=== PATIENT | male | born 1990 | race African-American/Black ===

== ENCOUNTER 2020-08-20 20:07 | Emergency (ER) | payer OTHER, SELFPAY ==
[2020-08-20 20:17] VITALS: BP 122/87; PULSE 90; RESP 18; TEMP 35.5; O2SAT 98; BMI 30.4
--- NOTE | 2020-08-20 22:23 | ED_ITS ---
HPI - URI/Sore Throat General Chief Complaint: General Medical Stated Complaint: SINUS Time Seen by Provider: 08/20/20 22:22 Source: patient Mode of arrival: ambulatory Limitations: no limitations History of Present Illness HPI Narrative: patient complaining sinus congestion for last 2 days no fever or cough or shortness of breath Related Data Previous Rx's Medication Instructions Recorded amoxicillin 500 mg PO QID #20 cap 08/20/20 amoxicillin 500 mg PO QID #40 cap 08/20/20 Allergies Allergy/AdvReac Type Severity Reaction Status Date / Time lorazepam [From Ativan] Allergy Unknown Verified 08/20/20 22:26 Review of Systems Review of Systems: REVIEW OF SYSTEMS: Pertinent positives and negatives are stated above in the history. GEN: no fevers, chills, fatigue HEENT: no sore throat, ear pain NEURO: no headache, dizziness, focal weakness PULM: no cough, shortness of breath CV: no chest pain, palpitations, LE edema ABD: no abdominal pain, nausea, vomiting, diarrhea : no dysuria, urgency, frequency SKIN: no rash ROS otherwise negative x 10 [facility] Past Medical History Medical History Acquired cognitive dysfunction Seizure disorder Social History Social History Alcohol intake: never Smoked in Last 30 Days: No Use of substances other than those prescribed or required for medical reasons: No Advance Directives: No Advance Directives Information Provided: Yes Physical Exam Vital Signs and I&O and Narrative: Vital Signs and I&O: Vital Signs Temp 95.9 F L 08/20/20 20:17 Pulse 90 08/20/20 20:17 Resp 18 08/20/20 20:17 BP 122/87 08/20/20 20:17 Pulse Ox 98 08/20/20 20:17 Intake & Output 08/20/20 08/20/20 08/21/20 06:59 18:59 06:59 Weight 68.492 kg Body Mass Index 30.4 Appearance: Alert. Oriented X3. No acute distress. Eyes: Pupils equal, round and reactive to light. ENT: Pharynx normal nasal turbinate with inflammation and clear discharge slight maxillary tenderness bilateral Neck: Normal inspection. Neck supple. CVS: Normal heart rate and rhythm. Pulses normal. Respiratory: No respiratory distress. Breath sounds normal. Abdomen: Soft and nontender. Skin: Skin warm and dry. Normal skin color. Normal skin turgor. Extremities: No lower extremity edema. No lower extremity edema. Neuro: Oriented X 3. No motor deficit. No sensory deficit. Course Course Course Narrative: patient with mild sinusitis lungs are clear afebrile will discharge him on amoxicillin no family member is sick with COVID infection Discharge Plan Discharge Clinical Impression: Sinusitis Patient Disposition: Home, Self-Care Instructions: Sinusitis (ED) Additional Instructions: take antibiotic as prescribed autumn antibi?ticos seg?n lo prescrito Prescriptions: New amoxicillin 500 mg capsule 500 mg PO QID Qty: 20 RF: 0 amoxicillin 500 mg capsule 500 mg PO QID Qty: 40 RF: 0 Interventions: ED Discharge Assessment Last Done: 08/20/20 23:12 Discharge Date/Time: 08/20/20 22:45 Print Language: Grenadian
[2020-08-20] MEDS: Amoxicillin 500 MG CAPSULE PO (22:41)
== END 2020-08-20 22:45 | disposition home or self-care (01) ==
PROVIDERS: Emergency Provider Internal Medicine; PCP Internal Medicine
DX: J01.90 Acute sinusitis, unspecified (principal)
CPT/HCPCS: 99283; 99284

== ENCOUNTER 2020-09-30 18:26 | Emergency (ER) | payer OTHER, SELFPAY ==
--- NOTE | 2020-09-30 19:45 | ED.URI ---
HPI - URI/Sore Throat General Chief Complaint: Upper Respiratory Symptoms Stated Complaint: flu like Time Seen by Provider: 09/30/20 19:44 Source: patient Mode of arrival: ambulatory Limitations: language barrier History of Present Illness HPI Narrative: 30 y/o male with history of seizures, cognitive delay, recent sinusitis who presents with body aches and sore throat for the last 6-7 days. No known sick contacts. No one at home is ill. Mother reports he his still having yellow nasal discharge and congestion. He has sinus pressure and pain. No fever or chill at home. Related Data Previous Rx's Medication Instructions Recorded amoxicillin 500 mg PO QID #20 cap 08/20/20 amoxicillin 500 mg PO QID #40 cap 08/20/20 amoxicillin-pot clavulanate 1 tab PO Q12H #20 tab 09/30/20 [Augmentin] triamcinolone acetonide [Nasacort] 1 spray INTRANASAL DAILY #16.9 ml 09/30/20 Allergies Allergy/AdvReac Type Severity Reaction Status Date / Time lorazepam [From Ativan] Allergy Unknown Verified 08/20/20 22:26 Review of Systems Review of Systems: Constitutional: No Fever, No Chills ENT/Mouth: + sore throat, + Rhinorrhea, + Swallowing Difficulty Eyes: No Eye Pain, No Swelling, No Redness Cardiovascular: No Chest Pain, No SOB, No Orthopnea, No Edema Respiratory: + Cough, No Sputum, No Wheezing, No dyspnea Gastrointestinal: No Nausea, No Vomiting, No Diarrhea, No abdominal Pain Musculoskeletal: No joint pain, + Myalgias Neuro: No Weakness, No Numbness, No Dizziness, + Headache PMFSH Past Medical History Attestation statement: The following information was validated with the patient. Medical History Acquired cognitive dysfunction Seizure disorder Social History Social History Alcohol intake: never Advance Directives: No Advance Directives Information Provided: No Physical Exam Vital Signs: Vital Signs: Last Vital Signs Temp 98.4 F 09/30/20 19:49 Pulse 93 09/30/20 19:49 Resp 18 09/30/20 19:49 BP 118/68 09/30/20 19:49 Pulse Ox 98 09/30/20 19:49 Body Mass Index 25.7 Appearance: Alert. No acute distress. Eyes: Pupils equal, round and reactive to light. ENT: tonsillar enlargement without erythema or exudates. frontal sinus tenderness. yellow nasal discharge Neck: Normal inspection. Neck supple. CVS: Normal heart rate and rhythm. Pulses normal. Respiratory: No respiratory distress. Breath sounds normal. Skin: Skin warm and dry. Normal skin color. Normal skin turgor. No rashes. Extremities: No lower extremity edema. Neuro: Oriented X 3. congitive delay Course Course Course Narrative: 30 y/o presenting with headache, sore throat, body ache and yellow nasal discharge. Strep test negative. COVID, Flu and RSV negative as well. He is afebrile and non-toxic appearing. Will treat for recurrent sinusitis. Stable for discharge. MDM - URI/Sore Throat Lab Data Labs: Lab Results 09/30/20 Range/Units 20:23 Coronavirus (PCR) NEGATIVE (Negative) Influenza Type A (PCR) NEGATIVE (Negative) Influenza Type B (PCR) NEGATIVE (Negative) RSV RNA Qual (PCR) NEGATIVE (Negative) Critical Care Time Critical Care Time Critical Care Time: No Discharge Plan Discharge Clinical Impression: Sinusitis Qualifiers: Sinusitis location: frontal Chronicity: acute Recurrence: recurrent Qualified Code(s): J01.11 - Acute recurrent frontal sinusitis Patient Disposition: Home, Self-Care Instructions: Rhinosinusitis (ED) Prescriptions: New amoxicillin-pot clavulanate [Augmentin] 875-125 mg tablet 1 tab PO Q12H Qty: 20 RF: 0 triamcinolone acetonide [Nasacort] 55 mcg aerosol,spray 1 spray intranasal DAILY Qty: 16.9 RF: 0 No Action amoxicillin 500 mg capsule 500 mg PO QID Qty: 20 RF: 0 amoxicillin 500 mg capsule 500 mg PO QID Qty: 40 RF: 0
[2020-09-30 19:49] VITALS: BP 118/68; PULSE 93; RESP 18; TEMP 36.9; O2SAT 98; BMI 25.7
[2020-09-30 21:10] LABS: Influenza A PCR NEGATIVE (Negative); Influenza B PCR NEGATIVE (Negative); Resp Syncy Virus RNA Qual PCR NEGATIVE (Negative); SARS COV2 PCR INHOUSE NEGATIVE (Negative)
== END 2020-09-30 22:09 | disposition home or self-care (01) ==
PROVIDERS: Physician Assistant; Emergency Provider Internal Medicine; PCP Internal Medicine
DX: J01.11 Acute recurrent frontal sinusitis (principal); M79.10 Myalgia, unspecified site; Z79.899 Other long term (current) drug therapy; Z20.828 Contact with and (suspected) exposure to other viral communicable diseases
CPT/HCPCS: 0241U; 87071; 87147; 87880; 99283

== ENCOUNTER 2020-10-01 10:51 | Emergency (ER) | payer OTHER, SELFPAY ==
[2020-10-01 11:25] VITALS: PULSE 99; RESP 18; TEMP 36.9; O2SAT 98; BMI 26.7
--- NOTE | 2020-10-01 12:16 | ED.GENADULT ---
HPI - General Adult General Chief complaint: General Medical <JUANCARLOS Bhat Last Filed: 10/01/20 16:26> Stated complaint: BODY PAIN <JUANCARLOS Bhat Last Filed: 10/01/20 16:26> Time Seen by Provider: 10/01/20 12:16 <JUANCARLOS Bhat Last Filed: 10/01/20 16:26> History of Present Illness HPI narrative: Patient is here for body aches and sore throat and feeling fatigued, this is been going on for 3 days and he was here yesterday and felt some improvement with Motrin but has not taken the Motrin again, he is able to tolerate liquids and solids he has no chest pain no shortness of breath no abdominal pain no fever no vomiting no known diarrhea This is gone on for 3 days and symptoms are mild <JUANCARLOS Bhat Last Filed: 10/01/20 16:26> Related Data Home medications: Previous Rx's Medication Instructions Recorded amoxicillin 500 mg PO QID #20 cap 08/20/20 amoxicillin 500 mg PO QID #40 cap 08/20/20 amoxicillin-pot clavulanate 1 tab PO Q12H #20 tab 09/30/20 [Augmentin] triamcinolone acetonide [Nasacort] 1 spray INTRANASAL DAILY #16.9 ml 09/30/20 ibuprofen 600 mg PO Q6H PRN #20 tab 10/01/20 <JUANCARLOS Bhat Last Filed: 10/01/20 16:26> Allergies/adverse reactions: Allergies Allergy/AdvReac Type Severity Reaction Status Date / Time lorazepam [From Ativan] Allergy Unknown Verified 08/20/20 22:26 <JUANCARLOS Bhat Last Filed: 10/01/20 16:26> Review of Systems Review of Systems: Review of systems is positive for sore throat, body aches There is no headache there is no fever or chills there is no weakness there is no chest pain no shortness of breath no palpitations, there is no abdominal pain no problem with urination, no pain with urination, no nausea vomiting or diarrhea, there is no skin rash, there is no leg swelling <JUANCARLOS Bhat Last Filed: 10/01/20 16:26> [facility] Past Medical History Source: nursing notes reviewed <JUANCARLOS Bhat Last Filed: 10/01/20 16:26> Medical History: Medical History Acquired cognitive dysfunction Seizure disorder <JUANCARLOS Bhat - Last Filed: 10/01/20 16:26> Social History Social History: Social History Alcohol intake: never Advance Directives: No Advance Directives Information Provided: Yes <JUANCARLOS Bhat - Last Filed: 10/01/20 16:26> Physical Exam Vital Signs: Vital Signs: Last Vital Signs Temp 98.4 F 10/01/20 11:25 Pulse 99 10/01/20 11:25 Resp 18 10/01/20 11:25 Pulse Ox 98 10/01/20 11:25 Body Mass Index 26.7 <JUANCARLOS Bhat - Last Filed: 10/01/20 16:26> Vital Signs: Last Vital Signs Temp 98.4 F 10/01/20 11:25 Pulse 99 10/01/20 11:25 Resp 18 10/01/20 11:25 Pulse Ox 98 10/01/20 11:25 Body Mass Index 26.7 <Panfilo Woodall MD - Last Filed: 10/07/20 07:32> Patient is A&O x3 comfortable and cooperative The eyes are clear with no redness or discharge The pharynx is mildly erythematous, with symmetrical bilateral enlarged tonsils, no exudate, uvula is midline, voice is normal, no drooling This neck is supple without adenopathy Chest clear to auscultation bilaterally The heart no murmur The abdomen is soft nontender The skin no rash Neuro no focal deficit <JUANCARLOS Bhat - Last Filed: 10/01/20 16:26> Course Course Course Narrative: Patient is treated for discomfort but is otherwise well-appearing and is discharged home with 1 dose of prednisone for his throat and Motrin for the body aches COVID was negative yesterday and patient was prescribed amoxicillin for pharyngitis yesterday <JUANCARLOS Bhat - Last Filed: 10/01/20 16:26> I have reviewed the chart <Panfilo Woodall MD - Last Filed: 10/07/20 07:32> Discharge Plan Discharge Clinical Impression: Acute viral syndrome <JUANCARLOS Bhat Last Filed: 10/01/20 16:26> Patient Disposition: Home, Self-Care <JUANCARLOS Bhat Last Filed: 10/01/20 16:26> Additional Instructions: We gave a dose of prednisone here in the emergency room which often relieves discomfort from sore throat pain At home take Motrin and Tylenol as needed for the body aches Drink plenty of fluids Return any time any worse condition or any concerns COVID test from yesterday and rapid strep test are both negative <JUANCARLOS Bhat Last Filed: 10/01/20 16:26> Prescriptions: New ibuprofen 600 mg tablet 600 mg PO Q6H PRN (Reason: fever or pain) Qty: 20 RF: 0 No Action amoxicillin-pot clavulanate [Augmentin] 875-125 mg tablet 1 tab PO Q12H Qty: 20 RF: 0 triamcinolone acetonide [Nasacort] 55 mcg aerosol,spray 1 spray intranasal DAILY Qty: 16.9 RF: 0 amoxicillin 500 mg capsule 500 mg PO QID Qty: 20 RF: 0 amoxicillin 500 mg capsule 500 mg PO QID Qty: 40 RF: 0 <JUANCARLOS Bhat - Last Filed: 10/01/20 16:26> Interventions: ED Discharge Assessment Last Done: 10/01/20 12:46 <JUANCARLOS Bhat Last Filed: 10/01/20 16:26> Discharge Date/Time: 10/01/20 12:47 <JUANCARLOS Bhat Last Filed: 10/01/20 16:26> Print Language: [place] Citizen <JUANCARLOS Bhat Last Filed: 10/01/20 16:26>
[2020-10-01] MEDS: Ibuprofen 600 MG TABLET PO (12:38)
[2020-10-01] MEDS: predniSONE 20 MG TABLET 60 MG PO (12:38)
== END 2020-10-01 12:47 | disposition home or self-care (01) ==
PROVIDERS: Emergency Provider Emergency Medicine
DX: B34.9 Viral infection, unspecified (principal); M79.10 Myalgia, unspecified site; Z79.899 Other long term (current) drug therapy
CPT/HCPCS: 99283

== ENCOUNTER 2020-10-29 17:41 | Emergency (ER) | payer OTHER, SELFPAY ==
--- NOTE | 2020-10-29 | XR_ITS ---
EXAMINATION: XR CHEST CLINICAL INFORMATION: Question aspiration COMPARISON: None TECHNIQUE: 2 views of the chest were obtained. FINDINGS: Cardiac silhouette is normal in size. Lungs are well aerated. There is no lobar consolidation. No pleural effusion or pneumothorax. No acute osseous abnormality. XR/XR chest 2V IMPRESSION: No acute pulmonary pathology.
[2020-10-29 17:47] VITALS: BP 100/64; PULSE 99; RESP 18; TEMP 37.1; O2SAT 95; BMI 30.4
--- NOTE | 2020-10-29 17:59 | PC.NURSE ---
per mother, she only wants pt to have xray, thinks he aspirated during pesudo seizure today. order placed.
--- NOTE | 2020-10-29 18:15 | PC.NURSE ---
PT ALERT, AMBULATORY WITH STEADY GAIT. NO RESP DISTRESS. PT HAS MOM AT BESIDE SHE IS HIS GUARDIAN. PER MOM PT HAD A SEIZURE LAST NIGHT WHICH WAS NORMAL FOR PT BUT HE VOMITED AFTER THE SEIZURE AND ALSO HIT HIS HEAD SMALL BUMP TO TOP OF HEAD TO RIGHT SIDE. MOM STATES THAT THEY ARE FLYING TOMORROW TO [place] AND WANT TO KNOW HE IS SAFE TO FLY.
--- NOTE | 2020-10-29 18:22 | ED_ITS ---
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 Mother reports he vomited during the episode and she was concerned that he possibly aspirated some vomitus. She states he has frequent seizures despite being on Keppra, Vimpat and Lamictal. She states his seizures are pseudoseizures but he has not had his [place] [facility] with his Neurologist at [facility]. She denies post ictal state after the episode today. No fever, chills, cough, urinary symptoms. He has persistent sinusitis and has not taken the prescribed antibiotics from his previous visit here on 10/01. Patient denies cough, SOB, wheezing, or difficulty breathing after the possible aspiration event. Related Data Previous Rx's Medication Instructions Recorded amoxicillin 500 mg PO QID #20 cap 08/20/20 amoxicillin 500 mg PO QID #40 cap 08/20/20 amoxicillin-pot clavulanate 1 tab PO Q12H #20 tab 09/30/20 [Augmentin] triamcinolone acetonide [Nasacort] 1 spray INTRANASAL DAILY #16.9 ml 09/30/20 ibuprofen 600 mg PO Q6H PRN #20 tab 10/01/20 Allergies Allergy/AdvReac Type Severity Reaction Status Date / Time lorazepam [From Ativan] Allergy Unknown Verified 08/20/20 22:26 Review of Systems Review of Systems: Constitutional: No Fever, No Chills ENT/Mouth: No sore throat, No Rhinorrhea, No Swallowing Difficulty Eyes: No Eye Pain, No Swelling, No Redness Cardiovascular: No Chest Pain, No SOB, No Orthopnea, No Edema Respiratory: No Cough, No Sputum, No Wheezing, No dyspnea Gastrointestinal: No Nausea, No Vomiting, No Diarrhea, No abdominal Pain, No Hematochezia, No Melena Genitourinary: No Dysuria, No Urinary Frequency, No Hematuria Musculoskeletal: No joint pain, No Myalgias Skin: No Skin Lesions, No rash Neuro: No Weakness, No Numbness, No Dizziness, No Headache, +Seizures Psych: No Anxiety/Panic, No Depression Heme/Lymph: No Bruising, No Lymphadenopathy Endocrine: No Polyuria, No Polydipsia PMFSH Past Medical History Medical History Acquired cognitive dysfunction Seizure disorder Social History Social History Alcohol intake: never Smoked in Last 30 Days: No Advance Directives: No Advance Directives Information Provided: Yes Physical Exam Vital Signs: Vital Signs: Last Vital Signs Temp 98.7 F 10/29/20 17:47 Pulse 99 10/29/20 17:47 Resp 18 10/29/20 17:47 BP 100/64 10/29/20 17:47 Pulse Ox 95 10/29/20 17:47 Body Mass Index 30.4 Appearance: Alert. Oriented X3. No acute distress. Eyes: Pupils equal, round and reactive to light. ENT: Pharynx normal. Neck: Normal inspection. Neck supple. CVS: Normal heart rate and rhythm. Pulses normal. Respiratory: No respiratory distress. Breath sounds normal. Abdomen: Soft and nontender. +BS x4 Skin: Skin warm and dry. Normal skin color. Normal skin turgor. No rashes. Extremities: No lower extremity edema. Neuro: Oriented X 3. No motor deficit. No sensory deficit. Cognitive delay noted. Course Course Course Narrative: 30 y/o male presenting with vomiting episode after pseudoseizure event today. Mother would like him evaluated prior to leaving for [place] tomorrow morning. On arrival he is saturating 95% on RA, no difficulty breathing or SOB. CXR performed. Reevaluation(s) Reevaluation #1: CXR reviewed - no local consolidation seen. SpO2 97% and lung sounds are clear. Mother educated on aspiration pneumonitis vs aspiration pneumonia and signs and symptoms to look for while in [place]. Stable for d/c. Plan to continue to take previously prescribed Augmentin. Critical Care Time Critical Care Time Critical Care Time: No Discharge Plan Discharge Clinical Impression: Aspiration pneumonitis Patient Disposition: Home, Self-Care Instructions: Pneumonitis (ED), Aspiration Precautions (ED) Additional Instructions: Chest x-ray today did not show any evidence of pneumonia. After an aspiration event, it can take a few days for a pneumonia to develop. Recommend start taking the previously prescribed Augmentin to help prevent pneumonia. Monitor for fever, cough, respiratory distress and difficulty breathing. Seek medical attention if he develops these symptoms. Recommend follow up with Neurologist for further evaluation of ongoing seizures. Prescriptions: No Action amoxicillin-pot clavulanate [Augmentin] 875-125 mg tablet 1 tab PO Q12H Qty: 20 RF: 0 triamcinolone acetonide [Nasacort] 55 mcg aerosol,spray 1 spray intranasal DAILY Qty: 16.9 RF: 0 ibuprofen 600 mg tablet 600 mg PO Q6H PRN (Reason: fever or pain) Qty: 20 RF: 0 amoxicillin 500 mg capsule 500 mg PO QID Qty: 20 RF: 0 amoxicillin 500 mg capsule 500 mg PO QID Qty: 40 RF: 0 Referrals: Fernando Grande MD [Physician] - 1 week (seizure vs pseudoseizures ) Print Language: Egyptian
== END 2020-10-29 19:02 | disposition home or self-care (01) ==
PROVIDERS: Emergency Provider Internal Medicine
DX: J69.0 Pneumonitis due to inhalation of food and vomit (principal); Z79.899 Other long term (current) drug therapy
CPT/HCPCS: 71046; 99283; 99284

== ENCOUNTER 2020-12-16 12:55 | Emergency (ER) | payer OTHER, SELFPAY | END 2020-12-16 13:54 | disposition left against medical advice (07) | PROVIDERS: Emergency Provider Emergency Medicine | DX: Z20.822 Contact with and (suspected) exposure to COVID-19 (principal) ==

== ENCOUNTER 2021-02-18 18:14 | Emergency (ER) | payer OTHER, SELFPAY | END 2021-02-18 19:36 | disposition left against medical advice (07) | PROVIDERS: Emergency Provider Emergency Medicine | DX: M79.603 Pain in arm, unspecified (principal) ==

== ENCOUNTER 2021-03-06 21:39 | Emergency (ER) | payer OTHER, SELFPAY ==
[2021-03-06 21:49] VITALS: BP 130/68; PULSE 92; RESP 16; TEMP 36.6; O2SAT 98; BMI 30.4
--- NOTE | 2021-03-06 22:35 | PC.NURSE ---
FAMILY MEMBER WAS ASKING HOW LONG IT IS GOING TO BE BECAUSE THEY HAVE TO FLY TONIGHT. THIS NURSE TOLD FAMILY MEMBER THAT IT COULD TAKE A WHILE BUT THAT I WOULD LET THE PROVIDER KNOW. CITLALY HEREDIA AWARE.
--- NOTE | 2021-03-06 22:46 | PC.NURSE ---
FAMILY MEMBER ASKING TO RIG HAND BECAUSE THEY HAVE TO LEAVE TO CATCH A FLIGHT IN [place] AT 2AM. VIVEK [employer]LE[employer] NURSE TALKING WITH FAMILY MEMBER.
[2021-03-06] MEDS: Lidocaine 4 % Patch ADH..PATCH 1 PATCH TRANSDERMA (23:11)
--- NOTE | 2021-03-06 23:11 | ED.EXTPRO ---
HPI - Extremity Problem General Chief complaint: Extremity Injury, Upper Stated complaint: Shoulder pain Time Seen by Provider: 03/06/21 22:56 Source: patient and family (Mother) Mode of arrival: ambulatory History of Present Illness HPI Narrative: Mother brings in 30-year-old male with significant behavioral developmental challenges with stated complaint of left-sided shoulder pain for over 1 month with multiple visits in the ER as well as multiple x-rays of the left shoulder without any acute findings. Mom states that her son has received ibuprofen and tramadol without significant improvement in his pain profile. She states that they are flying out this evening and that he was refusing to get on the plane. Other than that, mother denies any other acute injuries to the left upper extremity/shoulder. Related Data Previous Rx's Medication Instructions Recorded amoxicillin 500 mg PO QID #20 cap 08/20/20 amoxicillin 500 mg PO QID #40 cap 08/20/20 amoxicillin-pot clavulanate 1 tab PO Q12H #20 tab 09/30/20 [Augmentin] triamcinolone acetonide [Nasacort] 1 spray INTRANASAL DAILY #16.9 ml 09/30/20 ibuprofen 600 mg PO Q6H PRN #20 tab 10/01/20 Allergies Allergy/AdvReac Type Severity Reaction Status Date / Time lorazepam [From Ativan] Allergy Unknown Verified 03/06/21 22:25 Review of Systems Review of Systems: Pertinent positives and negatives as stated in HPI 10 point review of systems is otherwise negative. PMFSH Past Medical History Source: nursing notes reviewed Medical History Acquired cognitive dysfunction Seizure disorder Social History Social History Alcohol intake: never Advance Directives: No Physical Exam Vital Signs: Vital Signs: Last Vital Signs Temp 98 F 03/06/21 21:49 Pulse 92 03/06/21 21:49 Resp 16 03/06/21 21:49 BP 130/68 03/06/21 21:49 Pulse Ox 98 03/06/21 21:49 Body Mass Index 30.4 VITAL SIGNS: Reviewed. GENERAL: Well developed, well nourished, in no acute distress. HEAD: Normocephalic/atraumatic EYES: PERRLA, EOMI OROPHARYNX: no oral lesions noted, posterior pharynx clear NECK: Supple, no adenopathy LUNGS: Normal breath sounds. SpO2<98> CARDIOVASCULAR: Regular rate and rhythm without noted murmurs ABDOMEN: Soft, non-tender, non-distended with bowel sounds. LEFT UPPER EXTREMITY/SHOULDER: No noted deformity at the left shoulder but mild complaint of tenderness on palpation over the bicipital groove with negative provocative shoulder testing. Capillary refill is less than 3 seconds and the left upper extremity is otherwise neurovascularly intact. There is noted full range of motion. NEUROLOGIC: Alert and oriented x 4. Course Course Course Narrative: 30-year-old male with history and clinical presentation consistent with chronic left shoulder pain and cannot rule out the possibility of soft tissue or ligamentous injury and discussed with the mother the next step for evaluation either through sports medicine for Orthopedics. Although there are no acute findings on physical exam patient was offered a lidocaine patch that he accepted and then on assessment for left shoulder imaging neither the patient nor his mother were noted to be in the room. I was then informed that patient had eloped. Discharge Plan Discharge Clinical Impression: Chronic left shoulder pain Patient Disposition: Elopement Prescriptions: No Action amoxicillin-pot clavulanate [Augmentin] 875-125 mg tablet 1 tab PO Q12H Qty: 20 RF: 0 triamcinolone acetonide [Nasacort] 55 mcg aerosol,spray 1 spray intranasal DAILY Qty: 16.9 RF: 0 ibuprofen 600 mg tablet 600 mg PO Q6H PRN (Reason: fever or pain) Qty: 20 RF: 0 amoxicillin 500 mg capsule 500 mg PO QID Qty: 20 RF: 0 amoxicillin 500 mg capsule 500 mg PO QID Qty: 40 RF: 0
--- NOTE | 2021-03-06 23:20 | PC.NURSE ---
MOTHER REFUSED XRAY. STATED I TOLD THE DOCTOR THAT I DID NOT WANT ONE. AWARE.
== END 2021-03-06 23:30 | disposition left against medical advice (07) ==
PROVIDERS: Emergency Provider Student in an Organized Health Care Education/Training Program; PCP Internal Medicine
DX: M25.512 Pain in left shoulder (principal); Z79.899 Other long term (current) drug therapy
CPT/HCPCS: 99283; 99284

== ENCOUNTER 2021-04-08 19:52 | Emergency (ER) | payer OTHER, SELFPAY ==
[2021-04-08 20:21] VITALS: BP 122/70; PULSE 100; RESP 18; TEMP 36.8; O2SAT 96
[2021-04-08 20:32] VITALS: RESP 18; BMI 30.4
[2021-04-08 20:48] VITALS: BP 117/67; PULSE 90; RESP 16; TEMP 37.2; O2SAT 96
[2021-04-08 20:50] LABS: Glucose, Whole Blood 128 mg/dL (60-115)
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
[2021-04-08] MEDS: Diphth,Pertus(ACell),Tet Adult 0.5 ML SYRINGE IM (22:18)
[2021-04-08] MEDS: Acetaminophen 325 MG TABLET 975 MG PO (22:18)
[2021-04-08] MEDS: Bacitracin Oint 14 GM TUBE 1 APPL TOPICAL (22:19)
== END 2021-04-08 22:25 | disposition home or self-care (01) ==
PROVIDERS: Emergency Provider Student in an Organized Health Care Education/Training Program; PCP Internal Medicine
DX: S61.511A Laceration without foreign body of right wrist, initial encounter (principal); X78.1XXA Intentional self-harm by knife, initial encounter; G31.84 Mild cognitive impairment of uncertain or unknown etiology; Y93.9 Activity, unspecified; Y92.009 Unspecified place in unspecified non-institutional (private) residence as the place of occurrence of the external cause; Y99.9 Unspecified external cause status
CPT/HCPCS: 82947; 90471; 90715; 99284

== ENCOUNTER 2021-04-25 01:13 | Emergency (ER) | payer OTHER, SELFPAY ==
--- NOTE | ~2021-04-25 | XR_ITS ---
EXAMINATION: XR HAND, RIGHT CLINICAL INFORMATION: Rule out foreign body glass COMPARISON: None TECHNIQUE: PA, lateral, and oblique views of the right hand. FINDINGS: No radiopaque foreign body is seen. Osseous alignment is anatomic. No fracture identified. XR/XR hand RT min 3V IMPRESSION: No radiopaque foreign body identified.
[2021-04-25 02:24] VITALS: BP 131/75; PULSE 100; RESP 16; TEMP 36.8; O2SAT 96; BMI 30.2
== END 2021-04-25 04:27 | disposition left against medical advice (07) ==
PROVIDERS: Emergency Provider Emergency Medicine
DX: S61.411A Laceration without foreign body of right hand, initial encounter (principal); X78.0XXA Intentional self-harm by sharp glass, initial encounter; Y93.89 Activity, other specified; Y92.019 Unspecified place in single-family (private) house as the place of occurrence of the external cause; Y99.9 Unspecified external cause status
CPT/HCPCS: 73130; 99282; 99283

== ENCOUNTER 2021-07-16 21:41 | Emergency (ER) | payer OTHER, SELFPAY ==
[2021-07-16 21:44] VITALS: BP 111/57; PULSE 94; RESP 16; TEMP 36.6; O2SAT 98; BMI 31.7
--- NOTE | 2021-07-16 22:13 | ED_ITS ---
HPI - General Adult General Chief complaint: Skin/Abscess/Foreign Body Stated complaint: Penis inj Time Seen by Provider: 07/16/21 21:55 Source: patient and family (Mother) Mode of arrival: ambulatory Limitations: no limitations History of Present Illness HPI narrative: This is a 30 years old male with cognitive delays brought in by his mother for concern of penile scratches. Patient was masturbating inflamed because this is long nails he scratches his penis. Related Data Previous Rx's Medication Instructions Recorded amoxicillin 500 mg capsule 500 mg PO QID #20 cap 08/20/20 amoxicillin 500 mg capsule 500 mg PO QID #40 cap 08/20/20 amoxicillin 875 mg-potassium 1 tab PO Q12H #20 tab 09/30/20 clavulanate 125 mg tablet (Augmentin) triamcinolone acetonide 55 mcg 1 spray INTRANASAL DAILY #16.9 ml 09/30/20 nasal spray aerosol (Nasacort) ibuprofen 600 mg tablet 600 mg PO Q6H PRN #20 tab 10/01/20 acetaminophen 500 mg capsule 1,000 mg PO Q6H PRN #60 cap 04/08/21 Allergies Allergy/AdvReac Type Severity Reaction Status Date / Time lorazepam [From Ativan] Allergy Unknown Unknown Verified 05/13/21 21:06 Review of Systems Review of Systems: All other systems are reviewed and are negative Constitutional: Reports as per HPI and Reports no additional constitutional complaints Eyes: Reports as per HPI and Reports no additional eye complaints Reports system reviewed and no additional complaints, except as documented Cardiovascular: Reports as per HPI and Reports no additional cardiovascular complaints Respiratory: Reports as per HPI and Reports no additional respiratory complaints Gastrointestinal: Reports as per HPI and Reports no additional gastrointestinal complaints Genitourinary: Reports no additional female genitourinary complaints Musculoskeletal: Reports no additional musculoskeletal complaints Skin/Breast: Reports system reviewed and no additional complaints, except as docu Psychiatric: Reports no additional psychiatric complaints Endocrine: Reports no additional endocrine complaints Hematologic/Lymphatic: Reports no additional hematologic/lymphatic complaints Allergic/Immunologic: Reports no additional allergic/immunologic complaints Reports system reviewed and no additional complaints, except as documented and Reports Abnormal speech present [facility] Past Medical History Medical History Acquired cognitive dysfunction Seizure disorder Social History Social History Alcohol intake: never Advance Directives: No Advance Directives Information Provided: No Physical Exam Vital Signs: Vital Signs: Last Vital Signs Temp 98 F 07/16/21 21:44 Pulse 94 07/16/21 21:44 Resp 16 07/16/21 21:44 BP 111/57 L 07/16/21 21:44 Pulse Ox 98 07/16/21 21:44 Body Mass Index 31.7 Vital signs have been reviewed as appeared to be correct. Blood pressure normal. Heart rate normal. Respiration rate normal. Temperature normal. Oxygen saturation normal. Appearance: Alert. No acute distress. Head: Normal external exam. Normocephalic. Atraumatic. No [place] signs noted. No raccoon eyes noted Eyes: PERRLA. EOMI. Conjunctiva and sclera normal. Eyelids normal. ENT: TM's Normal. Pharynx normal. Uvula midline. Moist mucous membranes. No trismus noted. No drooling noted. No muffled voice noted. Neck: Normal inspection. Neck supple. FROM. No adenopathy. Thyroid Normal. No meningeal signs. No neck mass noted. CVS: Normal heart rate and rhythm. Heart sound normal. No murmurs noted. Pulses normal throughout. Respiratory: No respiratory distress. Painless inspiration. Breath sounds normal. No wheezes/rales/rhonchi noted. Chest nontender. No accessory muscle usage noted or decreased air movement noted. Abdomen: Soft and nontender. Bowel sounds normal in all 4 quadrants. No distention noted. No organomegaly noted. No visible injury noted. exam: Uncircumcised, otherwise unremarkable inspection, intact cremasteric reflex, nontender scrotum or testicle with no swelling. Back: No CVA tenderness. Full range of motion noted. Skin: Skin warm and dry. Normal skin color. Normal skin turgor. No rashes/lesions/lacerations noted. Extremities: No lower extremity edema. Extremities exhibit normal range of motion. Extremities nontender. Neuro: Cranial nerve exam: II-XII are grossly intact No motor deficit. No sensory deficit. Reflexes normal. Course Course Course Narrative: A 30-year-old male with developmental delay came in with possible scratch in his penis while masturbating. Patient with normal exam will reassure and discharge. Discharge Plan Discharge Clinical Impression: Encounter for medical screening examination Patient Disposition: Home, Self-Care Instructions: Normal Exam (ED) Prescriptions: No Action amoxicillin-pot clavulanate [Augmentin] 875-125 mg tablet 1 tab PO Q12H Qty: 20 RF: 0 triamcinolone acetonide [Nasacort] 55 mcg aerosol,spray 1 spray intranasal DAILY Qty: 16.9 RF: 0 ibuprofen 600 mg tablet 600 mg PO Q6H PRN (Reason: fever or pain) Qty: 20 RF: 0 acetaminophen 500 mg capsule 1,000 mg PO Q6H PRN (Reason: pain) Qty: 60 RF: 0 amoxicillin 500 mg capsule 500 mg PO QID Qty: 20 RF: 0 amoxicillin 500 mg capsule 500 mg PO QID Qty: 40 RF: 0 Referrals: Louis Patel MD [Primary Care Provider] - 2 days
== END 2021-07-16 22:20 | disposition home or self-care (01) ==
PROVIDERS: Emergency Provider Emergency Medicine; PCP Internal Medicine
DX: Z03.89 Encounter for observation for other suspected diseases and conditions ruled out (principal)
CPT/HCPCS: 99283

== ENCOUNTER 2023-06-07 21:56 | Emergency (ER) | payer OTHER, SELFPAY ==
[2023-06-07 22:14] VITALS: BP 127/67; PULSE 91; RESP 18; TEMP 36; O2SAT 97; BMI 33.2
--- OUTSIDE RECORDS SUMMARY | 2023-06-08 02:26 | XMS_ITS | Continuity of Care Document ---
Author Name Unknown Organization [facility] Address [address] [place] [id number] Care Team Providers Care Staker Surveying Name Role Phone Louis Patel MD Primary Care Physician [phone] Encounter [facility] Date(s): 06/27/21 - 07/27/21 [facility] [address] [place] [id number] Attending Physician: Felipe Castillo MD Admitting Physician: Felipe Castillo MD Allergies, Adverse Reactions, Alerts Substance Reaction Severity Status NKA Active Immunizations Given and Recorded Vaccine Date Status Refusal Reason SARS-CoV-2 (COVID-19) mRNA BNT-162b2 vac 07/03/21 Given SARS-CoV-2 (COVID-19) mRNA BNT-162b2 vac 06/06/21 Given Medications Aerochamber See Instructions, # 1 each, Maintenance, Asthma icd 10: J45.90 Use: lifelong, 12/13/20 11:19:00 EST, Compound Start Date: 12/13/20 Status: Ordered albuterol 0.083% inhalation solution 3 mL = 2.5 mg, Inhalation, Every 6 hours, # 120 each, 6 Refills, Maintenance, 06/10/21 16:22:00 EDT, Solution, [id number], Partial fill upon patient request if the prescription is for a schedule II opioid drug., 151, cm, 06/10/21 16:07:00 EDT,... Start Date: 06/10/21 Status: Ordered albuterol CFC free 90 mcg/inh inhalation aerosol 2, puffs, Inhalation, Every 4 hours, PRN, # 1 each, Refills 11, Tot. Refills 11, Maintenance, 06/10/21 16:22:00 EDT, Aerosol, Route to Pharmacy Electronically, [id number], [facility][id number], 151, cm, 06/10/21 16:07:00 EDT, H... Start Date: 06/10/21 Stop Date: 06/05/22 Status: Ordered Ambien 5 mg oral tablet 1 tablet = 5 mg, By Mouth, Daily at bedtime, PRN as needed for insomnia, # 12 tablet, 0 Refills, Acute 06/29/22 14:54:00 EDT, 05/29/21 14:54:00 EDT, Tablet, [facility], Partial fill upon patient request if the prescription is for a schedule II... Start Date: 05/29/21 Stop Date: 06/29/22 Status: Ordered Bedside Commode Bedside Commode, See Instructions, # 1 each, Refills 0, Tot. 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 Start Date: 05/29/20 Status: Ordered clonazePAM 1 mg oral tablet See Instructions, 1 tablet By Mouth once a day in the morning, # 30 each, 5 Refills, Maintenance, 04/04/20 13:27:00 EDT, [facility]30 Start Date: 04/04/20 Status: Ordered clonazePAM 2 mg oral tablet 1 tablet = 2 mg, By Mouth, Daily at bedtime, # 30 tablet, 3 Refills, Maintenance, 04/04/20 13:25:00EDT, Tablet, [facility] Start Date: 04/04/20 Status: Ordered Guaiasorb DM 10 mg-100 mg/5 mL oral liquid 10 mL, By Mouth, Every 4 hours, # 240 mL, 0 Refills, Maintenance, 04/17/20 13:08:00 EDT, [facility], faroese label, 10 mL By Mouth Every 4 hours Start Date: 04/17/20 Status: Ordered Keppra 1000 mg oral tablet 1 tablet = 1,000 mg, By Mouth, 3 times a day, # 90 tablet, 0 Refills, Maintenance, 04/04/21 14:56:00 EDT, Tablet, [facility], 151, cm, 04/04/21 14:15:00 EDT, Height, 71.8, kg, 02/18/21 19:34:00 EDT, Dry Weight Start Date: 04/04/21 Status: Ordered lamotrigine 150 mg oral tablet 1 tablet = 150 mg, By Mouth, 2 times a day, # 60 tablet, 6 Refills, Maintenance, 04/04/21 14:56:00 EDT, Tablet, [facility], 151, cm, 04/04/21 14:15:00 EDT, Height, 71.8, kg, 02/18/21 19:34:00EDT, Dry Weight Start Date: 04/04/21 Status: Ordered metFORMIN 500 mg oral tablet, extended release 1 tablet = 500 mg, By Mouth, Daily, # 30 tablet, 4 Refills, Maintenance, 02/13/21 15:28:00 EDT, ER Tablet, [facility], Partial fill upon patient request if the prescription is for a schedule II opioid drug., 150, cm, 02/13/21 14:49:00 EDT, Hei... Start Date: 02/13/21 Status: Ordered mirtazapine 45 mg oral tablet 1 tablet = 45 mg, By Mouth, Daily at bedtime, # 30 tablet, 6 Refills, Maintenance, 04/04/20 13:23:00 EDT, Tablet, [facility] Start Date: 04/04/20 Status: Ordered omeprazole 20 mg oral enteric coated capsule 1 capsule = 20 mg, By Mouth, Daily, # 30 capsule, 2 Refills, Maintenance, 11/04/20 18:31:00 EST, ECCapsule, [facility], faroese label Start Date: 11/04/20 Status: Ordered pantoprazole 20 mg oral delayed release tablet 1 tablet = 20 mg, By Mouth, Daily, # 30 tablet, 2 Refills, Maintenance, 02/20/21 14:56:00 EDT, 151,cm, 02/18/21 19:34:00 EDT, Height, 71.8, kg, 02/18/21 19:34:00 EDT, Dry Weight Start Date: 02/20/21 Stop Date: 05/21/21 Status: Ordered Readi-Cat 2 oral suspension See Instructions, as per radiology 1 the day before one the morning of CT, # 2 pack/packet, 0 Refills, Maintenance, 02/20/21 14:54:00 EDT, [facility], Partial fill upon patient request if theprescription is for a schedule II opioid drug., as... Start Date: 02/20/21 Status: Ordered risperiDONE 4 mg oral tablet 1 tablet = 4 mg, By Mouth, Daily at bedtime, # 30 tablet, 6 Refills, Maintenance, 04/04/20 13:30:00EDT, Tablet, [facility] Start Date: 04/04/20 Stop Date: 10/31/20 Status: Ordered Vimpat 200 mg oral tablet 1 tablet = 200 mg, By Mouth, 2 times a day, # 60 tablet, 5 Refills, Maintenance, 04/04/21 14:56:00 EDT, Tablet, [facility], 151, cm, 04/04/21 14:15:00 EDT, Height, 71.8, kg, 02/18/21 19:34:00EDT, Dry Weight Start Date: 04/04/21 Status: Ordered Zofran 8 mg oral tablet 1 tablet = 8 mg, By Mouth, Daily, take with dinner every night (please label in Turkish), # 30 tablet, 1 Refills, Maintenance, 09/16/20 7:19:00 EST, Tablet, [facility] Start Date: 09/16/20 Status: Ordered Problem List Condition Effective Dates Status Health Status Inform ant Complex partial seizure(Confirmed) Active GERD (gastroesophageal reflu x disease)(Confirmed) Active Insomnia(Confirmed) Active Anxiety and depression(Confirmed) Active Prediabetes(Confirmed) Active Wayne-Silver syndrome, con genital hemihypertrophy(Confirmed) Active Social History Social History Type Response Smoking Status Never (less than 100 in lifetime) entered on: 04/04/20 Sex
--- OUTSIDE RECORDS SUMMARY | 2023-06-08 02:26 | XMS_ITS | Continuity of Care Document ---
Author Name Unknown Organization [facility] Address [address] [place] [address]- Care Team Providers Care Home Economist Consumer Service Name Role Phone Louis Patel MD Primary Care Physician [phone] Encounter [facility] Date(s): 08/21/21 - 09/20/21 [facility] [address] [place], [place] [address] [[email or web address]] Attending Physician: Merlin Barry Admitting Physician: AdmtrMerlin Referring Physician: Admtr, Ar8 Allergies, Adverse Reactions, Alerts Substance Reaction Severity [...] 16:22:00 EDT, Aerosol, Route to Pharmacy Electronically, [id number], [facility]/pharmacy #1130, 151, cm, 06/10/21 16:07:00 EDT, H... Start Date: 06/10/21 Stop Date: 06/05/22 Status: Ordered Ambien 5 mg oral tablet 1 tablet = 5 mg, By Mouth, Daily at bedtime, PRN as needed for insomnia, # 12 tablet, 0 Refills, Acute 06/29/22 14:54:00 EDT, 05/29/21 14:54:00 EDT, Tablet, [facility]/pharm[facility] #1130, Partial fill upon patient request if [...] each, 5 Refills, Maintenance, 04/04/20 13:27:00 EDT, [facility]/pharmacy #1130 Start Date: 04/04/20 Status: Ordered clonazePAM 2 mg oral tablet 1 tablet = 2 mg, By Mouth, Daily at bedtime, # 30 tablet, 3 Refills, Maintenance, 04/04/20 13:25:00EDT, Tablet, [facility]pharm[facility] #[facility]30 Start Date: 04/04/20 Status: Ordered Guaiasorb DM 10 mg-100 mg/5 mL oral liquid 10 mL, By Mouth, Every 4 hours, # 240 mL, 0 Refills, Maintenance, 04/17/20 13:08:00 EDT, [facility]/pharmacy #1130, qatari label, 10 mL By Mouth Every 4 hours Start Date: 04/17/20 Status: Ordered ipratropium nasal 21 mcg/inh spray 2 sprays, Nares, Both, 2 times a day, # 30 mL, 1 Refills, Maintenance, 09/02/21 14:32:00 EDT, Brady, [facility]/pharmacy #1130, Partial fill upon patient request if the prescription is for a schedule II opioid drug., 2 sprays Nares, Both 2 times a day, 151,... Start Date: 09/02/21 Status: Ordered Keppra 1000 mg oral tablet [...] 6 Refills, Maintenance, 04/04/21 14:56:00 EDT, Tablet, [facility]/pharm[facility] #1130, 151, cm, 04/04/21 14:15:00 EDT, Height, 71.8, kg, 02/18/21 19:34:00EDT, Dry Weight Start Date: 04/04/21 Status: Ordered metFORMIN 500 mg oral tablet, extended release 1 tablet = 500 mg, By Mouth, Daily, # 30 tablet, 4 Refills, Maintenance, 02/13/21 15:28:00 EDT, ER Tablet, [facility], Partial fill upon patient request [...] Maintenance, 11/04/20 18:31:00 EST, ECCapsule, [facility], qatari label Start Date: 11/04/20 Status: Ordered pantoprazole [...] pack/packet, 0 Refills, Maintenance, 02/20/21 14:54:00 EDT, [facility]/pharmacy #1130, Partial fill upon patient request if theprescription is for a schedule II opioid drug., as... Start Date: 02/20/21 Status: Ordered risperiDONE 4 mg oral tablet 1 tablet = 4 mg, By Mouth, Daily at bedtime, # 30 tablet, 6 Refills, Maintenance, 04/04/20 13:30:00EDT, Tablet, [facility]30 Start Date: 04/04/20 Stop Date: 10/31/20 Status: Ordered Vimpat 200 mg oral tablet 1 tablet = 200 mg, By Mouth, 2 times a day, # 60 tablet, 5 Refills, Maintenance, 04/04/21 14:56:00 EDT, Tablet, [facility]/pharmacy #[facility]30, 151, cm, 04/04/21 14:15:00 EDT, Height, 71.8, kg, 02/18/21 19:34:00EDT, Dry Weight Start Date: 04/04/21 Status: Ordered Zofran 8 mg oral tablet 1 tablet = 8 mg, By Mouth, Daily, take with dinner every night (please label in Romansh), # 30 tablet, 1 Refills, Maintenance, 09/16/20 [...]
--- OUTSIDE RECORDS SUMMARY | 2023-06-08 02:26 | XMS_ITS | Continuity of Care Document ---
Author Name Unknown Organization [facility] Address [address] [place] [address]- Care Team Providers Care Ward Aide Name Role Phone Jorge ARMENTA, Louis Altamirano Primary Care Physician [phone] Encounter [facility] [place] Date(s): 10/13/22 - 11/12/22 [facility] [address] [place] [address]- Attending Physician: Merlin Barry Admitting Physician: Merlin Barry Referring Physician: AdmtrMerlin Allergies, Adverse Reactions, Alerts No Known Allergies Immunizations Given and Recorded Vaccine Date Status Refusal Reason SARS-CoV-2 mRNA ([id number]) vax 01/19/22 Given SARS-CoV-2 (COVID-19) mRNA BNT-162b2 vac 1 07/03/21 Given SARS-CoV-2 (COVID-19) mRNA BNT-162b2 vac 06/06/21 Given Not Given Vaccine Date Status Refusal Reason tetanus/diphtheria/pertussis , acel(Tdap) 2 09/26/21 Not Given Parent Or Guardian R efuses 1? Unknown: Resend to [facility]. 2Result Comment: mom states pt has received in past 5 years Medications Adult Disposable Pull Ups - L Adult Disposable Pull Ups - L, See Instructions, # 180 each, Refills 11, Tot. Refills 11, Maintenance, Use Up To 3/Day Dx: Urine Incontinence (R32), Complex Partial Seizures (G40.209; Reduced Mobility (Z74.0) Duration: Lifetime, 10/14/22 11:36:00... Start Date: 10/14/22 Status: Ordered albuterol 0.083% inhalation solution 3 mL = 2.5 mg, Inhalation, Every 6 hours, # 120 each, 6 Refills, Maintenance, 06/10/21 16:22:00 EDT, Solution, [facility]/pharmacy #[id number], Partial fill upon patient request if the prescription is for a schedule II opioid drug., 151, cm, 06/10/21 16:07:00 EDT,... Start Date: 06/10/21 Status: Ordered albuterol CFC free 90 mcg/inh inhalation aerosol 2, puffs, Inhalation, Every 4 hours, PRN, # 1 each, Refills 11, Tot. Refills 11, Maintenance, 06/10/21 16:22:00 EDT, Aerosol, Route to Pharmacy Electronically, [id number], [facility]/pharmacy #[id number], 151, cm, 06/10/21 16:07:00 EDT, H... Start Date: 06/10/21 Stop Date: 06/05/22 Status: Ordered Bed Pads Bed Pads, See Instructions, # 180 each, Refills 11, Tot. Refills 11, Maintenance, Use Up To 3/Day Dx: Urine Incontinence (R32), Complex Partial Seizures (G40.209; Reduced Mobility (Z74.0) Duration: Lifetime, 04/20/22 15:52:00 EDT, Supply Start Date: 04/20/22 Status: Ordered clonazePAM 2 mg oral tablet 0 Refills, Maintenance, 10/06/22 7:20:00 EST, Partial fill upon patient request if the prescriptionis for a schedule II opioid drug. Start Date: 10/06/22 Status: Ordered diclofenac 1% topical gel 1 application, Topically, 4 times a day, # 100 Gm, 2 Refills, Maintenance, 05/28/22 17:00:00 EDT, Gel, [id number], Partial fill upon patient request if the prescription is for a schedule II opioid drug., 150, cm, 05/28/22 13:34:00 EDT, Height,... Start Date: 05/28/22 Status: Ordered escitalopram 10 mg oral tablet 0 Refills, Maintenance, 10/06/22 7:20:00 EST, Partial fill upon patient request if the prescriptionis for a schedule II opioid drug. Start Date: 10/06/22 Status: Ordered lamotrigine 150 mg oral tablet 1 tablet, By Mouth, 2 times a day, # 60 tablet, 5 Refills, Maintenance, 10/06/22 7:21:00 EST, [facility]/pharmacy #1130, 150, cm, 07/07/22 13:19:00 EDT, Height, 68.63, kg, 10/22/21 15:09:00 EST, Dry Weight Start Date: 10/06/22 Status: Ordered levETIRAcetam 1000 mg oral tablet 1 tablet, By Mouth, 3 times a day, # 90 tablet, 5 Refills, 10/06/22 7:22:00 EST, [facility]/pharmacy #1130, 150, cm, 07/07/22 13:19:00 EDT, Height, 68.63, kg, 10/22/21 15:09:00 EST, Dry Weight Start Date: 10/06/22 Status: Ordered mirtazapine 45 mg oral tablet 0 Refills, Maintenance, 10/06/22 7:20:00 EST, Partial fill upon patient request if the prescriptionis for a schedule II opioid drug. Start Date: 10/06/22 Status: Ordered montelukast 10 mg oral tablet 10 mg, 1, tablet, By Mouth, Daily, Label in Latvian, # 30 tablet, Refills 5, Tot. Refills 5, Maintenance, 10/13/22 15:15:00 EST, Route to Pharmacy Electronically, [facility]/pharmacy #[id number], Partial fill upon patient request if the prescription is for a sched... Start Date: 10/13/22 Status: Ordered pantoprazole 40 mg oral delayed release tablet 1 tablet = 40 mg, By Mouth, Daily, # 90 tablet, 0 Refills, Maintenance, 05/28/22 17:00:00 EDT, EC Tablet, 150, cm, 05/28/22 13:34:00 EDT, Height, 68.63, kg, 10/22/21 15:09:00 EST, Dry Weight Start Date: 05/28/22 Status: Ordered risperiDONE 3 mg oral tablet 3 mg, 1, tablet, Refills 0, Maintenance, 10/06/22 7:20:00 EST, Partial fill upon patient request ifthe prescription is for a schedule II opioid drug. Start Date: 10/06/22 Status: Ordered Trulicity Pen 0.75 mg/0.5 mL subcutaneous solution See Instructions, INJECT 1 PEN SUBCUTANEOUSLY ONCE WEEKLY, ROTATE INJECTION SITES, # 2 Unknown, 5 Refills, Maintenance, 08/23/22 14:25:00 EDT, [id number], 150, cm, 07/07/22 13:19:00 EDT, Height,68.63, kg, 10/22/21 15:09:00 EST, Dry Weight Start Date: 08/23/22 Status: Ordered Tylenol Extra Strength 500 mg oral tablet 2 tablet = 1,000 mg, By Mouth, 3 times a day, PRN for pain, # 540 tablet, 1 Refills, Maintenance, 07/07/22 13:48:00 EDT, Tablet, [facility]/pharmacy #1130, Partial fill upon patient request if the prescription is for a schedule II opioid drug., 150, cm, 06/16... Start Date: 07/07/22 Status: Ordered Vimpat 200 mg oral tablet 1 tablet = 200 mg, By Mouth, 2 times a day, Brand name medically necessary for seizure disorder, # 60 tablet, 5 Refills, Maintenance, 10/06/22 7:18:00 EST, Tablet, [facility]/pharmacy #1130, generic lacosamide preferred, 150, cm, 07/07/22 13:19:00 EDT, Heigh... Start Date: 10/06/22 Stop Date: 04/04/23 Status: Ordered Problem List Condition Confirmation Course Effective Dates Status H ealth Status Informant Complex partial seizure Confirmed Active Diabetes mellitus Confirmed Active Foot pain, left Confirmed Active GERD (gastroesophageal reflux disease) Confirmed Active Insomnia Confirmed Active Anxiety and depression Confirmed Active Obese class I Confirmed Active Prediabetes Confirmed Active Wayne-Silver syndrome, congenital hemihypertrophy Confirmed Active Social History Social History Type Response Smoking Status Never (less than 100 in lifetime) entered on: 04/04/20 Sex Patient Care team information Care Team Personnel Name: Louis Patel MD Position: S Primary Care Physician Member Role: PCP Address: Address: [address] [facility], [place] [address]- Care Team Related Persons Name: XIOMYGill MATT Address: home [address] [place] [address] Name: LEANDRO MARQUEZ Address: home [address] [place] [id number] Name: ANTOLIN MARQUEZ Name: ZORAIDA BANKS Address: home [address] [address]
--- OUTSIDE RECORDS SUMMARY | 2023-06-08 02:27 | XMS_ITS | Continuity of Care Document ---
Author Name Unknown Organization [facility] Address [address] [place] [address]- Care Team Providers Care Scallop Shucker Name Role Phone Jorge ARMENTA, Louis Altamirano Primary Care Physician Encounter [facility] [place] Date(s): 05/06/22 - 06/05/22 [facility] [address] [place] [id number] Allergies, Adverse Reactions, Alerts No Known Allergies Immunizations Given and Recorded Vaccine Date Status Refusal Reason SARS-CoV-2 mRNA ([id number]) vax 01/19/22 Given SARS-CoV-2 (COVID-19) mRNA BNT-162b2 vac 1 07/03/21 Given SARS-CoV-2 (COVID-19) mRNA BNT-162b2 vac 06/06/21 Given Not Given Vaccine Date Status Refusal Reason tetanus/diphtheria/pertussis , acel(Tdap) 2 09/26/21 Not Given Parent Or Guardian R efuses 1? Unknown: Resend to [facility]. 2Result Comment: mom states pt has received in past 5 years Medications Adult Disposable Pull Ups - XL Adult Disposable Pull Ups - XL, See Instructions, # 180 each, Refills 11, Tot. Refills 11, Maintenance, Use Up To 3/Day Dx: Urine Incontinence (R32), Complex Partial Seizures (G40.209; Reduced Mobility (Z74.0) Duration: Lifetime, 04/20/22 15:54:0... Start Date: 04/20/22 Status: Ordered Aerochamber See Instructions, # 1 each, Maintenance, Asthma icd 10: J45.90 Use: lifelong, 12/13/20 11:19:00 EST, Compound Start Date: 12/13/20 Status: Ordered albuterol 0.083% inhalation solution 3 mL = 2.5 mg, Inhalation, Every 6 hours, # 120 each, 6 Refills, Maintenance, 06/10/21 16:22:00 EDT, Solution, [facility]/pharmacy #1130, Partial fill upon patient request if the prescription is for a schedule II opioid drug., 151, cm, 06/10/21 16:07:00 EDT,... Start Date: 06/10/21 Status: Ordered albuterol CFC free 90 mcg/inh inhalation aerosol 2, puffs, Inhalation, Every 4 hours, PRN, # 1 each, Refills 11, Tot. Refills 11, Maintenance, 06/10/21 16:22:00 EDT, Aerosol, Route to Pharmacy Electronically, [id number], [facility]/pharmacy #1130, 151, cm, 06/10/21 16:07:00 EDT, H... Start Date: 06/10/21 Stop Date: 06/05/22 Status: Ordered Ambien 5 mg oral tablet 1 tablet = 5 mg, By Mouth, Daily at bedtime, PRN as needed for insomnia, # 12 tablet, 0 Refills, Acute 06/29/22 14:54:00 EDT, 05/29/21 14:54:00 EDT, Tablet, [facility]/pharmacy #1130, Partial fill upon patient request if the prescription is for a schedule II... Start Date: 05/29/21 Stop Date: 06/29/22 Status: Ordered Bed Pads Bed Pads, See Instructions, # 180 each, Refills 11, Tot. Refills 11, Maintenance, Use Up To 3/Day Dx: Urine Incontinence (R32), Complex Partial Seizures (G40.209; Reduced Mobility (Z74.0) Duration: Lifetime, 04/20/22 15:52:00 EDT, Supply Start Date: 04/20/22 Status: Ordered Bedside Commode Bedside Commode, See Instructions, # 1 each, Refills 0, Tot. 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 Start Date: 05/29/20 Status: Ordered clonazePAM 2 mg oral tablet 1 tablet = 2 mg, By Mouth, Daily at bedtime, # 30 tablet, 3 Refills, Maintenance, 04/04/20 13:25:00EDT, Tablet, [facility]/pharmacy #1130 Start Date: 04/04/20 Status: Ordered diclofenac 1% topical gel 1 application, Topically, 4 times a day, # 100 Gm, 2 Refills, Maintenance, 05/28/22 17:00:00 EDT, Gel, [facility]/pharmacy #1130, Partial fill upon patient request if the prescription is for a schedule II opioid drug., 150, cm, 05/28/22 13:34:00 EDT, Height,... Start Date: 05/28/22 Status: Ordered Guaiasorb DM 10 mg-100 mg/5 mL oral liquid 10 mL, By Mouth, Every 4 hours, # 240 mL, 0 Refills, Maintenance, 04/17/20 13:08:00 EDT, [facility], korean label, 10 mL By Mouth Every 4 hours Start Date: 04/17/20 Status: Ordered ketoconazole 1% topical shampoo See Instructions, Topically Every third day, # 200 mL, 1 Refills, Maintenance, 01/19/22 15:55:00 EST, [facility]/pharmacy #1130, Partial fill upon patient request if the prescription is for a schedule II opioid drug., Topically Every third day, 150, cm, 030... Start Date: 01/19/22 Status: Ordered lamotrigine 150 mg oral tablet 1 tablet = 150 mg, By Mouth, 2 times a day, # 60 tablet, 5 Refills, Maintenance, 10/06/21 9:55:00 EST, Tablet, [facility]/pharmacy #1130, 151, cm, 09/02/21 14:18:00 EDT, Height, 71.8, kg, 02/18/21 19:34:00 EDT, Dry Weight Start Date: 10/06/21 Status: Ordered levETIRAcetam 1000 mg oral tablet 1 tablet, By Mouth, 3 times a day, # 90 tablet, 5 Refills, [id number], 150, cm, 04/20/22 13:54:00 EDT, Height, 68.63, kg, 10/22/21 15:09:00 EST, Dry Weight Start Date: 04/28/22 Status: Ordered mirtazapine 45 mg oral tablet 1 tablet = 45 mg, By Mouth, Daily at bedtime, # 30 tablet, 6 Refills, Maintenance, 04/04/20 13:23:00 EDT, Tablet, [facility] Start Date: 04/04/20 Status: Ordered NuLYTELY with Flavor Packs oral powder for reconstitution 240 mL, By Mouth, Every 10 minutes, half after 5pm evening before, finish remaing half 6 hours prior to prcedure, # 1 each, 0 Refills, Maintenance, 06/02/22 10:24:00 EDT, REC Powder, [facility], Partial fill upon patient request if the prescri... Start Date: 06/02/22 Status: Ordered pantoprazole 40 mg oral delayed release tablet 1 tablet = 40 mg, By Mouth, Daily, # 90 tablet, 0 Refills, Maintenance, 05/28/22 17:00:00 EDT, EC Tablet, 150, cm, 05/28/22 13:34:00 EDT, Height, 68.63, kg, 10/22/21 15:09:00 EST, Dry Weight Start Date: 05/28/22 Status: Ordered risperiDONE 4 mg oral tablet 1 tablet = 4 mg, By Mouth, Daily at bedtime, # 30 tablet, 6 Refills, Maintenance, 04/04/20 13:30:00EDT, Tablet, [facility] Start Date: 04/04/20 Stop Date: 10/31/20 Status: Ordered Trulicity Pen 0.75 mg/0.5 mL subcutaneous solution 0.5 mL = 0.75 mg, Subcutaneous Injection, Every week, rotate injection sites, # 2 mL, 6 Refills, Maintenance, 01/19/22 16:03:00 EST, Solution, [facility], Partial fill upon patient request ifthe prescription is for a schedule II opioid drug.,... Start Date: 01/19/22 Status: Ordered Tylenol Extra Strength 500 mg oral tablet 2 tablet = 1,000 mg, By Mouth, 3 times a day, PRN for pain, # 540 tablet, 1 Refills, Maintenance, 05/28/22 17:02:00 EDT, Tablet, [facility]/pharmacy #1130, Partial fill upon patient request if the prescription is for a schedule II opioid drug., 150, cm, 05/15... Start Date: 05/28/22 Status: Ordered Vimpat 200 mg oral tablet 1 tablet = 200 mg, By Mouth, 2 times a day, Brand name medically necessary for seizure disorder, # 60 tablet, 5 Refills, Maintenance, 03/16/22 16:39:00 EDT, Tablet, [facility]/pharmacy #1130, generic lacosamide preferred, 150, cm, 01/19/22 15:23:00 EST, Heig... Start Date: 03/16/22 Stop Date: 09/12/22 Status: Ordered Problem List Condition Effective Dates Status Health Status Inform ant Complex partial seizure(Confirmed) Active Diabetes mellitus(Confirmed) Active GERD (gastroesophageal reflu x disease)(Confirmed) Active Insomnia(Confirmed) Active Anxiety and depression(Confirmed) Active Obese class I(Confirmed) Active Prediabetes(Confirmed) Active Wayne-Silver syndrome, con genital hemihypertrophy(Confirmed) Active Social History Social History Type Response Smoking Status Never (less than 100 in lifetime) entered on: 04/04/20 Sex
--- OUTSIDE RECORDS SUMMARY | 2023-06-08 02:27 | XMS_ITS | Continuity of Care Document ---
Author Name Unknown Organization [facility] y Address [address] [place] [address]- Care Team Providers Care Longshore Equipment Operator Name Role Phone Louis Patle MD Primary Care Physician [phone] Encounter [facility] Date(s): 08/22/21 - 09/21/21 [facility] [address], [place] [address] Attending Physician: Merlin Barry Admitting Physician: Admtr [id number] Referring Physician: Admtr, Ar8 Allergies, Adverse Reactions, [...] 16:22:00 EDT, Aerosol, Route to Pharmacy Electronically, [id number], [facility]/pharmacy #[id number], 151, cm, 06/10/21 16:07:00 EDT, H... Start Date: 06/10/21 Stop Date: 06/05/22 Status: Ordered Ambien 5 mg oral tablet 1 tablet = 5 mg, By Mouth, Daily at bedtime, PRN as needed for insomnia, # 12 tablet, 0 Refills, Acute 06/29/22 14:54:00 EDT, 05/29/21 14:54:00 EDT, Tablet, [facility]/pharmacy #1130, Partial fill upon patient [...] each, 5 Refills, Maintenance, 04/04/20 13:27:00 EDT, [facility]/pharmacy #1130 Start Date: 04/04/20 Status: Ordered clonazePAM 2 mg oral tablet 1 tablet = 2 mg, By Mouth, Daily at bedtime, # 30 tablet, 3 Refills, Maintenance, 04/04/20 13:25:00EDT, Tablet, [facility]/pharmacy #1130 Start Date: 04/04/20 Status: Ordered Guaiasorb DM 10 mg-100 mg/5 mL oral liquid 10 mL, By Mouth, Every 4 hours, # 240 mL, 0 Refills, Maintenance, 04/17/20 13:08:00 EDT, [facility]/pharmacy #1130, chadian label, 10 mL By Mouth Every 4 hours Start Date: 04/17/20 Status: Ordered ipratropium nasal 21 mcg/inh spray 2 sprays, Nares, Both, 2 times a day, # 30 mL, 1 Refills, Maintenance, 10/19/21 14:32:00 EDT, Indian, [facility]/pharmacy #1130, Partial fill upon patient [...] 6 Refills, Maintenance, 04/04/21 14:56:00 EDT, Tablet, [facility]/pharmacy #1130, 151, cm, 04/04/21 14:15:00 EDT, Height, 71.8, kg, 02/18/21 19:34:00EDT, Dry Weight Start Date: 04/04/21 Status: Ordered metFORMIN 500 mg oral tablet, extended release 1 tablet = 500 mg, By Mouth, Daily, # 30 tablet, 4 Refills, Maintenance, 02/13/21 15:28:00 EDT, ER Tablet, [facility]/pharmacy #1130, Partial fill upon patient [...] 2 Refills, Maintenance, 11/04/20 18:31:00 EST, ECCapsule, [facility]/pharmacy #1130, chadian label Start Date: 11/04/20 Status: Ordered pantoprazole [...] pack/packet, 0 Refills, Maintenance, 02/20/21 14:54:00 EDT, [facility]/pharmacy #1130, Partial fill upon patient request if theprescription is for a schedule II opioid drug., as... Start Date: 02/20/21 Status: Ordered risperiDONE 4 mg oral tablet 1 tablet = 4 mg, By Mouth, Daily at bedtime, # 30 tablet, 6 Refills, Maintenance, 04/04/20 13:30:00EDT, Tablet, [facility]/pharmacy #1130 Start Date: 04/04/20 Stop Date: 10/31/20 Status: Ordered Vimpat 200 mg oral tablet 1 tablet = 200 mg, By Mouth, 2 times a day, # 60 tablet, 5 Refills, Maintenance, 04/04/21 14:56:00 EDT, Tablet, [facility]/pharmacy #1130, 151, cm, 04/04/21 14:15:00 EDT, Height, 71.8, kg, 02/18/21 19:34:00EDT, Dry Weight Start Date: 04/04/21 Status: Ordered Zofran 8 mg oral tablet 1 tablet = 8 mg, By Mouth, Daily, take with dinner every night (please label in Finnish), # 30 tablet, 1 Refills, Maintenance, 09/16/20 [...]
--- OUTSIDE RECORDS SUMMARY | 2023-06-08 02:27 | XMS_ITS | Continuity of Care Document ---
Author Name Unknown Organization [facility] Address [address] [place] [address]- Care Team Providers Care Air Transport Professionals Name Role Phone Louis Patel MD Primary Care Physician Encounter [facility] [place] [facility] R [id number] Date(s): 10/08/20 - 01/05/21 [facility] [address] [place] [address] Attending Physician: Lien Burnett Admitting Physician: Lien Burnett Referring Physician: Louis Patel MD Allergies, Adverse Reactions, Alerts Substance Reaction Severity Status NKA Active Medications Aerochamber See Instructions, # 1 each, Maintenance, Asthma icd 10: J45.90 Use: lifelong, 12/13/20 11:19:00 EST, Compound Start Date: 12/13/20 Status: Ordered albuterol CFC free 90 mcg/inh inhalation aerosol 2, puffs, Inhalation, Every 4 hours, PRN, # 1 each, Refills 1, Tot. Refills 1, Maintenance, 12/13/20 11:19:00 EST, Aerosol, Route to Pharmacy Electronically, [id number], [facility]/pharmacy #1130 Start Date: 12/13/20 Status: Ordered Bedside Commode Bedside Commode, See [...] morning, # 30 each, 5 Refills, Maintenance, 05/21/20 13:27:00 EDT, [facility]/pharmacy #1130 Start Date: 04/04/20 Status: Ordered clonazePAM 2 mg oral tablet 1 tablet = 2 mg, By Mouth, Daily at bedtime, # 30 tablet, 3 Refills, Maintenance, 04/04/20 13:25:00EDT, Tablet, [facility] Start Date: 04/04/20 Status: Ordered Guaiasorb DM 10 mg-100 mg/5 mL oral liquid 10 mL, By Mouth, Every 4 hours, # 240 mL, 0 Refills, Maintenance, 04/17/20 13:08:00 EDT, [facility], iraqi label, 10 mL By Mouth Every 4 hours Start Date: 04/17/20 Status: Ordered Keppra 1000 mg oral tablet 1 tablet = 1,000 mg, By Mouth, 3 times a day, # 90 tablet, 6 Refills, Maintenance, 10/16/20 10:26:00 EST, Tablet, [facility] Start Date: 10/16/20 Status: Ordered lamotrigine 150 mg oral tablet 1 tablet = 150 mg, By Mouth, 2 times a day, # 60 tablet, 6 Refills, Maintenance, 10/16/20 10:26:00 EST, Tablet, [facility] Start Date: 10/16/20 Status: Ordered mirtazapine 45 mg oral tablet 1 tablet = 45 mg, By Mouth, Daily at bedtime, # 30 tablet, 6 Refills, Maintenance, 04/04/20 13:23:00 EDT, Tablet, [facility]/pharmacy #1130 Start Date: 04/04/20 Status: Ordered omeprazole 20 mg oral enteric coated capsule 1 capsule = 20 mg, By Mouth, Daily, # 30 capsule, 2 Refills, Maintenance, 11/04/20 18:31:00 EST, ECCapsule, [facility]/pharmacy #1130, iraqi label Start Date: 11/04/20 Status: Ordered risperiDONE 4 mg oral tablet 1 tablet = 4 mg, By Mouth, Daily at bedtime, # 30 tablet, 6 Refills, Maintenance, 04/04/20 13:30:00EDT, Tablet, [facility] Start Date: 04/04/20 Stop Date: 10/31/20 Status: Ordered Vimpat 200 mg oral tablet 1 tablet = 200 mg, By Mouth, 2 times a day, # 60 tablet, 5 Refills, Maintenance, 10/16/20 10:26:00 EST, Tablet, [facility] Start Date: 10/16/20 Status: Ordered Zofran 8 mg oral tablet 1 tablet = 8 mg, By Mouth, Daily, take with dinner every night (please label in Bulgarian), # 30 tablet, 1 Refills, Maintenance, 09/16/20 7:19:00 EST, Tablet, [facility] Start Date: 09/16/20 Status: Ordered Problem List Condition Effective Dates Status Health Status Inform ant Complex partial seizure(Confirmed) Active Anxiety and depression(Confirmed) Active Wayne-Silver syndrome, con genital hemihypertrophy(Confirmed) Active Social History Social History Type Response Smoking Status Never (less than 100 in lifetime) entered on: 04/04/20 Sex
--- OUTSIDE RECORDS SUMMARY | 2023-06-08 02:27 | XMS_ITS | Continuity of Care Document ---
Author Name Unknown Organization [facility] Address [address] [place] [address]- Care Team Providers Care Drying Room Supervisor Name Role Phone Louis Patel MD Primary Care Physician Encounter [facility] R [id number] Date(s): 11/25/21 - 02/12/22 [facility] [address] [place] [id number]- Attending Physician: Louis Patel MD Admitting Physician: Louis Patel MD Allergies, Adverse Reactions, Alerts No Known Allergies Immunizations Given and Recorded Vaccine Date Status Refusal Reason SARS-CoV-2 mRNA ([id number]) vax 01/19/22 Given SARS-CoV-2 (COVID-19) mRNA BNT-162b2 vac 1 07/03/21 Given SARS-CoV-2 (COVID-19) mRNA BNT-162b2 vac 06/06/21 Given Not Given Vaccine Date Status Refusal Reason tetanus/diphtheria/pertussis , acel(Tdap) 2 09/26/21 Not Given Parent Or Guardian R efuses 1? Unknown: Resend to [facility]. 2Result Comment: mom states pt has received in past 5 years Medications Aerochamber See Instructions, # 1 each, [...] 16:22:00 EDT, Aerosol, Route to Pharmacy Electronically, [id number], [facility]/pharmacy #1130, 151, cm, 06/10/21 16:07:00 EDT, H... Start Date: 06/10/21 Stop Date: 06/05/22 Status: Ordered Ambien 5 mg oral tablet 1 tablet = 5 mg, By Mouth, Daily at bedtime, PRN as needed for insomnia, # 12 tablet, 0 Refills, Acute 06/29/22 14:54:00 EDT, 05/29/21 14:54:00 EDT, Tablet, [facility]/pharmacy #1130, Partial fill upon patient request [...] each, 5 Refills, Maintenance, 04/04/20 13:27:00 EDT, [facility] Start Date: 04/04/20 Status: Ordered clonazePAM 2 mg oral tablet 1 tablet = 2 mg, By Mouth, Daily at bedtime, # 30 tablet, 3 Refills, Maintenance, 04/04/20 13:25:00EDT, Tablet, [facility] Start Date: 04/04/20 Status: Ordered Guaiasorb DM 10 mg-100 mg/5 mL oral liquid 10 mL, By Mouth, Every 4 hours, # 240 mL, 0 Refills, Maintenance, 04/17/20 13:08:00 EDT, [facility]/pharmacy #1130, syrian label, 10 mL By Mouth Every 4 hours Start Date: 04/17/20 Status: Ordered ipratropium nasal 21 mcg/inh spray 2 sprays, Nares, Both, 2 times a day, # 30 mL, 5 Refills, Maintenance, 10/27/21 14:41:00 EST, [place], [facility]/pharmacy #1130, Partial fill upon patient request if the prescription is for a schedule II opioid drug., 2 sprays Nares, Both 2 times a day, 150,... Start Date: 10/27/21 Status: Ordered Keppra 1000 mg oral tablet 1 tablet = 1,000 mg, By Mouth, 3 times a day, # 90 tablet, 6 Refills, Maintenance, 10/06/21 10:07:00 EST, Tablet, [facility]/pharmacy #1130, 151, cm, 09/02/21 14:18:00 EDT, Height, 71.8, kg, 02/18/21 19:34:00 EDT, Dry Weight Start Date: 10/06/21 Status: Ordered ketoconazole 1% topical shampoo See Instructions, Topically Every third day, # 200 mL, 1 Refills, Maintenance, 01/19/22 15:55:00 EST, [facility]/pharmacy #1130, Partial fill upon patient request if the prescription is for a schedule II opioid drug., Topically Every third day, 150, cm, 03/0... Start Date: 01/19/22 Status: Ordered ketoconazole 2% topical cream 1 application, Topically, 2 times a day, for 28 days, # 60 Gm, 2 Refills, Acute 04/13/22 15:58:00 EDT, 01/19/22 15:58:00 EST, Cream, [facility]/pharmacy #1130, Partial fill upon patient request if the prescription is for a schedule II opioid drug., 1 applica... Start Date: 01/19/22 Stop Date: 04/13/22 Status: Ordered lamotrigine 150 mg oral tablet 1 tablet = 150 mg, By Mouth, 2 times a day, # 60 tablet, 5 Refills, Maintenance, 10/06/21 9:55:00 EST, Tablet, [facility], 151, cm, 09/02/21 14:18:00 EDT, Height, 71.8, kg, 02/18/21 19:34:00 EDT, Dry Weight Start Date: 10/06/21 Status: Ordered mirtazapine 45 mg oral tablet 1 tablet = 45 mg, By Mouth, Daily at bedtime, # 30 tablet, 6 Refills, Maintenance, 04/04/20 13:23:00 EDT, Tablet, [facility] Start Date: 04/04/20 Status: Ordered omeprazole 20 mg oral enteric coated capsule 1 capsule = 20 mg, By Mouth, Daily, # 30 capsule, 2 Refills, Maintenance, 11/04/20 18:31:00 EST, ECCapsule, [facility], syrian label Start Date: 11/04/20 Status: Ordered pantoprazole [...] sites, # 2 mL, 6 Refills, Maintenance, 03/07/22 16:03:00 EST, Solution, [facility], Partial fill upon patient request ifthe prescription is for a schedule II opioid drug.,... Start Date: 01/19/22 Status: Ordered Vimpat 200 mg oral tablet 1 tablet = 200 mg, By Mouth, 2 times a day, Brand name medically necessary for seizure disorder, # 60 tablet, 5 Refills, Maintenance, 02/03/22 9:00:00 EDT, Tablet, [facility], 150, cm, 01/19/22 15:23:00 EST, Height, 68.63, kg, 10/22/21 15:09:0... Start Date: 02/03/22 Stop Date: 08/02/22 Status: Ordered Zofran 8 mg oral tablet 1 tablet = 8 mg, By Mouth, Daily, take with dinner every night (please label in Indonesian), # 30 tablet, 1 Refills, Maintenance, 09/16/20 [...]
--- OUTSIDE RECORDS SUMMARY | 2023-06-08 02:27 | XMS_ITS | Continuity of Care Document ---
Author Name Unknown Organization [facility] Address [address] [place] [address]- Care Team Providers Care Expressive Art Therapist Name Role Phone Louis Patel MD Primary Care Physician [place] [facility] [place] [id number] Date(s): 05/01/20 - 06/26/[address] [address]- [facility] Attending Physician: Not on Staff, Attending MD Allergies, Adverse Reactions, Alerts Substance Reaction Severity Status NKA Active Medications Bedside Commode Bedside Commode, See Instructions, # [...] Refills, Maintenance, 04/17/20 13:08:00 EDT, [facility], portuguese label, 10 mL By Mouth Every 4 hours Start Date: 04/17/20 Status: Ordered Keppra 1000 mg oral tablet 1 tablet = 1,000 mg, By Mouth, 3 times a day, # 90 tablet, 6 Refills, Maintenance, 04/04/20 13:18:00 EDT, Tablet, [facility] Start Date: 04/04/20 Status: Ordered lamotrigine 150 mg oral tablet 1 tablet = 150 mg, By Mouth, 2 times a day, # 60 tablet, 6 Refills, Maintenance, 04/04/20 13:20:00 EDT, Tablet, [facility] Start Date: 04/04/20 Status: Ordered mirtazapine 45 mg oral tablet 1 tablet = 45 mg, By Mouth, Daily at bedtime, # 30 tablet, 6 Refills, Maintenance, 04/04/20 13:23:00 EDT, Tablet, [facility] Start Date: 04/04/20 Status: Ordered omeprazole 20 mg oral enteric coated capsule 1 capsule = 20 mg, By Mouth, Daily, # 30 capsule, 2 Refills, Maintenance, 04/17/20 13:08:00 EDT, ECCapsule, [facility]/pharmacy #1130, portuguese label Start Date: 04/17/20 Status: Ordered Restoril 15 mg oral capsule 1 capsule = 15 mg, By Mouth, Daily at bedtime, PRN for sleep, for 30 days, # 30 capsule, 5 Refills,Acute 10/01/20 13:31:00 EST, 04/04/20 13:31:00 EDT, Capsule, [facility] Start Date: 04/04/20 Stop Date: 10/01/20 Status: Ordered risperiDONE 4 mg oral tablet 1 tablet = 4 mg, By Mouth, Daily at bedtime, # 30 tablet, 6 Refills, Maintenance, 04/04/20 13:30:00EDT, Tablet, [facility] Start Date: 04/04/20 Stop Date: 10/31/20 Status: Ordered Vimpat 200 mg oral tablet 1 tablet = 200 mg, By Mouth, 2 times a day, # 60 tablet, 5 Refills, Maintenance, 04/04/20 13:23:00 EDT, Tablet, [facility] Start Date: 04/04/20 Status: Ordered Problem List Condition Effective Dates Status Health Status Inform ant Complex partial seizure(Confirmed) Active Anxiety and depression(Confirmed) Active Wayne-Silver syndrome, con genital hemihypertrophy(Confirmed) Active Social History Social History Type Response Smoking Status Never (less than 100 in lifetime) entered on: 04/04/20 Sex
--- OUTSIDE RECORDS SUMMARY | 2023-06-08 02:27 | XMS_ITS | Continuity of Care Document ---
Author Name Unknown Organization [facility] y Address [address] [place] [address]- Care Team Providers Care White Kid Buffer Name Role Phone Louis Patel MD Primary Care Physician Encounter [facility] Date(s): 09/12/22 - 12/27/22 [facility] [address], [place] [address] [[email or web address]] Attending Physician: Not on Staff, Attending MD Allergies, Adverse Reactions, Alerts No Known Allergies Immunizations Given and Recorded Vaccine Date Status Refusal Reason SARS-CoV-2 mRNA (prqoahl-svnr-gjmpd) vax 01/19/22 Given SARS-CoV-2 (COVID-19) mRNA BNT-162b2 vac 1 07/03/21 Given SARS-CoV-2 (COVID-19) mRNA BNT-162b2 vac 06/06/21 Given Not Given Vaccine Date Status Refusal Reason tetanus/diphtheria/pertussis , acel(Tdap) 2 09/26/21 Not Given Parent Or Guardian R efuses 1? Unknown: Resend to [facility]. 2Result Comment: mom states pt has received [...] 16:22:00 EDT, Aerosol, Route to Pharmacy Electronically, [id number], [facility]/pharmacy #1130, 151, cm, 06/10/21 16:07:00 EDT, H... [...] 2 Refills, Maintenance, 05/28/22 17:00:00 EDT, Gel, [facility]/pharmacy #1130, Partial fill upon patient request if [...] tablet, 5 Refills, Maintenance, 10/06/22 7:21:00 EST, [facility]/pharmacy #1130, 150, cm, 07/07/22 13:19:00 EDT, Height, 68.63, kg, 10/22/21 15:09:00 EST, Dry Weight Start Date: 10/06/22 Status: Ordered levETIRAcetam 1000 mg oral tablet 1 tablet, By Mouth, 3 times a day, # 90 tablet, 5 Refills, 10/06/22 7:22:00 EST, [facility]/pharmacy #1130, 150, cm, 07/07/22 13:19:00 EDT, Height, 68.63, kg, 10/22/21 15:09:00 EST, Dry Weight Start Date: 10/06/22 Status: Ordered mirtazapine 45 mg oral tablet 0 Refills, Maintenance, 10/06/22 7:20:00 EST, Partial fill upon patient request if the prescriptionis for a schedule II opioid drug. Start Date: 10/06/22 Status: Ordered montelukast 10 mg oral tablet 10 mg, 1, tablet, By Mouth, Daily, Label in Northern Irish, # 30 tablet, Refills 5, Tot. Refills 5, Maintenance, 10/13/22 15:15:00 EST, [facility] fill upon patient request if [...] Refills, Maintenance, 08/23/22 14:25:00 EDT, [id number], [facility], cm, 07/07/22 13:19:00 EDT, Height,68.63, kg, 10/22/21 15:09:00 EST, Dry Weight Start Date: 08/23/22 Status: Ordered Tylenol Extra Strength 500 mg oral tablet 2 tablet = 1,000 mg, By Mouth, 3 times a day, PRN for pain, # 540 tablet, 1 Refills, Maintenance, 07/07/22 13:48:00 EDT, Tablet, [facility]/pharmacy #1130, Partial fill upon patient request if the prescription is for a schedule II opioid drug., 150, cm, 06/16... Start Date: 07/07/22 Status: Ordered Vimpat 200 mg oral tablet 1 tablet = 200 mg, By Mouth, 2 times a day, Brand name medically necessary for seizure disorder, # 60 tablet, 5 Refills, Maintenance, 10/06/22 7:18:00 EST, Tablet, [facility]/pharmacy #1130, generic lacosamide preferred, 150, cm, 07/07/22 [...] Physician Member Role: PCP Address: Address: [address] [facility], [place] [address]- Care Team Related Persons Name: MATT IQBAL Address: home [address] [place] [address] Name: LEANDRO MARQUEZ Address: home [address] [place] [address] Name: ANTOLIN MARQUEZ Name: ZORAIDA BANKS Address: home [address] [address]
--- OUTSIDE RECORDS SUMMARY | 2023-06-08 02:27 | XMS_ITS | Continuity of Care Document ---
Author Name Unknown Organization [facility] Address [address] [place] [id number]- Care Team Providers Care Draw String Knotter Name Role Phone Louis Patel MD Primary Care Physician [phone] [place] [facility] [place](s): 12/06/20 - 01/05/21 [facility] [address] [place] [address] Attending Physician: AdmtrMerlin Admitting Physician: Admtr, Ar8 Referring Physician: Admtr, Ar8 Allergies, Adverse [...] 11:19:00 EST, Aerosol, Route to Pharmacy Electronically, [id number], [facility]/pharmacy #1130 Start Date: 12/13/20 Status: Ordered Bedside [...] tablet, 3 Refills, Maintenance, 04/04/20 13:25:00EDT, Tablet, [facility]/pharmacy #1130 Start Date: 04/04/20 Status: Ordered Guaiasorb [...] 6 Refills, Maintenance, 10/16/20 10:26:00 EST, Tablet, [facility]/pharmacy #1130 Start Date: 10/16/20 Status: Ordered lamotrigine [...] 6 Refills, Maintenance, 04/04/20 13:23:00 EDT, Tablet, [facility]/pharmacy #1130 Start Date: 04/04/20 Status: Ordered omeprazole 20 mg oral enteric coated capsule 1 capsule = 20 mg, By Mouth, Daily, # 30 capsule, 2 Refills, Maintenance, 11/04/20 18:31:00 EST, ECCapsule, [facility], portuguese label Start Date: 11/04/20 Status: Ordered risperiDONE [...] with dinner every night (please label in Georgian), # 30 tablet, 1 Refills, Maintenance, 09/16/20 [...]
--- OUTSIDE RECORDS SUMMARY | 2023-06-08 02:27 | XMS_ITS | Continuity of Care Document ---
Author Name Unknown Organization [facility] ter Address [address] [place] [address]- Care Team Providers Care Conventions Assistant Name Role Phone Louis Patel MD Primary Care Physician [phone] [place] [facility] [place] 09/27/21 - 09/28/[address] [address]- Encounter Diagnosis Suicidal ideation(Final) - 09/27/21 Situational depression(Final) - 09/28/21 Discharge Disposition: A-D/C Home Attending Physician: Jayson Chavez MD Admitting Physician: Jayson Chavez MD Referring Physician: Not on Staff, Referring MD Allergies, Adverse Reactions, Alerts Substance Reaction Severity Status NKA Active Immunizations Given and Recorded Vaccine Date Status Refusal Reason SARS-CoV-2 (COVID-19) mRNA BNT-162b2 vac 07/03/21 Given SARS-CoV-2 (COVID-19) mRNA BNT-162b2 vac 06/06/21 Given Not Given Vaccine Date Status Refusal Reason tetanus/diphtheria/pertussis , acel(Tdap) 1 09/26/21 Not Given Parent Or Guardian R efuses 1Result Comment: mom states pt has received in [...] 16:22:00 EDT, Aerosol, Route to Pharmacy Electronically, [id number], [facility]/pharmacy #1130, 151, cm, 06/10/21 16:07:00 EDT, H... Start Date: 06/10/21 Stop Date: 06/05/22 Status: Ordered Ambien 5 mg oral tablet 1 tablet = 5 mg, By Mouth, Daily at bedtime, PRN as needed for insomnia, # 12 tablet, 0 Refills, Acute 06/29/22 14:54:00 EDT, 05/29/21 14:54:00 EDT, Tablet, [facility]/pharmacy #1130, Partial fill upon patient [...] mL, 0 Refills, Maintenance, 04/17/20 13:08:00 EDT, [facility]/pharmacy #1130, turkish label, 10 mL By Mouth Every 4 hours Start Date: 04/17/20 Status: Ordered ipratropium nasal 21 mcg/inh spray 2 sprays, Nares, Both, 2 times a day, # 30 mL, 1 Refills, Maintenance, 09/02/21 14:32:00 EDT, [place], [facility]/pharmacy #1130, Partial fill upon patient request if the prescription is for a schedule II opioid drug., 2 sprays Nares, Both 2 times a day, 151,... Start Date: 09/02/21 Status: Ordered Keppra 1000 mg oral tablet 1 tablet = 1,000 mg, By Mouth, 3 times a day, # 90 tablet, 0 Refills, Maintenance, 04/04/21 14:56:00 EDT, Tablet, [facility]/pharmacy #1130, 151, cm, 04/04/21 14:15:00 EDT, Height, 71.8, kg, 02/18/21 19:34:00 EDT, Dry Weight Start Date: 04/04/21 Status: Ordered lamotrigine 150 mg oral tablet 1 tablet = 150 mg, By Mouth, 2 times a day, # 60 tablet, 6 Refills, Maintenance, 04/04/21 14:56:00 EDT, Tablet, [facility]/pharmacy #1130, 151, cm, 04/04/21 14:15:00 EDT, Height, 71.8, kg, 02/18/21 19:34:00EDT, Dry Weight Start Date: 04/04/21 Status: Ordered metFORMIN 500 mg oral tablet, extended release 1 tablet = 500 mg, By Mouth, Daily, # 30 tablet, 4 Refills, Maintenance, 02/13/21 15:28:00 EDT, ER Tablet, [facility]/pharmacy #1130, Partial fill upon patient request if the prescription is for a schedule II opioid drug., 150, cm, 02/13/21 14:49:00 EDT, Hei... Start Date: 02/13/21 Status: Ordered mirtazapine 45 mg oral tablet 1 tablet = 45 mg, By Mouth, Daily at bedtime, # 30 tablet, 6 Refills, Maintenance, 04/04/20 13:23:00 EDT, Tablet, [facility]/pharmacy #1130 Start Date: 04/04/20 Status: Ordered omeprazole 20 mg oral enteric coated capsule 1 capsule = 20 mg, By Mouth, Daily, # 30 capsule, 2 Refills, Maintenance, 11/04/20 18:31:00 EST, ECCapsule, [facility]/pharmacy #1130, turkish label Start Date: 11/04/20 Status: Ordered pantoprazole [...] pack/packet, 0 Refills, Maintenance, 02/20/21 14:54:00 EDT, [facility]/pharmacy #1130, Partial fill upon patient request if theprescription is for a schedule II opioid drug., as... Start Date: 02/20/21 Status: Ordered risperiDONE 4 mg oral tablet 1 tablet = 4 mg, By Mouth, Daily at bedtime, # 30 tablet, 6 Refills, Maintenance, 04/04/20 13:30:00EDT, Tablet, [facility]/pharmacy #1130 Start Date: 04/04/20 Stop Date: 10/31/20 Status: Ordered Vimpat 200 mg oral tablet 1 tablet = 200 mg, By Mouth, 2 times a day, # 60 tablet, 5 Refills, Maintenance, 04/04/21 14:56:00 EDT, Tablet, [facility]/pharmacy #1130, 151, cm, 04/04/21 14:15:00 EDT, Height, 71.8, kg, 02/18/21 19:34:00EDT, Dry Weight Start Date: 04/04/21 Status: Ordered Zofran 8 mg oral tablet 1 tablet = 8 mg, By Mouth, Daily, take with dinner every night (please label in Ethiopian), # 30 tablet, 1 Refills, Maintenance, 09/16/20 7:19:00 EST, Tablet, [facility] Start Date: 09/16/20 Status: Ordered Problem List Condition Effective Dates Status Health Status Inform ant Complex partial seizure(Confirmed) Active GERD (gastroesophageal reflu x disease)(Confirmed) Active Insomnia(Confirmed) Active Anxiety and depression(Confirmed) Active Prediabetes(Confirmed) Active Wayne-Silver syndrome, con genital hemihypertrophy(Confirmed) Active Vital Signs Most recent to oldest [Reference Range]: 1 2 Oxygen Saturation [94-100 %] 92 % *L* (09/28/21 5:33 AM) 94 % (09/27/21 9:35 PM) Pulse Rate [55-90 bpm] 100 bpm *H* (09/28/21 5:33 AM) 115 bpm *H* (09/27/21 9:35 PM) Blood Pressure [90-138/55-84 mm Hg] 131/ 77mm Hg (09/28/21 5:33 AM) 123/91mm Hg (09/27/21 9:35 PM) Respiratory Rate [16-30 br/min] 20 br/mi n (09/28/21 5:33 AM) 16 br/min (09/27/21 9:35 PM) Temperature [96.8-100.4 DegF] 98.9 DegF (09/28/21 5:33 AM) 98.4 DegF (09/27/21 9:35 PM) Mode of Delivery (Oxygen) Room air (09/28/21 5:33 AM) Room air (09/27/21 9:35 PM) Blood pressure sites Arm, right (09/28/21 5:33 AM) Arm, right (09/27/21 9:35 PM) Temperature Route Oral (09/28/21 5:33 AM) Oral (09/27/21 9:35 PM) Social History Social History Type Response Smoking Status Never (less than 100 in lifetime) entered on: 04/04/20 Sex
--- OUTSIDE RECORDS SUMMARY | 2023-06-08 02:27 | XMS_ITS | Continuity of Care Document ---
Author Name Unknown Organization [facility] ter Address [address] [place] [id number]- Care Team Providers Care Liner Man Name Role Phone Jorge ARMENTA, Louis Altamirano Primary Care Physician [phone] Encounter [facility] Date(s): 05/23/23 - 05/23/[address] [address]- Encounter Diagnosis Musculoskeletal back pain(Final) - 05/23/23 Discharge Disposition: A-D/C Home Attending Physician: Jim Reaves MD Admitting Physician: Jim Reaves MD Referring Physician: Not on Staff, Referring MD Allergies, Adverse Reactions, Alerts No Known Allergies Immunizations Given and Recorded Vaccine Date Status Refusal Reason SARS-CoV-2 mRNA (zoxrerd-kgpg-sytwr) vax 01/19/22 Given SARS-CoV-2 (COVID-19) mRNA BNT-162b2 [...] 6 Refills, Maintenance, 06/10/21 16:22:00 EDT, Solution, [facility]/pharmacy #1130, Partial fill upon patient request if the prescription is for a schedule II opioid drug., 151, cm, 06/10/21 16:07:00 EDT,... Start Date: 06/10/21 Status: Ordered albuterol CFC free 90 mcg/inh inhalation aerosol 2, puffs, Inhalation, Every 4 hours, PRN, # 1 each, Refills 11, Tot. Refills 11, Maintenance, 01/28/23 15:52:00 EDT, Aerosol, Route to Pharmacy Electronically, [id number], [facility]/pharmacy #[id number], 150, cm, 01/28/23 15:24:00 EDT, H... Start Date: 01/28/23 Stop Date: 01/23/24 Status: Ordered Bed Pads Bed Pads, See [...] bedtime, # 30 tablet, 3 Refills, Maintenance, 03/22/23 16:04:00EDT, [facility]/pharmacy #[id number], Partial fill upon patient request if the prescription is for a schedule IIopioid drug., 150, cm, 03/22/23 15:46:00 EDT, Heigh... Start Date: 03/22/23 Status: Ordered clonazePAM 2 mg oral tablet 0 Refills, Maintenance, 10/06/22 7:20:00 EST, Partial fill upon patient request if the prescriptionis for a schedule II opioid drug. Start Date: 10/06/22 Status: Ordered diclofenac 1% topical gel See Instructions, APPLY TO AFFECTED AREA 4 TIMES A DAY, # 100 Gm, 2 Refills, Maintenance, 04/20/23 10:27:00 EDT, [id number], 25, APPLY TO AFFECTED AREA 4 TIMES A DAY, 150, cm, 03/22/23 15:46:00 EDT, Height, 74.1, kg, 02/23/23 13:43:00 EDT, Dry We... Start Date: 04/20/23 Status: Ordered escitalopram 10 mg oral tablet 0 Refills, Maintenance, 10/06/22 7:20:00 EST, Partial fill upon patient request if the prescriptionis for a schedule II opioid drug. Start Date: 10/06/22 Status: Ordered fluticasone 50 mcg/inh nasal spray 1 sprays, Nares, Both, 2 times a day, # 16 Gm, 0 Refills, Maintenance, 02/23/23 11:47:00 EDT, [place], Partial fill upon patient request if the prescription is for a schedule II opioid drug. Start Date: 02/23/23 Status: Ordered fluticasone 50 mcg/inh nasal spray 1 sprays, Nares, Both, 2 times a day, # 16 Gm, 0 Refills, Maintenance, 02/23/23 11:47:00 EDT, [place], Partial fill upon patient request if the prescription is for a schedule II opioid drug. Start Date: 02/23/23 Status: Ordered Freestyle Lite Lancets See Instructions, # 200 each, Refills 5, Tot. Refills 5, Maintenance, use as directed for Type 2 Diabetes Mellitus, 03/22/23 15:59:00 EDT, Supply, 150, cm, 03/22/23 15:46:00 EDT, Height, 74.1, kg, 02/23/23 13:43:00 EDT, Dry Weight Start Date: 03/22/23 Stop Date: 09/18/23 Status: Ordered Freestyle Lite Monitor See Instructions, # 1 each, Refills 5, Tot. Refills 5, Maintenance, use as directed for Type 2 Diabetes Mellitus, 03/22/23 15:58:00 EDT, Supply, 150, cm, 03/22/23 15:46:00 EDT, Height, 74.1, kg, 02/23/23 13:43:00 EDT, Dry Weight Start Date: 03/22/23 Stop Date: 09/18/23 Status: Ordered Freestyle Lite Test Strips See Instructions, # 200 each, Tot. Refills 5, Maintenance, use as directed for Type 2 Diabetes Mellitus, 03/22/23 15:58:00 EDT, Supply, 150, cm, 03/22/23 15:46:00 EDT, Height, 74.1, kg, 02/23/23 13:43:00 EDT, Dry Weight Start Date: 03/22/23 Stop Date: 04/21/23 Status: Ordered lacosamide 10 mg/mL oral solution 25 mL = 250 mg, By Mouth, 2 times a day, # 1,500 mL, 5 Refills, Maintenance, 03/22/23 16:10:00 EDT,Solution, [facility], Partial fill upon patient request if the prescription is for a schedule II opioid drug., 150, cm, 03/22/23 15:46:... Start Date: 03/22/23 Status: Ordered lacosamide 10 mg/mL oral solution 25 mL = 250 mg, By Mouth, 2 times a day, # 750 mL, 5 Refills, Maintenance, 02/26/23 16:07:00 EDT, [place], Partial fill upon patient request if the prescription is for a schedule II opioid drug. Start Date: 02/26/23 Status: Ordered lacosamide 100 mg oral tablet 2.5 tablets, By Mouth, 2 times a day, # 75 tablet, 5 Refills, Maintenance, 02/26/23 13:36:00 EDT, Tablet, Partial fill upon patient request if the prescription is for a schedule II opioid drug. Start Date: 02/26/23 Status: Ordered lamotrigine 150 mg oral tablet 1 tablet, By Mouth, 2 times a day, # 60 tablet, 5 Refills, Maintenance, 03/22/23 16:02:00 EDT, [facility]/pharmacy #1130, 150, cm, 03/22/23 15:46:00 EDT, Height, 74.1, kg, 02/23/23 13:43:00 EDT, Dry Weight Start Date: 03/22/23 Status: Ordered mirtazapine 45 mg oral tablet 1 tablet = 45 mg, By Mouth, Daily at bedtime, # 30 tablet, 0 Refills, Maintenance, 03/22/23 16:04:00 EDT, Tablet, [facility]/pharmacy #1130, Partial fill upon patient request if the prescription is for a schedule II opioid drug., 150, cm, 03/22/23 15:46:00 E... Start Date: 03/22/23 Status: Ordered mirtazapine 45 mg oral tablet 0 Refills, Maintenance, 10/06/22 7:20:00 EST, Partial fill upon patient request if the prescriptionis for a schedule II opioid drug. Start Date: 10/06/22 Status: Ordered montelukast 10 mg oral tablet 10 mg, 1, tablet, By Mouth, Daily, Label in Kittitian, # 30 tablet, Refills 5, Tot. Refills 5, Maintenance, 03/22/23 16:02:00 EDT, Route to Pharmacy Electronically, [facility]/pharmacy #1130, Partial fill upon patient request if the prescription is for a sched... Start Date: 03/22/23 Status: Ordered pantoprazole 40 mg oral delayed release tablet 1 tablet = 40 mg, By Mouth, Daily, # 90 tablet, 0 Refills, Maintenance, 05/28/22 17:00:00 EDT, EC Tablet, 150, cm, 05/28/22 13:34:00 EDT, Height, 68.63, kg, 10/22/21 15:09:00 EST, Dry Weight Start Date: 05/28/22 Status: Ordered risperiDONE 3 mg oral tablet 3 mg, 1, tablet, By Mouth, Daily, # 30 tablet, Refills 0, Tot. Refills 0, Maintenance, 03/22/23 16:04:00 EDT, Route to Pharmacy Electronically, [facility]/pharmacy #1130, Partial fill upon patient request if the prescription is for a schedule II opioid drug.... Start Date: 03/22/23 Status: Ordered risperiDONE 3 mg oral tablet 3 mg, 1, tablet, Refills 0, Maintenance, 10/06/22 7:20:00 EST, Partial fill upon patient request ifthe prescription is for a schedule II opioid drug. Start Date: 10/06/22 Status: Ordered Trulicity Pen 0.75 mg/0.5 mL subcutaneous solution See Instructions, INJECT 1 PEN SUBCUTANEOUSLY ONCE WEEKLY, ROTATE INJECTION SITES, # 2 Unknown, 5 Refills, Maintenance, 03/22/23 16:02:00 EDT, [facility], 150, cm, 03/22/23 15:46:00 EDT, Height, 74.1, kg, 02/23/23 13:43:00 EDT, Dry Weight Start Date: 03/22/23 Status: Ordered Tylenol Extra Strength 500 mg oral tablet 2 tablet = 1,000 mg, By Mouth, 3 times a day, PRN for pain, # 540 tablet, 1 Refills, Maintenance, 07/07/22 13:48:00 EDT, Tablet, [facility]/pharmacy #[id number], Partial fill upon patient request if the prescription is for a schedule II opioid drug., 150, cm, 06/16... Start Date: 07/07/22 Status: Ordered Problem List Condition Confirmation Course Effective Dates Status H ealth Status Informant Complex partial seizure Confirmed Active Diabetes mellitus Confirmed Active Foot pain, left Confirmed Active GERD (gastroesophageal reflux disease) Confirmed Active Insomnia Confirmed Active Anxiety and depression Confirmed Active Obese class I Confirmed Active Prediabetes Confirmed Active Wayne-Silver syndrome, congenital hemihypertrophy Confirmed Active Results Radiology Reports * Exam Date Time Procedure Performing Provider Status 05/23/23 4:35 PM Chest 2 Views Frontal and Lat Duke Larose (Verified) Notes: (Chest 2 Views Frontal and Lat) Reason For Exam: Pain;Other: RESULT: Chest 2 Views Frontal and Lat Chest 2 Views Frontal and Lat INDICATION/CLINICAL QUESTION: Reason: Other:; Pain; Clinical Question(s): Other:; Fracture, pneumothorax, pulmonary contusion / Other: TECHNIQUE: Frontal and lateral views of the chest. COMPARISON: 06/03/2020. FINDINGS: LINES AND TUBES: None. LUNGS AND PLEURA: RIGHT CHEST: The right lung is clear and there is no right effusion. LEFT CHEST: The left lung is clear and there is no left effusion. HEART, MEDIASTINUM AND GRETA: The heart is of normal size. The mediastinum and greta are normal. BONES AND SOFT TISSUES: No acute bony abnormality. IMPRESSION: 1. No active disease in chest. WSN: [id number] Ordering Physician: Jim Reaves Dictated By: Moises Chisholm MD Dictated Date/Time: 05/23/23 4:39 pm Reviewed By: Moises Chisholm MD Signed By: Moises Chisholm MD Signed Date/Time: 05/23/23 4:39 pm Transcribed By: ABEL Transcribed Date/Time: 05/23/23 4:39 pm Vital Signs Most recent to oldest [Reference Range]: 1 2 3 Height 150 cm (05/23/23 5:21 PM) 150 cm (05/23/23 2:38 PM) Oxygen Saturation [94-100 %] 98 % (05/23/23 5:11 PM) 98 % (05/23/23 4:07 PM) 97 % (05/23/23 2:38 PM) Pulse Rate [55-90 bpm] 93 bpm *H* (05/23/23 5:11 PM) 87 bpm (05/23/23 4:07 PM) 100 bpm *H* (05/23/23 2:38 PM) Blood Pressure [90-138/55-84 mm Hg] 124/63mm Hg (05/23/23 5:11 PM) 118/78mm Hg (05/23/23 4:07 PM) 122/61mm Hg (05/23/23 2:38 PM) Respiratory Rate [16-30 br/min] 16 br/min (05/23/23 5:11 PM) Temperature [96.8-100.4 DegF] 98.0 DegF (05/23/23 5:11 PM) 97.9 DegF (05/23/23 4:07 PM) 98.4 DegF (05/23/23 2:38 PM) Mode of Delivery (Oxygen) Room air (05/23/23 5:11 PM) Room air (05/23/23 2:38 PM) Blood pressure sites Arm, right (05/23/23 5:11 PM) Arm, right (05/23/23 4:07 PM) Arm, left (05/23/23 2:38 PM) Temperature Route Oral (05/23/23 5:11 PM) Oral (05/23/23 4:07 PM) Oral (05/23/23 2:38 PM) Dry Weight 69.3 kg (05/23/23 5:21 PM) 69.3 kg (05/23/23 2:38 PM) Social History Social History Type Response Smoking Status Never (less than 100 in lifetime) entered on: 04/04/20 Sex Note * Jean Paul ARMENTA, Jim R: PERFORM Event Display: Patient Education Leaflets Authored Date: [id number] Back Pain (Acute or Chronic) ?? [id number] Dolor de espalda (abdiaziz o cr??aylin) El dolor de espalda es joel de los problemas m??s comunes. Lo romo es que la mayor??a de las personas se siente mejor en carmen a dos??semanas y muchas otras en joel a dos meses. La mayor??a puede permanecer activa. Cada persona describe el dolor de un modo diferente, no todos sienten lo mismo. ??? El dolor puede ser abdiaziz, incisivo, punzante, soleadd, stevenson un calambre o ardiente. ??? Puedeempeorar con el movimiento, al pararse, al inclinarse, al levantar objetos, al sentarse o al caminar. ??? El dolor puede estar limitado a un punto o carmen jose carlos, o puede ser m??s generalizado. ??? Se puede band lining bander hacia arriba, hacia el frente o hacia los brazos o piernas (ci??gale). ??? Puede causarespasmos musculares. Muchas veces, los problemas mec??nicos con los m??sculos o la columna son los que producen el dolor. Por lo general, estos problemas mec??nicos se deben a carmen lesi??n de los m??sculos o ligamentos. Algunas enfermedades pueden provocar dolor de espalda, raina por lo general no son graves. Algunos problemas mec??nicos pueden ser los siguientes:? Actividad f??faustino, stevenosn deportes, ejercicios, trabajo o actividades normales ??? Esfuerzo excesivo, o levantar objetos, empujar o jalar incorrectamente o con demasiada agresividad ??? Girar, inclinarse o estirarse de forma repentina a causa de un accidente o por un movimiento accidental ??? Ivy postura ??? Estirarse o moverse incorrectamente, sin notar dolor en el momento ??? Ivy coordinaci??n, falta de ejercicio regular (consulte a glover m??dico por lorena amber) ??? Enfermedad de disco intervertebral o artritis ??? Estr??s El dolor tambi??n puede asociarse con embarazo o enfermedades stevenson apendicitis, infecciones de la vejiga o los ri??ones, e infecciones p??lvicas. El dolor de espalda abdiaziz suele mejorar en carmen a dos semanas. El dolor de espalda asociado a algunaafecci??n de los discos, a la artritis en las articulaciones vertebrales o al estrechamiento de la reducci??n del conducto cruz (estenosis vertebral) puede volverse cr??aylin y durar meses o a??os. A menos que haya tenido carmen lesi??n f??faustino, stevenson un accidente automovil??stico o carmen ca??da, quiz??s no se realicen radiograf??as para la primera evaluaci??n del dolor de espalda. Si el dolor persiste y no responde al tratamiento m??dico, es posible que tenga que hacerse radiograf??as y otras pruebas. Cuidados en el hogar Procure seguir estas recomendaciones para el cuidado en el hogar: ??? Cuando est?? en la cama, trate de encontrar carmen posici??n c??moda. Lo mejor es utilizar un colch??n firme. Intente acostarse de espalda con almohadas debajo de las rodillas. Tambi??n puede probarrecost??ndose de lado con las rodillas flexionadas hacia glover pecho y carmen almohada entre las rodillas. ??? Al principio, no intente estirar los puntos sensibles. Si hay tensi??n, no es romo stevenson cuando se estira despu??s de hacer ejercicio y no hay carmen lesi??n. En esta ocasi??n, estirarse podr??a empeorarlo. ??? No permanezca sentado por per??odos prolongados, por ejemplo en viajes largos en autom??lukas o de otro tipo. Dunsmuir causa m??s tensi??n en la parte baja de la espalda que estar de pie o caminando. ??? Jey las primeras 24 a 72??horas despu??s de carmen lesi??n aguda o un ataque de dolor cr??aylin de espalda, coloque carmen compresa fr??a en la jose carlos dolorida jey 20??minutos y despu??s qu??jewell jey 20??minutos. Gertrudis esto jey 60 a 90??minutos, o varias veces al d??a. Dunsmuir reducir?? la hinchaz??n y el dolor. Envuelva la compresa fr??a con carmen toalla ghada o un pl??stico para proteger la piel. ??? Puede comenzar aplic??ndose fr??o y luego aplicarse calor. El calor (de carmen ducha caliente, de un ba??o caliente o de carmen almohadilla t??rmica) reduce el dolor y da buenos resultadospara los espasmos musculares. Se puede aplicar calor sobre el ??neris dolorida jey 20??minutos, luego retirarlo jey 20??minutos. Gertrudis esto jey 60 a 90??minutos, o varias veces al d??a. No duerma sobre carmen almohadilla t??rmica. Podr??a causarle quemaduras o da??os en los tejidos. ??? Tambi??n puede alternar los tratamientos de hielo y calor. Hable con glover m??dico sobre el mejor tratamiento para el dolor de espalda en glover glen. ??? Los masajes terap??uticos pueden ayudar a relajar los m??sculos sin estirarlos. ??? Tenga en cuenta los m??todos seguros para levantar objetos. No levante objetos pesados sin hacer un estiramiento previo. Medicamentos Hable con glover m??dico antes de usar medicamentos, especialmente si tiene otros problemas m??dicos o est?? tomando otros medicamentos. ??? Puede usar medicamentos de venta lesly para controlar el dolorsiguiendo las instrucciones del frasco, a menos que le hayan recetado otro analg??sico. Si tiene enf ermedades cr??nicas, stevenson diabetes, disfunci??n hep??gale o renal, ??lceras estomacales o hemorragias gastrointestinales, hable con glover proveedor de atenci??n m??dica antes de autumn estos medicamentos. Tambi??n hable con glover proveedor si elizabeth anticoagulantes. ??? Tenga cuidado si le orin medicamentos r ecetados, narc??ticos o medicamentos para los espasmos musculares. Pueden causar somnolencia o afectar la coordinaci??n, los reflejos y el juicio. No debe conducir ni operar maquinaria pesada mientras los elizabeth. ?? Visita de seguimiento Asista a las citas de seguimiento con glover proveedor de atenci??n m??dica o seg??n le hayan indicado.?? Si le tomaron radiograf??as, le informar??n los resultados nuevos que puedan afectar glover atenci??n m??dica. ?? Cu??ndo llamar al?? 911 Llame al?? 911 si ocurre lo siguiente: ??? Dificultad para respirar ??? Confusi??n ??? Somnolencia o problemas para despertarse ??? Desmayos o p??rdida del conocimiento ??? Frecuencia card??pal r??pida o muy lenta ??? P??rdida de control del intestino o de la vejiga ?? Cu??ndo buscar atenci??n m??dica Llame a glover proveedor de atenci??n m??dica de inmediato ante cualquiera de las siguientes situaciones:? El dolor empeora o se propaga a las piernas ??? Cambios en el control del intestino o de lavejiga ??? Fiebre ??? Emil en la orina ??? Debilidad o entumecimiento en carmen o ambas piernas ??? Sensaci??n de entumecimiento en la jose carlos genital o de la clementine ?? Last Reviewed Date: 2021 ?? [id number] [employer]. Todos los derechos reservados. Esta informaci??n no pretende sustituir la atenci??n m??dica profesional. S??lo glover m??dico puede diagnosticar y tratar un problema de michael. ?? Patient Care team information Care Team Personnel Name: Louis Patel MD Position: [facility] Physician - Primary Care Member Role: PCP Address: Address: [address] [facility] [place] [address]- Name: Radha Wang RN Position: [facility] RN Member Role: Primary Care Nurse Name: *[facility], ED Attending Position: [facility] ED Attendings Patient Name: Jim Reaves MD Position: [facility] Resident Member Role: Admitting Physician Address: Address: [address] [facility] [place] [address]- Name: Nohemi Oliva Position: [facility] ED TA [facility] Name: Rolando RAMOS, Ashok Position: [facility] ED RN W/OE and Tasks Member Role: Patient Care Provider Care Team Related Persons Name: MATT IQBAL Address: [address] [place] [address] Name: LEANDRO MARQUEZ Address: home [address] [place] [address] Name: ANTOLIN MARQUEZ Name: MATTIE BANKS Address: home [address] [address]
--- OUTSIDE RECORDS SUMMARY | 2023-06-08 02:27 | XMS_ITS | Continuity of Care Document ---
Author Name Unknown Organization [facility] Address [address] [place] [address]- Care Team Providers Care Chain Maker Machine Name Role Phone Jorge ARMENTA, Louis Altamirano Primary Care Physician [phone] [facility] Date(s): 02/25/21 - 04/21/21 [facility] [address] [place] [address] [place] [address]- Attending Physician: Felipe Castillo MD Admitting Physician: [...] each, Refills 1, Tot. Refills 1, Maintenance, 02/04/21 16:03:00 EDT, Aerosol, Route to Pharmacy Electronically, [id number], [facility]/pharmacy #1130 Start Date: 02/04/21 Status: Ordered Bedside Commode Bedside Commode, See [...] each, 5 Refills, Maintenance, 04/04/20 13:27:00 EDT, [facility]/pharmacy #1130 Start Date: 04/04/20 Status: Ordered clonazePAM 2 mg oral tablet 1 tablet = 2 mg, By Mouth, Daily at bedtime, # 30 tablet, 3 Refills, Maintenance, 04/04/20 13:25:00EDT, Tablet, [facility]/pharmacy #1130 Start Date: 04/04/20 Status: Ordered Guaiasorb DM 10 mg-100 mg/5 mL oral liquid 10 mL, By Mouth, Every 4 hours, # 240 mL, 0 Refills, Maintenance, 04/17/20 13:08:00 EDT, [facility]/pharmacy #1130, moroccan label, 10 mL By Mouth Every 4 hours Start Date: 04/17/20 Status: Ordered Keppra 1000 mg oral tablet 1 tablet = 1,000 mg, By Mouth, 3 times a day, # 90 tablet, 0 Refills, Maintenance, 04/04/21 14:56:00 EDT, Tablet, [facility]/pharmacy #1130, 151, cm, 04/04/21 14:15:00 EDT, Height, 71.8, kg, 02/18/21 19:34:00 EDT, Dry Weight Start Date: 04/04/21 Status: Ordered lamotrigine 150 mg oral tablet 1 tablet = 150 mg, By Mouth, 2 times a day, # 60 tablet, 6 Refills, Maintenance, 04/04/21 14:56:00 EDT, Tablet, [facility]/pharmacy #1130, 151, cm, 04/04/21 14:15:00 EDT, Height, 71.8, kg, 02/18/21 19:34:00EDT, Dry Weight Start Date: 04/04/21 Status: Ordered metFORMIN 500 mg oral tablet, extended release 1 tablet = 500 mg, By Mouth, Daily, # 30 tablet, 4 Refills, Maintenance, 02/13/21 15:28:00 EDT, ER Tablet, [facility]/pharmacy #[id number], Partial fill upon patient request if [...] Maintenance, 11/04/20 18:31:00 EST, ECCapsule, [id number], moroccan label Start Date: 11/04/20 Status: Ordered pantoprazole [...] with dinner every night (please label in Romanian), # 30 tablet, 1 Refills, Maintenance, 09/16/20 7:19:00 EST, Tablet, [id number] Start Date: 09/16/20 Status: Ordered Problem List Condition Effective Dates Status Health Status Inform ant Complex partial seizure(Confirmed) Active Anxiety and depression(Confirmed) Active Prediabetes(Confirmed) Active Wayne-Silver syndrome, con genital hemihypertrophy(Confirmed) Active Social History Social History Type Response Smoking Status Never (less than 100 in lifetime) entered on: 04/04/20 Sex
--- OUTSIDE RECORDS SUMMARY | 2023-06-08 02:27 | XMS_ITS | Continuity of Care Document ---
Author Name Unknown Organization [facility] Address [address] [place] [address]- Care Team Providers Care Business Associate Name Role Phone Jorge ARMENTA, Louis Altamirano Primary Care Physician [phone] Encounter [facility] Date(s): 05/27/22 - 06/26/22 [facility] [address], [place] [address] Attending Physician: Admtr, Merlin Admitting Physician: Admtr, Ar8 Referring Physician: Admtr, Ar8 Allergies, Adverse Reactions, Alerts No Known Allergies Immunizations Given and Recorded Vaccine Date Status Refusal Reason SARS-CoV-2 mRNA (uoicfoa-[id number]-ibagh) vax 01/19/22 Given SARS-CoV-2 (COVID-19) mRNA BNT-162b2 vac 1 07/03/21 Given SARS-CoV-2 (COVID-19) mRNA BNT-162b2 vac 06/06/21 Given Not Given Vaccine Date Status Refusal Reason tetanus/diphtheria/pertussis , acel(Tdap) 2 09/26/21 Not Given Parent Or Guardian R efuses 1? Unknown: Resend to [facility]. 2Result Comment: mom states pt has received [...] 6 Refills, Maintenance, 06/10/21 16:22:00 EDT, Solution, [facility]/pharmacy #[id number], Partial fill upon patient request if the prescription is for a schedule II opioid drug., 151, cm, 06/10/21 16:07:00 EDT,... Start Date: 06/10/21 Status: Ordered albuterol CFC free 90 mcg/inh inhalation aerosol 2, puffs, Inhalation, Every 4 hours, PRN, # 1 each, Refills 11, Tot. Refills 11, Maintenance, 06/10/21 16:22:00 EDT, Aerosol, Route to Pharmacy Electronically, [id number], [facility]/pharmacy #1130, 151, cm, 06/10/21 16:07:00 EDT, H... Start Date: 06/10/21 Stop Date: 06/05/22 Status: Ordered Ambien 5 mg oral tablet 1 tablet = 5 mg, By Mouth, Daily at bedtime, PRN as needed for insomnia, # 12 tablet, 0 Refills, Acute 06/29/22 14:54:00 EDT, 05/29/21 14:54:00 EDT, Tablet, [facility]/pharmacy #1130, Partial fill upon patient request [...] [id number] Start Date: 04/04/20 Status: Ordered diclofenac [...] Refills, Maintenance, 04/17/20 13:08:00 EDT, [facility], czech label, 10 mL By Mouth Every 4 hours Start Date: 04/17/20 Status: Ordered ketoconazole 1% topical shampoo See Instructions, Topically Every third day, # 200 mL, 1 Refills, Maintenance, 01/19/22 15:55:00 EST, [facility], Partial fill upon patient request [...] a day, # 90 tablet, 5 Refills, [id number], 150, cm, 04/20/22 13:54:00 EDT, Height, 68.63, kg, 10/22/21 15:09:00 EST, Dry Weight Start Date: 04/28/22 Status: Ordered mirtazapine 45 mg oral tablet 1 tablet = 45 mg, By Mouth, Daily at bedtime, # 30 tablet, 6 Refills, Maintenance, 04/04/20 13:23:00 EDT, Tablet, [facility]/pharmacy #1130 Start Date: 04/04/20 Status: Ordered NuLYTELY with Flavor Packs oral powder for reconstitution 240 mL, By Mouth, Every 10 minutes, half after 5pm evening before, finish remaing half 6 hours prior to prcedure, # 1 each, 0 Refills, Maintenance, 06/02/22 10:24:00 EDT, REC Powder, [facility]/pharmacy #1130, Partial fill upon patient request [...] 6 Refills, Maintenance, 01/19/22 16:03:00 EST, Solution, [facility]/pharmacy #1130, Partial fill upon patient request ifthe prescription is for a schedule II opioid drug.,... Start Date: 01/19/22 Status: Ordered Tylenol Extra Strength 500 mg oral tablet 2 tablet = 1,000 mg, By Mouth, 3 times a day, PRN for pain, # 540 tablet, 1 Refills, Maintenance, 05/28/22 17:02:00 EDT, Tablet, [facility]/pharmacy #1130, Partial fill upon patient request if the prescription is for a schedule II opioid drug., 150, cm, 05/15... Start Date: 05/28/22 Status: Ordered Vimpat 200 mg oral tablet 1 tablet = 200 mg, By Mouth, 2 times a day, Brand name medically necessary for seizure disorder, # 60 tablet, 5 Refills, Maintenance, 03/16/22 16:39:00 EDT, Tablet, [facility]/pharmacy #1130, generic lacosamide preferred, 150, cm, 01/19/22 15:23:00 EST, Hequinn... Start Date: 03/16/22 Stop Date: 09/12/22 Status: [...]
--- OUTSIDE RECORDS SUMMARY | 2023-06-08 02:27 | XMS_ITS | Continuity of Care Document ---
Author Name Unknown Organization [facility] Address [address] [place] [address]- Care Team Providers Care Dehydrogenation Supervisor Name Role Phone Jorge ARMENTA, Louis Altamirano Primary Care Physician Encounter [facility] Date(s): 11/24/22 - 12/24/22 [facility] [address] [place] [id number] Allergies, Adverse Reactions, Alerts No Known Allergies Immunizations Given and Recorded Vaccine Date Status Refusal Reason SARS-CoV-2 mRNA (tfrxqkj-clwt-esuid) vax 01/19/22 Given SARS-CoV-2 (COVID-19) mRNA BNT-162b2 [...] 16:22:00 EDT, Aerosol, Route to Pharmacy Electronically, [id number], [facility]/pharmacy #1130, 151, cm, 06/10/21 16:07:00 EDT, [...] 2 Refills, Maintenance, 05/28/22 17:00:00 EDT, Gel, [facility]/pharmacy #1130, Partial fill upon patient request [...] tablet, 5 Refills, Maintenance, 10/06/22 7:21:00 EST, [facility]/pharmacy #1130, 150, cm, 07/07/22 13:19:00 EDT, Height, 68.63, kg, 10/22/21 15:09:00 EST, Dry Weight Start Date: 10/06/22 Status: Ordered levETIRAcetam 1000 mg oral tablet 1 tablet, By Mouth, 3 times a day, # 90 tablet, 5 Refills, 10/06/22 7:22:00 EST, [facility]/pharmacy #1130, 150, cm, 07/07/22 13:19:00 EDT, Height, 68.63, kg, 10/22/21 15:09:00 EST, Dry Weight Start Date: 10/06/22 Status: Ordered mirtazapine 45 mg oral tablet 0 Refills, Maintenance, 10/06/22 7:20:00 EST, Partial fill upon patient request if the prescriptionis for a schedule II opioid drug. Start Date: 10/06/22 Status: Ordered montelukast 10 mg oral tablet 10 mg, 1, tablet, By Mouth, Daily, Label in Samoan, # 30 tablet, Refills 5, Tot. Refills 5, Maintenance, 10/13/22 15:15:00 EST, Route to Pharmacy Electronically, [facility]/pharmacy #1130, Partial fill upon patient request [...] SITES, # 2 Unknown, 5 Refills, Maintenance, 10/09/22 14:25:00 EDT, [facility], 150, cm, 07/07/22 13:19:00 EDT, Height,68.63, kg, 10/22/21 15:09:00 EST, Dry Weight Start Date: 08/23/22 Status: Ordered Tylenol Extra Strength 500 mg oral tablet 2 tablet = 1,000 mg, By Mouth, 3 times a day, PRN for pain, # 540 tablet, 1 Refills, Maintenance, 07/07/22 13:48:00 EDT, Tablet, [facility]/pharmacy #1130, Partial fill upon patient request if the prescription is for a schedule II opioid drug., 150, cm, 06/16... Start Date: 07/07/22 Status: Ordered Vimpat 200 mg oral tablet 1 tablet = 200 mg, By Mouth, 2 times a day, Brand name medically necessary for seizure disorder, # 60 tablet, 5 Refills, Maintenance, 10/06/22 7:18:00 EST, Tablet, [facility]/pharmacy #1130, generic lacosamide preferred, 150, cm, 07/07/22 [...] Physician Member Role: PCP Address: Address: [address] [facility], [place] [address]- Care Team Related Persons Name: MATT IQBAL Address: [address] [place] [address] Name: LEANDRO MARQUEZ Address: home [address] [place] [address] Name: ANTOLIN MARQUEZ Name: ZORAIDA BANKS Address: [address] [address]
--- OUTSIDE RECORDS SUMMARY | 2023-06-08 02:27 | XMS_ITS | Continuity of Care Document ---
Author Name Unknown Organization [facility] Address [address] [place] [address]- Care Team Providers Care Career Services Officer Name Role Phone Jorge ARMENTA, Louis Altamirano Primary Care Physician Encounter [facility] Date(s): 05/26/22 - 06/25/22 [facility] Adult Medicine [address] [place] [id number] Allergies, Adverse Reactions, Alerts No Known Allergies Immunizations Given and Recorded Vaccine Date Status Refusal Reason SARS-CoV-2 mRNA (qgqdkey-fdvd-wzsxo) vax 01/19/22 Given SARS-CoV-2 (COVID-19) mRNA BNT-162b2 vac 1 07/03/21 Given SARS-CoV-2 (COVID-19) mRNA BNT-162b2 vac 06/06/21 Given Not Given Vaccine Date Status Refusal Reason tetanus/diphtheria/pertussis , acel(Tdap) 2 09/26/21 Not Given Parent Or Guardian R efuses 1? Unknown: Resend to [facility]. 2Result Comment: mom states pt has received [...] 6 Refills, Maintenance, 06/10/21 16:22:00 EDT, Solution, [facility]/pharmacy #1130, Partial fill upon patient request if the prescription is for a schedule II opioid drug., 151, cm, 06/10/21 16:07:00 EDT,... Start Date: 06/10/21 Status: Ordered albuterol CFC free 90 mcg/inh inhalation aerosol 2, puffs, Inhalation, Every 4 hours, PRN, # 1 each, Refills 11, Tot. Refills 11, Maintenance, 06/10/21 16:22:00 EDT, Aerosol, Route to Pharmacy Electronically, [id number], [facility]/pharmacy #1130, 151, cm, 06/10/21 16:07:00 EDT, H... Start Date: 06/10/21 Stop Date: 06/05/22 Status: Ordered Ambien 5 mg oral tablet 1 tablet = 5 mg, By Mouth, Daily at bedtime, PRN as needed for insomnia, # 12 tablet, 0 Refills, Acute 06/29/22 14:54:00 EDT, 05/29/21 14:54:00 EDT, Tablet, [facility]/pharmacy #1130, Partial fill upon patient request if [...] tablet, 3 Refills, Maintenance, 04/04/20 13:25:00EDT, Tablet, [facility]/pharmacy #1130 Start Date: 04/04/20 Status: Ordered diclofenac 1% topical gel 1 application, Topically, 4 times a day, # 100 Gm, 2 Refills, Maintenance, 05/28/22 17:00:00 EDT, Gel, [facility]/pharmacy #1130, Partial fill upon patient request if the prescription is for a schedule II opioid drug., 150, cm, 05/28/22 13:34:00 EDT, Height,... Start Date: 05/28/22 Status: Ordered Guaiasorb DM 10 mg-100 mg/5 mL oral liquid 10 mL, By Mouth, Every 4 hours, # 240 mL, 0 Refills, Maintenance, 04/17/20 13:08:00 EDT, [facility], [facility] label, 10 mL By Mouth Every 4 hours Start Date: 04/17/20 Status: Ordered ketoconazole 1% topical shampoo See Instructions, Topically Every third day, # 200 mL, 1 Refills, Maintenance, 01/19/22 15:55:00 EST, [facility]/pharmacy #1130, Partial fill upon patient request if the prescription is for a schedule II opioid drug., Topically Every third day, 150, cm, 030... Start Date: 01/19/22 Status: Ordered lamotrigine 150 mg oral tablet 1 tablet = 150 mg, By Mouth, 2 times a day, # 60 tablet, 5 Refills, Maintenance, 10/06/21 9:55:00 EST, Tablet, [facility]/pharmacy #1130, 151, cm, 09/02/21 14:18:00 EDT, Height, 71.8, kg, 02/18/21 19:34:00 EDT, Dry Weight Start Date: 10/06/21 Status: Ordered levETIRAcetam 1000 mg oral tablet 1 tablet, By Mouth, 3 times a day, # 90 tablet, 5 Refills, [id number], 150, cm, 04/20/22 13:54:00 EDT, Height, 68.63, [...] 1 Refills, Maintenance, 05/28/22 17:02:00 EDT, Tablet, [facility]/pharmacy #1130, Partial fill upon patient request if the prescription is for a schedule II opioid drug., 150, cm, 05/15... Start Date: 05/28/22 Status: Ordered Vimpat 200 mg oral tablet 1 tablet = 200 mg, By Mouth, 2 times a day, Brand name medically necessary for seizure disorder, # 60 tablet, 5 Refills, Maintenance, 03/16/22 16:39:00 EDT, Tablet, [facility]/pharmacy #1130, generic lacosamide preferred, 150, cm, 01/19/22 [...]
--- OUTSIDE RECORDS SUMMARY | 2023-06-08 02:27 | XMS_ITS | Continuity of Care Document ---
Author Name Unknown Organization [facility] ter Address [address] [place] [address]- Care Team Providers Care Hat Lining Paster Name Role Phone Jorge ARMENTA, Louis Altamirano Primary Care Physician [phone] Encounter [facility] ACCT R [id number] Date(s): 02/23/23 - 02/26/[address] [address]- Discharge Disposition: A-D/C Home Attending Physician: Andrea Burger MD Admitting Physician: Andrea Burger MD Referring Physician: Andrea Burger MD Allergies, Adverse Reactions, Alerts No Known Allergies Immunizations Given and Recorded Vaccine Date Status Refusal Reason SARS-CoV-2 mRNA (thxekzz-hfbo-vobon) vax 01/19/22 Given SARS-CoV-2 (COVID-19) mRNA BNT-162b2 [...] 6 Refills, Maintenance, 06/10/21 16:22:00 EDT, Solution, [facility]/pharmacy #[id number], Partial fill upon patient request if the prescription is for a schedule II opioid drug., 151, cm, 06/10/21 16:07:00 EDT,... Start Date: 06/10/21 Status: Ordered albuterol CFC free 90 mcg/inh inhalation aerosol 2, puffs, Inhalation, Every 4 hours, PRN, # 1 each, Refills 11, Tot. Refills 11, Maintenance, 01/28/23 15:52:00 EDT, Aerosol, Route to Pharmacy Electronically, [id number], [facility]/pharmacy #[id number], 150, cm, 01/28/23 15:24:00 EDT, H... [...] 2 Refills, Maintenance, 05/28/22 17:00:00 EDT, Gel, [facility]/pharmacy #[id number], Partial fill upon patient request if [...] Gm, 0 Refills, Maintenance, 02/23/23 11:47:00 EDT, [place], Partial fill upon patient request if the prescription is for a schedule II opioid drug. Start Date: 02/23/23 Status: Ordered fluticasone 50 mcg/inh nasal spray 1 sprays, Nares, Both, 2 times a day, # 16 Gm, 0 Refills, Maintenance, 02/23/23 11:47:00 EDT, [place], Partial fill upon patient request if the prescription is for a schedule II opioid drug. Start Date: 02/23/23 Status: Ordered lacosamide 10 mg/mL oral solution 25 mL = 250 mg, By Mouth, 2 times a day, # 750 mL, 5 Refills, Maintenance, 02/26/23 16:07:00 EDT, [place], Partial fill upon patient request if the prescription is for a schedule II opioid drug. Start Date: 02/26/23 Status: Ordered lacosamide 10 mg/mL oral solution 25 mL = 250 mg, By Mouth, 2 times a day, # 1,500 mL, 5 Refills, Maintenance, 02/26/23 16:10:00 EDT,[place], Partial fill upon patient request if the [...] day, # 60 tablet, 5 Refills, Maintenance, 01/15/23 11:36:00 EST, [facility]/pharmacy #[id number], 150, cm, 01/15/23 11:00:00 EST, Height, 68.63, kg, 10/22/21 15:09:00 EST, Dry Weight Start Date: 01/15/23 Status: Ordered mirtazapine 45 mg oral tablet 0 Refills, Maintenance, 10/06/22 7:20:00 EST, Partial fill upon patient request if the prescriptionis for a schedule II opioid drug. Start Date: 10/06/22 Status: Ordered montelukast 10 mg oral tablet 10 mg, 1, tablet, By Mouth, Daily, Label in Maltese, # 30 tablet, Refills 5, Tot. Refills 5, Maintenance, 10/13/22 15:15:00 EST, Route to Pharmacy Electronically, [facility]/pharmacy #[id number], Partial fill upon patient request if [...] SITES, # 2 Unknown, 5 Refills, Maintenance, 02/08/23 13:00:00 EDT, [id number], 150, cm, 01/28/23 15:24:00 EDT, Height,68.63, kg, 10/22/21 15:09:00 EST, Dry Weight Start Date: 02/08/23 Status: Ordered Tylenol Extra Strength 500 mg oral tablet 2 tablet = 1,000 mg, By Mouth, 3 times a day, PRN for pain, # 540 tablet, 1 Refills, Maintenance, 07/07/22 13:48:00 EDT, Tablet, [facility]/pharmacy #[id number], Partial fill upon patient request if the prescription is for a schedule II opioid drug., 150, cm, 2... Start Date: 07/07/22 Status: Ordered Problem List Condition Confirmation Course Effective Dates Status H ealth Status Informant Complex partial seizure Confirmed Active Diabetes mellitus Confirmed Active Foot pain, left Confirmed Active GERD (gastroesophageal reflux disease) Confirmed Active Insomnia Confirmed Active Anxiety and depression Confirmed Active Obese class I Confirmed Active Prediabetes Confirmed Active Wayne-Silver syndrome, congenital hemihypertrophy Confirmed Active Vital Signs Most recent to oldest [Reference Range]: 1 2 3 Height 150 cm (02/26/23 12:00 PM) 150 cm (02/26/23 8:00 AM) 150 cm (02/25/23 4:17 PM) Weight 74.1 kg (02/23/23 12:43 PM) 74.1 kg (02/23/23 12:30 PM) Oxygen Saturation [94-100 %] 96 % (02/26/23 3:00 PM) 95 % (02/26/23 12:00 PM) 95 % (02/26/23 8:00 AM) Pulse Rate [55-90 bpm] 96 bpm *H* (02/26/23 3:00 PM) 92 bpm *H* (02/26/23 12:00 PM) 92 bpm *H* (02/26/23 8:00 AM) Body Mass Index [18.5-24.99 kg/m2] 32.93 kg/m2 *>HHI* (02/23/23 12:43 PM) Blood Pressure [90-138/55-84 mm Hg] 117/68mm Hg (02/26/23 3:00 PM) 122/65mm Hg (02/26/23 12:00 PM) 115/71mm Hg (02/26/23 8:00 AM) Respiratory Rate [16-30 br/min] 18 br/min (02/26/23 3:00 PM) 18 br/min (02/26/23 12:00 PM) 18 br/min (02/26/23 8:00 AM) Temperature [96.8-100.4 DegF] 98.0 DegF (02/26/23 3:00 PM) 98.4 DegF (02/26/23 12:00 PM) 97.6 DegF (02/26/23 8:00 AM) Mode of Delivery (Oxygen) Room air (02/26/23 3:00 PM) Room air (02/26/23 12:00 PM) Room air (02/26/23 8:00 AM) Blood pressure sites Arm, left (02/26/23 3:00 PM) Arm, left (02/26/23 12:00 PM) Arm, left (02/26/23 8:00 AM) Temperature Route Oral (02/26/23 3:00 PM) Tympanic (02/26/23 12:00 PM) Tympanic (02/26/23 8:00 AM) Dry Weight 74.1 kg (02/23/23 12:43 PM) Weight Obtained Via Bed scale (02/23/23 12:43 PM) Bed scale (02/23/23 12:30 PM) Dry Weight Obtained Via Bed scale (02/23/23 12:43 PM) Social History Social History Type Response Smoking Status Never (less than 100 in lifetime) entered on: 04/04/20 Sex Admission evaluation note * Ramy BAUER, Brock Whittaker: PERFORM, MODIFY, MODIFY, MODIFY Event Display: Admission Note Authored Date: [id number] Patient: ??THA MARQUEZ ? Age:??32 Years?Sex:??Male?:??1990?? Chief Complaint/Reason for Consult Elective vEEG History of Present Illness Tha is a 32 year old male with a significant past medical hx of DM, anxiety, depression, Wayne-Silver syndrome and left hemiatrophy, mild cognitive impairment, and ?Seizure disorder previously treated at [facility] where he underwent vEEG suggestive of both epileptic and no nepileptic events. Patient presented to the hospital today for elective vEEG monitoring. Reportedlypatient was supposed to undergo elective monitoring earlier in 2020 however unable to pursue workupbecause of COVID limitations. He just recently visited Dr. Birmingham (who he follows with now) home AED meds include Clonazepam 2mg QHS, Lacosamide 200mg BID, Lamotrigine 150mg BID, and Keppra 1mg BID(this was reported as TID however patients mother clarified this is in fact BID). Patients mother is also his SECOND BUTLER, because of??this unable to also be listed as Health Care Proxy. She mentions that he typically experiences multiple seizure a day. They are characterized by 1/1.5 minutes of shaking and decreased responsiveness??followed by immediate improvement in mental status,??able to resume whatever activity he was recently engaged in. She mentions there are normally at least5 that occur each day, typically the majority of these events occur at night frequently while patient is sleeping, she states all these seizures are his emotional seizures. She does however mention that patient experienced two epilepsy seizures in the past, shaking activity followed by confusion.The discrepancy in seizure type prompted elective vEEG visit. Of note, mother states that patient experienced one of his typical seizures this morning, and just as prior events he was able to return to his baseline mental status immediately following event. On exam patient was alert and oriented to baseline, able to state name and location, unable to state year. He is unable to answer simple questions such as current president (hx of mild cognitive impairment) non focal exam full strength UE and LE. He does have subtle inspiratory and expiratory wheezing. Review of Systems ?? GEN: no fevers, chills, weight loss HEENT: no headaches, no vision changes, no ear drainage/pain, chronic tinnitus, no URI symptoms, nothroat pain CV: no cp RESP: no sob, no wheezing GI: no n/v/d : no dysuria/frequency/urgency MUSK: no joint pain, no muscle aches/pains PSYCH: no depression, no anxiety NEURO: no vision changes, no speech changes, no change in swallow, no weakness, no sensory changes,no imbalance, no dizziness, no headaches?? Physical Exam Vitals & Measurements T:??97?F ?? FL:??98?? RR:??20?? BP:??131/71?? SpO2:??98%?? WT:??74.1??kg?General Exam?Admit Functional Activity: independent. ?Appearance: appears stated age, comfortable and appropriate.?HEENT: Head Normocephalic, Neck Supple.?Respiratory:??wheezing inspiratory and expiratory ?Cardiac: RRR.?Rheumatologic: no swelling.?Dermatologic: no rash.?Extremities: no edema.?Psychiatric: not anxious.? Neuro Exam ?? Mental Status: ?alert and oriented to person, place,??NOT year ?fluent and appropriate speech, no dysarthria ?able to identify simple objects ?able to follow simple and 2 step commands Cranial nerves:?PERRL ?EOMI ?VFF ?equal light touch sensation ?no facial asymmetry or droop no ptosis noted bilaterally hearing intact to voice palate movement symmetric, uvula midline no tongue deviation [id number] head movement and shoulder shrug 5/5 bilaterally muscle strength: ?appropriate muscle tone and bulk ?no tremors ?5/5 UE ?5/5 LE Sensation ?equal light touch sensation UE and LE Reflexes ?2+ through out?Toes down going bilaterally Cerebellum ?Finger to nose intact bilaterally?Gait not assessed ?? Assessment/Plan Tha is a 32 year old male with a significant past medical hx of DM, anxiety, depression, Wayne-Silver syndrome and left hemiatrophy, mild cognitive impairment, and ?Seizure disorder previously treated at [facility] [place] where he underwent vEEG suggestive of both epileptic and no nepileptic events. Patient presented to the hospital today for elective vEEG monitoring. Patients mother is also his SECOND BUTLER, because of??this unable to also be listed as Health Care Proxy. She mentions that he typically experiences multiple (>5)??seizures a day. They are characterized by1/1.5 minutes of shaking and decreased responsiveness??followed by immediate improvement in mental s tatus,??able to resume whatever activity he was recently engaged in. On exam patient was alert and oriented to baseline, able to state name and location, unable to state year. He is unable to answer simple questions such as current president (hx of mild cognitive impairment) non focal exam full strength UE and LE. He does have subtle inspiratory and expiratory wheezing. ?? 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 - Clonazepam 2mg QHS - Lacosamide 200mg BID - Lamotrigine 150mg BID - Keppra 1gram BID (Was documented as TID however mother states this is actually BID) - Seizure precautions, daily VS - no sleep deprivation tonight - no med adjustment for now ?? Diabetes; - Trulicity 0.75mg/0.5ml Once a week injection (every ) - glucose checks before meals and before bed - sliding scale for maintenance glucose control (Humalog 2-10 units) ?? Anxiety/Depression; - Risperidone 4mg tab QHS - Mirtazapine 45mg 1tab QHS ?? Dispo Home condition fair Status full resuscitation Primary Contact: ?BANKS, AND SYLVAIN?Relation to Pt: Mother ?[address] ?[place] [address] ?Cell ? Discussed w/ Dr. Burger Problem List/Past Medical History Ongoing Anxiety and depression Complex partial seizure Diabetes mellitus Foot pain, left GERD (gastroesophageal reflux disease) Insomnia Obese class I Prediabetes Wayne-Silver syndrome, congenital hemihypertrophy Historical No qualifying data Procedure/Surgical History No qualifying data available. Home Medications Acetaminophen: 1,000 mg = 2 tablet, By Mouth, 3 times a day, PRN (for pain) Albuterol: 2.5 mg = 3 mL, Inhalation, Every 6 hours Albuterol: 2 puffs, Inhalation, Every 4 hours, PRN (Wheezing/Shortness of Breath) Clonazepam Diclofenac Topical: 1 application, Topically, 4 times a day dulaglutide: See Instructions, INJECT 1 PEN SUBCUTANEOUSLY ONCE WEEKLY, ROTATE INJECTION SITES Durable Medical Equipment (Bed Pads): See Instructions, Use Up To 3/DayDx: ??Urine Incontinence (R32), Complex Partial Seizures (G40.209; ??Reduced Mobility (Z74.0)Duration: ??Lifetime Durable Medical Equipment (Adult Disposable Pull Ups - L): See Instructions, Use Up To 3/DayDx: ??Urine Incontinence (R32), Complex Partial Seizures (G40.209; ??Reduced Mobility (Z74.0)Duration: ??Lifetime Escitalopram Fluticasone Nasal: 1 sprays, Nares, Both, 2 times a day Fluticasone Nasal: 1 sprays, Nares, Both, 2 times a day Lacosamide: 200 mg = 1 tablet, By Mouth, 2 times a day, Brand name medically necessary for seizure disorder Lacosamide: 200 mg = 1 tablet, By Mouth, 2 times a day, Brand name medically necessary for seizure disorder Lamotrigine: 1 tablet, By Mouth, 2 times a day levETIRAcetam: 1 tablet, By Mouth, 3 times a day Mirtazapine Montelukast: 10 mg = 1 tablet, By Mouth, Daily, Label in Maltese Pantoprazole: 40 mg = 1 tablet, By Mouth, Daily Risperidone: 3 mg = 1 tablet Allergies NKA Social History Alcohol Use: Never., 04/04/2020 Electronic Cigarette/Vaping Electronic Cigarette Use: Never., 03/19/2022 Exercise Self assessment: Good condition., 04/04/2020 Home/Environment Living situation: Home with assistance. Lives with: Mother., 04/04/2020 Nutrition/Health Diet: Regular., 04/04/2020 Sexual Sexually involved in last 6 months: No. Self described orientation: Don't know. Preferred pronoun: He/him., 04/04/2020 Tobacco Use: Never (less than 100 in lifetime)., 04/04/2020 Family History No positive family history reported. * Andrea Burger MD: PERFORM Event Display: Admission Note Authored Date: [id number] Attending PA/STEEL WHEEL ENGRAVER Attestation:??I have seen and evaluated this patient in conjunction with the STEEL WHEEL ENGRAVER/PA.??I have discussed the case and its management with the PA/STEEL WHEEL ENGRAVER as documented in the PA/STEEL WHEEL ENGRAVER note.? EKG study * Event Display: EKG Authored Date: * Event Display: ECG 12-Lead Authored Date: Please click on pdf link to open report * Event Display: ECG 12-Lead Authored Date: Ventricular Rate: 93 BPM Atrial Rate: 93 BPM P-R Interval: 140 ms QRS Duration: 106 ms Q-T Interval: 356 ms QTC Calculation(Bazett): 442 ms P [place]: 69 degrees R [place]: 104 degrees T [place]: 19 degrees Normal sinus rhythm Incomplete right bundle branch block Possible Right ventricular hypertrophy Abnormal ECG When compared with ECG of 28-SEP-2021 01:02, No significant change was found Confirmed by BRITTANY ROOT MD ([id number]) on 02/25/2023 6:59:49 AM [place]: BRITTANY ROOT MD Note * Laine Bose RN: PERFORM Event Display: Discharge/Transfer Note Hospital Authored Date: [id number] Nursing Discharge Note Entered On: 02/26/2023 19:06 EDT Performed On: 02/26/2023 19:05 EDT by Laine Bose RN Nursing Discharge Note 2 Discharge Time : 02/26/2023 16:25 EDT Discharge Level of Care at Discharge : Home/Longterm/Foster Care Patient Left Unit Via : Wheelchair Patient Accompanied Off Unit with : Parent DC Instructions Provided & Signed by Pt : No Patient Understands D/C Instructions : Yes Verbalized Understanding of D/C Plan By : Patient Patient Instructions Discharge Signed : Yes Discharge Comments : IV removed, cannulat tip intact. Pt and pt mother able to state when to take next doses of all meds and when to make and attend all follow up appointments Did Pt have Specialty Bed or Wound Vac : No Laine Bose RN - 02/26/2023 19:05 EDT * Vania Wolfe: PERFORM, MODIFY, MODIFY, MODIFY, MODIFY Event Display: Discharge/Transfer Note Hospital Authored Date: [id number] Patient: ??THA MARQUEZ ? Age:??32 Years?Sex:??Male?:??1990?? Patient Information Discharge Location: A Primary Care Physician: Louis Patel MD Admit Date/Time: 02/23/23 10:58 Discharge Disposition Discharge Disposition: Home: No Services Discharge Diagnosis Seizure (R56.9) ?? _ Discharge Medications Acetaminophen (Tylenol Extra Strength 500 mg oral tablet)?2?tab(s)?1,000?Milligram?By Mouth?3 times a day?as needed?for pain Albuterol (albuterol 0.083% inhalation solution)?3?Milliliter?2.5?Milligram?Inhalation?Every 6 hours Albuterol (albuterol CFC free 90 mcg/inh inhalation aerosol)?2?puff(s)?Inhalation?Every4 hours?as needed?for 30?Days?Wheezing/Shortness of Breath Diclofenac Topical (diclofenac 1% topical gel)?1?gianfranco?Topically?4 times a day dulaglutide (Trulicity Pen 0.75 mg/0.5 mL subcutaneous solution)?See Instructions?INJECT 1 PEN SUBCUTANEOUSLY ONCE WEEKLY, ROTATE INJECTION SITES Durable Medical Equipment (Bed Pads)?See Instructions?Use Up To 3/DayDx: ??Urine Incontinence(R32), Complex Partial Seizures (G40.209; ??Reduced Mobility (Z74.0)Duration: ??Lifetime Durable Medical Equipment (Adult Disposable Pull Ups - L)?See Instructions?Use Up To 3/DayDx:??Urine Incontinence (R32), Complex Partial Seizures (G40.209; ??Reduced Mobility (Z74.0)Duration: ??Lifetime Fluticasone Nasal (fluticasone 50 mcg/inh nasal spray)?1?spray(s)?Nares, Both?2 times aday Fluticasone Nasal (fluticasone 50 mcg/inh nasal spray)?1?spray(s)?Nares, Both?2 times ada Lacosamide 100mg tablets, 2.5 tablets BID Lamotrigine (lamotrigine 150 mg oral tablet)?1?tab(s)?By Mouth?2 times a day Montelukast (montelukast 10 mg oral tablet)?10?Milligram?1?tablet?By Mouth?Daily?Label in Maltese Pantoprazole (pantoprazole 40 mg oral delayed release tablet)?1?tab(s)?40?Milligram?By Mouth?Daily Risperidone (risperiDONE 3 mg oral tablet)?3?Milligram?1?tablet ? Inpatient Medications Medications (11) Active SCHEDULED: (7) Clonazepam 1 mg Tablet (clonazePAM 1 mg oral tablet) ??2 mg, By Mouth, Daily at bedtime Fluticasone Propionate 50mcg/inh Nasal [place] (fluticasone 50 mcg/inh nasal spray) ??50 mcg 1 sprays, Nares, Both, 2 times a day Insulin Lispro 100 units/mL Inj (3mL) (Humalog Sliding Scale) ??2-10 units, Subcutaneous Injection,3 times a day before meals Lacosamide 50mg/5 mL Oral Syringe (Lacosamide Liquid) ??250 mg 25 mL, By Mouth, 2 times a day LamoTRIGINE 100 mg Tablet (lamotrigine 100 mg oral tablet) ??150 mg, By Mouth, 2 times a day Mirtazapine 15 mg Tablet (mirtazapine 15 mg oral tablet) ??45 mg, By Mouth, Daily at bedtime Risperidone 1 mg Tablet (risperiDONE 1 mg oral tablet) ??4 mg, By Mouth, Daily at bedtime CONTINUOUS: (0) PRN: (4) Acetaminophen 325 mg Tablet (Acetaminophen Tablet) ??650 mg, By Mouth, Every 4 hours Albuterol 90mcg/Inhalation Inhaler HFA (albuterol CFC free 90 mcg/inh inhalation aerosol) ??180 mcg2 puffs, Inhalation, Every 4 hours Docusate Sodium 100 mg Capsule (Docusate Sodium Capsule) ??200 mg 2 capsule, By Mouth, Daily at bedtime Ondansetron 2mg/mL Inj (2mL Vial) (Ondansetron Inj) ??4 mg, IV Push, 2 times a day ? Medications Discontinued Keppra Doses Changed Lacosamide increased to 250mg BID Allergies Allergies ?(Active and Proposed Allergies Only) NKA? (Severity: Unknown severity, Onset: Unknown) ? Future Appointments Wednesday 10:00 AM EDT ?? Where: [facility] [address] [place] [address]- Hospital Course Tha is a 32 year old male with a significant past medical hx of DM, anxiety, depression, Wayne-Silver syndrome and left hemiatrophy, mild cognitive impairment, and ?Seizure disorder previously treated at [facility] where he underwent vEEG suggestive of both epileptic and no nepileptic events. Patient presented to the hospital today for elective vEEG monitoring. Reportedlypatient was supposed to undergo elective monitoring earlier in 2020 however unable to pursue workupbecause of COVID limitations. He just recently visited Dr. Birmingham (who he follows with now) home AED meds include Clonazepam 2mg QHS, Lacosamide 200mg BID, Lamotrigine 150mg BID, and Keppra 1mg BID(this was reported as TID however patients mother clarified this is in fact BID). Patients mother is also his SECOND BUTLER, because of??this unable to also be listed as Health Care Proxy. She mentions that he typically experiences multiple seizure a day. They are characterized by 1/1.5 minutes of shaking and decreased responsiveness??followed by immediate improvement in mental status,??able to resume whatever activity he was recently engaged in. She mentions there are normally at least5 that occur each day, typically the majority of these events occur at night frequently while patient is sleeping, she states all these seizures are his emotional seizures. She does however mention that patient experienced two epilepsy seizures in the past, shaking activity followed by confusion.The discrepancy in seizure type prompted elective vEEG visit. Of note, mother states that patient experienced one of his typical seizures this morning, and just as prior events he was able to return to his baseline mental status immediately following event. On exam patient was alert and oriented to baseline, able to state name and location, unable to state year. He is unable to answer simple questions such as current president (hx of mild cognitive impairment) non focal exam full strength UE and LE. He does have subtle inspiratory and expiratory wheezing. Patient had multiple seizures throughout hospitalization, mostly during sleep. Lacosamide was increased, keppra was stopped. ?? ICTAL EEG AND VIDEO DESCRIPTION:?? Day # 1:?Three button press events, 2 for frenetic head and arm movements lasting less than 20 seconds, both with a short period of bradycardia. ??One episode had the button press preceding the slow left to right head shaking. ??The first 2 episodes had subtle voltage attenuation; the 3rd??had no EEG change. ?? Day # 2:?Eleven seizures on 02/25 ??between 03:00 and 06:30, most beginning with 10-30 seconds ofleft spike wave discharges before a 2-3 second electrodecrement followed by muscle artifact and rotation to the right. ??One episode consisted of right arm straightening with no EEG correlate but appeared to be similar clinically to the beginning of the other seizures. ?? Day # 3:?Seven seizures in past 24 hours, most with initially left small 2- 3/sec spike wave discharges that very quickly had a broad field, some with 1 few seconds of rapid head turning left to right, some ending without clinical change. ??Two had no clear preceding focality before the typical ictal semiology. ?? IMPRESSION:?The patient underwent 3 days of continuous parts counterman video EEG monitoring was recorded with the patient awake, drowsy and asleep, during which time no interictal epileptiform activity or persistent focal asymmetries occurred. ??On day 1 there were three episodes as described above, 2likely frontal lobe seizures, the third possibly a psychogenic nonepileptic spells. ??On Day 2 11 seizures were recorded, most with left onset. ??On Day 3 7 more typical seizures were recorded. ??Most seizures were from sleep. ?? COMMENT: ??While the clinical seizures appear to be frontal lobe, the prolonged EEG onset before the clinical changes makes localization problematic. ??Onset is probably lateralized to the left. Objective ?? Seizure activity; - Lacosamide 250mg BID (increased from 200mg BID) - Lamotrigine 150mg BID - Clonazepam 2mg QHS - D/C Keppra 1gram BID - Seizure precautions, daily VS ?? Diabetes; - Trulicity 0.75mg/0.5ml Once a week injection (every ) I spoke with pharmacy team, no needfor injections this week, okay to for sliding scale ?? Anxiety/Depression; - Risperidone 4mg tab QHS - Mirtazapine 45mg 1tab QHS ? Vital Signs?? Temperature: 98.4 DegF (02/26/23 12:00:00) Temperature Route: Tympanic (02/26/23 12:00:00) Pulse Rate:??92 bpm??High (02/26/23 12:00:00) Respiratory Rate: 18 br/min (02/26/23 12:00:00) Systolic Blood Pressure: 122 mm Hg (02/26/23 12:00:00) Diastolic Blood Pressure: 65 mm Hg (02/26/23 12:00:00) Blood pressure sites: Arm, left (02/26/23 12:00:00) Mean Arterial Pressure: 84 mm Hg (02/26/23 12:00:00) Pulse Pressure: 57 mm Hg (02/26/23 12:00:00) Oxygen Saturation: 95 % (02/26/23 12:00:00) Mode of Delivery (Oxygen): Room air (02/26/23 12:00:00) Early Warning Score: 2 (02/26/23 12:00:57) ? Intake/Output? 02/23 10:58 04/14 07:00 02/25 07:00 02/24 07:00 02/23 07:00 ?? 02/26 13:07 02/26 13:07 02/26 06:59 02/25 06:59 02/24 06:59 Intake ? 1438 ?0 ?478 ?600 ?360 Output ?0 ?0 ?0 ?0 ?0 Net Total ? 1438 ?0 ?478 ?600 ?360 ? Urine Count ? 12 ?0 ?1 ?5 ?6 ? . Physical Exam ? Gen: NAD, awake, alert HEENT: normocephalic, atraumatic. No ptosis. Nares patent. Mouth normal. Psych: not depressed or anxious Cardio: RRR Lungs: normal I:E Abdomen: nondistended Extremities: no edema Skin: no rashes Mental status: intact, no deficits Speech is fluent, appropriate with no aphasia. + dysarthria which is patients baseline? Cranial Nerves: PERRL, EOMI without nystagmus, VFF. Face appears symmetric with no drooping or weakness. . Motor: 5/5 bilaterally. No pronator drift. Normal bulk and tone. No abnormal movements. Sensation: Intact light touch sensation bilaterally. No extinction to DSS Pending Results No Pending Results Patient Education Titles Seizure, Recurrent (Adult)?? Follow-Up Appointments Added Follow Up ?Time Frame ?Comments [facility]?04/16/23 @ 10:00 Post Discharge Alf Home Health Face to Face ^HomeHealthFTF 20??minutes spent on discharge * Laine Bose RN: PERFORM Event Display: Patient Education/Instruction Authored Date: [id number] Inpatient Adult Discharge Instructions [address] [address] Name: THA MARQUEZ : 1990 Visit: 02/23/2023 10:58:00 Current Date: 02/26/2023 15:47 Account: [id number] Inpatient Adult Discharge Instructions We would like to thank you for allowing us to assist you with your healthcare needs. The following includes patient education materials and information regarding your injury/illness. Our entire staffstrives to provide an excellent experience for our patients and their families. PLEASE ENSURE YOU FOLLOW-UP PER THE INSTRUCTIONS BELOW! ?? YOUR OPINION IS IMPORTANT TO US! Please complete the survey you may receive by mail or email. Your feedback will be used to make improvements to the healthcare experiences of our patients and their families. Surveys are administered by [employer] ?? If further treatment with your primary care physician or another doctor is recommended, it is important for you to keep the appointment. Call your primary care physician or return to the Emergency Department immediately if your condition worsens, fails to improve, or new symptoms develop. If you need to find a doctor, you can call [facility] [employer] for a referral at [phone] or toll free at [phone] or log in to [email or web address].. ?? You can view and manage your care through the patient portal or by using a health care gianfranco of your choosing. [employer] is a website that allows you to securely view your medical information including your hospital discharge summary, office visit summaries, medications and follow-up visits. You can also request appointments, renew medications, and request access to your medical information using a health care gianfranco of your choosing, or just ask a question. You can enroll at [email or web address] or register during your next office visit. You have been discharged from [facility], Patient Care Unit: D5A. If you have any questions regarding these instructions after you leave, please call us and we will be happy to assist you. [facility] Your Care Team Attending Physician Andrea Burger MD Discharging Providers Howard BAUER, Vania Rivera Reason for Your Visit SEIZURES 5 DAY VEEG D5A Your Diagnosis Seizure Tests Performed Below is a partial list of the tests performed during your hospitalization. You may have had other tests and procedures not included in this list. Please discuss all test results with your provider. COVID-19 (2019 Novel Coronavirus) PCR Glucose Level GLUCOSE POC Lacosamide Level Lamotrigine Level Levetiracetam Level Troponin T, High Sensitivity Primary Care Provider Jorge ARMENTA, Louis Altamirano Advance Directive . Discharge Vitals Temperature: 98 DegF Height: 150 cm Pulse Rate:??96 bpm??High Weight: 74.1 kg Respiratory Rate: 18 br/min Body Mass Index:??32.93 kg/m2??Critical Systolic Blood Pressure: 117 mm Hg Body surface area: 1.76 Diastolic Blood Pressure: 68 mm Hg ?? Oxygen Saturation: 96 % ?? Studies Pending All tests and labs ordered during this hospital stay have been completed unless listed below. Please discuss all pending results with your provider listed above in these instructions. ?? Glucose Level What to do next Instructions From Your Doctor Discharge Orders Scheduled Follow-Up Appointments Wednesday 10:00 AM EDT ?? Where: [facility] [address] [place] [address]- You Need to Schedule the Following Appointments Follow Up with??[facility] When?? Why: 04/16/23 @ 10:00 Where: Discharge Medications THA MARQUEZ :1990 Visit Date:02/23/2023 Medications: Please continue your medications until treatment is completed or stopped by your provider. Medications not listed below should be discontinued. Discuss any questions related to medications with your provider. What How Much When Instructions Next Dose Changed Lacosamide (lacosamide 100 mg oral tablet) 2.5 tablets Oral Twice a day Printed Prescription Tonight 02/26/23 9pm Unchanged Acetaminophen (Tylenol Extra Strength 500 mg oral tablet) 2 tab(s) Oral 3 times a day as needed for for pain Take as prescribed Unchanged Albuterol (albuterol CFC free 90 mcg/ inh inhalation aerosol) 2 puff(s) Inhalation Every 4 hours as needed for Wheezing/Shortness of Breath Duration: 30 Days Take as prescribed Unchanged Clonazepam (clonazePAM 2 mg oral tablet) Tonight 02/26/23 9pm Unchanged Diclofenac Topical (diclofenac 1% topical gel) 1 gianfranco Topically 4 times a day Not given, Take as prescribed Unchanged dulaglutide (Trulicity Pen 0.75 mg/ 0.5 mL subcutaneous solution) See instructions INJECT 1 PEN SUBCUTANEOUSLY ONCE WEEKLY, ROTATE INJECTION SITES ?? Not given, Take as prescribed Unchanged Durable Medical Equipment (Adult Disposable Pull Ups - L) See instructions Use Up To 3/ Day Dx: ??Urine Incontinence (R32), Complex Partial Seizures (G40.209; ??Reduced Mobility (Z74.0) Duration: ??Lifetime ?? As directed Unchanged Durable Medical Equipment (Bed Pads) See instructions Use Up To 3/ Day Dx: ??Urine Incontinence (R32), Complex Partial Seizures (G40.209; ??Reduced Mobility (Z74.0) Duration: ??Lifetime ?? As directed Unchanged Escitalopram (escitalopram 10 mg oral tablet) Not given, Take as prescribed Unchanged Fluticasone Nasal (fluticasone 50 mcg/ inh nasal spray) 1 spray(s) Nares, Both Twice a day Tonight 02/26/23 9pm Unchanged Lamotrigine (lamotrigine 150 mg oral tablet) 1 tab(s) Oral Twice a day Tonight 02/26/23 9pm Unchanged Mirtazapine (mirtazapine 45 mg oral tablet) Tonight 02/26/23 9pm Unchanged Montelukast (montelukast 10 mg oral tablet) 1 tab(s) Oral Daily Label in Maltese ?? Not given, Take as prescribed Unchanged Pantoprazole (pantoprazole 40 mg oral delayed release tablet) 1 tab(s) Oral Daily Not given, Take as prescribed Unchanged Risperidone (risperiDONE 3 mg oral tablet) 1 tab(s) Tonight 02/26/23 9pm ?? What How Much When Comments Stop Taking levETIRAcetam (levETIRAcetam 1000 mg oral tablet) 1 tab(s) Oral 3 times a day Test Results Below is a partial list of the most recent Laboratory test results done prior to this discharge. You may have had other tests and procedures not included in this list. Please discuss all test resultswith your provider. COVID-19 (2019 Novel Coronavirus) PCR (02/23/2023) ???COVID-19 PCR Specimen Source - NASAL???COVID-19 PCR Result - NEGATIVE Glucose Level (02/25/2023) ???Glucose Level - 133 mg/dL GLUCOSE POC (02/26/2023) ???Glucose, POC - 106 mg/dL Lacosamide Level (02/23/2023) ???Lacosamide,Serum - 10.9 Lamotrigine Level (02/23/2023) ???Lamotrigine Level - 6.7 Levetiracetam Level (02/23/2023) ???Levetiracetam Level - 32.80 mg/L Troponin T, High Sensitivity (02/24/2023) ? ?High Sensitivity Troponin (HSTnT) - <6 ng/L Allergies (NKA means No Known Allergies) NKA Problems Active Problems??(10) Anxiety and depression?? Complex partial seizure?? Diabetes mellitus?? Foot pain, left?? GERD (gastroesophageal reflux disease)?? Insomnia?? Obese class I?? Prediabetes?? 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 Education Materials Below is the list of Educational Leaflet Providered with your Discharge Instructions. Seizure, Recurrent (Adult)?? Valuables and Belongings I fully understand and agree that [facility] accepts no responsibility for all my personal property including clothing, toilet articles, radios, jewelry, dentures, hearing aids, rings, money, or any other property that is in my possession or is brought to me after admission. I understand certain valuables may be placed in a hospital safe for a short period of time. I understand that the hospital is not liable for loss or damage due to accident, fire, or other natural occurrence while said property is in the safe. I accept full responsibility for any personal property that I keep with me, and will not hold the hospital responsible in case of loss or disappearance. I acknowledge that i have been encouraged to send valuables and belongings home. ?? Review of Valuable and Belonging List: With patient Date for Pt to Sign Valuables/Belongings: 02/23/23 12:31:00 ?? Other Discharge Information ? Pulmonary Rehab Status?? Pulmonary Rehab Discharge Status?? Respiratory Rate: 18 br/min ? Common Emergency Awareness Tips IS IT A STROKE? Act FAST and Check for these signs: FACE Does the face look uneven? ARM Does one arm drift down? SPEECH Does their speech sound strange? TIME Call at any sign of stroke ?? Heart Attack Signs Chest discomfort: Most heart attacks involve discomfort in the center of the chest and lasts more than a few minutes, or goes away and comes back. It can feel like uncomfortable pressure, squeezing, fullness or pain. Discomfort in upper body: Symptoms can include pain or discomfort in one or both arms, back, neck, jaw or stomach. Shortness of breath: With or without discomfort. Other signs: Breaking out in a cold sweat, nausea, or lightheaded. Remember, MINUTES DO MATTER. If you experience any of these heart attack warning signs, call to get immediate medical attention! ?? Smoking can increase your chances of developing chronic health problems and can cause harmful effects to other family members in your house. If you smoke, you are strongly encouraged to quit. Please call [facility] g[facility] Link at [phone] or [phone]) or log in to [email or web address] for referrals to smoking cessation programs. ?? 985 Suicide & Crisis Lifeline is available 07/06 if you or someone you know needs to find a reason to keep living. By calling 786 you'll be connected to a skilled, trained counselor at a crisis center in your area. INPATIENT DISCHARGE INSTRUCTIONS SIGNATURE PAGE THA MARQUEZ Location:[facility] Registration Date and Time:02/23/2023 10:58 EDT Primary Care Physician: Jorge ARMENTA, Louis Altamirano, I THA MARQUEZ, have received the above patient education materials/instructions and have verbalized understanding. If ambulance or transport services are being used I further acknowledge being given a choice of service. ?? If you need to contact me, please call me at this number: . Patient/Board Certified Family Physician Name: Patient/Board Certified Family Physician Signature: Relationship to Patient: Witness Name/Signature: Date: * Laine Bose RN: PERFORM Event Display: Patient Education Leaflets Authored Date: [id number] Safety During a Seizure ?? [id number] Seguridad jey carmen convulsi??n Seguridad jey carmen convulsi??n Explique a ollie familiares y amigos qu?? le sucede jey carmen convulsi??n y c??mo deben reaccionar cuando usted experimenta carmen. Hannibal los ayudar?? a mantener la calma y poder protegerlo a usted. Todas las convulsiones se deben tratar con cuidado. Dustin las convulsiones en las que usted pierde la consciencia (tonicocl??nicas) requieren m??s atenci??n. Piense en usar un brazalete de alerta m??dica en glen de que no est?? cerca de integrantes de la shelby. Hannibal puede alertar a otras personas acerca de glover afecci??n y brindarles instrucciones especiales. Estos son algunos consejos para ollie seres queridos. ?? Lo que debe saber Por lo general, las convulsiones manzo menos de 3??minutos. Dustin parecer?? que es m??s tiempo.??Laspersonas se recuperan sin consecuencias de la mayor??a de las convulsiones. Jey carmen convulsi??ntonicocl??edwin, puede parecer que la persona afectada tricia de respirar o se pone levemente dipesh. Camryn esto puede resultarle muy inquietante, dustin intente mantener la calma. Despu??s de las convulsiones, la persona puede sentir cansancio, confusi??n o dolor. Es posible que necesite dormir jey varias horas para recuperarse del todo. ?? Qu?? hacer Si alguien tiene carmen convulsi??n, acompa??e a la persona afectada hasta que pase. Moneta nota de la hora exacta en que comienza y termina la convulsi??n.??No intente detener la convulsi??n. Jey unaconvulsi??n tonicocl??edwin, tambi??n ernie lo siguiente: ??? Aleje los objetos duros o afilados fuera del alcance de la persona. ??? Acueste a la persona enuna superficie plana y col??quela de lado. ??? P??ngale un objeto plano y blando debajo de la dianna. ??? No intente contener ollie movimientos. Ambos podr??an resultar heridos. ??? No coloque nada dentro de la boca de la persona. La persona no se tragar?? la lengua y usted corre el riesgo de romperle los dientes o de que lo muerda. ??? No le administre medicamentos jey carmen convulsi??n, a menosque un proveedor de atenci??n m??dica lo haya capacitado para hacerlo. ??? H??blele con calma mientras se recupera. No es necesario que llame al 911 si hay carmen causa regina establecida por la que el paciente tiene convulsiones (por ejemplo, epilepsia) y la convulsi??n es muy t??pica.??Si tiene alguna win o si se desconoce qu?? afecci??n tiene la persona, llame al 911 . ?? Cu??ndo llamar al?? 911 Llame al??911 si ocurre algo de lo siguiente: ??? La convulsi??n dura m??s de 5??minutos ??? La persona no est?? consciente entre carmen convulsi??ny otra ??? Se presentan varias convulsiones seguidas Esas situaciones podr??an deberse a un estado epil??ptico. Hannibal es carmen emergencia m??dica. El tratamiento hospitalario para esta afecci??n incluye la administraci??n por v??a intravenosa de medicamentos con benzodiacepina. Se puede recetar carmen forma de lorena medicamento (un gel rectal con diazepam) para usar en el hogar. Otras causas de convulsiones y situaciones que pueden necesitar atenci??n m??dica inmediata incluyen lo siguiente:? Si la persona tiene diabetes ??? Si la persona tiene alguna infecci??n en el cerebro ??? Si la persona tiene agotamiento por calor ??? Si la persona est?? embarazada? Si se sabe que es carmen intoxicaci??n o envenenamiento, o se sospecha de que pueda serlo ??? Si la persona tiene bajo nivel de az??car en la gerry ??? Si la convulsi??n se produce despu??s de carmen fiebre altao jey carmen fiebre fortino ??? Si aparece carmen lesi??n en la dianna inmediatamente despu??s o algunosd??as despu??s de la lesi??n ??? Si tiene varias convulsiones en un per??odo corto de tiempo ??? Sila persona tricia de respirar ??? Si la convulsi??n se produce en el agua ??? Si la persona se golpeala dianna jey carmen convulsi??n y resulta dif??cil despertarla, vomita o se queja de visi??n borrosa ??? Si es la primera vez que tiene carmen convulsi??n ??? Si esta convulsi??n es diferente de las convulsiones que suele tener nancy persona ??? Si resulta dif??cil despertar a la persona despu??s de la convulsi??n ??? Abuso de drogas o alcohol? Abstinencia de drogas o alcohol ?? Last Reviewed Date: 2022 ?? [id number] [employer]. Todos los derechos reservados. Esta informaci??n no pretende sustituir la atenci??n m??dica profesional. S??lo glover m??dico puede diagnosticar y tratar un problema de michael. ?? * Vania Wolfe: PERFORM Event Display: Patient Education Leaflets Authored Date: [id number] Seizure, Recurrent (Adult) ?? [id number] Convulsi??n recurrente en adultos Hoy tuvo otra convulsi??n. Olvidarse de autumn alguna dosis del medicamento anticonvulsivo es carmen columba??n frecuente de las convulsiones recurrentes. Sin embargo, en ocasiones, las convulsiones son dif??ciles de controlar incluso aunque tome el medicamento correctamente. En ralph glen, quiz??s glover proveedor de atenci??n m??dica deba aumentarle la dosis que elizabeth. O regina, puede que necesite agregar otro medicamento o cambiar a otro medicamento. Cuidados en el hogar Siga estos consejos para cuidarse en glover hogar. ??? Las convulsiones no pueden predecirse. No realice ninguna actividad que pudiera ponerlo en peligro a usted o a otras personas en glen de sufrir otra convulsi??n. Hasta que las convulsiones est??nbajo un control adecuado, tome las siguientes medidas de seguridad: o No conduzca y no rimma en motocicleta ni en bicicleta. o No utilice equipos peligrosos stevenson herramientas el??ctricas. o D??chese en lugar de darse ba??os de grazyna o ba??era. o No vaya a nadar y no se suba a escaleras, ??rboles ni techos. ??? Cuente a ollie familiares y amigos cercanos sobre glover convulsi??n. Ens?eles lo que deben hacer si vuelve a sucederle. ??? Si le recetaron un medicamento para prevenir las convulsiones, admin??streselo exactamente stevenson le hayan indicado. Olvidarse de autumn alguna dosis aumentar?? el riesgode que tenga otra convulsi??n. ??? Si se olvida carmen dosis, debe ingerirla watts pronto se d?? cuenta del olvido. Si es gustavo la hora de la administraci??n de la siguiente dosis, no ingiera la dosis olvidada. Vuelva a comenzar con la administraci??n del medicamento a la hora de la siguiente dosis. No tome medicamentos adicionales para compensar la dosis olvidada. ??? Use un brazalete de alerta m??dica ( Medic-Alert ) para que el personal de emergencia sepa sobre glover afecci??n. ??? Mantenga un horario de angel??o regular para dormir regina al menos 6??a??8??horas cada noche. Hannibal es de especial importancia cuando est?? resfriado o tiene gripe u otro tipo de infecci??n. ??? Las bebidas alcoh??licas y las drogas il??citas pueden causar m??s convulsiones. Consulte con glover proveedor si puede autumn alguna bebida alcoh??lica. En glen de futuras convulsiones, si est?? solo, ernie lo siguiente: ??? Si siente que est?? por tener carmen convulsi??n, acu??stese en carmen cama o en el suelo con la dianna apoyada sobre algo blando. Hannibal evitar?? que se caiga. Recu??stese de glover lado isamar, no boca arriba. Hannibal permitir?? que los l??quidos salgan por la boca y evitar?? que se ahogue. Procure estaralejado de todo objeto que pudiera provocarle carmen lesi??n jey la convulsi??n. Si hay tiempo, pida ayuda. Qu?? hacer en glen de carmen futura convulsi??n si hay alguien con usted: ??? La persona debe ayudarloa colocarse en carmen posici??n diego y pedir ayuda. Esta persona no debe intentar ponerle nada en laboca por la fuerza carmen vez que la convulsi??n haya comenzado. Hacerlo podr??a da??arle los dientes o la roxana??bula. ?? Atenci??n de seguimiento Programe carmen ketty de seguimiento con glover proveedor de atenci??n m??dica. Lleve un diario de convulsiones para anotar la frecuencia con la que suceden. Si est?? comenzando a autumn medicamentos anticonvulsivos, consulte al proveedor si debe usar alg??n m??todo anticonceptivo adicional. Los medicamentos anticonvulsivos pueden afectar la eficacia de las pastillas anticonceptivas y podr??a quedar embarazada. Algunas mujeres que rodri medicamentos anticonvulsivos tambi??n necesitan determinadas vitaminas. Informe al proveedor si est?? embarazada o planeando quedar embarazada. Evite las bebidas alcoh??licas hasta que glover proveedor lo autorice. Cada estado tiene diferentes leyes que indican cu??ndo carmen persona con convulsiones tiene autorizaci??n para conducir. Algunos estados exigen que un trastorno de convulsiones se informe al estado. Nole permitir??n conducir hasta que las convulsiones est??n controladas. Hable con el proveedor para camryn si esto se aplica a glover glen. ?? Importante No conduzca hasta que asista a la ketty de seguimiento con el proveedor de atenci??n m??dica y le diga que puede hacerlo. ?? Cu??ndo buscar atenci??n m??dica Llame a glover proveedor de atenci??n m??dica de inmediato ante cualquiera de las siguientes situaciones: ??? Convulsiones m??s frecuentes o que manzo m??s de lo habitual ??? Carmen convulsi??n dura m??s de5 minutos ??? No despierta entre carmen convulsi??n y otra ??? Confusi??n jey m??s de 30??minutos despu??s de carmen convulsi??n ??? Lesiones causadas jey carmen convulsi??n ??? Fiebre de 100.4?F (38.0?C) o superior, o seg??n le haya indicado el proveedor ??? Irritabilidad, somnolencia o confusi??n anormal ??? Dolor o rigidez en el bartolo ??? Dolor de dianna que empeora? Last Reviewed Date: 2022 ?? [id number] [employer]. Todos los derechos reservados. Esta informaci??n no pretende sustituir la atenci??n m??dica profesional. S??lo glover m??dico puede diagnosticar y tratar un problema de michael. ?? * Event Display: Cardiac Rhythm Strips Authored Date: Hospital Progress note * Andrea Burger MD: PERFORM Event Display: Progress Note Hospital Authored Date: INTRODUCTION: The patient is a 32 year old referred for a question of seizures. MEDICATIONS: Keppra (DCed Day 2), Vimpat, Lamictal. CONDITION OF RECORDING: The patient underwent 3 days of digitally recorded video EEG monitoring beginning on 02/23/2023 at 11:53:48 AM and ending on 02/26/2023 at 08:28:14 AM, recorded with the patient awake, drowsy and asleep, reviewed with longitudinal and coronal bipolar montages, as well as average referential and anterior temporal montages with all electrodes applied in accordance with the International 10-20 System. Seizure and spike detection software was utilized throughout the recording. A single channel EKG lead was recorded as well to help identify artifact. The entire record was reviewed with special attention to button presses and diary entries. INTERICTAL EEG DESCRIPTION: Cerebral electrical activity with the patient awake was characterize ed by a well organized background with an 8 Hz 10-20 uV posterior dominant reactive alpha rhythm. Diffuse or multifocal 25-50 uV theta and delta activity was admixed. Lower voltage frontal beta activity was seen. Drowsiness was characterized by an increase in slow eye movements and a fragmentation of the alpha rhythm. Stage II sleep was recorded during which time synchronous and symmetric sleep spindles, vertex waves and K complexes were seen. Stage III sleep was seen with the expected increasein delta activity. REM was recorded as well. ICTAL EEG AND VIDEO DESCRIPTION: Day # 1: Three button press events, 2 for frenetic head and arm movements lasting less than 20 seconds, both with a short period of bradycardia. One episode had the button press preceding the slow left to right head shaking. The first 2 episodes had subtle voltage attenuation; the 3rd had no EEG change. Day # 2: Eleven seizures on 02/25 between 03:00 and 06:30, most beginning with 10-30 seconds of leftspike wave discharges before a 2-3 second electrodecrement followed by muscle artifact and rotationto the right. One episode consisted of right arm straightening with no EEG correlate but appeared to be similar clinically to the beginning of the other seizures. Day # 3: Seven seizures in past 24 hours, most with initially left small 2-3/sec spike wave discharges that very quickly had a broad field, some with 1 few seconds of rapid head turning left to right, some ending without clinical change. Two had no clear preceding focality before the typical ictal semiology. IMPRESSION: The patient underwent 3 days of continuous alf video EEG monitoring was recorded with the patient awake, drowsy and asleep, during which time no interictal epileptiform activity or persistent focal asymmetries occurred. On day 1 there were three episodes as described above, 2 likely frontal lobe seizures, the third possibly a psychogenic nonepileptic spells. On Day 2 11 seizureswere recorded, most with left onset. On Day 3 7 more typical seizures were recorded. Most seizures were from sleep. COMMENT: While the clinical seizures appear to be frontal lobe, the prolonged EEG onset before the clinical changes makes localization problematic. Onset is probably lateralized to the left. * Winnie Cruz RN: VERIFY, PERFORM, SIGN Event Display: [facility] Authored Date: Patient: THA MARQUEZ Age: 32 years Sex: Male : 1990 Associated Diagnoses: None Author: Winnie Cruz RN Findings Narrative/Incidental Patient resting in bed, administered scheduled PM medications as ordered. No adverse reaction noted. Call light within reach. . * Winnie Cruz RN: PERFORM, SIGN, VERIFY Event Display: [facility] Authored Date: Patient: THA MARQUEZ Age: 32 years Sex: Male : 1990 Associated Diagnoses: None Author: Winnie Cruz RN Findings Narrative/Incidental Patient resting in bed, performed complete assessment, call light within reach. Denies pain at present. . Patient Care team information Care Team Personnel Name: Louis Patel MD Position: [facility] Primary Care Physician Member Role: PCP Address: Address: [address] [place] [id number] Name: Radha Wang RN Position: S RN Member Role: Primary Care Nurse Name: Winnie Cruz RN Position: [facility] RN Member Role: Primary Care Nurse Care Team Related Persons Name: MATT IQBAL Address: home [address] [place] [address] Name: MARQUEZTHA Address: home [address] [place] [address] Name: ANTOLIN MARQUEZ Name: ZORAIDA BANKS Address: home [address] [place] [address]
--- OUTSIDE RECORDS SUMMARY | 2023-06-08 02:27 | XMS_ITS | Continuity of Care Document ---
Author Name Unknown Organization [facility] Address [address] [place] [address]- Care Team Providers Care Cmm Inspector Name Role Phone Jorge ARMENTA, Louis Altamirano Primary Care Physician [place] [facility] [place](s): 04/29/20 - 05/31/[address] [address]- [facility] Attending Physician: Not on Staff, Attending MD [...] Refills, Maintenance, 04/17/20 13:08:00 EDT, [facility], macanese label, 10 mL By Mouth Every 4 hours Start Date: 04/17/20 Status: Ordered Keppra 1000 mg oral tablet 1 tablet = 1,000 mg, By Mouth, 3 times a day, # 90 tablet, 6 Refills, Maintenance, 04/04/20 13:18:00 EDT, Tablet, [facility]/pharmacy #1130 Start Date: 04/04/20 Status: Ordered lamotrigine 150 mg oral tablet 1 tablet = 150 mg, By Mouth, 2 times a day, # 60 tablet, 6 Refills, Maintenance, 04/04/20 13:20:00 EDT, Tablet, [facility]/pharmacy #1130 Start Date: 04/04/20 Status: Ordered mirtazapine 45 mg oral tablet 1 tablet = 45 mg, By Mouth, Daily at bedtime, # 30 tablet, 6 Refills, Maintenance, 04/04/20 13:23:00 EDT, Tablet, [facility]/pharmacy #1130 Start Date: 04/04/20 Status: Ordered omeprazole 20 mg oral enteric coated capsule 1 capsule = 20 mg, By Mouth, Daily, # 30 capsule, 2 Refills, Maintenance, 04/17/20 13:08:00 EDT, ECCapsule, [facility]/pharmacy #1130, macanese label Start Date: 04/17/20 Status: Ordered Restoril 15 mg oral capsule 1 capsule = 15 mg, By Mouth, Daily at bedtime, PRN for sleep, for 30 days, # 30 capsule, 5 Refills,Acute 10/01/20 13:31:00 EST, 04/04/20 13:31:00 EDT, Capsule, [facility]/pharmacy #1130 Start Date: 04/04/20 Stop Date: 10/01/20 Status: Ordered risperiDONE 4 mg oral tablet 1 tablet = 4 mg, By Mouth, Daily at bedtime, # 30 tablet, 6 Refills, Maintenance, 04/04/20 13:30:00EDT, Tablet, [facility]/pharmacy #1130 Start Date: 04/04/20 Stop Date: 10/31/20 Status: Ordered Vimpat 200 mg oral tablet 1 tablet = 200 mg, By Mouth, 2 times a day, # 60 tablet, 5 Refills, Maintenance, 04/04/20 13:23:00 EDT, Tablet, [facility]/pharmacy #1130 Start Date: 04/04/20 Status: Ordered Problem List Condition Effective Dates Status Health Status Inform ant Complex partial seizure(Confirmed) Active Anxiety and depression(Confirmed) Active Wayne-Silver syndrome, con genital hemihypertrophy(Confirmed) Active Social History Social History Type Response Smoking Status Never (less than 100 in lifetime) entered on: 04/04/20 Sex
--- OUTSIDE RECORDS SUMMARY | 2023-06-08 02:27 | XMS_ITS | Continuity of Care Document ---
Author Name Unknown Organization [facility] y Address [address] [place] [address]- Care Team Providers Care Prime Minister Name Role Phone Louis Patel MD Primary Care Physician [phone] [place] [facility] [place] 07/09/22 - 10/11/22 [facility] [address] [place], [place] [address] Attending Physician: Not on Staff, Attending MD Allergies, Adverse Reactions, Alerts No Known Allergies Immunizations Given and Recorded Vaccine Date Status Refusal Reason SARS-CoV-2 mRNA ([id number]) vax 01/19/22 Given SARS-CoV-2 (COVID-19) mRNA BNT-162b2 vac 1 07/03/21 Given SARS-CoV-2 (COVID-19) mRNA BNT-162b2 vac 06/06/21 Given Not Given Vaccine Date Status Refusal Reason tetanus/diphtheria/pertussis , acel(Tdap) 2 09/26/21 Not Given Parent Or Guardian R efuses 1? Unknown: Resend to [facility]. 2Result Comment: mom states pt has received in past 5 years Medications Adult Disposable Pull Ups - XL Adult Disposable Pull Ups - XL, See Instructions, # 180 each, Refills 11, Tot. Refills 11, Maintenance, Use Up To 3/Day Dx: Urine Incontinence (R32), Complex Partial Seizures (G40.209; Reduced Mobility (Z74.0) Duration: Lifetime, 04/20/22 15:54:0... Start Date: 04/20/22 Status: Ordered albuterol 0.083% inhalation solution 3 [...] 16:22:00 EDT, Aerosol, Route to Pharmacy Electronically, [id number], [facility]/pharmacy #1130, 151, cm, 06/10/21 16:07:00 EDT, [...] 2 Refills, Maintenance, 05/28/22 17:00:00 EDT, Gel, [facility]/pharmacy #1130, Partial fill upon patient request [...] tablet, 5 Refills, Maintenance, 10/06/22 7:21:00 EST, [facility]/pharmacy #1130, 150, cm, 07/07/22 13:19:00 EDT, Height, 68.63, kg, 10/22/21 15:09:00 EST, Dry Weight Start Date: 10/06/22 Status: Ordered levETIRAcetam 1000 mg oral tablet 1 tablet, By Mouth, 3 times a day, # 90 tablet, 5 Refills, 10/06/22 7:22:00 EST, [facility]/pharmacy #1130, 150, cm, 07/07/22 13:19:00 EDT, Height, 68.63, kg, 10/22/21 15:09:00 EST, Dry Weight Start Date: 10/06/22 Status: Ordered mirtazapine 45 mg oral tablet 0 Refills, Maintenance, 10/06/22 7:20:00 EST, Partial fill upon patient request if the prescriptionis for a schedule II opioid drug. Start Date: 10/06/22 Status: Ordered pantoprazole 40 mg oral delayed [...] Refills, Maintenance, 08/23/22 14:25:00 EDT, [id number], [facility], cm, 07/07/22 13:19:00 EDT, Height,68.63, kg, 10/22/21 15:09:00 EST, Dry Weight Start Date: 08/23/22 Status: Ordered Tylenol Extra Strength 500 mg oral tablet 2 tablet = 1,000 mg, By Mouth, 3 times a day, PRN for pain, # 540 tablet, 1 Refills, Maintenance, 07/07/22 13:48:00 EDT, Tablet, [facility]/pharmacy #1130, Partial fill upon patient request if the prescription is for a schedule II opioid drug., 150, cm, 2... Start Date: 07/07/22 Status: Ordered Vimpat 200 mg oral tablet 1 tablet = 200 mg, By Mouth, 2 times a day, Brand name medically necessary for seizure disorder, # 60 tablet, 5 Refills, Maintenance, 10/06/22 7:18:00 EST, Tablet, [facility]/pharmacy #1130, generic lacosamide preferred, 150, cm, 07/07/22 [...] Care team information Care Team Personnel Name: Jorge ARMENTA, Louis Altamirano Position: [facility] Primary Care Physician Member Role: PCP Address: Address: [address] [place] [address]- Care Team Related Persons Name: MATT IQBAL Address: home [address] [place] [address] Name: LEANDRO MARQUEZ Address: home [address] [place] [address] Name: ANTOLIN MARQUEZ Name: ZORAIDA BANKS Address: [address] [address]
--- OUTSIDE RECORDS SUMMARY | 2023-06-08 02:27 | XMS_ITS | Continuity of Care Document ---
Author Name Unknown Organization [facility] Address [address] [place] [address]- Care Team Providers Care Butter Liquefier Name Role Phone Louis Patel MD Primary Care Physician Encounter [facility] [place] [facility] [id number] Date(s): 04/03/21 - 05/03/21 [facility] [address] [place] [id number] Allergies, Adverse Reactions, Alerts Substance Reaction Severity [...] 16:03:00 EDT, Aerosol, Route to Pharmacy Electronically, [id number], [facility]/pharmacy #1130 Start Date: 02/04/21 Status: Ordered Bedside [...] each, 5 Refills, Maintenance, 04/04/20 13:27:00 EDT, [facility]/pharmacy #1130 Start Date: 04/04/20 Status: Ordered clonazePAM 2 mg oral tablet 1 tablet = 2 mg, By Mouth, Daily at bedtime, # 30 tablet, 3 Refills, Maintenance, 04/04/20 13:25:00EDT, Tablet, [facility] Start Date: 04/04/20 Status: Ordered Guaiasorb DM 10 mg-100 mg/5 mL oral liquid 10 mL, By Mouth, Every 4 hours, # 240 mL, 0 Refills, Maintenance, 04/17/20 13:08:00 EDT, [facility], malian label, 10 mL By Mouth Every 4 hours Start Date: 04/17/20 Status: Ordered Keppra 1000 mg oral tablet 1 tablet = 1,000 mg, By Mouth, 3 times a day, # 90 tablet, 0 Refills, Maintenance, 04/04/21 14:56:00 EDT, Tablet, [facility]/pharmacy #1130, 151, cm, 04/04/21 14:15:00 EDT, Height, 71.8, kg, 02/18/21 19:34:00 EDT, Dry Weight Start Date: 04/04/21 Status: Ordered lamotrigine 150 mg oral tablet 1 tablet = 150 mg, By Mouth, 2 times a day, # 60 tablet, 6 Refills, Maintenance, 04/04/21 14:56:00 EDT, Tablet, [facility]/pharmacy #1130, 151, cm, 04/04/21 14:15:00 EDT, Height, 71.8, kg, 02/18/21 19:34:00EDT, Dry Weight Start Date: 04/04/21 Status: Ordered metFORMIN 500 mg oral tablet, extended release 1 tablet = 500 mg, By Mouth, Daily, # 30 tablet, 4 Refills, Maintenance, 02/13/21 15:28:00 EDT, ER Tablet, [facility]/pharmacy #1130, Partial fill upon patient request if [...] Maintenance, 11/04/20 18:31:00 EST, ECCapsule, [facility], malian label Start Date: 11/04/20 Status: Ordered pantoprazole [...] with dinner every night (please label in Japanese), # 30 tablet, 1 Refills, Maintenance, 09/16/20 7:19:00 EST, Tablet, [facility] Start Date: 09/16/20 Status: Ordered Problem List Condition Effective Dates Status Health Status Inform ant Complex partial seizure(Confirmed) Active Anxiety and depression(Confirmed) Active Prediabetes(Confirmed) Active Wayne-Silver syndrome, con genital hemihypertrophy(Confirmed) Active Social History Social History Type Response Smoking Status Never (less than 100 in lifetime) entered on: 04/04/20 Sex
--- OUTSIDE RECORDS SUMMARY | 2023-06-08 02:27 | XMS_ITS | Continuity of Care Document ---
Author Name Unknown Organization [facility] Address [address] [place] [address]- Care Team Providers Care Drawing In Machine Tender Helper Name Role Phone Louis Patel MD Primary Care Physician Encounter [facility] [place] Date(s): 02/17/23 - 03/24/23 [facility] [address] [place] [address]- Attending Physician: Louis Patel MD Admitting Physician: Louis Patel MD Allergies, Adverse Reactions, Alerts No Known Allergies Immunizations Given and Recorded Vaccine Date Status Refusal Reason SARS-CoV-2 mRNA ([id number]-thxa-[id number]) vax 01/19/22 Given SARS-CoV-2 (COVID-19) mRNA BNT-162b2 [...] 15:52:00 EDT, Aerosol, Route to Pharmacy Electronically, [id number], [facility]/pharmacy #1130, 150, cm, 01/28/23 15:24:00 EDT, H... [...] 30 tablet, 3 Refills, Maintenance, 03/22/23 16:04:00EDT, [facility], Partial fill upon patient request [...] 2 Refills, Maintenance, 05/28/22 17:00:00 EDT, Gel, [facility]/pharmacy #1130, Partial fill upon patient [...] Gm, 0 Refills, Maintenance, 02/23/23 11:47:00 EDT, [facility], Partial fill upon patient request if the prescription is for a schedule II opioid drug. Start Date: 02/23/23 Status: Ordered fluticasone 50 mcg/inh nasal spray 1 sprays, Nares, Both, 2 times a day, # 16 Gm, 0 Refills, Maintenance, 02/23/23 11:47:00 EDT, [facility], Partial fill upon patient request if the [...] mL, 5 Refills, Maintenance, 03/22/23 16:10:00 EDT,Solution, [facility], Partial fill upon patient request if [...] tablet, 5 Refills, Maintenance, 03/22/23 16:02:00 EDT, [facility]/pharmacy #1130, 150, cm, 03/22/23 15:46:00 EDT, Height, 74.1, kg, 02/23/23 13:43:00 EDT, Dry Weight Start Date: 03/22/23 Status: Ordered mirtazapine 45 mg oral tablet 1 tablet = 45 mg, By Mouth, Daily at bedtime, # 30 tablet, 0 Refills, Maintenance, 03/22/23 16:04:00 EDT, Tablet, [facility]/pharmacy #1130, Partial fill upon patient [...] 1, tablet, By Mouth, Daily, Label in Irish, # 30 tablet, Refills 5, Tot. Refills 5, Maintenance, 03/22/23 16:02:00 EDT, Route to Pharmacy Electronically, [facility]/pharmacy #1130, Partial fill upon patient [...] 03/22/23 16:04:00 EDT, Route to Pharmacy Electronically, [facility]/pharmacy #1130, Partial fill upon patient [...] Unknown, 5 Refills, Maintenance, 03/22/23 16:02:00 EDT, [facility]/pharmacy #1130, 150, cm, 03/22/23 15:46:00 EDT, Height, 74.1, kg, 02/23/23 13:43:00 EDT, Dry Weight Start Date: 03/22/23 Status: Ordered Tylenol Extra Strength 500 mg oral tablet 2 tablet = 1,000 mg, By Mouth, 3 times a day, PRN for pain, # 540 tablet, 1 Refills, Maintenance, 07/07/22 13:48:00 EDT, Tablet, [facility], Partial fill upon patient [...] Team Personnel Name: Louis Patel MD Position: [facility] Primary Care Physician Member Role: PCP Address: Address: [address] [place], [place] [address] Name: Radha Wang RN Position: [facility] RN Member Role: Primary Care Nurse Care Team Related Persons Name: MATT IQBAL Address: home [address] [place] [address] Name: LEANDRO MARQUEZ Address: home [address] [place] [address] Name: ANTOLIN MARQUEZ Name: MATTIE BANKS Address: [address] [address]
--- OUTSIDE RECORDS SUMMARY | 2023-06-08 02:27 | XMS_ITS | Continuity of Care Document ---
Author Name Unknown Organization [facility] Address [address] [place] [address]- Care Team Providers Care Top Lift Trimmer Name Role Phone Jorge ARMENTA, Louis Altamirano Primary Care Physician [phone] Encounter [facility] [place] Date(s): 02/17/23 - 03/19/23 [facility] [address] [place] [address]- Allergies, Adverse Reactions, Alerts No Known Allergies Immunizations Given and Recorded Vaccine Date Status Refusal Reason SARS-CoV-2 mRNA ([id number]) vax 01/19/22 Given SARS-CoV-2 (COVID-19) mRNA BNT-162b2 vac 1 07/03/21 Given SARS-CoV-2 (COVID-19) mRNA BNT-162b2 vac 06/06/21 Given Not Given Vaccine Date Status Refusal Reason tetanus/diphtheria/pertussis , acel(Tdap) 2 09/26/21 Not Given Parent Or Guardian R efuses 1? Unknown: Resend to [facility]. 2Result Comment: mom states pt has received [...] 15:52:00 EDT, Aerosol, Route to Pharmacy Electronically, [id number], [facility]/pharmacy #1130, 150, cm, 01/28/23 15:24:00 EDT, [...] 2 Refills, Maintenance, 05/28/22 17:00:00 EDT, Gel, [facility]/pharmacy #1130, Partial fill upon [...] Gm, 0 Refills, Maintenance, 02/23/23 11:47:00 EDT, [facility], Partial fill upon patient request if the prescription is for a schedule II opioid drug. Start Date: 02/23/23 Status: Ordered fluticasone 50 mcg/inh nasal spray 1 sprays, Nares, Both, 2 times a day, # 16 Gm, 0 Refills, Maintenance, 02/23/23 11:47:00 EDT, [facility], Partial fill upon patient request if the [...] tablet, 5 Refills, Maintenance, 01/15/23 11:36:00 EST, [facility]/pharmacy #1130, 150, cm, 01/15/23 11:00:00 EST, Height, 68.63, kg, 10/22/21 15:09:00 EST, Dry Weight Start Date: 01/15/23 Status: Ordered mirtazapine 45 mg oral tablet 0 Refills, Maintenance, 10/06/22 7:20:00 EST, Partial fill upon patient request if the prescriptionis for a schedule II opioid drug. Start Date: 10/06/22 Status: Ordered montelukast 10 mg oral tablet 10 mg, 1, tablet, By Mouth, Daily, Label in Vatican Citizen, # 30 tablet, Refills 5, Tot. Refills 5, Maintenance, 10/13/22 15:15:00 EST, Route to Pharmacy Electronically, [facility]/pharmacy #1130, Partial fill upon [...] Refills, Maintenance, 02/08/23 13:00:00 EDT, [facility], [facility], cm, 01/28/23 15:24:00 EDT, Height,68.63, kg, 10/22/21 15:09:00 EST, Dry Weight Start Date: 02/08/23 Status: Ordered Tylenol Extra Strength 500 mg oral tablet 2 tablet = 1,000 mg, By Mouth, 3 times a day, PRN for pain, # 540 tablet, 1 Refills, Maintenance, 07/07/22 13:48:00 EDT, Tablet, [facility]/pharmacy #1130, Partial [...] Team Personnel Name: Louis Patel MD Position: [facility] Primary Care Physician Member Role: PCP Address: Address: [address] [place], [place] [address] Name: Radha Wang RN Position: [facility] RN Member Role: Primary Care Nurse Care Team Related Persons Name: MATT IQBAL Address: home [address] [place] [address] Name: LEANDRO MARQUEZ Address: home [address] [place] [address] Name: ANTOLIN MARQUEZ Name: MATTIE BANKS Address: [address] [address]
--- OUTSIDE RECORDS SUMMARY | 2023-06-08 02:27 | XMS_ITS | Continuity of Care Document ---
Author Name Unknown Organization [facility] y Address [address] [place] [address]- Care Team Providers Care Pocket Secretary Assembler Name Role Phone Louis Patel MD Primary Care Physician Encounter [facility] [place] Date(s): 06/11/21 - 07/27/21 [facility] Special[facility] [address] [place] [address] Attending Physician: Not on Staff, Attending MD Referring Physician: Louis Patel MD Allergies, Adverse [...] 16:22:00 EDT, Aerosol, Route to Pharmacy Electronically, [id number], [facility]/pharmacy #1130, 151, cm, 06/10/21 16:07:00 EDT, H... Start Date: 06/10/21 Stop Date: 06/05/22 Status: Ordered Ambien 5 mg oral tablet 1 tablet = 5 mg, By Mouth, Daily at bedtime, PRN as needed for insomnia, # 12 tablet, 0 Refills, Acute 06/29/22 14:54:00 EDT, 05/29/21 14:54:00 EDT, Tablet, [facility]/pharmacy #1130, Partial fill upon patient request if [...] each, 5 Refills, Maintenance, 04/04/20 13:27:00 EDT, [facility]/pharmacy #1130 Start Date: 04/04/20 Status: Ordered clonazePAM 2 mg oral tablet 1 tablet = 2 mg, By Mouth, Daily at bedtime, # 30 tablet, 3 Refills, Maintenance, 04/04/20 13:25:00EDT, Tablet, [facility]/pharmacy #1130 Start Date: 04/04/20 Status: Ordered Guaiasorb DM 10 mg-100 mg/5 mL oral liquid 10 mL, By Mouth, Every 4 hours, # 240 mL, 0 Refills, Maintenance, 04/17/20 13:08:00 EDT, [facility], cook islander label, 10 mL By Mouth Every 4 hours Start Date: 04/17/20 Status: Ordered Keppra 1000 mg oral tablet 1 tablet = 1,000 mg, By Mouth, 3 times a day, # 90 tablet, 0 Refills, Maintenance, 04/04/21 14:56:00 EDT, Tablet, [facility]/pharmacy #1130, 151, cm, 04/04/21 14:15:00 EDT, Height, 71.8, kg, 02/18/21 19:34:00 EDT, Dry Weight Start Date: 04/04/21 Status: Ordered lamotrigine 150 mg oral tablet 1 tablet = 150 mg, By Mouth, 2 times a day, # 60 tablet, 6 Refills, Maintenance, 04/04/21 14:56:00 EDT, Tablet, [facility]/pharmacy #1130, 151, cm, 04/04/21 14:15:00 EDT, Height, 71.8, kg, 02/18/21 19:34:00EDT, Dry Weight Start Date: 04/04/21 Status: Ordered metFORMIN 500 mg oral tablet, extended release 1 tablet = 500 mg, By Mouth, Daily, # 30 tablet, 4 Refills, Maintenance, 02/13/21 15:28:00 EDT, ER Tablet, [facility]/pharmacy #1130, Partial fill upon patient request if [...] 2 Refills, Maintenance, 11/04/20 18:31:00 EST, ECCapsule, [facility]/pharmacy #1130, cook islander label Start Date: 11/04/20 Status: Ordered pantoprazole [...] with dinner every night (please label in Papua [place] Guinean), # 30 tablet, 1 Refills, Maintenance, 09/16/20 [...]
--- OUTSIDE RECORDS SUMMARY | 2023-06-08 02:27 | XMS_ITS | Continuity of Care Document ---
Author Name Unknown Organization [facility] ter Address [address] [place] [address]- Care Team Providers Care Refinish Technician Name Role Phone Jorge ARMENTA, Louis Altamirano Primary Care Physician [phone] Encounter [facility] [place] Date(s): 03/31/21 - 05/01/[address] [address]- Attending Physician: Marija Walters NP Admitting Physician: Marija Walters NP Referring Physician: Marija Walters NP Allergies, Adverse Reactions, Alerts Substance Reaction Severity [...] 16:03:00 EDT, Aerosol, Route to Pharmacy Electronically, [id number], [facility]/pharmacy #1130 Start Date: 02/04/21 Status: Ordered Bedside [...] each, 5 Refills, Maintenance, 04/04/20 13:27:00 EDT, [facility]/pharmacy #1130 Start Date: 04/04/20 Status: Ordered clonazePAM 2 mg oral tablet 1 tablet = 2 mg, By Mouth, Daily at bedtime, # 30 tablet, 3 Refills, Maintenance, 04/04/20 13:25:00EDT, Tablet, [facility]/pharmacy #1130 Start Date: 04/04/20 Status: Ordered Guaiasorb DM 10 mg-100 mg/5 mL oral liquid 10 mL, By Mouth, Every 4 hours, # 240 mL, 0 Refills, Maintenance, 04/17/20 13:08:00 EDT, [facility]/pharmacy #1130, wallisian label, 10 mL By Mouth Every 4 hours Start Date: 04/17/20 Status: Ordered Keppra 1000 mg oral tablet 1 tablet = 1,000 mg, By Mouth, 3 times a day, # 90 tablet, 0 Refills, Maintenance, 04/04/21 14:56:00 EDT, Tablet, [facility]/pharmacy #1130, 151, cm, 04/04/21 14:15:00 EDT, Height, 71.8, kg, 02/18/21 19:34:00 EDT, Dry Weight Start Date: 04/04/21 Status: Ordered lamotrigine 150 mg oral tablet 1 tablet = 150 mg, By Mouth, 2 times a day, # 60 tablet, 6 Refills, Maintenance, 04/04/21 14:56:00 EDT, Tablet, [facility]/pharmacy #1130, 151, cm, 04/04/21 14:15:00 EDT, Height, 71.8, kg, 02/18/21 19:34:00EDT, Dry Weight Start Date: 04/04/21 Status: Ordered metFORMIN 500 mg oral tablet, extended release 1 tablet = 500 mg, By Mouth, Daily, # 30 tablet, 4 Refills, Maintenance, 02/13/21 15:28:00 EDT, ER Tablet, [facility]/pharmacy #1130, Partial fill upon patient request [...] Maintenance, 11/04/20 18:31:00 EST, ECCapsule, [facility], wallisian label Start Date: 11/04/20 Status: Ordered pantoprazole [...] kg, 02/18/21 19:34:00EDT, Dry Weight Start Date: 5/21/21 Status: Ordered Zofran 8 mg oral tablet 1 tablet = 8 mg, By Mouth, Daily, take with dinner every night (please label in Welsh), # 30 tablet, 1 Refills, Maintenance, 09/16/20 7:19:00 EST, Tablet, [facility] Start Date: 09/16/20 Status: Ordered Problem List Condition Effective Dates Status Health Status Inform ant Complex partial seizure(Confirmed) Active Anxiety and depression(Confirmed) Active Prediabetes(Confirmed) Active Wayne-Silver syndrome, con genital hemihypertrophy(Confirmed) Active Social History Social History Type Response Smoking Status Never (less than 100 in lifetime) entered on: 04/04/20 Sex
--- OUTSIDE RECORDS SUMMARY | 2023-06-08 02:27 | XMS_ITS | Continuity of Care Document ---
Author Name Unknown Organization [facility] Address [address] [place] [id number]- Care Team Providers Care Fuel Cell Binder Name Role Phone Louis Patel MD Primary Care Physician Encounter [facility] [place] [facility]CT [facility] [id number] Date(s): 05/27/20 - 06/26/[address] [address]- [facility] Attending Physician: Admtr, Ar8 Admitting Physician: Admtr, Ar8 Referring Physician: Admtr, [...] Refills, Maintenance, 04/17/20 13:08:00 EDT, [facility], bengali label, 10 mL By Mouth Every 4 hours Start Date: 04/17/20 Status: Ordered Keppra 1000 mg oral tablet 1 tablet = 1,000 mg, By Mouth, 3 times a day, # 90 tablet, 6 Refills, Maintenance, 04/04/20 13:18:00 EDT, Tablet, [facility]/pharmacy #1130 Start Date: 04/04/20 Status: Ordered lamotrigine [...] 6 Refills, Maintenance, 04/04/20 13:23:00 EDT, Tablet, [facility]/pharmacy #1130 Start Date: 04/04/20 Status: Ordered omeprazole 20 mg oral enteric coated capsule 1 capsule = 20 mg, By Mouth, Daily, # 30 capsule, 2 Refills, Maintenance, 04/17/20 13:08:00 EDT, ECCapsule, [facility]/pharmacy #1130, bengali label Start Date: 04/17/20 Status: Ordered Restoril 15 mg oral capsule 1 capsule = 15 mg, By Mouth, Daily at bedtime, PRN for sleep, for 30 days, # 30 capsule, 5 Refills,Acute 10/01/20 13:31:00 EST, 04/04/20 13:31:00 EDT, Capsule, [facility]/pharmacy #1130 Start Date: 04/04/20 Stop Date: 10/01/20 [...] 5 Refills, Maintenance, 04/04/20 13:23:00 EDT, Tablet, [facility]/pharmacy #1130 Start Date: 04/04/20 Status: Ordered Problem List Condition Effective Dates Status Health Status Inform ant Complex partial seizure(Confirmed) Active Anxiety and depression(Confirmed) Active Wayne-Silver syndrome, con genital hemihypertrophy(Confirmed) Active Social History Social History Type Response Smoking Status Never (less than 100 in lifetime) entered on: 04/04/20 Sex
--- OUTSIDE RECORDS SUMMARY | 2023-06-08 02:27 | XMS_ITS | Continuity of Care Document ---
Author Name Unknown Organization [facility] Address [address] [place] [address]- Care Team Providers Care Manager Of Change Name Role Phone Jorge ARMENTA, Louis Altamirano Primary Care Physician Encounter [facility] [place] ACCT R [id number] Date(s): 09/11/21 - 10/11/[address] [address]- Attending Physician: Merlin Barry Admitting Physician: Merlin Barry Referring Physician: AdmtrMerlin Allergies, Adverse Reactions, Alerts Substance Reaction Severity [...] 16:22:00 EDT, Aerosol, Route to Pharmacy Electronically, [id number], [facility]/pharmacy #1130, 151, cm, 06/10/21 16:07:00 EDT, H... Start Date: 06/10/21 Stop Date: 06/05/22 Status: Ordered Ambien 5 mg oral tablet 1 tablet = 5 mg, By Mouth, Daily at bedtime, PRN as needed for insomnia, # 12 tablet, 0 Refills, Acute 06/29/22 14:54:00 EDT, 05/29/21 14:54:00 EDT, Tablet, [facility]/pharmacy #1130, Partial fill upon patient request [...] each, 5 Refills, Maintenance, 04/04/20 13:27:00 EDT, [facility]/pharmacy #1130 Start Date: 04/04/20 Status: Ordered clonazePAM 2 mg oral tablet 1 tablet = 2 mg, By Mouth, Daily at bedtime, # 30 tablet, 3 Refills, Maintenance, 04/04/20 13:25:00EDT, Tablet, [facility]/pharmacy #1130 Start Date: 04/04/20 Status: Ordered Guaiasorb DM 10 mg-100 mg/5 mL oral liquid 10 mL, By Mouth, Every 4 hours, # 240 mL, 0 Refills, Maintenance, 04/17/20 13:08:00 EDT, [facility]/pharmacy #1130, zimbabwean label, 10 mL By Mouth Every 4 hours Start Date: 04/17/20 Status: Ordered ipratropium nasal 21 mcg/inh spray 2 sprays, Nares, Both, 2 times a day, # 30 mL, 1 Refills, Maintenance, 09/02/21 14:32:00 EDT, [place], [facility]/pharmacy #1130, Partial fill upon patient request if the prescription is for a schedule II opioid drug., 2 sprays Nares, Both 2 times a day, 151,... Start Date: 09/02/21 Status: Ordered Keppra 1000 mg oral tablet 1 tablet = 1,000 mg, By Mouth, 3 times a day, # 90 tablet, 6 Refills, Maintenance, 10/06/21 10:07:00 EST, Tablet, [facility]/pharmacy #1130, 151, cm, 09/02/21 14:18:00 EDT, Height, 71.8, kg, 02/18/21 19:34:00 EDT, Dry Weight Start Date: 10/06/21 Status: Ordered lamotrigine 150 mg oral tablet 1 tablet = 150 mg, By Mouth, 2 times a day, # 60 tablet, 5 Refills, Maintenance, 10/06/21 9:55:00 EST, Tablet, [facility]/pharmacy #1130, 151, cm, 09/02/21 14:18:00 EDT, Height, 71.8, kg, 02/18/21 19:34:00 EDT, Dry Weight Start Date: 10/06/21 Status: Ordered metFORMIN 500 mg oral tablet, [...] 6 Refills, Maintenance, 04/04/20 13:23:00 EDT, Tablet, [facility]/pharmacy #1130 Start Date: 04/04/20 Status: Ordered omeprazole 20 mg oral enteric coated capsule 1 capsule = 20 mg, By Mouth, Daily, # 30 capsule, 2 Refills, Maintenance, 11/04/20 18:31:00 EST, ECCapsule, [facility]/pharmacy #1130, zimbabwean label Start Date: 11/04/20 Status: Ordered pantoprazole [...] pack/packet, 0 Refills, Maintenance, 02/20/21 14:54:00 EDT, [facility]/pharmacy #1130, Partial fill upon patient request if theprescription is for a schedule II opioid drug., as... Start Date: 02/20/21 Status: Ordered risperiDONE 4 mg oral tablet 1 tablet = 4 mg, By Mouth, Daily at bedtime, # 30 tablet, 6 Refills, Maintenance, 04/04/20 13:30:00EDT, Tablet, [facility]/pharmacy #1130 Start Date: 04/04/20 Stop Date: 10/31/20 Status: Ordered Vimpat 200 mg oral tablet 1 tablet = 200 mg, By Mouth, 2 times a day, # 60 tablet, 5 Refills, Maintenance, 10/06/21 10:06:00 EST, Tablet, [facility]/pharmacy #1130, 151, cm, 09/02/21 14:18:00 EDT, Height, 71.8, kg, 02/18/21 19:34:00EDT, Dry Weight Start Date: 10/06/21 Status: Ordered Zofran 8 mg oral tablet 1 tablet = 8 mg, By Mouth, Daily, take with dinner every night (please label in Slovenian), # 30 tablet, 1 Refills, Maintenance, 09/16/20 [...]
--- OUTSIDE RECORDS SUMMARY | 2023-06-08 02:27 | XMS_ITS | Continuity of Care Document ---
Author Name Unknown Organization [facility] Address [address] [place] [address]- Care Team Providers Care Steel Checker Name Role Phone Jorge ARMENTA, Louis Altamirano Primary Care Physician [place] [facility] [place] Date(s): 02/26/21 - 03/31/21 [facility]/[address] [address]- Attending Physician: Felipe Castillo MD Admitting Physician: [...] 16:03:00 EDT, Aerosol, Route to Pharmacy Electronically, [id number], [facility]/pharmacy #1130 Start Date: 02/04/21 Status: Ordered [...] each, 5 Refills, Maintenance, 04/04/20 13:27:00 EDT, [facility]/pharmacy #1130 Start Date: 04/04/20 Status: Ordered clonazePAM 2 mg oral tablet 1 tablet = 2 mg, By Mouth, Daily at bedtime, # 30 tablet, 3 Refills, Maintenance, 04/04/20 13:25:00EDT, Tablet, [facility]/pharmacy #1130 Start Date: 04/04/20 Status: Ordered Guaiasorb DM 10 mg-100 mg/5 mL oral liquid 10 mL, By Mouth, Every 4 hours, # 240 mL, 0 Refills, Maintenance, 04/17/20 13:08:00 EDT, [facility]/pharmacy #1130, urdu label, 10 mL By Mouth Every 4 hours Start Date: 04/17/20 Status: Ordered Keppra 1000 mg oral tablet 1 tablet = 1,000 mg, By Mouth, 3 times a day, # 90 tablet, 6 Refills, Maintenance, 10/16/20 10:26:00 EST, Tablet, [facility]/pharmacy #1130 Start Date: 10/16/20 Status: Ordered lamotrigine 150 mg oral tablet 1 tablet = 150 mg, By Mouth, 2 times a day, # 60 tablet, 6 Refills, Maintenance, 10/16/20 10:26:00 EST, Tablet, [facility]/pharmacy #1130 Start Date: 10/16/20 Status: Ordered metFORMIN 500 mg oral tablet, extended release 1 tablet = 500 mg, By Mouth, Daily, # 30 tablet, 4 Refills, Maintenance, 02/13/21 15:28:00 EDT, ER Tablet, [facility]/pharmacy #1130, Partial fill upon patient request if the prescription is for a schedule II opioid drug., 150, cm, 02/13/21 14:49:00 EDT, Hei... Start Date: 02/13/21 Status: Ordered mirtazapine 45 mg oral tablet 1 tablet = 45 mg, By Mouth, Daily at bedtime, # 30 tablet, 6 Refills, Maintenance, 04/04/20 13:23:00 EDT, Tablet, [facility]/pharmacy #1130 Start Date: 04/04/20 Status: Ordered omeprazole 20 mg oral enteric coated capsule 1 capsule = 20 mg, By Mouth, Daily, # 30 capsule, 2 Refills, Maintenance, 11/04/20 18:31:00 EST, ECCapsule, [facility]/pharmacy #1130, urdu label Start Date: 11/04/20 Status: Ordered pantoprazole [...] pack/packet, 0 Refills, Maintenance, 02/20/21 14:54:00 EDT, [facility]/pharmacy #1130, Partial fill upon patient request if theprescription is for a schedule II opioid drug., as... Start Date: 02/20/21 Status: Ordered risperiDONE 4 mg oral tablet 1 tablet = 4 mg, By Mouth, Daily at bedtime, # 30 tablet, 6 Refills, Maintenance, 04/04/20 13:30:00EDT, Tablet, [facility]/pharmacy #1130 Start Date: 04/04/20 Stop Date: 10/31/20 Status: Ordered Vimpat 200 mg oral tablet 1 tablet = 200 mg, By Mouth, 2 times a day, # 60 tablet, 5 Refills, Maintenance, 10/16/20 10:26:00 EST, Tablet, [facility]/pharmacy #1130 Start Date: 10/16/20 Status: Ordered Zofran 8 mg oral tablet 1 tablet = 8 mg, By Mouth, Daily, take with dinner every night (please label in Divehi), # 30 tablet, 1 Refills, Maintenance, 09/16/20 [...]
--- OUTSIDE RECORDS SUMMARY | 2023-06-08 02:27 | XMS_ITS | Continuity of Care Document ---
Author Name Unknown Organization [facility] ter Address [address] [place] [address]- Care Team Providers Care Poolroom Table Attendant Name Role Phone Louis Patel MD Primary Care Physician Encounter [facility] [place] Date(s): 10/22/21 - 10/22/[address] [address]- Discharge Disposition: A-D/C Home Attending Physician: Elizabeth Ruiz MD Admitting Physician: Elizabeth Ruiz MD Referring Physician: Not on Staff, Referring MD Allergies, Adverse Reactions, Alerts Substance Reaction Severity Status NKA Active Immunizations Given and Recorded Vaccine Date Status Refusal Reason SARS-CoV-2 (COVID-19) mRNA BNT-162b2 vac 1 07/03/21 Given SARS-CoV-2 (COVID-19) mRNA BNT-162b2 vac 06/06/21 Given Not Given Vaccine Date Status Refusal Reason tetanus/diphtheria/pertussis , acel(Tdap) 2 09/26/21 Not Given Parent Or Guardian R efuses 1? Unknown: Resend to [facility]. 2Result Comment: mom states pt has received [...] 16:22:00 EDT, Aerosol, Route to Pharmacy Electronically, [id number], [facility]/pharmacy #1130, 151, cm, 06/10/21 16:07:00 EDT, H... Start Date: 06/10/21 Stop Date: 06/05/22 Status: Ordered Ambien 5 mg oral tablet 1 tablet = 5 mg, By Mouth, Daily at bedtime, PRN as needed for insomnia, # 12 tablet, 0 Refills, Acute 06/29/22 14:54:00 EDT, 05/29/21 14:54:00 EDT, Tablet, [facility]/pharmacy #1130, Partial [...] 5 Refills, Maintenance, 04/04/20 13:27:00 EDT, [facility]/pharmacy #1130 Start Date: 04/04/20 Status: Ordered clonazePAM [...] Refills, Maintenance, 04/17/20 13:08:00 EDT, [facility], serbian label, 10 mL By Mouth Every 4 hours Start Date: 04/17/20 Status: Ordered ipratropium nasal 21 mcg/inh spray 2 sprays, Nares, Both, 2 times a day, # 30 mL, 1 Refills, Maintenance, 09/02/21 14:32:00 EDT, [place], [facility]/pharmacy #1130, Partial fill upon patient request if the prescription is for a schedule II opioid drug., 2 sprays Nares, Both 2 times a day, 151,... Start Date: 09/02/21 Status: Ordered Keppra 1000 mg oral tablet 1 tablet = 1,000 mg, By Mouth, 3 times a day, # 90 tablet, 6 Refills, Maintenance, 10/06/21 10:07:00 EST, Tablet, [facility]/pharmacy #1130, 151, cm, 09/02/21 14:18:00 EDT, Height, 71.8, kg, 02/18/21 19:34:00 EDT, Dry Weight Start Date: 10/06/21 Status: Ordered lamotrigine 150 mg oral tablet 1 tablet = 150 mg, By Mouth, 2 times a day, # 60 tablet, 5 Refills, Maintenance, 10/06/21 9:55:00 EST, Tablet, [facility]/pharmacy #1130, 151, cm, 09/02/21 14:18:00 EDT, Height, [...] Refills, Maintenance, 11/04/20 18:31:00 EST, ECCapsule, [facility]/pharmacy #1130, serbian label Start Date: 11/04/20 Status: Ordered pantoprazole [...] pack/packet, 0 Refills, Maintenance, 02/20/21 14:54:00 EDT, [facility]/pharmacy #1130, Partial fill upon patient request if theprescription is for a schedule II opioid drug., as... Start Date: 02/20/21 Status: Ordered risperiDONE 4 mg oral tablet 1 tablet = 4 mg, By Mouth, Daily at bedtime, # 30 tablet, 6 Refills, Maintenance, 04/04/20 13:30:00EDT, Tablet, [facility]/pharmacy #1130 Start Date: 04/04/20 Stop Date: 10/31/20 Status: Ordered Vimpat 200 mg oral tablet 1 tablet = 200 mg, By Mouth, 2 times a day, # 60 tablet, 5 Refills, Maintenance, 10/06/21 10:06:00 EST, Tablet, [facility]/pharmacy #1130, 151, cm, 09/02/21 14:18:00 EDT, Height, 71.8, kg, 02/18/21 19:34:00EDT, Dry Weight Start Date: 10/06/21 Status: Ordered Zofran 8 mg oral tablet 1 tablet = 8 mg, By Mouth, Daily, take with dinner every night (please label in Luxembourger), # 30 tablet, 1 Refills, Maintenance, 09/16/20 [...] Range]: 1 2 3 Height 150 cm (10/22/21 3:09 PM) Weight 68.63 kg (10/22/21 3:09 PM) Oxygen Saturation [94-100 %] 95 % (10/22/21 5:15 PM) 98 % (10/22/21 3:09 PM) 99 % (10/22/21 3:08 PM) Pulse Rate [55-90 bpm] 108 bpm *H* (10/22/21 5:15 PM) 114 bpm *H* (10/22/21 3:09 PM) 117 bpm *H* (10/22/21 3:08 PM) Blood Pressure [90-138/55-84 mm Hg] 125/90mm Hg (10/22/21 5:15 PM) 147/77mm Hg *H* (10/22/21 3:09 PM) 147/77mm Hg *H* (10/22/21 3:08 PM) Respiratory Rate [16-30 br/min] 18 br/min (10/22/21 5:15 PM) 18 br/min (10/22/21 3:09 PM) 24 br/min (10/22/21 3:08 PM) Temperature [96.8-100.4 DegF] 98.3 DegF (10/22/21 5:15 PM) 98.3 DegF (10/22/21 3:09 PM) 98.3 DegF (10/22/21 3:08 PM) Mode of Delivery (Oxygen) Room air (10/22/21 5:15 PM) Room air (10/22/21 3:09 PM) Room air (10/22/21 3:08 PM) Blood pressure sites Arm, right (10/22/21 3:08 PM) Temperature Route Oral (10/22/21 5:15 PM) Oral (10/22/21 3:09 PM) Oral (10/22/21 3:08 PM) Dry Weight 68.63 kg (10/22/21 3:09 PM) Social History Social History Type Response Smoking Status Never (less than 100 in lifetime) entered on: 04/04/20 Sex
--- OUTSIDE RECORDS SUMMARY | 2023-06-08 02:27 | XMS_ITS | Continuity of Care Document ---
Author Name Unknown Organization [facility] Address [address] [place] [address]- Care Team Providers Care Is Project Manager Name Role Phone Jorge ARMENTA, Louis Altamirano Primary Care Physician Encounter [facility] [place] Date(s): 02/13/21 - 03/15/[address] [address]- Attending Physician: Admtr, Ar8 Admitting Physician: Admtr, [...] 16:03:00 EDT, Aerosol, Route to Pharmacy Electronically, [id number], [facility]/pharmacy #1130 Start Date: 02/04/21 Status: Ordered Bedside [...] Refills, Maintenance, 04/17/20 13:08:00 EDT, [facility], mongolian label, 10 mL By Mouth Every 4 hours Start Date: 04/17/20 Status: Ordered Keppra 1000 mg oral tablet 1 tablet = 1,000 mg, By Mouth, 3 times a day, # 90 tablet, 6 Refills, Maintenance, 10/16/20 10:26:00 EST, Tablet, [facility]/pharmacy #1130 Start Date: 10/16/20 Status: Ordered lamotrigine 150 mg oral tablet 1 tablet = 150 mg, By Mouth, 2 times a day, # 60 tablet, 6 Refills, Maintenance, 10/16/20 10:26:00 EST, Tablet, [facility]/pharmacy #1130 Start Date: 10/16/20 Status: Ordered metFORMIN 500 mg oral tablet, extended release 1 tablet = 500 mg, By Mouth, Daily, # 30 tablet, 4 Refills, Maintenance, 02/13/21 15:28:00 EDT, ER Tablet, [facility]/pharmacy #1130, Partial fill upon patient [...] 2 Refills, Maintenance, 11/04/20 18:31:00 EST, ECCapsule, [facility]/pharmacy #1130, mongolian label Start Date: 11/04/20 Status: Ordered pantoprazole [...] pack/packet, 0 Refills, Maintenance, 02/20/21 14:54:00 EDT, [facility]/pharmacy #1130, Partial fill upon patient request if theprescription is for a schedule II opioid drug., as... Start Date: 02/20/21 Status: Ordered risperiDONE 4 mg oral tablet 1 tablet = 4 mg, By Mouth, Daily at bedtime, # 30 tablet, 6 Refills, Maintenance, 04/04/20 13:30:00EDT, Tablet, [facility]/pharmacy #1130 Start Date: 04/04/20 Stop Date: 10/31/20 Status: Ordered Vimpat 200 mg oral tablet 1 tablet = 200 mg, By Mouth, 2 times a day, # 60 tablet, 5 Refills, Maintenance, 10/16/20 10:26:00 EST, Tablet, [facility]/pharmacy #1130 Start Date: 10/16/20 Status: Ordered Zofran 8 mg oral tablet 1 tablet = 8 mg, By Mouth, Daily, take with dinner every night (please label in Mohawk), # 30 tablet, 1 Refills, Maintenance, 09/16/20 7:19:00 EST, Tablet, [facility]/pharmacy #1130 Start Date: 09/16/20 Status: Ordered Problem List Condition Effective Dates Status Health Status Inform ant Complex partial seizure(Confirmed) Active Anxiety and depression(Confirmed) Active Prediabetes(Confirmed) Active Wayne-Silver syndrome, con genital hemihypertrophy(Confirmed) Active Social History Social History Type Response Smoking Status Never (less than 100 in lifetime) entered on: 04/04/20 Sex
--- OUTSIDE RECORDS SUMMARY | 2023-06-08 02:27 | XMS_ITS | Continuity of Care Document ---
Author Name Unknown Organization [facility] Address [address] [place] [address]- Care Team Providers Care Marionette Performer Name Role Phone Jorge ARMENTA, Louis Altamirano Primary Care Physician [place] [facility] [place]13[place] 09/12/22 [facility] [address] [place], [place] [address] Allergies, Adverse Reactions, Alerts No Known Allergies Immunizations Given and Recorded Vaccine Date Status Refusal Reason SARS-CoV-2 mRNA ([id number]) vax 01/19/22 Given SARS-CoV-2 (COVID-19) mRNA BNT-162b2 [...] 6 Refills, Maintenance, 06/10/21 16:22:00 EDT, [place], [facility]/pharmacy #1130, Partial fill upon patient request if the prescription is for a schedule II opioid drug., 151, cm, 06/10/21 16:07:00 EDT,... Start Date: 06/10/21 Status: Ordered albuterol CFC free 90 mcg/inh inhalation aerosol 2, puffs, Inhalation, Every 4 hours, PRN, # 1 each, Refills 11, Tot. Refills 11, Maintenance, 06/10/21 16:22:00 EDT, Aerosol, Route to Pharmacy Electronically, [id number], [facility]/pharmacy #1130, 151, cm, 06/10/21 16:07:00 [...] tablet, 3 Refills, Maintenance, 04/04/20 13:25:00EDT, Tablet, [facility]/pharmacy #1130 Start Date: 04/04/20 Status: Ordered diclofenac [...] Refills, Maintenance, 04/17/20 13:08:00 EDT, [facility], british label, 10 mL By Mouth Every 4 hours Start Date: 04/17/20 Status: Ordered ketoconazole 1% topical shampoo See Instructions, Topically Every third day, # 200 mL, 1 Refills, Maintenance, 01/19/22 15:55:00 EST, [facility]/pharmacy #1130, Partial fill upon patient request if the prescription is for a schedule II opioid drug., Topically Every third day, 150, cm, 030... Start Date: 01/19/22 Status: Ordered lamotrigine 150 mg oral tablet 1 tablet, By Mouth, 2 times a day, # 60 tablet, 5 Refills, Maintenance, 07/15/22 10:22:00 EDT, [id number], 150, cm, 07/07/22 13:19:00 EDT, Height, 68.63, kg, 10/22/21 15:09:00 EST, Dry Weight Start Date: 07/15/22 Status: Ordered levETIRAcetam 1000 mg oral tablet 1 tablet, By Mouth, 3 times a day, # 90 tablet, 5 Refills, [id number], 150, cm, 04/20/22 13:54:00 EDT, Height, 68.63, kg, 10/22/21 15:09:00 EST, Dry Weight Start Date: 04/28/22 Status: Ordered mirtazapine 45 mg oral tablet 1 tablet = 45 mg, By Mouth, Daily at bedtime, # 30 tablet, 6 Refills, Maintenance, 04/04/20 13:23:00 EDT, Tablet, [facility]/pharmacy #1130 Start Date: 04/04/20 Status: [...] Refills, Maintenance, 08/23/22 14:25:00 EDT, [id number], 150, cm, 07/07/22 13:19:00 EDT, Height,68.63, kg, 10/22/21 15:09:00 EST, Dry Weight Start Date: 08/23/22 Status: Ordered TWO BED RAILS TWO BED RAILS, See Instructions, # 2 each, Refills 0, Tot. Refills 0, Maintenance, Bed Rails - 2 total Use as directed for safety Dx: G40.209, Q87.19 Duration: Lifetime, 07/07/22 15:47:00 EDT, Supply Start Date: 07/07/22 Status: Ordered Tylenol Extra Strength 500 mg [...] 5 Refills, Maintenance, 03/16/22 16:39:00 EDT, Tablet, [facility], generic lacosamide preferred, 150, cm, 01/19/22 15:23:00 ESTAretha... Start Date: 03/16/22 Stop Date: 09/12/22 Status: Ordered Problem List Condition Confirmation Course [...] on: 04/04/20 Sex Patient Care team information Personnel Name: Jorge ARMENTA, Louis Altamirano Address: Address: [address] [place] [address], [facility] [place], [place] [address]
--- OUTSIDE RECORDS SUMMARY | 2023-06-08 02:27 | XMS_ITS | Continuity of Care Document ---
Author Name Unknown Organization [facility] Address [address] [place] [id number]- Care Team Providers Care Office Spec Name Role Phone Jorge ARMENTA, Louis Altamirano Primary Care Physician [place] [facility] [place] Date(s): 04/26/20 - 05/26/[address] [address]- [facility] Attending Physician: Not on Staff, Attending MD Allergies, Adverse Reactions, Alerts Substance Reaction Severity Status NKA Active Medications clonazePAM 1 mg oral tablet See Instructions, [...] Refills, Maintenance, 04/17/20 13:08:00 EDT, [facility], qatari label, 10 mL By Mouth [...] 2 Refills, Maintenance, 04/17/20 13:08:00 EDT, ECCapsule, [facility]/pharmacy #1130, qatari label Start Date: 04/17/20 Status: Ordered Restoril [...]
--- OUTSIDE RECORDS SUMMARY | 2023-06-08 02:27 | XMS_ITS | Continuity of Care Document ---
Author Name Unknown Organization [facility] Address [address] [place] [address]- Care Team Providers Care Spot Checker Name Role Phone Jorge ARMENTA, Louis Altamirano Primary Care Physician [phone] Encounter [facility] Date(s): 03/02/23 - 04/01/23 [facility] [address] [place] [id number]- Allergies, Adverse Reactions, Alerts No Known Allergies Immunizations Given and Recorded Vaccine Date Status Refusal Reason SARS-CoV-2 mRNA (yimpomk-snxc-fgadd) vax 01/19/22 Given SARS-CoV-2 (COVID-19) mRNA BNT-162b2 vac 1 07/03/21 Given SARS-CoV-2 (COVID-19) mRNA BNT-162b2 vac 06/06/21 Given Not Given Vaccine Date Status Refusal Reason tetanus/diphtheria/pertussis , acel(Tdap) 2 09/26/21 Not Given Parent Or Guardian R efuses 1? Unknown: Resend to [facility]. 2Result Comment: mom states pt has received [...] 15:52:00 EDT, Aerosol, Route to Pharmacy Electronically, [id number], [facility]/pharmacy #1130, 150, cm, 01/28/23 15:24:00 EDT, H... [...] 30 tablet, 3 Refills, Maintenance, 03/22/23 16:04:00EDT, [facility]/pharmacy #1130, Partial fill upon patient [...] 2 Refills, Maintenance, 05/28/22 17:00:00 EDT, Gel, [facility]/pharmacy #1130, Partial fill upon patient [...] Gm, 0 Refills, Maintenance, 02/23/23 11:47:00 EDT, [place], Partial fill upon patient request if the prescription is for a schedule II opioid drug. Start Date: 02/23/23 Status: Ordered fluticasone 50 mcg/inh nasal spray 1 sprays, Nares, Both, 2 times a day, # 16 Gm, 0 Refills, Maintenance, 02/23/23 11:47:00 EDT, [place], Partial fill upon patient request if the [...] mL, 5 Refills, Maintenance, 03/22/23 16:10:00 EDT,Solution, [facility], Partial fill upon patient request if [...] tablet, 5 Refills, Maintenance, 03/22/23 16:02:00 EDT, [facility]/pharmacy #1130, 150, cm, 03/22/23 15:46:00 EDT, Height, 74.1, kg, 02/23/23 13:43:00 EDT, Dry Weight Start Date: 03/22/23 Status: Ordered mirtazapine 45 mg oral tablet 1 tablet = 45 mg, By Mouth, Daily at bedtime, # 30 tablet, 0 Refills, Maintenance, 03/22/23 16:04:00 EDT, Tablet, [facility]/pharmacy #1130, Partial fill upon patient [...] 03/22/23 16:02:00 EDT, Route to Pharmacy Electronically, [facility]/pharmacy #1130, Partial fill upon patient [...] 03/22/23 16:04:00 EDT, Route to Pharmacy Electronically, [facility]/pharmacy #1130, Partial fill upon patient [...] Unknown, 5 Refills, Maintenance, 03/22/23 16:02:00 EDT, [facility]/pharmacy #1130, 150, cm, 03/22/23 15:46:00 EDT, Height, [...] Team Personnel Name: Louis Patel MD Position: [facility] Primary Care Physician Member Role: PCP Address: Address: [address] [facility], [place] [address]- Name: Radha Wang RN Position: [facility] ED RN W/OE and Tasks Member Role: Primary Care Nurse Care Team Related Persons Name: MATT IQBAL Address: home [address] [place] [address] Name: LEANDRO MARQUEZ Address: home [address] [place] [address] Name: ANTOLIN MARQUEZ Name: MATTIE BANKS Address: home [address] [address]
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
--- OUTSIDE RECORDS SUMMARY | 2023-06-08 02:27 | XMS_ITS | Continuity of Care Document ---
Author Name Unknown Organization [facility] Address [address] [place] [address]- Care Team Providers Care Post Form Remover Name Role Phone Louis Patel MD Primary Care Physician [phone] Encounter [facility] Date(s): 04/26/20 - 06/07/20 [facility] [address] [place] [address]- [facility] Attending Physician: Not on Staff, Attending [...] Refills, Maintenance, 04/17/20 13:08:00 EDT, [facility], chinese label, 10 mL By Mouth Every 4 hours Start Date: 04/17/20 Status: Ordered Keppra 1000 mg oral tablet 1 tablet = 1,000 mg, By Mouth, 3 times a day, # 90 tablet, 6 Refills, Maintenance, 04/04/20 13:18:00 EDT, Tablet, [facility]/pharmacy #1130 Start Date: 04/04/20 Status: Ordered lamotrigine [...] 2 Refills, Maintenance, 04/17/20 13:08:00 EDT, ECCapsule, [facility]/pharmacy #1130, chinese label Start Date: 04/17/20 Status: Ordered Restoril 15 mg oral capsule 1 capsule = 15 mg, By Mouth, Daily at bedtime, PRN for sleep, for 30 days, # 30 capsule, 5 Refills,Acute 10/01/20 13:31:00 EST, 04/04/20 13:31:00 EDT, Capsule, [facility]/pharmacy #1130 Start Date: 04/04/20 Stop Date: 10/01/20 [...]
--- OUTSIDE RECORDS SUMMARY | 2023-06-08 02:27 | XMS_ITS | Continuity of Care Document ---
Author Name Unknown Organization [facility] Address [address] [place] [address]- Care Team Providers Care Range Rider Name Role Phone Louis Patel MD Primary Care Physician [place] [facility] [place]s): 08/19/21 - 09/18/21 [facility] [address] [place] [id number] Allergies, Adverse Reactions, Alerts Substance Reaction Severity [...] 16:22:00 EDT, Aerosol, Route to Pharmacy Electronically, [id number], [facility]/pharmacy #1130, 151, cm, 06/10/21 16:07:00 EDT, H... Start Date: 06/10/21 Stop Date: 06/05/22 Status: Ordered Ambien 5 mg oral tablet 1 tablet = 5 mg, By Mouth, Daily at bedtime, PRN as needed for insomnia, # 12 tablet, 0 Refills, Acute 06/29/22 14:54:00 EDT, 05/29/21 14:54:00 EDT, Tablet, [facility]/pharmacy #1130, Partial fill upon patient request if [...] Refills, Maintenance, 04/17/20 13:08:00 EDT, [facility], slovak label, 10 mL By Mouth Every 4 hours Start Date: 04/17/20 Status: Ordered ipratropium nasal 21 mcg/inh spray 2 sprays, Nares, Both, 2 times a day, # 30 mL, 1 Refills, Maintenance, 09/02/21 14:32:00 EDT, [place], [facility], Partial fill upon patient request if the prescription is for a schedule II opioid drug., 2 sprays Nares, Both 2 times a day, 151,... Start Date: 09/02/21 Status: Ordered Keppra 1000 mg oral tablet 1 tablet = 1,000 mg, By Mouth, 3 times a day, # 90 tablet, 0 Refills, Maintenance, 04/04/21 14:56:00 EDT, Tablet, [facility]/pharmacy #1130, 151, cm, 04/04/21 14:15:00 EDT, Height, 71.8, kg, 02/18/21 19:34:00 EDT, Dry Weight Start Date: 04/04/21 Status: Ordered lamotrigine 150 mg oral tablet 1 tablet = 150 mg, By Mouth, 2 times a day, # 60 tablet, 6 Refills, Maintenance, 04/04/21 14:56:00 EDT, Tablet, [facility]/pharmacy #1130, 151, cm, 04/04/21 14:15:00 EDT, Height, 71.8, kg, 02/18/21 19:34:00EDT, Dry Weight Start Date: 04/04/21 Status: Ordered metFORMIN 500 mg oral tablet, extended release 1 tablet = 500 mg, By Mouth, Daily, # 30 tablet, 4 Refills, Maintenance, 02/13/21 15:28:00 EDT, ER Tablet, [facility]/pharmacy #1130, Partial fill upon patient request if [...] 2 Refills, Maintenance, 11/04/20 18:31:00 EST, ECCapsule, [facility]/pharmacy #1130, slovak label Start Date: 11/04/20 Status: Ordered pantoprazole [...] with dinner every night (please label in Burmese), # 30 tablet, 1 Refills, Maintenance, 09/16/20 [...]
--- OUTSIDE RECORDS SUMMARY | 2023-06-08 02:27 | XMS_ITS | Continuity of Care Document ---
Author Name Unknown Organization [facility] Address [address] [place] [address]- Care Team Providers Care Geomorphologist Name Role Phone Jorge ARMENTA, Louis Altamirano Primary Care Physician [phone] Encounter [facility] Date(s): 01/05/23 - 02/17/23 [facility] [address] [place] [id number] Attending Physician: Louis Patel MD Admitting Physician: Louis Patel MD Allergies, Adverse Reactions, Alerts No Known Allergies Immunizations Given and Recorded Vaccine Date Status Refusal Reason SARS-CoV-2 mRNA (ctlmyga-kkaw-rynem) vax 01/19/22 Given SARS-CoV-2 (COVID-19) mRNA BNT-162b2 vac 1 07/03/21 Given SARS-CoV-2 (COVID-19) mRNA BNT-162b2 vac 06/06/21 Given Not Given Vaccine Date Status Refusal Reason tetanus/diphtheria/pertussis , acel(Tdap) 2 09/26/21 Not Given Parent Or Guardian R efuses 1? Unknown: Resend to [facility]. 2Result Comment: mom states pt has [...] 6 Refills, Maintenance, 06/10/21 16:22:00 EDT, Solution, [facility]/pharmacy #1130, Partial fill upon patient request if the prescription is for a schedule II opioid drug., 151, cm, 06/10/21 16:07:00 EDT,... Start Date: 06/10/21 Status: Ordered albuterol CFC free 90 mcg/inh inhalation aerosol 2, puffs, Inhalation, Every 4 hours, PRN, # 1 each, Refills 11, Tot. Refills 11, Maintenance, 01/28/23 15:52:00 EDT, Aerosol, Route to Pharmacy Electronically, [id number], [facility]/pharmacy #1130, 150, cm, 01/28/23 15:24:00 EDT, [...] 2 Refills, Maintenance, 05/28/22 17:00:00 EDT, Gel, [facility]/pharmacy #1130, Partial fill upon patient request [...] tablet, 5 Refills, Maintenance, 01/15/23 11:36:00 EST, [facility]/pharmacy #1130, 150, cm, 01/15/23 11:00:00 EST, Height, 68.63, kg, 10/22/21 15:09:00 EST, Dry Weight Start Date: 01/15/23 Status: Ordered levETIRAcetam 1000 mg oral tablet 1 tablet, By Mouth, 3 times a day, # 90 tablet, 5 Refills, 01/15/23 11:35:00 EST, [facility]/pharmacy #1130, 150, cm, 01/15/23 11:00:00 EST, Height, 68.63, kg, 10/22/21 15:09:00 EST, Dry Weight Start Date: 01/15/23 Status: Ordered mirtazapine 45 mg oral tablet 0 Refills, Maintenance, 10/06/22 7:20:00 EST, Partial fill upon patient request if the prescriptionis for a schedule II opioid drug. Start Date: 10/06/22 Status: Ordered montelukast 10 mg oral tablet 10 mg, 1, tablet, By Mouth, Daily, Label in Wallisian, # 30 tablet, Refills 5, Tot. Refills 5, Maintenance, 10/13/22 15:15:00 EST, Route to Pharmacy Electronically, [facility]/pharmacy #1130, Partial fill upon patient request [...] Refills, Maintenance, 02/08/23 13:00:00 EDT, [facility], 150, cm, 01/28/23 15:24:00 EDT, Height,68.63, kg, [...] disorder, # 60 tablet, 5 Refills, Maintenance, 10/01/23 7:18:00 EST, Tablet Start Date: 10/01/23 Stop Date: 03/29/24 Status: Ordered Vimpat 200 mg oral tablet 1 tablet = 200 mg, By Mouth, 2 times a day, for 30 days, Brand name medically necessary for seizuredisorder, # 60 tablet, 5 Refills, Hard Stop 07/14/23 11:57:00 EDT, 01/15/23 11:57:00 EST, Tablet, generic lacosamide preferred Start Date: 01/15/23 Stop Date: 07/14/23 Status: Ordered Problem List Condition Confirmation Course [...] Care Physician Member Role: PCP Address: Address: [address] [place] [address], [facility] [place] [address]- Care Team Related Persons Name: MATT IQBAL Address: home [address] [place] [address] Name: LEANDRO MARQUEZ Address: home [address] [place] [address] Name: ANTOLIN MARQUEZ Name: ZORAIDA BANKS Address: home [address] [address]
--- OUTSIDE RECORDS SUMMARY | 2023-06-08 02:27 | XMS_ITS | Continuity of Care Document ---
Author Name Unknown Organization [facility] Address [address] [place] [address]- Care Team Providers Care Diaper Folder Name Role Phone Louis Patel MD Primary Care Physician [place] [facility] Date(s): 07/03/21 - 08/02/21 [facility] [address] [place] [id number] Attending Physician: AdmtrMerlin Admitting Physician: AdmtrMerlin Referring Physician: Admtr, Ar8 [...] 16:22:00 EDT, Aerosol, Route to Pharmacy Electronically, [id number], [facility]/pharmacy #1130, 151, cm, 06/10/21 16:07:00 EDT, H... Start Date: 06/10/21 Stop Date: 06/05/22 Status: Ordered Ambien 5 mg oral tablet 1 tablet = 5 mg, By Mouth, Daily at bedtime, PRN as needed for insomnia, # 12 tablet, 0 Refills, Acute 06/29/22 14:54:00 EDT, 05/29/21 14:54:00 EDT, Tablet, [facility]/pharmacy #1130, Partial fill [...] 5 Refills, Maintenance, 04/04/20 13:27:00 EDT, [facility]/pharmacy #1130 Start Date: 04/04/20 Status: Ordered [...] Refills, Maintenance, 04/17/20 13:08:00 EDT, [facility], uzbek label, 10 mL By Mouth Every 4 [...] Maintenance, 11/04/20 18:31:00 EST, ECCapsule, [facility], uzbek label Start Date: 11/04/20 Status: Ordered pantoprazole [...]
--- OUTSIDE RECORDS SUMMARY | 2023-06-08 02:28 | XMS_ITS | Continuity of Care Document ---
Author Name Unknown Organization [facility] Address [address] [place] [address]- Care Team Providers Care Scale Clerk Name Role Phone Louis Patel MD Primary Care Physician Encounter [facility] [place] Date(s): 07/08/21 - 08/07/21 [facility] [address] [place] [id number] Allergies, Adverse Reactions, Alerts Substance Reaction [...] 16:22:00 EDT, Aerosol, Route to Pharmacy Electronically, [id number], [facility]/pharmacy #1130, 151, cm, 06/10/21 16:07:00 EDT, H... Start Date: 06/10/21 Stop Date: 06/05/22 Status: Ordered Ambien 5 mg oral tablet 1 tablet = 5 mg, By Mouth, Daily at bedtime, PRN as needed for insomnia, # 12 tablet, 0 Refills, Acute 06/29/22 14:54:00 EDT, 05/29/21 14:54:00 EDT, Tablet, [facility]/pharmacy #1130, Partial fill upon [...] each, 5 Refills, Maintenance, 04/04/20 13:27:00 EDT, [facility]/pharmacy #1130 Start Date: 04/04/20 Status: Ordered clonazePAM 2 mg oral tablet 1 tablet = 2 mg, By Mouth, Daily at bedtime, # 30 tablet, 3 Refills, Maintenance, 04/04/20 13:25:00EDT, Tablet, [facility]/pharmacy #1130 Start Date: 04/04/20 Status: Ordered Guaiasorb DM 10 mg-100 mg/5 mL oral liquid 10 mL, By Mouth, Every 4 hours, # 240 mL, 0 Refills, Maintenance, 04/17/20 13:08:00 EDT, [facility], australian label, 10 mL By Mouth Every 4 hours Start Date: 04/17/20 Status: Ordered Keppra 1000 mg oral tablet 1 tablet = 1,000 mg, By Mouth, 3 times a day, # 90 tablet, 0 Refills, Maintenance, 04/04/21 14:56:00 EDT, Tablet, [facility]/pharmacy #1130, 151, cm, 04/04/21 14:15:00 EDT, Height, 71.8, kg, 02/18/21 19:34:00 EDT, Dry Weight Start Date: 04/04/21 Status: Ordered lamotrigine 150 mg oral tablet 1 tablet = 150 mg, By Mouth, 2 times a day, # 60 tablet, 6 Refills, Maintenance, 04/04/21 14:56:00 EDT, Tablet, [facility]/pharmacy #1130, 151, cm, 04/04/21 14:15:00 EDT, Height, 71.8, kg, 02/18/21 19:34:00EDT, Dry Weight Start Date: 04/04/21 Status: Ordered metFORMIN 500 mg oral tablet, extended release 1 tablet = 500 mg, By Mouth, Daily, # 30 tablet, 4 Refills, Maintenance, 02/13/21 15:28:00 EDT, ER Tablet, [facility]/pharmacy #1130, Partial fill upon patient request if the prescription is for a schedule II opioid drug., 150, cm, 02/13/21 14:49:00 EDT, Hei... Start Date: 02/13/21 Status: Ordered mirtazapine 45 mg oral tablet 1 tablet = 45 mg, By Mouth, Daily at bedtime, # 30 tablet, 6 Refills, Maintenance, 04/04/20 13:23:00 EDT, Tablet, [facility]/pharmacy #1130 Start Date: 04/04/20 Status: Ordered omeprazole 20 mg oral enteric coated capsule 1 capsule = 20 mg, By Mouth, Daily, # 30 capsule, 2 Refills, Maintenance, 11/04/20 18:31:00 EST, ECCapsule, [facility]/pharmacy #1130, australian label Start Date: 11/04/20 Status: Ordered pantoprazole [...] with dinner every night (please label in Portuguese), # 30 tablet, 1 Refills, Maintenance, 09/16/20 [...]
--- OUTSIDE RECORDS SUMMARY | 2023-06-08 02:28 | XMS_ITS | Continuity of Care Document ---
Author Name Unknown Organization [facility] Address [address] [place] [address]- Care Team Providers Care Boat Finisher Name Role Phone Jorge ARMENTA, Louis Altamirano Primary Care Physician [phone] Encounter [facility] [place] Date(s): 02/11/22 - 03/13/22 [facility] [address], [place] [address] Allergies, Adverse Reactions, Alerts No Known Allergies Immunizations Given and Recorded Vaccine Date Status Refusal Reason SARS-CoV-2 mRNA (ezmuzog-aqzp-znbxa) vax 01/19/22 Given SARS-CoV-2 (COVID-19) mRNA BNT-162b2 vac 1 07/03/21 Given SARS-CoV-2 (COVID-19) mRNA BNT-162b2 vac 06/06/21 Given Not Given Vaccine Date Status Refusal Reason tetanus/diphtheria/pertussis , acel(Tdap) 2 09/26/21 Not Given Parent Or Guardian R efuses 1? Unknown: Resend to [facility]. 2Result Comment: mom states pt has received [...] 16:22:00 EDT, Aerosol, Route to Pharmacy Electronically, [id number], [facility]/pharmacy #1130, 151, cm, [...] each, 5 Refills, Maintenance, 04/04/20 13:27:00 EDT, [facility]/pharmacy #1130 Start Date: [...] mL, 0 Refills, Maintenance, 04/17/20 13:08:00 EDT, [facility]/pharmacy #1130, estonian label, 10 mL By Mouth Every 4 hours Start Date: 04/17/20 Status: Ordered ipratropium nasal 21 mcg/inh spray 2 sprays, Nares, Both, 2 times a day, # 30 mL, 5 Refills, Maintenance, 10/27/21 14:41:00 EST, [place], [facility]/pharmacy #1130, Partial fill upon patient request if the prescription is for a schedule II opioid drug., 2 sprays Nares, Both 2 times a day, 150,... Start Date: 10/27/21 Status: Ordered Keppra 1000 mg oral tablet 1 tablet = 1,000 mg, By Mouth, 3 times a day, # 90 tablet, 6 Refills, Maintenance, 10/06/21 10:07:00 EST, Tablet, [facility]/pharmacy #1130, [...] 04/13/22 15:58:00 EDT, 01/19/22 15:58:00 EST, [place], [facility]/pharmacy #1130, Partial fill [...] Maintenance, 11/04/20 18:31:00 EST, ECCapsule, [facility], estonian label Start Date: 11/04/20 Status: Ordered pantoprazole [...] 5 Refills, Maintenance, 02/03/22 9:00:00 EDT, Tablet, [facility]/pharmacy #1130, 150, cm, 01/19/22 15:23:00 EST, Height, 68.63, kg, 10/22/21 15:09:0... Start Date: 02/03/22 Stop Date: 08/02/22 Status: Ordered Zofran 8 mg oral tablet 1 tablet = 8 mg, By Mouth, Daily, take with dinner every night (please label in Citizen Of [place]), # 30 tablet, 1 Refills, Maintenance, 09/16/20 7:19:00 EST, Tablet, [facility]/pharmacy #1130 Start Date: 09/16/20 Status: [...]
--- OUTSIDE RECORDS SUMMARY | 2023-06-08 02:28 | XMS_ITS | Continuity of Care Document ---
Author Name Unknown Organization [facility] Address [address] [place] [address]- Care Team Providers Care Procurement Representative Name Role Phone Jorge ARMENTA, Louis Altamirano Primary Care Physician [phone] Encounter [facility] [place] Date(s): 08/21/21 - 08/28/21 [facility] [address], [place] [address] Attending Physician: Marielena Hagen MD Referring Physician: Louis Patel MD Allergies, [...] 16:22:00 EDT, Aerosol, Route to Pharmacy Electronically, [id number], [facility]/pharmacy #1130, 151, cm, 06/10/21 16:07:00 EDT, H... Start Date: 06/10/21 Stop Date: 06/05/22 Status: Ordered Ambien 5 mg oral tablet 1 tablet = 5 mg, By Mouth, Daily at bedtime, PRN as needed for insomnia, # 12 tablet, 0 Refills, Acute 06/29/22 14:54:00 EDT, 05/29/21 14:54:00 EDT, Tablet, [facility]/pharmacy #1130, Partial fill upon patient request [...] each, 5 Refills, Maintenance, 04/04/20 13:27:00 EDT, [facility]/pharmacy #1130 Start Date: 04/04/20 Status: Ordered clonazePAM 2 mg oral tablet 1 tablet = 2 mg, By Mouth, Daily at bedtime, # 30 tablet, 3 Refills, Maintenance, 04/04/20 13:25:00EDT, Tablet, [facility]/pharmacy #1130 Start Date: 04/04/20 Status: Ordered Guaiasorb DM 10 mg-100 mg/5 mL oral liquid 10 mL, By Mouth, Every 4 hours, # 240 mL, 0 Refills, Maintenance, 04/17/20 13:08:00 EDT, [facility]/pharmacy #1130, thai label, 10 mL By Mouth Every 4 hours Start Date: 04/17/20 Status: Ordered Keppra 1000 mg oral tablet 1 tablet = 1,000 mg, By Mouth, 3 times a day, # 90 tablet, 0 Refills, Maintenance, 04/04/21 14:56:00 EDT, Tablet, [facility]/pharmacy #1130, 151, cm, 04/04/21 14:15:00 EDT, [...] Refills, Maintenance, 02/13/21 15:28:00 EDT, ER Tablet, [facility]/pharmacy #1130, Partial fill upon patient request if the prescription is for a schedule II opioid drug., 150, cm, 02/13/21 14:49:00 EDT, Hei... Start Date: 02/13/21 Status: Ordered mirtazapine 45 mg oral tablet 1 tablet = 45 mg, By Mouth, Daily at bedtime, # 30 tablet, 6 Refills, Maintenance, 04/04/20 13:23:00 EDT, Tablet, [facility]/pharmacy #1130 Start Date: 04/04/20 Status: Ordered omeprazole 20 mg oral enteric coated capsule 1 capsule = 20 mg, By Mouth, Daily, # 30 capsule, 2 Refills, Maintenance, 11/04/20 18:31:00 EST, ECCapsule, [facility]/pharmacy #1130, thai label Start Date: 11/04/20 Status: Ordered pantoprazole [...] with dinner every night (please label in Kyrgyz), # 30 tablet, 1 Refills, Maintenance, 09/16/20 7:19:00 EST, Tablet, [facility] Start Date: 09/16/20 Status: Ordered Problem List Condition Effective Dates Status Health Status Inform ant Complex partial seizure(Confirmed) Active GERD (gastroesophageal reflu x disease)(Confirmed) Active Insomnia(Confirmed) Active Anxiety and depression(Confirmed) Active Prediabetes(Confirmed) Active Wayne-Silver syndrome, con genital hemihypertrophy(Confirmed) Active Vital Signs Most recent to oldest [Reference Range]: 1 Height 151 cm (08/21/21 6:41 PM) Oxygen Saturation [94-100 %] 97 % (08/21/21 6:41 PM) Pulse Rate [55-90 bpm] 87 bpm (08/21/21 6:41 PM) Blood Pressure [90-138/55-84 mm Hg] 132/ 71mm Hg (08/21/21 6:41 PM) Respiratory Rate [16-30 br/min] 20 br/mi n (08/21/21 6:41 PM) Temperature [96.8-100.4 DegF] 98.7 DegF (08/21/21 6:41 PM) Mode of Delivery (Oxygen) Room air (08/21/21 6:41 PM) Blood pressure sites Arm, right (08/21/21 6:41 PM) Temperature Route Temporal (08/21/21 6:41 PM) Social History Social History Type Response Smoking Status Never (less than 100 in lifetime) entered on: 04/04/20 Sex
--- OUTSIDE RECORDS SUMMARY | 2023-06-08 02:28 | XMS_ITS | Continuity of Care Document ---
Author Name Unknown Organization [facility] Address [address] [place] [address]- Care Team Providers Care Medical Superintendent Name Role Phone Jorge ARMENTA, Louis Altamirano Primary Care Physician Encounter [facility] Date(s): 07/16/20 - 08/15/20 [facility] [address] [place] [address]- [facility] Allergies, Adverse Reactions, Alerts Substance Reaction Severity [...] Refills, Maintenance, 04/17/20 13:08:00 EDT, [facility], russian label, 10 mL By Mouth Every 4 hours Start Date: 04/17/20 Status: Ordered Keppra 1000 mg oral tablet 1 tablet = 1,000 mg, By Mouth, 3 times a day, # 90 tablet, 6 Refills, Maintenance, 04/04/20 13:18:00 EDT, Tablet, [facility]/pharmacy #1130 Start Date: 04/04/20 Status: Ordered lamotrigine [...] 6 Refills, Maintenance, 04/04/20 13:23:00 EDT, Tablet, [facility]/pharmacy #1130 Start Date: 04/04/20 Status: Ordered omeprazole 20 mg oral enteric coated capsule 1 capsule = 20 mg, By Mouth, Daily, # 30 capsule, 2 Refills, Maintenance, 04/17/20 13:08:00 EDT, ECCapsule, [facility]/pharmacy #1130, russian label Start Date: 04/17/20 Status: Ordered Restoril 15 mg oral capsule 1 capsule = 15 mg, By Mouth, Daily at bedtime, PRN for sleep, for 30 days, # 30 capsule, 5 Refills,Acute 10/01/20 13:31:00 EST, 04/04/20 13:31:00 EDT, Capsule, [facility]/pharmacy #1130 Start Date: 04/04/20 Stop Date: 10/01/20 [...] [facility] Start Date: 04/04/20 Status: Ordered Zofran 8 mg oral tablet 1 tablet = 8 mg, By Mouth, Daily, take with dinner every night (please label in Malay), # 30 tablet, 1 Refills, Maintenance, 07/04/20 16:36:00 EDT, Tablet, [facility] Start Date: 07/04/20 Status: Ordered Problem List Condition Effective Dates Status Health Status Inform ant Complex partial seizure(Confirmed) Active Anxiety and depression(Confirmed) Active Wayne-Silver syndrome, con genital hemihypertrophy(Confirmed) Active Social History Social History Type Response Smoking Status Never (less than 100 in lifetime) entered on: 04/04/20 Sex
--- OUTSIDE RECORDS SUMMARY | 2023-06-08 02:28 | XMS_ITS | Continuity of Care Document ---
Author Name Unknown Organization [facility] Address [address] [place] [address]- Care Team Providers Care Home Theater Specialist Name Role Phone Jorge ARMENTA, Louis Altamirano Primary Care Physician En[place] [facility] [place] Date(s): 11/17/22 - 12/17/22 [facility] [address] [place] [id number] Allergies, Adverse Reactions, Alerts No Known Allergies Immunizations Given and Recorded Vaccine Date Status Refusal Reason SARS-CoV-2 mRNA ([id number]-kykwh) vax 01/19/22 Given SARS-CoV-2 (COVID-19) mRNA BNT-162b2 [...] 16:22:00 EDT, Aerosol, Route to Pharmacy Electronically, [id number], [facility]/pharmacy #1130, 151, cm, 06/10/21 16:07:00 EDT, [...] 2 Refills, Maintenance, 05/28/22 17:00:00 EDT, Gel, [facility]/pharmacy #1130, Partial fill upon patient request [...] tablet, 5 Refills, Maintenance, 10/06/22 7:21:00 EST, [facility]/pharmacy #1130, 150, cm, 07/07/22 13:19:00 EDT, Height, 68.63, kg, 10/22/21 15:09:00 EST, Dry Weight Start Date: 10/06/22 Status: Ordered levETIRAcetam 1000 mg oral tablet 1 tablet, By Mouth, 3 times a day, # 90 tablet, 5 Refills, 10/06/22 7:22:00 EST, [facility]/pharmacy #1130, 150, cm, 07/07/22 13:19:00 EDT, [...] 1, tablet, By Mouth, Daily, Label in Wolof, # 30 tablet, Refills 5, Tot. Refills 5, Maintenance, 10/13/22 15:15:00 EST, [facility] Partial fill upon patient request if [...] Refills, Maintenance, 08/23/22 14:25:00 EDT, [id number], 150, cm, 07/07/22 13:19:00 EDT, Height,68.63, kg, 10/22/21 15:09:00 EST, Dry Weight Start Date: 08/23/22 Status: Ordered Tylenol Extra Strength 500 mg oral tablet 2 tablet = 1,000 mg, By Mouth, 3 times a day, PRN for pain, # 540 tablet, 1 Refills, Maintenance, 07/07/22 13:48:00 EDT, Tablet, [facility]/pharmacy #1130, Partial fill upon patient request if the prescription is for a schedule II opioid drug., 150, cm, 06/16... Start Date: 07/07/22 Status: Ordered Vimpat 200 mg oral tablet 1 tablet = 200 mg, By Mouth, 2 times a day, Brand name medically necessary for seizure disorder, # 60 tablet, 5 Refills, Maintenance, 10/06/22 7:18:00 EST, Tablet, [facility]/pharmacy #1130, generic lacosamide preferred, 150, cm, [...] Physician Member Role: PCP Address: Address: [address] [facility], [place] [address]- Care Team Related Persons Name: MATT IQBAL Address: [address] [place] [address] Name: LEANDRO MARQUEZ Address: home [address] [place] [address] Name: ANTOLIN MARQUEZ Name: ZORAIDA BANKS Address: home [address] [address]
--- OUTSIDE RECORDS SUMMARY | 2023-06-08 02:28 | XMS_ITS | Continuity of Care Document ---
Author Name Unknown Organization [facility] Address [address], [address], [address] [place] [address]- Care Team Providers Care Cook Pressure Name Role Phone Jorge ARMENTA, Louis Altamirano Primary Care Physician [phone] Encounter [facility] [id number] Date(s): 10/02/22 - 11/01/22 [facility] [address], [address], [address] [place] [address]- Allergies, Adverse Reactions, Alerts No Known Allergies Immunizations Given and Recorded Vaccine Date Status Refusal Reason SARS-CoV-2 mRNA (hlxtagd-fseo-ympmw) vax 01/19/22 Given SARS-CoV-2 (COVID-19) mRNA BNT-162b2 vac 1 07/03/21 Given SARS-CoV-2 (COVID-19) mRNA BNT-162b2 vac 06/06/21 Given Not Given Vaccine Date Status Refusal Reason tetanus/diphtheria/pertussis , acel(Tdap) 2 09/26/21 Not Given Parent Or Guardian R efuses 1? Unknown: Resend to [facility]. 2Result Comment: mom states pt has [...] 6 Refills, Maintenance, 06/10/21 16:22:00 EDT, Solution, [facility]/pharmacy #1130, Partial fill upon patient request if the prescription is for a schedule II opioid drug., 151, cm, 06/10/21 16:07:00 EDT,... Start Date: 06/10/21 Status: Ordered albuterol CFC free 90 mcg/inh inhalation aerosol 2, puffs, Inhalation, Every 4 hours, PRN, # 1 each, Refills 11, Tot. Refills 11, Maintenance, 06/10/21 16:22:00 EDT, Aerosol, Route to Pharmacy Electronically, [id number], [facility]/pharmacy #1130, 151, cm, 06/10/21 16:07:00 EDT, H... [...] 2 Refills, Maintenance, 05/28/22 17:00:00 EDT, Gel, [facility]/pharmacy #1130, Partial fill upon patient request if [...] tablet, 5 Refills, Maintenance, 10/06/22 7:21:00 EST, [facility]/pharmacy #1130, 150, cm, 07/07/22 13:19:00 EDT, Height, 68.63, kg, 10/22/21 15:09:00 EST, Dry Weight Start Date: 10/06/22 Status: Ordered levETIRAcetam 1000 mg oral tablet 1 tablet, By Mouth, 3 times a day, # 90 tablet, 5 Refills, 10/06/22 7:22:00 EST, [facility]/pharmacy #1130, 150, cm, 07/07/22 13:19:00 EDT, Height, 68.63, kg, 10/22/21 15:09:00 EST, Dry Weight Start Date: 10/06/22 Status: Ordered mirtazapine 45 mg oral tablet 0 Refills, Maintenance, 10/06/22 7:20:00 EST, Partial fill upon patient request if the prescriptionis for a schedule II opioid drug. Start Date: 10/06/22 Status: Ordered montelukast 10 mg oral tablet 10 mg, 1, tablet, By Mouth, Daily, Label in Uzbek, # 30 tablet, Refills 5, Tot. Refills 5, Maintenance, 10/13/22 15:15:00 EST, Route to Pharmacy Electronically, [facility]/pharmacy #1130, Partial fill upon patient request if [...] Refills, Maintenance, 08/23/22 14:25:00 EDT, [facility], 150, cm, 07/07/22 13:19:00 EDT, Height,68.63, kg, 10/22/21 15:09:00 EST, Dry Weight Start Date: 08/23/22 Status: Ordered Tylenol Extra Strength 500 mg oral tablet 2 tablet = 1,000 mg, By Mouth, 3 times a day, PRN for pain, # 540 tablet, 1 Refills, Maintenance, 07/07/22 13:48:00 EDT, Tablet, [facility]/pharmacy #1130, Partial fill upon patient request if the prescription is for a schedule II opioid drug., 150, cm, 06/16... Start Date: 07/07/22 Status: Ordered Vimpat 200 mg oral tablet 1 tablet = 200 mg, By Mouth, 2 times a day, Brand name medically necessary for seizure disorder, # 60 tablet, 5 Refills, Maintenance, 10/06/22 7:18:00 EST, Tablet, [facility]/pharmacy #1130, generic lacosamide preferred, 150, cm, 07/07/22 [...] PCP Address: Address: [address] [facility], [place] [address]- Care Team Related Persons Name: MATT IQBAL Address: [address] [place] [address] Name: LEANDRO MARQUEZ Address: home [address] [place] [address] Name: ANTOLIN MARQUEZ Name: ZORAIDA BANKS Address: home [address] [facility] [address] [place] [address]
--- OUTSIDE RECORDS SUMMARY | 2023-06-08 02:28 | XMS_ITS | Continuity of Care Document ---
Author Name Unknown Organization [facility] Address [address] [place] [address]- Care Team Providers Care Rug Shampooer Name Role Phone Jorge ARMENTA, Louis Altamirano Primary Care Physician [phone] Encounter [facility] [place] Date(s): 05/27/22 - 06/03/22 [facility] [address] [place], [place] [address] Attending Physician: Marielena Hagen MD Referring Physician: Louis Patel MD Allergies, Adverse Reactions, Alerts No Known Allergies Immunizations Given and Recorded Vaccine Date Status Refusal Reason SARS-CoV-2 mRNA (gplymun-jdax-eomvp) vax 01/19/22 Given SARS-CoV-2 (COVID-19) mRNA BNT-162b2 vac 1 07/03/21 Given SARS-CoV-2 (COVID-19) mRNA BNT-162b2 vac 06/06/21 Given Not Given Vaccine Date Status Refusal Reason tetanus/diphtheria/pertussis , acel(Tdap) 2 09/26/21 Not Given Parent Or Guardian R efuses 1? Unknown: Resend to [facility]. 2Result Comment: mom states pt has [...] 6 Refills, Maintenance, 06/10/21 16:22:00 EDT, Solution, [facility]/pharmacy #1130, Partial fill upon patient request if the prescription is for a schedule II opioid drug., 151, cm, 06/10/21 16:07:00 EDT,... Start Date: 06/10/21 Status: Ordered albuterol CFC free 90 mcg/inh inhalation aerosol 2, puffs, Inhalation, Every 4 hours, PRN, # 1 each, Refills 11, Tot. Refills 11, Maintenance, 06/10/21 16:22:00 EDT, Aerosol, Route to Pharmacy Electronically, [id number], [facility]/pharmacy #1130, 151, cm, 06/10/21 16:07:00 EDT, H... Start Date: 06/10/21 Stop Date: 06/05/22 Status: Ordered Ambien 5 mg oral tablet 1 tablet = 5 mg, By Mouth, Daily at bedtime, PRN as needed for insomnia, # 12 tablet, 0 Refills, Acute 06/29/22 14:54:00 EDT, 05/29/21 14:54:00 EDT, Tablet, [facility]/pharmacy #1130, Partial fill upon patient request [...] Refills, Maintenance, 04/17/20 13:08:00 EDT, [facility], jamaican label, 10 mL By Mouth Every 4 [...] a day, # 90 tablet, 5 Refills, [facility], 150, cm, 04/20/22 13:54:00 EDT, Height, 68.63, [...] 1 Refills, Maintenance, 05/28/22 17:02:00 EDT, Tablet, [facility]/pharmacy #1130, Partial fill upon patient request if the prescription is for a schedule II opioid drug., 150, cm, 05/15... Start Date: 05/28/22 Status: Ordered Vimpat 200 mg oral tablet 1 tablet = 200 mg, By Mouth, 2 times a day, Brand name medically necessary for seizure disorder, # 60 tablet, 5 Refills, Maintenance, 03/16/22 16:39:00 EDT, Tablet, [facility]/pharmacy #1130, generic lacosamide preferred, 150, cm, [...]
--- OUTSIDE RECORDS SUMMARY | 2023-06-08 02:28 | XMS_ITS | Continuity of Care Document ---
Author Name Unknown Organization [facility] Address [address] [place] [address]- Care Team Providers Care Jackerman Name Role Phone Louis Patel MD Primary Care Physician Encounter [facility] Date(s): 10/21/21 - 11/20/21 [facility] [address] [place] [id number] Allergies, Adverse Reactions, Alerts Substance Reaction Severity Status NKA Active Immunizations Given and Recorded Vaccine Date Status Refusal Reason SARS-CoV-2 (COVID-19) mRNA BNT-162b2 vac 1 07/03/21 Given SARS-CoV-2 (COVID-19) mRNA BNT-162b2 vac 06/06/21 Given Not Given Vaccine Date Status Refusal Reason tetanus/diphtheria/pertussis , acel(Tdap) 2 09/26/21 Not Given Parent Or Guardian R efuses 1? Unknown: Resend to [facility]. 2Result Comment: mom states pt has [...] 16:22:00 EDT, Aerosol, Route to Pharmacy Electronically, [id number], [facility]/pharmacy #1130, 151, cm, 06/10/21 16:07:00 EDT, H... Start Date: 06/10/21 Stop Date: 06/05/22 Status: Ordered Ambien 5 mg oral tablet 1 tablet = 5 mg, By Mouth, Daily at bedtime, PRN as needed for insomnia, # 12 tablet, 0 Refills, Acute 06/29/22 14:54:00 EDT, 05/29/21 14:54:00 EDT, Tablet, [facility]/pharmacy #1130, Partial fill upon [...] each, 5 Refills, Maintenance, 04/04/20 13:27:00 EDT, [facility]/pharmacy #1130 Start Date: 04/04/20 Status: Ordered clonazePAM 2 mg oral tablet 1 tablet = 2 mg, By Mouth, Daily at bedtime, # 30 tablet, 3 Refills, Maintenance, 04/04/20 13:25:00EDT, Tablet, [facility]/pharmacy #1130 Start Date: 04/04/20 Status: Ordered Guaiasorb DM 10 mg-100 mg/5 mL oral liquid 10 mL, By Mouth, Every 4 hours, # 240 mL, 0 Refills, Maintenance, 04/17/20 13:08:00 EDT, [facility]/pharmacy #1130, thai label, 10 mL By Mouth Every 4 hours Start Date: 04/17/20 Status: Ordered ipratropium nasal 21 mcg/inh spray 2 sprays, Nares, Both, 2 times a day, # 30 mL, 5 Refills, Maintenance, 10/27/21 14:41:00 EST, [place], [facility]/pharmacy #1130, Partial fill upon patient request if the prescription is for a schedule II opioid drug., 2 sprays Nares, Both 2 times a day, 150,... Start Date: 10/27/21 Status: Ordered Keppra 1000 mg oral tablet 1 tablet = 1,000 mg, By Mouth, 3 times a day, # 90 tablet, 6 Refills, Maintenance, 10/06/21 10:07:00 EST, Tablet, [facility]/pharmacy #1130, 151, cm, 09/02/21 14:18:00 EDT, Height, 71.8, kg, 02/18/21 19:34:00 EDT, Dry Weight Start Date: 10/06/21 Status: Ordered lamotrigine 150 mg oral tablet 1 tablet = 150 mg, By Mouth, 2 times a day, # 60 tablet, 5 Refills, Maintenance, 10/06/21 9:55:00 EST, Tablet, [facility]/pharmacy #1130, 151, cm, 09/02/21 14:18:00 EDT, Height, 71.8, kg, 02/18/21 19:34:00 EDT, Dry Weight Start Date: 10/06/21 Status: Ordered metFORMIN 500 mg oral tablet, extended release 1 tablet = 500 mg, By Mouth, Daily, # 30 tablet, 4 Refills, Maintenance, 02/13/21 15:28:00 EDT, ER Tablet, [facility]/pharmacy #1130, Partial fill upon patient request if the prescription is for a schedule II opioid drug., 150, cm, 02/13/21 14:49:00 EDT, Hei... Start Date: 02/13/21 Status: Ordered mirtazapine 45 mg oral tablet 1 tablet = 45 mg, By Mouth, Daily at bedtime, # 30 tablet, 6 Refills, Maintenance, 04/04/20 13:23:00 EDT, Tablet, [facility]/pharmacy #1130 Start Date: 04/04/20 Status: Ordered omeprazole 20 mg oral enteric coated capsule 1 capsule = 20 mg, By Mouth, Daily, # 30 capsule, 2 Refills, Maintenance, 11/04/20 18:31:00 EST, ECCapsule, [facility], thai label Start Date: 11/04/20 Status: [...] day, # 60 tablet, 5 Refills, Maintenance, 11/06/21 12:20:00 EST, Tablet, [facility]/pharmacy #1130, 150, cm, 10/22/21 15:09:00 EST, Height, 68.63, kg, 10/22/21 15:09:00 EST, Dry Weight Start Date: 11/06/21 Status: Ordered Zofran 8 mg oral tablet 1 tablet = 8 mg, By Mouth, Daily, take with dinner every night (please label in Arabic), # 30 tablet, 1 Refills, Maintenance, 09/16/20 [...]
--- OUTSIDE RECORDS SUMMARY | 2023-06-08 02:28 | XMS_ITS | Continuity of Care Document ---
Author Name Unknown Organization [facility] Address Unknown Care Team Providers Care Lokie Engineer Name Role Phone Jorge ARMENTA, Louis Altamirano Primary Care Physician [phone] [place] [facility] [place] 06[place]/22 [facility] Attending Physician: Merlin Barry Admitting Physician: Merlin Barry Referring Physician: [id number] Allergies, Adverse Reactions, Alerts No Known Allergies Immunizations Given and Recorded Vaccine Date Status Refusal Reason SARS-CoV-2 mRNA (jpguxtp-dgvt-bvmds) vax 01/19/22 Given SARS-CoV-2 (COVID-19) mRNA BNT-162b2 vac 1 07/03/21 Given SARS-CoV-2 (COVID-19) mRNA BNT-162b2 vac 06/06/21 Given Not Given Vaccine Date Status Refusal Reason tetanus/diphtheria/pertussis , acel(Tdap) 2 09/26/21 Not Given Parent Or Guardian R efuses 1? Unknown: Resend to [facility]. 2Result Comment: mom states pt has received [...] 6 Refills, Maintenance, 06/10/21 16:22:00 EDT, Solution, [facility]/pharmacy #1130, Partial fill upon patient request if the prescription is for a schedule II opioid drug., 151, cm, 06/10/21 16:07:00 EDT,... Start Date: 06/10/21 Status: Ordered albuterol CFC free 90 mcg/inh inhalation aerosol 2, puffs, Inhalation, Every 4 hours, PRN, # 1 each, Refills 11, Tot. Refills 11, Maintenance, 06/10/21 16:22:00 EDT, Aerosol, Route to Pharmacy Electronically, [id number], [facility]/pharmacy #1130, 151, cm, 06/10/21 16:07:00 EDT, [...] [facility]/pharmacy #1130 Start Date: 04/04/20 Status: Ordered diclofenac [...] Refills, Maintenance, 04/17/20 13:08:00 EDT, [facility], welsh label, 10 mL By Mouth Every 4 hours Start Date: 04/17/20 Status: Ordered ketoconazole 1% topical shampoo See Instructions, Topically Every third day, # 200 mL, 1 Refills, Maintenance, 01/19/22 15:55:00 EST, [facility], Partial fill upon patient request if the prescription is for a schedule II opioid drug., Topically Every third day, 150, cm, 0... Start Date: 01/19/22 Status: Ordered lamotrigine 150 [...] a day, # 90 tablet, 5 Refills, [id number], 150, cm, 04/20/22 13:54:00 EDT, Height, 68.63, [...] 1 Refills, Maintenance, 05/28/22 17:02:00 EDT, Tablet, [facility]/pharmacy #1130, Partial fill upon patient request if the prescription is for a schedule II opioid drug., 150, cm, 05/15... Start Date: 05/28/22 Status: Ordered Vimpat 200 mg oral tablet 1 tablet = 200 mg, By Mouth, 2 times a day, Brand name medically necessary for seizure disorder, # 60 tablet, 5 Refills, Maintenance, 03/16/22 16:39:00 EDT, Tablet, [facility]/pharmacy #1130, generic lacosamide preferred, 150, cm, 01/19/22 [...]
--- OUTSIDE RECORDS SUMMARY | 2023-06-08 02:28 | XMS_ITS | Continuity of Care Document ---
Author Name Unknown Organization [facility] Address [address] [place] [address]- Care Team Providers Care Night Shift Manager Name Role Phone Louis Patel MD Primary Care Physician Encounter [facility] [place] Date(s): 11/25/21 - 12/25/21 [facility] [address] [place] [id number] Allergies, Adverse Reactions, Alerts No Known Allergies Immunizations Given and Recorded Vaccine Date Status Refusal Reason SARS-CoV-2 (COVID-19) mRNA BNT-162b2 vac 1 07/03/21 Given SARS-CoV-2 (COVID-19) mRNA BNT-162b2 vac 06/06/21 Given Not Given Vaccine Date Status Refusal Reason tetanus/diphtheria/pertussis , acel(Tdap) 2 09/26/21 Not Given Parent Or Guardian R efuses 1? Unknown: Resend to [facility]. 2Result Comment: mom states pt has received [...] 16:22:00 EDT, Aerosol, Route to Pharmacy Electronically, [id number], [facility]/pharmacy #1130, 151, cm, 06/10/21 16:07:00 EDT, H... Start Date: 06/10/21 Stop Date: 06/05/22 Status: Ordered Ambien 5 mg oral tablet 1 tablet = 5 mg, By Mouth, Daily at bedtime, PRN as needed for insomnia, # 12 tablet, 0 Refills, Acute 06/29/22 14:54:00 EDT, 05/29/21 14:54:00 EDT, Tablet, [facility]/pharmacy #1130, Partial fill upon patient request [...] each, 5 Refills, Maintenance, 04/04/20 13:27:00 EDT, [facility]/pharmacy #1130 Start Date: 04/04/20 Status: Ordered clonazePAM 2 mg oral tablet 1 tablet = 2 mg, By Mouth, Daily at bedtime, # 30 tablet, 3 Refills, Maintenance, 04/04/20 13:25:00EDT, Tablet, [facility]/pharmacy #1130 Start Date: 04/04/20 Status: Ordered Guaiasorb DM 10 mg-100 mg/5 mL oral liquid 10 mL, By Mouth, Every 4 hours, # 240 mL, 0 Refills, Maintenance, 04/17/20 13:08:00 EDT, [facility]/pharmacy #1130, albanian label, 10 mL By Mouth Every 4 hours Start Date: 04/17/20 Status: Ordered ipratropium nasal 21 mcg/inh spray 2 sprays, Nares, Both, 2 times a day, # 30 mL, 5 Refills, Maintenance, 10/27/21 14:41:00 EST, [place], [facility]/pharmacy #1130, Partial fill upon patient request if the prescription is for a schedule II opioid drug., 2 sprays Nares, Both 2 times a day, 150,... Start Date: 10/27/21 Status: Ordered Keppra 1000 mg oral tablet 1 tablet = 1,000 mg, By Mouth, 3 times a day, # 90 tablet, 6 Refills, Maintenance, 10/06/21 10:07:00 EST, Tablet, [facility]/pharmacy #1130, 151, cm, 09/02/21 14:18:00 EDT, Height, 71.8, kg, 02/18/21 19:34:00 EDT, Dry Weight Start Date: 10/06/21 Status: Ordered lamotrigine 150 mg oral tablet 1 tablet = 150 mg, By Mouth, 2 times a day, # 60 tablet, 5 Refills, Maintenance, 10/06/21 9:55:00 EST, Tablet, [facility]/pharmacy #1130, 151, cm, 09/02/21 14:18:00 EDT, Height, 71.8, kg, 02/18/21 19:34:00 EDT, Dry Weight Start Date: 10/06/21 Status: Ordered metFORMIN 500 mg oral tablet, extended release 1 tablet = 500 mg, By Mouth, Daily, # 30 tablet, 4 Refills, Maintenance, 02/13/21 15:28:00 EDT, ER Tablet, [facility]/pharmacy #1130, Partial fill upon patient request if the prescription is for a schedule II opioid drug., 150, cm, 02/13/21 14:49:00 EDT, Hei... Start Date: 02/13/21 Status: Ordered mirtazapine 45 mg oral tablet 1 tablet = 45 mg, By Mouth, Daily at bedtime, # 30 tablet, 6 Refills, Maintenance, 04/04/20 13:23:00 EDT, Tablet, [facility]/pharmacy #1130 Start Date: 04/04/20 Status: Ordered omeprazole 20 mg oral enteric coated capsule 1 capsule = 20 mg, By Mouth, Daily, # 30 capsule, 2 Refills, Maintenance, 11/04/20 18:31:00 EST, ECCapsule, [facility], albanian label Start Date: 11/04/20 Status: Ordered pantoprazole [...] 5 Refills, Maintenance, 11/06/21 12:20:00 EST, Tablet, [facility], 150, cm, 10/22/21 15:09:00 EST, Height, 68.63, kg, 10/22/21 15:09:00 EST, Dry Weight Start Date: 11/06/21 Status: Ordered Zofran 8 mg oral tablet 1 tablet = 8 mg, By Mouth, Daily, take with dinner every night (please label in Yakut), # 30 tablet, 1 Refills, Maintenance, 09/16/20 [...]
--- OUTSIDE RECORDS SUMMARY | 2023-06-08 02:28 | XMS_ITS | Continuity of Care Document ---
Author Name Unknown Organization [facility] Address [address] [place] [address]- Care Team Providers Care Emergency Telecommunications Dispatcher Name Role Phone Jorge ARMENTA, Louis Altamirano Primary Care Physician [phone] Encounter [facility] [place] Date(s): 08/08/20 - 09/07/20 [facility] [address] [place] [address]- [facility] Allergies, Adverse Reactions, Alerts Substance Reaction Severity [...] Refills, Maintenance, 04/17/20 13:08:00 EDT, [facility], nigerien label, 10 mL By Mouth Every 4 hours Start Date: 04/17/20 Status: Ordered Keppra 1000 mg oral tablet 1 tablet = 1,000 mg, By Mouth, 3 times a day, # 90 tablet, 6 Refills, Maintenance, 04/04/20 13:18:00 EDT, Tablet, [facility]/pharmacy #1130 Start Date: 04/04/20 Status: Ordered lamotrigine 150 mg oral tablet 1 tablet = 150 mg, By Mouth, 2 times a day, # 60 tablet, 6 Refills, Maintenance, 04/04/20 13:20:00 EDT, Tablet, [facility]/pharmacy #1130 Start Date: 04/04/20 Status: Ordered mirtazapine 45 mg oral tablet 1 tablet = 45 mg, By Mouth, Daily at bedtime, # 30 tablet, 6 Refills, Maintenance, 04/04/20 13:23:00 EDT, Tablet, [facility]/pharmacy #1130 Start Date: 04/04/20 Status: Ordered omeprazole 20 mg oral enteric coated capsule 1 capsule = 20 mg, By Mouth, Daily, # 30 capsule, 2 Refills, Maintenance, 04/17/20 13:08:00 EDT, ECCapsule, [facility]/pharmacy #1130, nigerien label Start Date: 04/17/20 Status: Ordered Restoril 15 mg oral capsule 1 capsule = 15 mg, By Mouth, Daily at bedtime, PRN for sleep, for 30 days, # 30 capsule, 5 Refills,Acute 10/01/20 13:31:00 EST, 04/04/20 13:31:00 EDT, Capsule, [facility]/pharmacy #1130 Start Date: 04/04/20 Stop Date: 10/01/20 [...] 5 Refills, Maintenance, 04/04/20 13:23:00 EDT, Tablet, [facility]/pharmacy #1130 Start Date: 04/04/20 Status: Ordered Zofran 8 mg oral tablet 1 tablet = 8 mg, By Mouth, Daily, take with dinner every night (please label in English), # 30 tablet, 1 Refills, Maintenance, 07/04/20 16:36:00 EDT, Tablet, [facility] Start Date: 07/04/20 Status: Ordered Problem List Condition Effective Dates Status Health Status Inform ant Complex partial seizure(Confirmed) Active Anxiety and depression(Confirmed) Active Wayne-Silver syndrome, con genital hemihypertrophy(Confirmed) Active Social History Social History Type Response Smoking Status Never (less than 100 in lifetime) entered on: 04/04/20 Sex
--- OUTSIDE RECORDS SUMMARY | 2023-06-08 02:28 | XMS_ITS | Continuity of Care Document ---
Author Name Unknown Organization [facility] Address [address] [place] [id number]- Care Team Providers Care Scrap Piler Name Role Phone Louis Patel MD Primary Care Physician Encounter [facility] [place] Date(s): 04/04/20 - 04/11/20 [facility] Adult Medicine [address] [place] [address] [facility] Attending Physician: Louis Patel MD Allergies, Adverse Reactions, [...] [facility] Start Date: 04/04/20 Status: Ordered Keppra 1000 mg oral tablet [...] [facility] Start Date: 04/04/20 Status: Ordered Restoril 15 mg oral capsule [...] partial seizure(Confirmed) Active Anxiety and depression(Confirmed) Active Social History Social History Type Response Smoking Status Never (less than 100 in lifetime) entered on: 04/04/20 Sex
--- OUTSIDE RECORDS SUMMARY | 2023-06-08 02:28 | XMS_ITS | Continuity of Care Document ---
Author Name Unknown Organization [facility] Address [address] [place] [address]- Care Team Providers Care Laboratory Courier Name Role Phone Jorge ARMENTA, Louis Altamirano Primary Care Physician Encounter [facility] [place] Date(s): 12/26/21 - 01/25/22 [facility] [address] [place], [place] [address] Allergies, Adverse Reactions, Alerts No Known Allergies Immunizations Given and Recorded Vaccine Date Status Refusal Reason SARS-CoV-2 mRNA (uruwsex-blts-zjtxm) vax 01/19/22 Given SARS-CoV-2 (COVID-19) mRNA BNT-162b2 vac 1 07/03/21 Given SARS-CoV-2 (COVID-19) mRNA BNT-162b2 vac 06/06/21 Given Not Given Vaccine Date Status Refusal Reason tetanus/diphtheria/pertussis , acel(Tdap) 2 09/26/21 Not Given Parent Or Guardian R efuses 1? Unknown: Resend to [facility]. 2Result Comment: mom states pt has received [...] 16:22:00 EDT, Aerosol, Route to Pharmacy Electronically, [id number], [facility]/pharmacy #1130, 151, cm, 06/10/21 16:07:00 EDT, H... Start Date: 06/10/21 Stop Date: 06/05/22 Status: Ordered Ambien 5 mg oral tablet 1 tablet = 5 mg, By Mouth, Daily at bedtime, PRN as needed for insomnia, # 12 tablet, 0 Refills, Acute 06/29/22 14:54:00 EDT, 05/29/21 14:54:00 EDT, Tablet, [facility]/pharmacy #1130, Partial fill upon patient [...] each, 5 Refills, Maintenance, 04/04/20 13:27:00 EDT, [facility]/pharmacy #1130 Start Date: 04/04/20 Status: Ordered clonazePAM 2 mg oral tablet 1 tablet = 2 mg, By Mouth, Daily at bedtime, # 30 tablet, 3 Refills, Maintenance, 04/04/20 13:25:00EDT, Tablet, [facility] Start Date: 04/04/20 Status: Ordered Guaiasorb DM 10 mg-100 mg/5 mL oral liquid 10 mL, By Mouth, Every 4 hours, # 240 mL, 0 Refills, Maintenance, 04/17/20 13:08:00 EDT, [facility]/pharmacy #1130, german label, 10 mL By Mouth Every 4 hours Start Date: 04/17/20 Status: Ordered ipratropium nasal 21 mcg/inh spray 2 sprays, Nares, Both, 2 times a day, # 30 mL, 5 Refills, Maintenance, 10/27/21 14:41:00 EST, [place], [facility]/pharmacy #1130, Partial fill upon patient request if the prescription is for a schedule II opioid drug., 2 sprays Nares, Both 2 times a day, 150,... Start Date: 10/27/21 Status: Ordered Keppra 1000 mg oral tablet 1 tablet = 1,000 mg, By Mouth, 3 times a day, # 90 tablet, 6 Refills, Maintenance, 10/06/21 10:07:00 EST, Tablet, [facility]/pharmacy #1130, 151, cm, 09/02/21 14:18:00 EDT, Height, 71.8, kg, 02/18/21 19:34:00 EDT, Dry Weight Start Date: 10/06/21 Status: Ordered ketoconazole 1% topical shampoo See Instructions, Topically Every third day, # 200 mL, 1 Refills, Maintenance, 01/19/22 15:55:00 EST, [facility]/pharmacy #1130, Partial fill upon patient request if the prescription is for a schedule II opioid drug., Topically Every third day, 150, cm, 03/0... Start Date: 01/19/22 Status: Ordered ketoconazole 2% topical cream 1 application, Topically, 2 times a day, for 28 days, # 60 Gm, 2 Refills, Acute 04/13/22 15:58:00 EDT, 01/19/22 15:58:00 EST, Cream, [facility]/pharmacy #1130, Partial fill upon patient request if the prescription is for a schedule II opioid drug., 1 applica... Start Date: 01/19/22 Stop Date: 04/13/22 Status: Ordered lamotrigine 150 mg oral tablet 1 tablet = 150 mg, By Mouth, 2 times a day, # 60 tablet, 5 Refills, Maintenance, 10/06/21 9:55:00 EST, Tablet, [facility]/pharmacy #1130, 151, cm, 09/02/21 14:18:00 [...] Maintenance, 11/04/20 18:31:00 EST, ECCapsule, [facility], german label Start Date: 11/04/20 Status: Ordered pantoprazole [...] 1 tablet = 200 mg, By Mouth, 3 times a day, # 60 tablet, 5 Refills, Maintenance, 01/19/22 15:42:00 EST, Tablet, [facility], 150, cm, 01/19/22 15:23:00 EST, Height, 68.63, kg, 10/22/21 15:09:00 EST, Dry Weight Start Date: 01/19/22 Status: Ordered Zofran 8 mg oral tablet 1 tablet = 8 mg, By Mouth, Daily, take with dinner every night (please label in Danish), # 30 tablet, 1 Refills, Maintenance, 09/16/20 [...]
--- OUTSIDE RECORDS SUMMARY | 2023-06-08 02:28 | XMS_ITS | Continuity of Care Document ---
Author Name Unknown Organization [facility] Address [address] [place] [address]- Care Team Providers Care Ems Manager Name Role Phone Jorge ARMENTA, Louis Altamirano Primary Care Physician [place] [facility] [place]22 [facility] [address] [place] [id number] Allergies, Adverse Reactions, Alerts No Known Allergies Immunizations Given and Recorded Vaccine Date Status Refusal Reason SARS-CoV-2 mRNA (tjwrllj-pkew-pwdii) vax 01/19/22 Given SARS-CoV-2 (COVID-19) mRNA BNT-162b2 vac 1 07/03/21 Given SARS-CoV-2 (COVID-19) mRNA BNT-162b2 vac 06/06/21 Given Not Given Vaccine Date Status Refusal Reason tetanus/diphtheria/pertussis , acel(Tdap) 2 09/26/21 Not Given Parent Or Guardian R efuses 1? Unknown: Resend to [facility]. 2Result Comment: mom states pt has received [...] 16:22:00 EDT, Aerosol, Route to Pharmacy Electronically, [id number], [facility]/pharmacy #1130, 151, cm, 06/10/21 [...] 2 Refills, Maintenance, 05/28/22 17:00:00 EDT, Gel, [facility]/pharmacy #1130, Partial fill upon [...] tablet, 5 Refills, Maintenance, 10/06/22 7:21:00 EST, [facility]/pharmacy #1130, 150, cm, 07/07/22 13:19:00 EDT, Height, 68.63, kg, 10/22/21 15:09:00 EST, Dry Weight Start Date: 10/06/22 Status: Ordered levETIRAcetam 1000 mg oral tablet 1 tablet, By Mouth, 3 times a day, # 90 tablet, 5 Refills, 10/06/22 7:22:00 EST, [facility]/pharmacy #1130, 150, cm, 07/07/22 13:19:00 EDT, [...] 1, tablet, By Mouth, Daily, Label in Liberian, # 30 tablet, Refills 5, Tot. Refills 5, Maintenance, 10/13/22 15:15:00 EST, Route to Pharmacy Electronically, [facility]/pharmacy #1130, Partial fill upon [...] Refills, Maintenance, 10/09/22 14:25:00 EDT, [id number], 150, cm, 07/07/22 13:19:00 EDT, Height,68.63, kg, 10/22/21 15:09:00 EST, Dry Weight Start Date: 08/23/22 Status: Ordered Tylenol Extra Strength 500 mg oral tablet 2 tablet = 1,000 mg, By Mouth, 3 times a day, PRN for pain, # 540 tablet, 1 Refills, Maintenance, 07/07/22 13:48:00 EDT, Tablet, [facility]/pharmacy #1130, Partial fill upon patient request if the prescription is for a schedule II opioid drug., 150, cm, 06/16... Start Date: 07/07/22 Status: Ordered Vimpat 200 mg oral tablet 1 tablet = 200 mg, By Mouth, 2 times a day, Brand name medically necessary for seizure disorder, # 60 tablet, 5 Refills, Maintenance, 10/06/22 7:18:00 EST, Tablet, [facility]/pharmacy #1130, generic lacosamide preferred, 150, cm, [...] Physician Member Role: PCP Address: Address: [address] [facility], [place] [address]- Care Team Related Persons Name: MATT IQBAL Address: [address] [place] [address] Name: LEANDRO MARQUEZ Address: [address] [place] [address] Name: ANTOLIN MARQUEZ Name: ZORAIDA BANKS Address: [address] [address]
--- OUTSIDE RECORDS SUMMARY | 2023-06-08 02:28 | XMS_ITS | Continuity of Care Document ---
Author Name Unknown Organization [facility] Address [address] [place] [address]- Care Team Providers Care Checker In Name Role Phone Louis Patel MD Primary Care Physician [place] [facility] [place] - 06/28/[address] [address]- Encounter Diagnosis Agitation(Final) - 06/28/21 Discharge Disposition: A-D/C Home Attending Physician: Karlo Trejo MD Admitting Physician: Karlo Trejo MD Referring Physician: Not on Staff, Referring MD Allergies, Adverse Reactions, Alerts Substance Reaction Severity Status NKA Active Immunizations Given and Recorded Vaccine Date Status Refusal Reason SARS-CoV-2 (COVID-19) mRNA BNT-162b2 vac 06/06/21 Given [...] 16:22:00 EDT, Aerosol, Route to Pharmacy Electronically, [id number], [facility]/pharmacy #1130, 151, cm, 06/10/21 16:07:00 EDT, H... Start Date: 06/10/21 Stop Date: 06/05/22 Status: Ordered Ambien 5 mg oral tablet 1 tablet = 5 mg, By Mouth, Daily at bedtime, PRN as needed for insomnia, # 12 tablet, 0 Refills, Acute 06/29/22 14:54:00 EDT, 05/29/21 14:54:00 EDT, Tablet, [facility]/pharmacy #1130, Partial fill upon patient request if [...] Refills, Maintenance, 04/04/20 13:27:00 EDT, [facility]/pharmacy #1130 Start Date: 04/04/20 Status: Ordered clonazePAM 2 mg oral tablet 1 tablet = 2 mg, By Mouth, Daily at bedtime, # 30 tablet, 3 Refills, Maintenance, 04/04/20 13:25:00EDT, Tablet, [facility]/pharmacy #1130 Start Date: 04/04/20 Status: Ordered Guaiasorb DM 10 mg-100 mg/5 mL oral liquid 10 mL, By Mouth, Every 4 hours, # 240 mL, 0 Refills, Maintenance, 04/17/20 13:08:00 EDT, [facility]/pharmacy #1130, tuvaluan label, 10 mL By Mouth Every 4 hours Start Date: 04/17/20 Status: Ordered Keppra 1000 mg oral tablet 1 tablet = 1,000 mg, By Mouth, 3 times a day, # 90 tablet, 0 Refills, Maintenance, 04/04/21 14:56:00 EDT, Tablet, [facility]/pharmacy #1130, 151, cm, 04/04/21 14:15:00 EDT, Height, [...] 02/13/21 15:28:00 EDT, ER Tablet, [facility]/pharmacy #1130, Partial fill upon patient request if [...] 2 Refills, Maintenance, 11/04/20 18:31:00 EST, ECCapsule, [facility]/pharmacy #1130, tuvaluan label Start Date: 11/04/20 Status: Ordered pantoprazole [...] with dinner every night (please label in Latvian), # 30 tablet, 1 Refills, Maintenance, 09/16/20 7:19:00 EST, Tablet, [facility] Start Date: 09/16/20 Status: Ordered Problem List Condition Effective Dates Status Health Status Inform ant Complex partial seizure(Confirmed) Active GERD (gastroesophageal reflu x disease)(Confirmed) Active Insomnia(Confirmed) Active Anxiety and depression(Confirmed) Active Prediabetes(Confirmed) Active Wayne-Silver syndrome, con genital hemihypertrophy(Confirmed) Active Vital Signs Most recent to oldest [Reference Range]: 1 Oxygen Saturation [94-100 %] 100 % (06/28/21 12:38 PM) Pulse Rate [55-90 bpm] 92 bpm *H* (06/28/21 12:38 PM) Blood Pressure [90-138/55-84 mm Hg] 123/ 75mm Hg (06/28/21 12:38 PM) Respiratory Rate [16-30 br/min] 18 br/mi n (06/28/21 12:38 PM) Temperature [96.8-100.4 DegF] 98.1 DegF (06/28/21 12:38 PM) Mode of Delivery (Oxygen) Room air (06/28/21 12:38 PM) Blood pressure sites Arm, left (06/28/21 12:38 PM) Temperature Route Oral (06/28/21 12:38 PM) Social History Social History Type Response Smoking Status Never (less than 100 in lifetime) entered on: 04/04/20 Sex
--- OUTSIDE RECORDS SUMMARY | 2023-06-08 02:28 | XMS_ITS | Continuity of Care Document ---
Author Name Unknown Organization [facility] Address Unknown Care Team Providers Care Acid Purifier Name Role Phone Jorge ARMENTA, Louis Altamirano Primary Care Physician Encounter [facility] [place] ACCT R [id number] Date(s): 04/16/22 - 04/23/22 [facility] Attending Physician: Louis De La Vega Referring Physician: Jake Granados MD Allergies, Adverse Reactions, Alerts No Known Allergies Immunizations Given and Recorded Vaccine Date Status Refusal Reason SARS-CoV-2 mRNA (xczhkwh-sajp-xgmmf) vax 01/19/22 Given SARS-CoV-2 (COVID-19) mRNA BNT-162b2 [...] 6 Refills, Maintenance, 06/10/21 16:22:00 EDT, Solution, [facility]/pharmacy #1130, Partial fill upon patient request if the prescription is for a schedule II opioid drug., 151, cm, 06/10/21 16:07:00 EDT,... Start Date: 06/10/21 Status: Ordered albuterol CFC free 90 mcg/inh inhalation aerosol 2, puffs, Inhalation, Every 4 hours, PRN, # 1 each, Refills 11, Tot. Refills 11, Maintenance, 06/10/21 16:22:00 EDT, Aerosol, Route to Pharmacy Electronically, [id number], [facility]/pharmacy #1130, 151, cm, 06/10/21 16:07:00 [...] tablet, 3 Refills, Maintenance, 04/04/20 13:25:00EDT, Tablet, [facility]/pharmacy #1130 Start Date: 04/04/20 Status: Ordered Guaiasorb DM 10 mg-100 mg/5 mL oral liquid 10 mL, By Mouth, Every 4 hours, # 240 mL, 0 Refills, Maintenance, 04/17/20 13:08:00 EDT, [facility], salvadorean label, 10 mL By Mouth Every 4 hours Start Date: 04/17/20 Status: Ordered Keppra 1000 mg oral tablet 1 tablet = 1,000 mg, By Mouth, 3 times a day, # 90 tablet, 6 Refills, Maintenance, 10/06/21 10:07:00 EST, Tablet, [facility]/pharmacy #1130, 151, cm, 09/02/21 14:18:00 EDT, Height, 71.8, kg, 02/18/21 19:34:00 EDT, Dry Weight Start Date: 10/06/21 Status: Ordered ketoconazole 1% topical shampoo See Instructions, Topically Every third day, # 200 mL, 1 Refills, Maintenance, 01/19/22 15:55:00 EST, [facility]/pharmacy #1130, Partial fill upon patient request if the prescription is for a schedule II opioid drug., Topically Every third day, 150, cm, 03/0... Start Date: 01/19/22 Status: Ordered lamotrigine 150 [...] [facility] Start Date: 04/04/20 Status: Ordered risperiDONE 4 mg oral tablet 1 tablet = 4 mg, By Mouth, Daily at bedtime, # 30 tablet, 6 Refills, Maintenance, 04/04/20 13:30:00EDT, Tablet, [facility]/pharmacy #1130 Start Date: 04/04/20 Stop Date: 10/31/20 Status: Ordered Trulicity Pen 0.75 mg/0.5 mL subcutaneous solution 0.5 mL = 0.75 mg, Subcutaneous Injection, Every week, rotate injection sites, # 2 mL, 6 Refills, Maintenance, 01/19/22 16:03:00 EST, Solution, [facility]/pharmacy #1130, Partial fill upon patient request ifthe prescription is for a schedule II opioid drug.,... Start Date: 01/19/22 Status: Ordered Vimpat 200 mg oral tablet 1 tablet = 200 mg, By Mouth, 2 times a day, Brand name medically necessary for seizure disorder, # 60 tablet, 5 Refills, Maintenance, 03/16/22 16:39:00 EDT, Tablet, [facility]/pharmacy #1130, generic lacosamide preferred, 150, cm, 01/19/22 [...]
--- OUTSIDE RECORDS SUMMARY | 2023-06-08 02:28 | XMS_ITS | Continuity of Care Document ---
Author Name Unknown Organization [facility] Address Unknown Care Team Providers Care Material Handling Supervisor Name Role Phone Louis Patel MD Primary Care Physician [phone] Encounter [facility] [place] Date(s): 03/27/22 - 04/26/22 [facility] Allergies, Adverse Reactions, Alerts No Known Allergies Immunizations Given and Recorded Vaccine Date Status Refusal Reason SARS-CoV-2 mRNA (zngloko-wmuq-plugo) vax 01/19/22 Given SARS-CoV-2 (COVID-19) mRNA BNT-162b2 vac 1 07/03/21 Given SARS-CoV-2 (COVID-19) mRNA BNT-162b2 vac 06/06/21 Given Not Given Vaccine Date Status Refusal Reason tetanus/diphtheria/pertussis , acel(Tdap) 2 09/26/21 Not Given Parent Or Guardian R efuses 1? Unknown: Resend to [facility]. 2Result Comment: mom states pt has received [...] 6 Refills, Maintenance, 06/10/21 16:22:00 EDT, Solution, [facility]/pharmacy #1130, Partial fill upon patient request if the prescription is for a schedule II opioid drug., 151, cm, 06/10/21 16:07:00 EDT,... Start Date: 06/10/21 Status: Ordered albuterol CFC free 90 mcg/inh inhalation aerosol 2, puffs, Inhalation, Every 4 hours, PRN, # 1 each, Refills 11, Tot. Refills 11, Maintenance, 06/10/21 16:22:00 EDT, Aerosol, Route to Pharmacy Electronically, [id number], [facility]/pharmacy #1130, 151, cm, 06/10/21 16:07:00 EDT, H... Start Date: 06/10/21 Stop Date: 06/05/22 Status: Ordered Ambien 5 mg oral tablet 1 tablet = 5 mg, By Mouth, Daily at bedtime, PRN as needed for insomnia, # 12 tablet, 0 Refills, Acute 06/29/22 14:54:00 EDT, 05/29/21 14:54:00 EDT, Tablet, [facility]/pharmacy #1130, Partial fill upon patient [...] 6 Refills, Maintenance, 10/06/21 10:07:00 EST, Tablet, [facility]/pharmacy #1130, 151, cm, 09/02/21 14:18:00 EDT, Height, 71.8, kg, 02/18/21 19:34:00 EDT, Dry Weight Start Date: 10/06/21 Status: Ordered ketoconazole 1% topical shampoo See Instructions, Topically Every third day, # 200 mL, 1 Refills, Maintenance, 01/19/22 15:55:00 EST, [facility]/pharmacy #1130, Partial fill upon patient request if the prescription is for a schedule II opioid drug., Topically Every third day, 150, cm, 0... Start Date: 01/19/22 Status: Ordered lamotrigine 150 mg oral tablet 1 tablet = 150 mg, By Mouth, 2 times a day, # 60 tablet, 5 Refills, Maintenance, 10/06/21 9:55:00 EST, Tablet, [facility]/pharmacy #1130, 151, cm, 09/02/21 14:18:00 [...] 6 Refills, Maintenance, 01/19/22 16:03:00 EST, Solution, [facility]/pharmacy #1130, Partial fill upon patient request ifthe prescription is for a schedule II opioid drug.,... Start Date: 01/19/22 Status: Ordered Vimpat 200 mg oral tablet 1 tablet = 200 mg, By Mouth, 2 times a day, Brand name medically necessary for seizure disorder, # 60 tablet, 5 Refills, Maintenance, 03/16/22 16:39:00 EDT, Tablet, [facility]/pharmacy #1130, generic lacosamide preferred, 150, [...]
--- OUTSIDE RECORDS SUMMARY | 2023-06-08 02:28 | XMS_ITS | Continuity of Care Document ---
Author Name Unknown Organization [facility] Address Unknown Care Team Providers Care Franchise Sales Manager Name Role Phone Louis Patel MD Primary Care Physician [phone] Encounter [facility] [place] ACCT R [id number] Date(s): 03/19/22 - 03/26/22 [facility] Encounter Diagnosis Scalp lump(Discharge Diagnosis) - 03/19/22 Attending Physician: Louis De La Vega Referring Physician: Louis Patel MD Allergies, Adverse Reactions, Alerts No Known Allergies Immunizations Given and Recorded Vaccine Date Status Refusal Reason SARS-CoV-2 mRNA (zphwqkn-zvpu-luoxw) vax 01/19/22 Given SARS-CoV-2 (COVID-19) mRNA BNT-162b2 vac 1 07/03/21 Given SARS-CoV-2 (COVID-19) mRNA BNT-162b2 vac 06/06/21 Given Not Given Vaccine Date Status Refusal Reason tetanus/diphtheria/pertussis , acel(Tdap) 2 09/26/21 Not Given Parent Or Guardian R efuses 1? Unknown: Resend to [facility]. 2Result Comment: mom states pt has received [...] 16:22:00 EDT, Aerosol, Route to Pharmacy Electronically, [id number], [facility]/pharmacy #1130, 151, cm, 06/10/21 16:07:00 EDT, H... Start Date: 06/10/21 Stop Date: 06/05/22 Status: Ordered Ambien 5 mg oral tablet 1 tablet = 5 mg, By Mouth, Daily at bedtime, PRN as needed for insomnia, # 12 tablet, 0 Refills, Acute 06/29/22 14:54:00 EDT, 05/29/21 14:54:00 EDT, Tablet, [facility]/pharmacy #1130, Partial fill upon patient request [...] each, 5 Refills, Maintenance, 04/04/20 13:27:00 EDT, [facility]/pharmacy #1130 Start Date: 04/04/20 Status: Ordered [...] Refills, Maintenance, 04/17/20 13:08:00 EDT, [facility], slovenian label, 10 mL By Mouth Every 4 hours Start Date: 04/17/20 Status: Ordered ipratropium nasal 21 mcg/inh spray 2 sprays, Nares, Both, 2 times a day, # 30 mL, 5 Refills, Maintenance, 10/27/21 14:41:00 EST, [place], [facility], Partial fill upon patient request if the prescription is for a schedule II opioid drug., 2 sprays Nares, Both 2 times a day, 150,... Start Date: 10/27/21 Status: Ordered Keppra 1000 mg oral tablet 1 tablet = 1,000 mg, By Mouth, 3 times a day, # 90 tablet, 6 Refills, Maintenance, 10/06/21 10:07:00 EST, Tablet, [facility]/pharmacy #1130, 151, cm, 09/02/21 14:18:00 EDT, Height, 71.8, kg, 02/18/21 19:34:00 EDT, Dry Weight Start Date: 10/06/21 Status: Ordered ketoconazole 1% topical shampoo See Instructions, Topically Every third day, # 200 mL, 1 Refills, Maintenance, 01/19/22 15:55:00 EST, [facility]/pharmacy #1130, Partial fill upon patient request if the prescription is for a schedule II opioid drug., Topically Every third day, 150, cm, 03/0... Start Date: 01/19/22 Status: Ordered ketoconazole 2% topical cream 1 application, Topically, 2 times a day, for 28 days, # 60 Gm, 2 Refills, Acute 04/13/22 15:58:00 EDT, 01/19/22 15:58:00 EST, Cream, [facility]/pharmacy #1130, Partial fill upon patient request [...] Maintenance, 11/04/20 18:31:00 EST, ECCapsule, [facility], slovenian label Start Date: 11/04/20 Status: Ordered pantoprazole [...] Date: 03/16/22 Stop Date: 09/12/22 Status: Ordered Zofran 8 mg oral tablet 1 tablet = 8 mg, By Mouth, Daily, take with dinner every night (please label in Lao), # 30 tablet, 1 Refills, Maintenance, 09/16/20 7:19:00 EST, Tablet, [facility] Start Date: 09/16/20 Status: Ordered Problem List Condition Effective Dates Status Health Status Inform ant Complex partial seizure(Confirmed) Active Diabetes mellitus(Confirmed) Active GERD (gastroesophageal reflu x disease)(Confirmed) Active Insomnia(Confirmed) Active Anxiety and depression(Confirmed) Active Obese class I(Confirmed) Active Prediabetes(Confirmed) Active Wayne-Silver syndrome, con genital hemihypertrophy(Confirmed) Active Diagnosis Diagnosis Type Effective Dates Health Status Clini peter Service Informant Scalp lump Discharge Diagnosis 03/19/22 Vital Signs Most recent to oldest [Reference Range]: 1 Height 150 cm (03/19/22 2:13 PM) Weight 73 kg (03/19/22 2:13 PM) Pulse Rate [55-90 bpm] 99 bpm *H* (03/19/22 2:13 PM) Body Mass Index [18.5-24.99] 32.44 *>HHI* (03/19/22 2:13 PM) Blood Pressure [90-138/55-84 mm Hg] 129/ 83mm Hg (03/19/22 2:13 PM) Respiratory Rate [16-30 br/min] 16 br/mi n (03/19/22 2:13 PM) Temperature [96.8-100.4 DegF] 98.1 DegF (03/19/22 2:13 PM) Blood pressure sites Arm, right (03/19/22 2:13 PM) Temperature Route Temporal (03/19/22 2:13 PM) Weight Obtained Via Standing scale (03/19/22 2:13 PM) Social History Social History Type Response Smoking Status Never (less than 100 in lifetime) entered on: 04/04/20 Sex
--- OUTSIDE RECORDS SUMMARY | 2023-06-08 02:28 | XMS_ITS | Continuity of Care Document ---
Author Name Unknown Organization [facility] ter Address [address] [place] [address]- Care Team Providers Care Visitor Information Assistant Name Role Phone Jorge ARMENTA, Louis Altamirano Primary Care Physician [phone] Encounter [facility] R [id number] Date(s): 02/27/21 - 06/05/[address] [address]- Attending Physician: Mary Gaxiola MD Admitting Physician: Mary Gaxiola MD Allergies, Adverse Reactions, Alerts Substance Reaction [...] 16:03:00 EDT, Aerosol, Route to Pharmacy Electronically, [id number], [facility] Start Date: 02/04/21 Status: Ordered Ambien 5 mg oral tablet 1 tablet = 5 mg, By Mouth, Daily at bedtime, PRN as needed for insomnia, # 12 tablet, 0 Refills, Acute 06/29/22 14:54:00 EDT, 05/29/21 14:54:00 EDT, Tablet, [facility], Partial fill upon [...] Refills, Maintenance, 04/17/20 13:08:00 EDT, [facility], english label, 10 mL By Mouth Every 4 [...] Maintenance, 11/04/20 18:31:00 EST, ECCapsule, [facility], english label Start Date: 11/04/20 Status: Ordered pantoprazole [...] with dinner every night (please label in Peruvian), # 30 tablet, 1 Refills, Maintenance, 09/16/20 [...]
--- OUTSIDE RECORDS SUMMARY | 2023-06-08 02:28 | XMS_ITS | Continuity of Care Document ---
Author Name Unknown Organization [facility] Address [address] [place] [address]- Care Team Providers Care Charge Master Coordinator Name Role Phone Jorge ARMENTA, Louis Altamirano Primary Care Physician Encounter [facility] [place] Date(s): 05/05/21 - 06/04/21 [facility] [address] [place] [id number] Allergies, Adverse Reactions, Alerts Substance [...] 16:03:00 EDT, Aerosol, Route to Pharmacy Electronically, [id number], [facility]/pharmacy #1130 Start Date: 02/04/21 Status: Ordered Ambien [...] each, 5 Refills, Maintenance, 04/04/20 13:27:00 EDT, [facility]/pharmacy #1130 Start Date: 04/04/20 Status: Ordered clonazePAM 2 mg oral tablet 1 tablet = 2 mg, By Mouth, Daily at bedtime, # 30 tablet, 3 Refills, Maintenance, 04/04/20 13:25:00EDT, Tablet, [facility]/pharmacy #1130 Start Date: 04/04/20 Status: Ordered Guaiasorb DM 10 mg-100 mg/5 mL oral liquid 10 mL, By Mouth, Every 4 hours, # 240 mL, 0 Refills, Maintenance, 04/17/20 13:08:00 EDT, [facility], burundian label, 10 mL By Mouth Every 4 hours Start Date: 04/17/20 Status: Ordered Keppra 1000 mg oral tablet 1 tablet = 1,000 mg, By Mouth, 3 times a day, # 90 tablet, 0 Refills, Maintenance, 04/04/21 14:56:00 EDT, Tablet, [facility]/pharmacy #1130, 151, cm, 04/04/21 14:15:00 EDT, Height, 71.8, kg, 02/18/21 19:34:00 EDT, Dry Weight Start Date: 04/04/21 Status: Ordered lamotrigine 150 mg oral tablet 1 tablet = 150 mg, By Mouth, 2 times a day, # 60 tablet, 6 Refills, Maintenance, 04/04/21 14:56:00 EDT, Tablet, [facility]/pharmacy #1130, 151, cm, 04/04/21 14:15:00 [...] Maintenance, 11/04/20 18:31:00 EST, ECCapsule, [facility], burundian label Start Date: 11/04/20 Status: Ordered pantoprazole [...] with dinner every night (please label in Tongan), # 30 tablet, 1 Refills, Maintenance, 09/16/20 [...]
--- OUTSIDE RECORDS SUMMARY | 2023-06-08 02:28 | XMS_ITS | Continuity of Care Document ---
Author Name Unknown Organization [facility] ter Address [address] [place] [address]- Care Team Providers Care Weight Calculator Name Role Phone Jorge ARMENTA, Louis Altamirano Primary Care Physician [phone] Encounter [facility] [place] Date(s): 06/20/21 - 08/23/[address] [address]- Attending Physician: Andrea Burger MD Referring Physician: Torsten Shea MD Allergies, Adverse Reactions, Alerts Substance Reaction [...] 16:22:00 EDT, Aerosol, Route to Pharmacy Electronically, [id number], [facility]/pharmacy #1130, 151, cm, 06/10/21 16:07:00 EDT, H... Start Date: 06/10/21 Stop Date: 06/05/22 Status: Ordered Ambien 5 mg oral tablet 1 tablet = 5 mg, By Mouth, Daily at bedtime, PRN as needed for insomnia, # 12 tablet, 0 Refills, Acute 06/29/22 14:54:00 EDT, 05/29/21 14:54:00 EDT, Tablet, [facility]/pharmacy #1130, Partial fill upon patient request [...] 5 Refills, Maintenance, 04/04/20 13:27:00 EDT, [facility]/pharmacy #1130 Start Date: 04/04/20 Status: Ordered clonazePAM 2 mg oral tablet 1 tablet = 2 mg, By Mouth, Daily at bedtime, # 30 tablet, 3 Refills, Maintenance, 04/04/20 13:25:00EDT, Tablet, [facility]/pharmacy #1130 Start Date: 04/04/20 Status: Ordered Guaiasorb DM 10 mg-100 mg/5 mL oral liquid 10 mL, By Mouth, Every 4 hours, # 240 mL, 0 Refills, Maintenance, 04/17/20 13:08:00 EDT, [facility]/pharmacy #1130, moroccan label, 10 mL By Mouth Every 4 hours Start Date: 04/17/20 Status: Ordered Keppra 1000 mg oral tablet 1 tablet = 1,000 mg, By Mouth, 3 times a day, # 90 tablet, 0 Refills, Maintenance, 04/04/21 14:56:00 EDT, Tablet, [facility]/pharmacy #1130, 151, cm, 04/04/21 14:15:00 EDT, Height, 71.8, kg, 02/18/21 19:34:00 EDT, Dry Weight Start Date: 04/04/21 Status: Ordered lamotrigine 150 mg oral tablet 1 tablet = 150 mg, By Mouth, 2 times a day, # 60 tablet, 6 Refills, Maintenance, 04/04/21 14:56:00 EDT, Tablet, [facility]/pharmacy #1130, 151, cm, 04/04/21 14:15:00 EDT, Height, 71.8, kg, 02/18/21 19:34:00EDT, Dry Weight Start Date: 04/04/21 Status: Ordered metFORMIN 500 mg oral tablet, extended release 1 tablet = 500 mg, By Mouth, Daily, # 30 tablet, 4 Refills, Maintenance, 02/13/21 15:28:00 EDT, ER Tablet, [facility]/pharmacy #1130, Partial fill upon patient request if the prescription is for a schedule II opioid drug., 150, cm, 02/13/21 14:49:00 EDT, Hei... Start Date: 02/13/21 Status: Ordered mirtazapine 45 mg oral tablet 1 tablet = 45 mg, By Mouth, Daily at bedtime, # 30 tablet, 6 Refills, Maintenance, 04/04/20 13:23:00 EDT, Tablet, [facility]/pharmacy #1130 Start Date: 04/04/20 Status: Ordered omeprazole 20 mg oral enteric coated capsule 1 capsule = 20 mg, By Mouth, Daily, # 30 capsule, 2 Refills, Maintenance, 11/04/20 18:31:00 EST, ECCapsule, [facility]/pharmacy #1130, moroccan label Start Date: 11/04/20 Status: [...] with dinner every night (please label in Argentine), # 30 tablet, 1 Refills, Maintenance, 09/16/20 [...]
--- OUTSIDE RECORDS SUMMARY | 2023-06-08 02:28 | XMS_ITS | Continuity of Care Document ---
Author Name Unknown Organization [facility] y Address [address] [place] [address]- Care Team Providers Care Landscape Maintenance Internship Name Role Phone Louis Patel MD Primary Care Physician Encounter [facility] Date(s): 11/27/22 - 12/27/22 [facility] [address] [place], [place] [address] Attending Physician: Admaurea, Merlin Admitting Physician: Admtr, Ar8 Referring Physician: Admtr, Ar8 Allergies, Adverse Reactions, Alerts No Known Allergies Immunizations Given and Recorded Vaccine Date Status Refusal Reason SARS-CoV-2 mRNA (mwtkrla-subb-hgyxh) vax 01/19/22 Given SARS-CoV-2 (COVID-19) mRNA BNT-162b2 vac 1 07/03/21 Given SARS-CoV-2 (COVID-19) mRNA BNT-162b2 vac 06/06/21 Given Not Given Vaccine Date Status Refusal Reason tetanus/diphtheria/pertussis , acel(Tdap) 2 09/26/21 Not Given Parent Or Guardian R efuses 1? Unknown: Resend to [facility]. 2Result Comment: mom states pt has [...] 6 Refills, Maintenance, 06/10/21 16:22:00 EDT, Solution, [facility]/pharmacy #1130, Partial fill upon patient request if the prescription is for a schedule II opioid drug., 151, cm, 06/10/21 16:07:00 EDT,... Start Date: 06/10/21 Status: Ordered albuterol CFC free 90 mcg/inh inhalation aerosol 2, puffs, Inhalation, Every 4 hours, PRN, # 1 each, Refills 11, Tot. Refills 11, Maintenance, 06/10/21 16:22:00 EDT, Aerosol, Route to Pharmacy Electronically, [id number], [facility]/pharmacy #1130, 151, cm, 06/10/21 16:07:00 EDT, [...] 2 Refills, Maintenance, 05/28/22 17:00:00 EDT, Gel, [facility]/pharmacy #1130, Partial fill upon patient request [...] tablet, 5 Refills, Maintenance, 10/06/22 7:21:00 EST, [facility]/pharmacy #1130, 150, cm, 07/07/22 13:19:00 EDT, Height, 68.63, kg, 10/22/21 15:09:00 EST, Dry Weight Start Date: 10/06/22 Status: Ordered levETIRAcetam 1000 mg oral tablet 1 tablet, By Mouth, 3 times a day, # 90 tablet, 5 Refills, 10/06/22 7:22:00 EST, [facility]/pharmacy #1130, 150, cm, 07/07/22 13:19:00 EDT, [...] 1, tablet, By Mouth, Daily, Label in Vietnamese, # 30 tablet, Refills 5, Tot. Refills 5, Maintenance, 10/13/22 15:15:00 EST, Route to Pharmacy Electronically, [facility]/pharmacy #1130, Partial fill upon patient request [...] Refills, Maintenance, 08/23/22 14:25:00 EDT, [facility], 150, cm, 07/07/22 13:19:00 EDT, Height,68.63, kg, [...] 5 Refills, Maintenance, 10/06/22 7:18:00 EST, Tablet, [facility], generic lacosamide preferred, 150, cm, 07/07/22 [...] Care Physician Member Role: PCP Address: Address: [address] [place] [address], [place] [address]- Care Team Related Persons Name: MATT IQBAL Address: home [address] [place] [address] Name: LEANDRO MARQUEZ Address: home [address] [place] [address] Name: ANTOLIN MARQUEZ Name: ZORAIDA BANKS Address: home [address] [place] [address] [place] [id number]
--- OUTSIDE RECORDS SUMMARY | 2023-06-08 02:28 | XMS_ITS | Continuity of Care Document ---
Author Name Unknown Organization [facility] y Address [address] [place] [address]- Care Team Providers Care Automotive Metalsmith Name Role Phone Louis Patel MD Primary Care Physician [place] [facility] [place] 08/03/[place] [facility] [address] [place] [id number] Attending Physician: Not on Staff, Attending MD [...] 16:22:00 EDT, Aerosol, Route to Pharmacy Electronically, [id number], [facility]/pharmacy #1130, 151, cm, 06/10/21 16:07:00 EDT, H... Start Date: 06/10/21 Stop Date: 06/05/22 Status: Ordered Ambien 5 mg oral tablet 1 tablet = 5 mg, By Mouth, Daily at bedtime, PRN as needed for insomnia, # 12 tablet, 0 Refills, Acute 06/29/22 14:54:00 EDT, 05/29/21 14:54:00 EDT, Tablet, [facility]/pharmacy #1130, Partial fill upon patient request if [...] 5 Refills, Maintenance, 04/04/20 13:27:00 EDT, [facility]/pharmacy #1130 Start Date: 04/04/20 Status: Ordered clonazePAM 2 mg oral tablet 1 tablet = 2 mg, By Mouth, Daily at bedtime, # 30 tablet, 3 Refills, Maintenance, 04/04/20 13:25:00EDT, Tablet, [facility]/pharmacy #1130 Start Date: 04/04/20 Status: Ordered Guaiasorb DM 10 mg-100 mg/5 mL oral liquid 10 mL, By Mouth, Every 4 hours, # 240 mL, 0 Refills, Maintenance, 04/17/20 13:08:00 EDT, [facility], hong konger label, 10 mL By Mouth Every 4 hours Start Date: 04/17/20 Status: Ordered Keppra 1000 mg oral tablet 1 tablet = 1,000 mg, By Mouth, 3 times a day, # 90 tablet, 0 Refills, Maintenance, 04/04/21 14:56:00 EDT, Tablet, [facility]/pharmacy #1130, 151, cm, 04/04/21 14:15:00 EDT, Height, 71.8, kg, 02/18/21 19:34:00 EDT, Dry Weight Start Date: 04/04/21 Status: Ordered lamotrigine 150 mg oral tablet 1 tablet = 150 mg, By Mouth, 2 times a day, # 60 tablet, 6 Refills, Maintenance, 04/04/21 14:56:00 EDT, Tablet, [facility]/pharmacy #1130, 151, cm, 04/04/21 14:15:00 EDT, Height, 71.8, kg, 02/18/21 19:34:00EDT, Dry Weight Start Date: 04/04/21 Status: Ordered metFORMIN 500 mg oral tablet, extended release 1 tablet = 500 mg, By Mouth, Daily, # 30 tablet, 4 Refills, Maintenance, 02/13/21 15:28:00 EDT, ER Tablet, [facility]/pharmacy #1130, Partial fill upon patient request if [...] 2 Refills, Maintenance, 11/04/20 18:31:00 EST, ECCapsule, [facility]/pharmacy #1130, hong konger label Start Date: 11/04/20 Status: Ordered pantoprazole [...] every night (please label in Citizen Of [place]), # 30 tablet, 1 Refills, Maintenance, 09/16/20 [...]
--- OUTSIDE RECORDS SUMMARY | 2023-06-08 02:28 | XMS_ITS | Continuity of Care Document ---
Author Name Unknown Organization [facility] Address [address] [place] [address]- Care Team Providers Care Bench Grinder Name Role Phone Jorge ARMENTA, Louis Altamirano Primary Care Physician Encounter [facility] [place] Date(s): 03/27/20 - 05/04/20 [facility] [address] [place] [address]- [facility] Attending Physician: Abdulaziz ARMENTA, Babak Vaughn Allergies, Adverse Reactions, Alerts Substance Reaction Severity [...] Refills, Maintenance, 04/17/20 13:08:00 EDT, [facility], citizen of [place] label, 10 mL By Mouth Every 4 [...] Refills, Maintenance, 04/17/20 13:08:00 EDT, ECCapsule, [facility]/pharmacy #1130, citizen of [place] label Start Date: 04/17/20 Status: Ordered Restoril [...]
--- OUTSIDE RECORDS SUMMARY | 2023-06-08 02:28 | XMS_ITS | Continuity of Care Document ---
Author Name Unknown Organization [facility] Address [address] [place] [address]- Care Team Providers Care Gluer Name Role Phone Jorge ARMENTA, Louis Altamirano Primary Care Physician Encounter [facility] Date(s): 07/07/22 - 08/06/22 [facility] [address] [place] [id number]- Attending Physician: AdmMerlin villar Admitting Physician: AdmtrMerlin Referring Physician: Admtr, Ar8 Allergies, Adverse Reactions, Alerts No Known Allergies Immunizations Given and Recorded Vaccine Date Status Refusal Reason SARS-CoV-2 mRNA (bnmotxn-wagr-urxmu) vax 01/19/22 Given SARS-CoV-2 (COVID-19) mRNA BNT-162b2 [...] 6 Refills, Maintenance, 06/10/21 16:22:00 EDT, Solution, [facility]/pharmacy #1130, Partial fill upon patient request if the prescription is for a schedule II opioid drug., 151, cm, 06/10/21 16:07:00 EDT,... Start Date: 06/10/21 Status: Ordered albuterol CFC free 90 mcg/inh inhalation aerosol 2, puffs, Inhalation, Every 4 hours, PRN, # 1 each, Refills 11, Tot. Refills 11, Maintenance, 06/10/21 16:22:00 EDT, Aerosol, Route to Pharmacy Electronically, [id number], [facility]/pharmacy #1130, 151, cm, 06/10/21 16:07:00 EDT, [...] tablet, 3 Refills, Maintenance, 04/04/20 13:25:00EDT, Tablet, [facility]/pharmacy #1130 Start Date: 04/04/20 Status: Ordered diclofenac 1% topical gel 1 application, Topically, 4 times a day, # 100 Gm, 2 Refills, Maintenance, 05/28/22 17:00:00 EDT, Gel, [facility]/pharmacy #1130, Partial fill upon patient request if the prescription is for a schedule II opioid drug., 150, cm, 05/28/22 13:34:00 EDT, Height,... Start Date: 05/28/22 Status: Ordered Guaiasorb DM 10 mg-100 mg/5 mL oral liquid 10 mL, By Mouth, Every 4 hours, # 240 mL, 0 Refills, Maintenance, 04/17/20 13:08:00 EDT, [facility], [place]oh[place] label, 10 mL By Mouth Every 4 hours Start Date: 04/17/20 Status: Ordered ketoconazole 1% topical shampoo See Instructions, Topically Every third day, # 200 mL, 1 Refills, Maintenance, 01/19/22 15:55:00 EST, [facility]/pharmacy #1130, Partial fill upon patient request if the prescription is for a schedule II opioid drug., Topically Every third day, 150, cm, 030... Start Date: 01/19/22 Status: Ordered lamotrigine 150 mg oral tablet 1 tablet, By Mouth, 2 times a day, # 60 tablet, 5 Refills, Maintenance, 07/15/22 10:22:00 EDT, [id number], 150, cm, 07/07/22 13:19:00 EDT, Height, 68.63, kg, 10/22/21 15:09:00 EST, Dry Weight Start Date: 07/15/22 Status: Ordered levETIRAcetam 1000 mg oral tablet 1 tablet, By Mouth, 3 times a day, # 90 tablet, 5 Refills, [id number], 150, cm, 04/20/22 13:54:00 EDT, Height, 68.63, kg, 10/22/21 15:09:00 EST, Dry Weight Start Date: 04/28/22 Status: Ordered mirtazapine 45 mg oral tablet 1 tablet = 45 mg, By Mouth, Daily at bedtime, # 30 tablet, 6 Refills, Maintenance, 04/04/20 13:23:00 EDT, Tablet, [facility]/pharmacy #1130 Start Date: 04/04/20 Status: Ordered [...] opioid drug.,... Start Date: 01/19/22 Status: Ordered TWO BED RAILS TWO BED [...] 5 Refills, Maintenance, 03/16/22 16:39:00 EDT, Tablet, [facility]/pharmacy #1130, generic lacosamide preferred, 150, cm, 01/19/22 15:23:00 EST, [place]... Start Date: 03/16/22 Stop Date: 09/12/22 Status: Ordered Problem List Condition Effective Dates Status Health Status Inform ant Complex partial seizure(Confirmed) Active Diabetes mellitus(Confirmed) Active Foot pain, left(Confirmed) Active GERD (gastroesophageal reflu x disease)(Confirmed) Active Insomnia(Confirmed) Active Anxiety and depression(Confirmed) Active Obese class I(Confirmed) Active Prediabetes(Confirmed) Active Wayne-Silver syndrome, con genital hemihypertrophy(Confirmed) Active Social History Social History Type Response Smoking Status Never (less than 100 in lifetime) entered on: 04/04/20 Sex Care Team Personnel Name: Louis Patel MD Address: [address] [place] [address], [facility] Adult [address]
--- OUTSIDE RECORDS SUMMARY | 2023-06-08 02:28 | XMS_ITS | Continuity of Care Document ---
Author Name Unknown Organization [facility] Address [address] [place] [address]- Care Team Providers Care Flight Operations Dispatch Clerk Name Role Phone Jorge ARMENTA, Louis Altamirano Primary Care Physician [phone] Encounter [facility] Date(s): 09/10/22 - 10/10/[address] [address]- Allergies, Adverse Reactions, Alerts No Known Allergies Immunizations Given and Recorded Vaccine Date Status Refusal Reason SARS-CoV-2 mRNA (oiabjih-ttzs-ceuwa) vax 01/19/22 Given SARS-CoV-2 (COVID-19) mRNA BNT-162b2 vac 1 07/03/21 Given SARS-CoV-2 (COVID-19) mRNA BNT-162b2 vac 06/06/21 Given Not Given Vaccine Date Status Refusal Reason tetanus/diphtheria/pertussis , acel(Tdap) 2 09/26/21 Not Given Parent Or Guardian R efuses 1? Unknown: Resend to [facility]. 2Result Comment: mom states pt has received [...] 16:22:00 EDT, Aerosol, Route to Pharmacy Electronically, [id number], [facility]/pharmacy #1130, 151, cm, 06/10/21 16:07:00 [...] 2 Refills, Maintenance, 05/28/22 17:00:00 EDT, Gel, [facility]/pharmacy #1130, Partial fill upon patient [...] tablet, 5 Refills, Maintenance, 10/06/22 7:21:00 EST, [facility]/pharmacy #1130, 150, cm, 07/07/22 13:19:00 EDT, Height, 68.63, kg, 10/22/21 15:09:00 EST, Dry Weight Start Date: 10/06/22 Status: Ordered levETIRAcetam 1000 mg oral tablet 1 tablet, By Mouth, 3 times a day, # 90 tablet, 5 Refills, 10/06/22 7:22:00 EST, [facility]/pharmacy #1130, 150, cm, 07/07/22 13:19:00 EDT, [...] Refills, Maintenance, 08/23/22 14:25:00 EDT, [facility], 150, cm, 07/07/22 13:19:00 EDT, Height,68.63, kg, 10/22/21 15:09:00 EST, Dry Weight Start Date: 08/23/22 Status: Ordered Tylenol Extra Strength 500 mg oral tablet 2 tablet = 1,000 mg, By Mouth, 3 times a day, PRN for pain, # 540 tablet, 1 Refills, Maintenance, 07/07/22 13:48:00 EDT, Tablet, [facility]/pharmacy #1130, Partial fill upon patient request if the prescription is for a schedule II opioid drug., 150, cm, 06/16... Start Date: 07/07/22 Status: Ordered Vimpat 200 mg oral tablet 1 tablet = 200 mg, By Mouth, 2 times a day, Brand name medically necessary for seizure disorder, # 60 tablet, 5 Refills, Maintenance, 10/06/22 7:18:00 EST, Tablet, [facility]/pharmacy #1130, generic lacosamide preferred, 150, cm, [...] Team Personnel Name: Louis Patel MD Position: [facility] Primary Care Physician Member Role: PCP Address: Address: [address] [place] [address]- Care Team Related Persons Name: MATT IQBAL Address: home [address] [place] [address] Name: LEANDRO MARQUEZ Address: home [address] [place] [address] Name: ANTOLIN MARQUEZ Name: ZORAIDA BANKS Address: home [address] [address]
--- OUTSIDE RECORDS SUMMARY | 2023-06-08 02:28 | XMS_ITS | Continuity of Care Document ---
Author Name Unknown Organization [facility] Address [address] [place] [address]- Care Team Providers Care Corrugated Sheet Material Sheeter Name Role Phone Louis Patel MD Primary Care Physician Encounter [facility] [place] Date(s): 09/30/21 - 09/30/[address] [address]- Encounter Diagnosis Anxiety and depression(Final) - 09/30/21 Discharge Disposition: A-D/C Home Attending Physician: Jesus Merrill MD Admitting Physician: Jesus Merrill MD Referring Physician: Not on Staff, Referring [...] 16:22:00 EDT, Aerosol, Route to Pharmacy Electronically, [id number], [facility]/pharmacy #1130, 151, cm, 06/10/21 16:07:00 EDT, H... Start Date: 06/10/21 Stop Date: 06/05/22 Status: Ordered Ambien 5 mg oral tablet 1 tablet = 5 mg, By Mouth, Daily at bedtime, PRN as needed for insomnia, # 12 tablet, 0 Refills, Acute 06/29/22 14:54:00 EDT, 05/29/21 14:54:00 EDT, Tablet, [facility]/pharmacy #1130, Partial fill upon [...] 5 Refills, Maintenance, 04/04/20 13:27:00 EDT, [facility]/pharmacy #1130 Start Date: 04/04/20 Status: Ordered clonazePAM 2 mg oral tablet 1 tablet = 2 mg, By Mouth, Daily at bedtime, # 30 tablet, 3 Refills, Maintenance, 04/04/20 13:25:00EDT, Tablet, [facility] Start Date: 04/04/20 Status: Ordered Guaiasorb DM 10 mg-100 mg/5 mL oral liquid 10 mL, By Mouth, Every 4 hours, # 240 mL, 0 Refills, Maintenance, 04/17/20 13:08:00 EDT, [facility]/pharmacy #1130, bulgarian label, 10 mL By Mouth Every 4 hours Start Date: 04/17/20 Status: Ordered ipratropium nasal 21 mcg/inh spray 2 sprays, Nares, Both, 2 times a day, # 30 mL, 1 Refills, Maintenance, 09/02/21 14:32:00 EDT, [place], [facility]/pharmacy #1130, Partial fill upon patient request if the prescription is for a schedule II opioid drug., 2 sprays Nares, Both 2 times a day, 151,... Start Date: 09/02/21 Status: Ordered Keppra 1000 mg oral tablet 1 tablet = 1,000 mg, By Mouth, 3 times a day, # 90 tablet, 0 Refills, Maintenance, 04/04/21 14:56:00 EDT, Tablet, [facility]/pharmacy #1130, 151, cm, 04/04/21 14:15:00 EDT, Height, 71.8, kg, 02/18/21 19:34:00 EDT, Dry Weight Start Date: 04/04/21 Status: Ordered lamotrigine 150 mg oral tablet 1 tablet = 150 mg, By Mouth, 2 times a day, # 60 tablet, 6 Refills, Maintenance, 04/04/21 14:56:00 EDT, Tablet, [facility]/pharmacy #1130, 151, cm, 04/04/21 14:15:00 EDT, Height, 71.8, kg, 02/18/21 19:34:00EDT, Dry Weight Start Date: 04/04/21 Status: Ordered metFORMIN 500 mg oral tablet, extended release 1 tablet = 500 mg, By Mouth, Daily, # 30 tablet, 4 Refills, Maintenance, 02/13/21 15:28:00 EDT, ER Tablet, [facility]/pharmacy #1130, Partial fill upon patient request if the prescription is for a schedule II opioid drug., 150, cm, 02/13/21 14:49:00 EDT, Hei... Start Date: 02/13/21 Status: Ordered mirtazapine 45 mg oral tablet 1 tablet = 45 mg, By Mouth, Daily at bedtime, # 30 tablet, 6 Refills, Maintenance, 04/04/20 13:23:00 EDT, Tablet, [facility]/pharmacy #1130 Start Date: 04/04/20 Status: Ordered omeprazole 20 mg oral enteric coated capsule 1 capsule = 20 mg, By Mouth, Daily, # 30 capsule, 2 Refills, Maintenance, 11/04/20 18:31:00 EST, ECCapsule, [facility]/pharmacy #1130, bulgarian label Start Date: 11/04/20 Status: Ordered pantoprazole [...] pack/packet, 0 Refills, Maintenance, 02/20/21 14:54:00 EDT, [facility]/pharmacy #1130, Partial fill upon patient request if theprescription is for a schedule II opioid drug., as... Start Date: 02/20/21 Status: Ordered risperiDONE 4 mg oral tablet 1 tablet = 4 mg, By Mouth, Daily at bedtime, # 30 tablet, 6 Refills, Maintenance, 04/04/20 13:30:00EDT, Tablet, [facility]/pharmacy #1130 Start Date: 04/04/20 Stop Date: 10/31/20 Status: Ordered Vimpat 200 mg oral tablet 1 tablet = 200 mg, By Mouth, 2 times a day, # 60 tablet, 5 Refills, Maintenance, 04/04/21 14:56:00 EDT, Tablet, [facility]/pharmacy #1130, 151, cm, 04/04/21 14:15:00 EDT, Height, 71.8, kg, 02/18/21 19:34:00EDT, Dry Weight Start Date: 04/04/21 Status: Ordered Zofran 8 mg oral tablet 1 tablet = 8 mg, By Mouth, Daily, take with dinner every night (please label in Pashto), # 30 tablet, 1 Refills, Maintenance, 09/16/20 [...] 1 Oxygen Saturation [94-100 %] 100 % (09/30/21 7:21 AM) Pulse Rate [55-90 bpm] 94 bpm *H* (09/30/21 7:21 AM) Blood Pressure [90-138/55-84 mm Hg] 117/ 68mm Hg (09/30/21 7:21 AM) Respiratory Rate [16-30 br/min] 22 br/mi n (09/30/21 7:21 AM) Temperature [96.8-100.4 DegF] 97.3 DegF (09/30/21 7:21 AM) Mode of Delivery (Oxygen) Room air (09/30/21 7:21 AM) Blood pressure sites Arm, right (09/30/21 7:21 AM) Temperature Route Oral (09/30/21 7:21 AM) Social History Social History Type Response Smoking Status Never (less than 100 in lifetime) entered on: 04/04/20 Sex
--- OUTSIDE RECORDS SUMMARY | 2023-06-08 02:28 | XMS_ITS | Continuity of Care Document ---
Author Name Unknown Organization [facility] Address [address] [place] [address]- Care Team Providers Care Servicer Name Role Phone Jorge ARMENTA, Louis Altamirano Primary Care Physician [phone] [place] [facility] [place]/22[place]23 - 04/21/23 [facility] [address] [place] [id number] Attending Physician: AdmMerlin villar Admitting Physician: AdmtrMerlin Referring Physician: Admtr, Ar8 Allergies, Adverse Reactions, Alerts No Known Allergies Immunizations Given and Recorded Vaccine Date Status Refusal Reason SARS-CoV-2 mRNA (eyyubdv-yipc-qqjax) vax 01/19/22 Given SARS-CoV-2 (COVID-19) mRNA BNT-162b2 [...] 6 Refills, Maintenance, 06/10/21 16:22:00 EDT, Solution, [facility]/pharmacy #1130, Partial fill upon patient request if the prescription is for a schedule II opioid drug., 151, cm, 06/10/21 16:07:00 EDT,... Start Date: 06/10/21 Status: Ordered albuterol CFC free 90 mcg/inh inhalation aerosol 2, puffs, Inhalation, Every 4 hours, PRN, # 1 each, Refills 11, Tot. Refills 11, Maintenance, 01/28/23 15:52:00 EDT, Aerosol, Route to Pharmacy Electronically, [id number], [facility]/pharmacy #1130, 150, cm, 01/28/23 15:24:00 [...] 30 tablet, 3 Refills, Maintenance, 03/22/23 16:04:00EDT, [facility]/pharmacy #1130, Partial fill upon patient [...] Gm, 2 Refills, Maintenance, 04/20/23 10:27:00 EDT, [facility] STORE 12209, 25, APPLY TO AFFECTED AREA 4 TIMES [...] Gm, 0 Refills, Maintenance, 02/23/23 11:47:00 EDT, [place], Partial fill upon patient request if the prescription is for a schedule II opioid drug. Start Date: 02/23/23 Status: Ordered fluticasone 50 mcg/inh nasal spray 1 sprays, Nares, Both, 2 times a day, # 16 Gm, 0 Refills, Maintenance, 02/23/23 11:47:00 EDT, [place], Partial fill upon patient request if the [...] mL, 5 Refills, Maintenance, 03/22/23 16:10:00 EDT,Solution, [facility], Partial fill upon patient request if [...] tablet, 5 Refills, Maintenance, 03/22/23 16:02:00 EDT, [facility]/pharmacy #1130, 150, cm, 03/22/23 15:46:00 EDT, Height, 74.1, kg, 02/23/23 13:43:00 EDT, Dry Weight Start Date: 03/22/23 Status: Ordered mirtazapine 45 mg oral tablet 1 tablet = 45 mg, By Mouth, Daily at bedtime, # 30 tablet, 0 Refills, Maintenance, 03/22/23 16:04:00 EDT, Tablet, [facility], Partial fill upon [...] 1, tablet, By Mouth, Daily, Label in Greenlandic, # 30 tablet, Refills 5, Tot. Refills 5, Maintenance, 03/22/23 16:02:00 EDT, Route to Pharmacy Electronically, [facility], Partial fill upon patient request [...] 03/22/23 16:04:00 EDT, Route to Pharmacy Electronically, [facility]/pharmacy #1130, Partial fill upon patient [...] Unknown, 5 Refills, Maintenance, 03/22/23 16:02:00 EDT, [facility]/pharmacy #1130, 150, cm, 03/22/23 15:46:00 EDT, Height, 74.1, kg, 02/23/23 13:43:00 EDT, Dry Weight Start Date: 03/22/23 Status: Ordered Tylenol Extra Strength 500 mg oral tablet 2 tablet = 1,000 mg, By Mouth, 3 times a day, PRN for pain, # 540 tablet, 1 Refills, Maintenance, 07/07/22 13:48:00 EDT, Tablet, [facility]/pharmacy #1130, Partial fill upon patient [...] Personnel Name: Jorge ARMENTA, Louis Altamirano Position: [facility] Physician - Primary Care Member Role: PCP Address: Address: [address] [facility], [place] [address]- Name: Radha Wang RN Position: [facility] ED RN W/OE and Tasks Member Role: Primary Care Nurse Care Team Related Persons Name: CONCEPCION IQBALCIA Address: home [address] [place] [address] Name: LEANDRO MARQUEZ Address: [address] [place] [address] Name: ANTOLIN MARQUEZ Name: MATTIE BANKS Address: [address] [address]
--- OUTSIDE RECORDS SUMMARY | 2023-06-08 02:28 | XMS_ITS | Continuity of Care Document ---
Author Name Unknown Organization [facility] Address [address] [place] [address]- Care Team Providers Care Trailer Assembler Name Role Phone Louis Patel MD Primary Care Physician Encounter [facility] Date(s): 01/31/21 - 03/02/21 [facility] Medicine [address] [place] [id number] Allergies, Adverse Reactions, Alerts Substance [...] 16:03:00 EDT, Aerosol, Route to Pharmacy Electronically, [id number], [facility] Start Date: 02/04/21 Status: Ordered Bedside [...] tablet, 3 Refills, Maintenance, 04/04/20 13:25:00EDT, Tablet, [facility]/pharmacy #1130 Start Date: 04/04/20 Status: Ordered Guaiasorb DM 10 mg-100 mg/5 mL oral liquid 10 mL, By Mouth, Every 4 hours, # 240 mL, 0 Refills, Maintenance, 04/17/20 13:08:00 EDT, [facility]/pharmacy #1130, taiwanese label, 10 mL By Mouth Every 4 hours Start Date: 04/17/20 Status: Ordered Keppra 1000 mg oral tablet 1 tablet = 1,000 mg, By Mouth, 3 times a day, # 90 tablet, 6 Refills, Maintenance, 10/16/20 10:26:00 EST, Tablet, [facility]/pharmacy #1130 Start Date: 10/16/20 Status: Ordered lamotrigine 150 mg oral tablet 1 tablet = 150 mg, By Mouth, 2 times a day, # 60 tablet, 6 Refills, Maintenance, 10/16/20 10:26:00 EST, Tablet, [facility]/pharmacy #1130 Start Date: 10/16/20 Status: Ordered metFORMIN 500 mg oral tablet, extended release 1 tablet = 500 mg, By Mouth, Daily, # 30 tablet, 4 Refills, Maintenance, 02/13/21 15:28:00 EDT, ER Tablet, [facility]/pharmacy #1130, Partial fill upon patient request [...] 2 Refills, Maintenance, 11/04/20 18:31:00 EST, ECCapsule, [facility]/pharmacy #1130, taiwanese label Start Date: 11/04/20 Status: Ordered pantoprazole [...] with dinner every night (please label in Swiss), # 30 tablet, 1 Refills, Maintenance, 09/16/20 [...]
--- OUTSIDE RECORDS SUMMARY | 2023-06-08 02:28 | XMS_ITS | Continuity of Care Document ---
Author Name Unknown Organization [facility] Address Unknown Care Team Providers Care Tap And Die Maker Technician Name Role Phone Jorge ARMENTA, Louis Altamirano Primary Care Physician Encounter [facility] ACCT R [id number] Date(s): 04/17/22 - 06/07/22 [facility] Attending Physician: Lc Arana MD Referring Physician: Louis Patel MD Allergies, Adverse Reactions, Alerts No Known Allergies Immunizations Given and Recorded Vaccine Date Status Refusal Reason SARS-CoV-2 mRNA (xlvrzoo-owum-dnpsp) vax 01/19/22 Given SARS-CoV-2 (COVID-19) mRNA BNT-162b2 vac 1 07/03/21 Given SARS-CoV-2 (COVID-19) mRNA BNT-162b2 vac 06/06/21 Given Not Given Vaccine Date Status Refusal Reason tetanus/diphtheria/pertussis , acel(Tdap) 2 09/26/21 Not Given Parent Or Guardian R efuses 1? Unknown: Resend to [facility]. 2Result Comment: mom states pt has received [...] 6 Refills, Maintenance, 06/10/21 16:22:00 EDT, Solution, [facility]/pharmacy #1130, Partial fill upon patient request if the prescription is for a schedule II opioid drug., 151, cm, 06/10/21 16:07:00 EDT,... Start Date: 06/10/21 Status: Ordered albuterol CFC free 90 mcg/inh inhalation aerosol 2, puffs, Inhalation, Every 4 hours, PRN, # 1 each, Refills 11, Tot. Refills 11, Maintenance, 06/10/21 16:22:00 EDT, Aerosol, Route to Pharmacy Electronically, [id number], [facility]/pharmacy #1130, 151, cm, 06/10/21 16:07:00 EDT, H... Start Date: 06/10/21 Stop Date: 06/05/22 Status: Ordered Ambien 5 mg oral tablet 1 tablet = 5 mg, By Mouth, Daily at bedtime, PRN as needed for insomnia, # 12 tablet, 0 Refills, Acute 06/29/22 14:54:00 EDT, 05/29/21 14:54:00 EDT, Tablet, [facility]/pharmacy #1130, Partial fill upon patient request [...] Refills, Maintenance, 04/17/20 13:08:00 EDT, [facility], italian label, 10 mL By Mouth Every 4 [...] 5 Refills, Maintenance, 10/06/21 9:55:00 EST, Tablet, [facility]/pharmacy #1130, 151, cm, 09/02/21 14:18:00 EDT, Height, 71.8, kg, 02/18/21 19:34:00 EDT, Dry Weight Start Date: 10/06/21 Status: Ordered levETIRAcetam 1000 mg oral tablet 1 tablet, By Mouth, 3 times a day, # 90 tablet, 5 Refills, [facility] STORE 84405, 150, cm, 04/20/22 13:54:00 EDT, Height, 68.63, [...] 1 Refills, Maintenance, 05/28/22 17:02:00 EDT, Tablet, [facility], Partial fill upon patient request if the prescription is for a schedule II opioid drug., 150, cm, 05/15... Start Date: 05/28/22 Status: Ordered Vimpat 200 mg oral tablet 1 tablet = 200 mg, By Mouth, 2 times a day, Brand name medically necessary for seizure disorder, # 60 tablet, 5 Refills, Maintenance, 03/16/22 16:39:00 EDT, Tablet, [facility]/pharmacy #1130, generic lacosamide preferred, 150, cm, [...]
--- OUTSIDE RECORDS SUMMARY | 2023-06-08 02:28 | XMS_ITS | Continuity of Care Document ---
Author Name Unknown Organization [facility] Medicine Address [address] [place] [address]- Care Team Providers Care Flask Cleaner Name Role Phone Jorge ARMENTA, Louis Altamirano Primary Care Physician Encounter [facility] [place] ACCT R [id number] Date(s): 12/10/20 - 01/09/21 [facility] [address] [place] [id number]- Attending Physician: AdmtrMerlin Admitting Physician: Admtr, Ar8 [...] 11:19:00 EST, Aerosol, Route to Pharmacy Electronically, [id number], [facility]/pharmacy #1130 Start Date: 12/13/20 Status: Ordered Bedside [...] each, 5 Refills, Maintenance, 04/04/20 13:27:00 EDT, [facility]/pharmacy #1130 Start Date: 04/04/20 Status: [...] Maintenance, 04/17/20 13:08:00 EDT, [facility], british virgin islander label, 10 mL By Mouth Every [...] 6 Refills, Maintenance, 04/04/20 13:23:00 EDT, Tablet, [facility]/pharmacy #1130 Start Date: 04/04/20 Status: Ordered omeprazole 20 mg oral enteric coated capsule 1 capsule = 20 mg, By Mouth, Daily, # 30 capsule, 2 Refills, Maintenance, 11/04/20 18:31:00 EST, ECCapsule, [facility], british virgin islander label Start Date: 11/04/20 Status: Ordered risperiDONE [...] with dinner every night (please label in Luxembourgish), # 30 tablet, 1 Refills, Maintenance, 09/16/20 [...]
--- OUTSIDE RECORDS SUMMARY | 2023-06-08 02:28 | XMS_ITS | Continuity of Care Document ---
Author Name Unknown Organization [facility] ter Address [address] [place] [address]- Care Team Providers Care Review Appraiser Name Role Phone Louis Patel MD Primary Care Physician Encounter [facility] Date(s): 07/19/20 - 07/19/[address] [address]- [facility] Discharge Disposition: A-D/C Walkout Attending Physician: Not on Staff, Attending MD Admitting Physician: Not on Staff, Admitting MD Referring Physician: Not on Staff, Referring [...] Refills, Maintenance, 04/17/20 13:08:00 EDT, [facility], mauritanian label, 10 mL By Mouth Every 4 hours Start Date: 04/17/20 Status: Ordered Keppra 1000 mg oral tablet 1 tablet = 1,000 mg, By Mouth, 3 times a day, # 90 tablet, 6 Refills, Maintenance, 04/04/20 13:18:00 EDT, Tablet, [facility]/pharmacy #1130 Start Date: 04/04/20 Status: Ordered lamotrigine 150 mg oral tablet 1 tablet = 150 mg, By Mouth, 2 times a day, # 60 tablet, 6 Refills, Maintenance, 04/04/20 13:20:00 EDT, Tablet, [facility]/pharmacy #1130 Start Date: 04/04/20 Status: Ordered mirtazapine 45 mg oral tablet 1 tablet = 45 mg, By Mouth, Daily at bedtime, # 30 tablet, 6 Refills, Maintenance, 04/04/20 13:23:00 EDT, Tablet, [facility]/pharmacy #1130 Start Date: 04/04/20 Status: Ordered omeprazole 20 mg oral enteric coated capsule 1 capsule = 20 mg, By Mouth, Daily, # 30 capsule, 2 Refills, Maintenance, 04/17/20 13:08:00 EDT, ECCapsule, [facility]/pharmacy #1130, mauritanian label Start Date: 04/17/20 Status: Ordered Restoril 15 mg oral capsule 1 capsule = 15 mg, By Mouth, Daily at bedtime, PRN for sleep, for 30 days, # 30 capsule, 5 Refills,Acute 10/01/20 13:31:00 EST, 04/04/20 13:31:00 EDT, Capsule, [facility]/pharmacy #1130 Start Date: 04/04/20 Stop Date: 10/01/20 Status: Ordered risperiDONE 4 mg oral tablet 1 tablet = 4 mg, By Mouth, Daily at bedtime, # 30 tablet, 6 Refills, Maintenance, 04/04/20 13:30:00EDT, Tablet, [facility]/pharmacy #1130 Start Date: 04/04/20 Stop Date: 10/31/20 Status: Ordered Vimpat 200 mg oral tablet 1 tablet = 200 mg, By Mouth, 2 times a day, # 60 tablet, 5 Refills, Maintenance, 04/04/20 13:23:00 EDT, Tablet, [facility]/pharmacy #1130 Start Date: 04/04/20 Status: Ordered Zofran 8 mg oral tablet 1 tablet = 8 mg, By Mouth, Daily, take with dinner every night (please label in Chinese), # 30 tablet, 1 Refills, Maintenance, 07/04/20 16:36:00 EDT, Tablet, [facility] Start Date: 07/04/20 Status: Ordered Problem List Condition Effective Dates Status Health Status Inform ant Complex partial seizure(Confirmed) Active Anxiety and depression(Confirmed) Active Wayne-Silver syndrome, con genital hemihypertrophy(Confirmed) Active Social History Social History Type Response Smoking Status Never (less than 100 in lifetime) entered on: 04/04/20 Sex
--- OUTSIDE RECORDS SUMMARY | 2023-06-08 02:28 | XMS_ITS | Continuity of Care Document ---
Author Name Unknown Organization [facility] Address [address] [place] [address]- Care Team Providers Care Manager Service Desk Name Role Phone Jorge ARMENTA, Louis Altamirano Primary Care Physician Encounter [facility] Date(s): 01/19/22 - 02/18/22 [facility] [address] [place] [address]- Attending Physician: Merlin Barry Admitting Physician: AdmMerlin villar Referring Physician: Admtr ArViktoriya Allergies, Adverse Reactions, Alerts No Known Allergies Immunizations Given and Recorded Vaccine Date Status Refusal Reason SARS-CoV-2 mRNA ([id number]-hfnc-uyuag) vax 01/19/22 Given SARS-CoV-2 (COVID-19) mRNA BNT-162b2 vac 1 07/03/21 Given SARS-CoV-2 (COVID-19) mRNA BNT-162b2 vac 06/06/21 Given Not Given Vaccine Date Status Refusal Reason tetanus/diphtheria/pertussis , acel(Tdap) 2 09/26/21 Not Given Parent Or Guardian R efuses 1? Unknown: Resend to [facility]. 2Result Comment: mom states pt has received [...] 16:22:00 EDT, Aerosol, Route to Pharmacy Electronically, [id number], [facility], 151, cm, 06/10/21 16:07:00 EDT, H... Start Date: 06/10/21 Stop Date: 06/05/22 Status: Ordered Ambien 5 mg oral tablet 1 tablet = 5 mg, By Mouth, Daily at bedtime, PRN as needed for insomnia, # 12 tablet, 0 Refills, Acute 06/29/22 14:54:00 EDT, 05/29/21 14:54:00 EDT, Tablet, [facility]pharmacy [facility]1130, Partial fill upon patient request if [...] mL, 0 Refills, Maintenance, 04/17/20 13:08:00 EDT, [facility]/pharmacy #1130, liberian label, 10 mL By Mouth Every 4 hours Start Date: 04/17/20 Status: Ordered ipratropium nasal 21 mcg/inh spray 2 sprays, Nares, Both, 2 times a day, # 30 mL, 5 Refills, Maintenance, 10/27/21 14:41:00 EST, [place], [facility]/pharmacy #1130, Partial fill upon patient request if the prescription is for a schedule II opioid drug., 2 sprays Nares, Both 2 times a day, 150,... Start Date: 10/27/21 Status: Ordered Keppra 1000 mg oral tablet 1 tablet = 1,000 mg, By Mouth, 3 times a day, # 90 tablet, 6 Refills, Maintenance, 10/06/21 10:07:00 EST, Tablet, [facility]/pharmacy #1130, 151, cm, 09/02/21 14:18:00 EDT, Height, 71.8, kg, 02/18/21 19:34:00 EDT, Dry Weight Start Date: 10/06/21 Status: Ordered ketoconazole 1% topical shampoo See Instructions, Topically Every third day, # 200 mL, 1 Refills, Maintenance, 01/19/22 15:55:00 EST, [facility]/pharmacy #1130, Partial fill upon patient request if the prescription is for a schedule II opioid drug., Topically Every third day, 150, cm, 03/0... Start Date: 01/19/22 Status: Ordered ketoconazole 2% topical cream 1 application, Topically, 2 times a day, for 28 days, # 60 Gm, 2 Refills, Acute 04/13/22 15:58:00 EDT, 01/19/22 15:58:00 EST, Cream, [facility]/pharmacy [facility]1130, Partial fill upon patient request if [...] Maintenance, 11/04/20 18:31:00 EST, ECCapsule, [facility], liberian label Start Date: 11/04/20 Status: Ordered pantoprazole [...] with dinner every night (please label in Faroese), # 30 tablet, 1 Refills, Maintenance, 09/16/20 [...]
--- OUTSIDE RECORDS SUMMARY | 2023-06-08 02:28 | XMS_ITS | Continuity of Care Document ---
Author Name Unknown Organization [facility] Address [address] [place] [address]- Care Team Providers Care Business Intelligence Reporting Analyst Name Role Phone Jorge ARMENTA, Louis Altamirano Primary Care Physician Encounter [facility] Date(s): 09/14/22 - 10/14/22 [facility] [address] [place] [id number] Allergies, Adverse Reactions, Alerts No Known Allergies Immunizations Given and Recorded Vaccine Date Status Refusal Reason SARS-CoV-2 mRNA ([id number]-[id number]-vdfnp) vax 01/19/22 Given SARS-CoV-2 (COVID-19) mRNA BNT-162b2 vac 1 07/03/21 Given SARS-CoV-2 (COVID-19) mRNA BNT-162b2 vac 06/06/21 Given Not Given Vaccine Date Status Refusal Reason tetanus/diphtheria/pertussis , acel(Tdap) 2 09/26/21 Not Given Parent Or Guardian R efuses 1? Unknown: Resend to [facility]. 2Result Comment: mom states pt has received [...] 16:22:00 EDT, Aerosol, Route to Pharmacy Electronically, [id number], [facility]/pharmacy #1130, 151, cm, 06/10/21 16:07:00 [...] 2 Refills, Maintenance, 05/28/22 17:00:00 EDT, Gel, [facility]/pharmacy #1130, Partial fill upon patient [...] tablet, 5 Refills, Maintenance, 10/06/22 7:21:00 EST, [facility]/pharmacy #1130, 150, cm, 07/07/22 13:19:00 EDT, Height, 68.63, kg, 10/22/21 15:09:00 EST, Dry Weight Start Date: 10/06/22 Status: Ordered levETIRAcetam 1000 mg oral tablet 1 tablet, By Mouth, 3 times a day, # 90 tablet, 5 Refills, 10/06/22 7:22:00 EST, [facility]/pharmacy #1130, 150, cm, 07/07/22 13:19:00 EDT, [...] 1, tablet, By Mouth, Daily, Label in Mexican, # 30 tablet, Refills 5, Tot. Refills 5, Maintenance, 10/13/22 15:15:00 EST, [facility]ically[facility], Partial fill upon patient request if [...] Refills, Maintenance, 08/23/22 14:25:00 EDT, [facility], 150, cm, 07/07/22 13:19:00 EDT, Height,68.63, kg, 10/22/21 15:09:00 EST, Dry Weight Start Date: 08/23/22 Status: Ordered Tylenol Extra Strength 500 mg oral tablet 2 tablet = 1,000 mg, By Mouth, 3 times a day, PRN for pain, # 540 tablet, 1 Refills, Maintenance, 07/07/22 13:48:00 EDT, Tablet, [facility]/pharmacy #1130, Partial fill upon patient request if the prescription is for a schedule II opioid drug., 150, cm, 06/16... Start Date: 07/07/22 Status: Ordered Vimpat 200 mg oral tablet 1 tablet = 200 mg, By Mouth, 2 times a day, Brand name medically necessary for seizure disorder, # 60 tablet, 5 Refills, Maintenance, 10/06/22 7:18:00 EST, Tablet, [facility]/pharmacy #1130, generic lacosamide preferred, 150, [...] Physician Member Role: PCP Address: Address: [address] [facility], [place] [address]- Care Team Related Persons Name: MATT IQBAL Address: home [address] [place] [address] Name: LEANDRO MARQUEZ Address: home [address] [place] [address] Name: ANTOLIN MARQUEZ Name: ZORAIDA BANKS Address: home [address] [address]
--- OUTSIDE RECORDS SUMMARY | 2023-06-08 02:28 | XMS_ITS | Continuity of Care Document ---
Author Name Unknown Organization [facility] Address [address] [place] [address]- Care Team Providers Care Tariff Compiler Name Role Phone Jorge ARMENTA, Louis Altamriano Primary Care Physician Encounter [facility] Date(s): 02/21/21 - 03/31/21 [facility]/[address] [address]- Attending Physician: Felipe Castillo MD Admitting Physician: [...] 16:03:00 EDT, Aerosol, Route to Pharmacy Electronically, [id number], [facility]/pharmacy #1130 Start Date: 02/04/21 Status: Ordered [...] each, 5 Refills, Maintenance, 04/04/20 13:27:00 EDT, [facility]/pharmacy #1130 Start Date: 04/04/20 Status: Ordered clonazePAM 2 mg oral tablet 1 tablet = 2 mg, By Mouth, Daily at bedtime, # 30 tablet, 3 Refills, Maintenance, 04/04/20 13:25:00EDT, Tablet, [facility]/pharmacy #1130 Start Date: 04/04/20 Status: Ordered Guaiasorb DM 10 mg-100 mg/5 mL oral liquid 10 mL, By Mouth, Every 4 hours, # 240 mL, 0 Refills, Maintenance, 04/17/20 13:08:00 EDT, [facility]/pharmacy #1130, wolof label, 10 mL By Mouth Every 4 hours Start Date: 04/17/20 Status: Ordered Keppra 1000 mg oral tablet 1 tablet = 1,000 mg, By Mouth, 3 times a day, # 90 tablet, 6 Refills, Maintenance, 10/16/20 10:26:00 EST, Tablet, [facility]/pharmacy #1130 Start Date: 10/16/20 Status: Ordered lamotrigine 150 mg oral tablet 1 tablet = 150 mg, By Mouth, 2 times a day, # 60 tablet, 6 Refills, Maintenance, 10/16/20 10:26:00 EST, Tablet, [facility]/pharmacy #1130 Start Date: 10/16/20 Status: Ordered metFORMIN 500 mg oral tablet, extended release 1 tablet = 500 mg, By Mouth, Daily, # 30 tablet, 4 Refills, Maintenance, 02/13/21 15:28:00 EDT, ER Tablet, [facility]/pharmacy #1130, Partial fill upon patient request if the prescription is for a schedule II opioid drug., 150, cm, 02/13/21 14:49:00 EDT, Hei... Start Date: 02/13/21 Status: Ordered mirtazapine 45 mg oral tablet 1 tablet = 45 mg, By Mouth, Daily at bedtime, # 30 tablet, 6 Refills, Maintenance, 04/04/20 13:23:00 EDT, Tablet, [facility]/pharmacy #1130 Start Date: 04/04/20 Status: Ordered omeprazole 20 mg oral enteric coated capsule 1 capsule = 20 mg, By Mouth, Daily, # 30 capsule, 2 Refills, Maintenance, 11/04/20 18:31:00 EST, ECCapsule, [facility]/pharmacy #1130, wolof label Start Date: 11/04/20 Status: Ordered pantoprazole [...] pack/packet, 0 Refills, Maintenance, 02/20/21 14:54:00 EDT, [facility]/pharmacy #1130, Partial fill upon patient request if theprescription is for a schedule II opioid drug., as... Start Date: 02/20/21 Status: Ordered risperiDONE 4 mg oral tablet 1 tablet = 4 mg, By Mouth, Daily at bedtime, # 30 tablet, 6 Refills, Maintenance, 04/04/20 13:30:00EDT, Tablet, [facility]/pharmacy #1130 Start Date: 04/04/20 Stop Date: 10/31/20 Status: Ordered Vimpat 200 mg oral tablet 1 tablet = 200 mg, By Mouth, 2 times a day, # 60 tablet, 5 Refills, Maintenance, 10/16/20 10:26:00 EST, Tablet, [facility]/pharmacy #1130 Start Date: 10/16/20 Status: Ordered Zofran 8 mg oral tablet 1 tablet = 8 mg, By Mouth, Daily, take with dinner every night (please label in Algerian), # 30 tablet, 1 Refills, Maintenance, 09/16/20 [...]
--- OUTSIDE RECORDS SUMMARY | 2023-06-08 02:29 | XMS_ITS | Continuity of Care Document ---
Author Name Unknown Organization [facility] y Address [address] [place] [address]- Care Team Providers Care Quality Assurance Assessor Name Role Phone Jorge ARMENTA, Louis Altamirano Primary Care Physician [phone] Encounter [facility] Date(s): 07/03/21 - 08/03/21 [facility] [address] [place], [place] [address] Attending Physician: Ashley Edwards MD Admitting Physician: Ashley Edwards MD Allergies, Adverse Reactions, Alerts Substance Reaction [...] 16:22:00 EDT, Aerosol, Route to Pharmacy Electronically, [id number], [facility]/pharmacy #1130, 151, cm, 06/10/21 16:07:00 EDT, H... Start Date: 06/10/21 Stop Date: 06/05/22 Status: Ordered Ambien 5 mg oral tablet 1 tablet = 5 mg, By Mouth, Daily at bedtime, PRN as needed for insomnia, # 12 tablet, 0 Refills, Acute 06/29/22 14:54:00 EDT, 05/29/21 14:54:00 EDT, Tablet, [facility]/pharmacy #1130, Partial [...] 5 Refills, Maintenance, 04/04/20 13:27:00 EDT, [facility]/pharmacy #1130 Start Date: 04/04/20 Status: Ordered clonazePAM 2 mg oral tablet 1 tablet = 2 mg, By Mouth, Daily at bedtime, # 30 tablet, 3 Refills, Maintenance, 04/04/20 13:25:00EDT, Tablet, [facility]/pharmacy #1130 Start Date: 04/04/20 Status: Ordered Guaiasorb DM 10 mg-100 mg/5 mL oral liquid 10 mL, By Mouth, Every 4 hours, # 240 mL, 0 Refills, Maintenance, 04/17/20 13:08:00 EDT, [facility]/pharmacy #1130, nauruan label, 10 mL By Mouth Every 4 hours Start Date: 04/17/20 Status: Ordered Keppra 1000 mg oral tablet 1 tablet = 1,000 mg, By Mouth, 3 times a day, # 90 tablet, 0 Refills, Maintenance, 04/04/21 14:56:00 EDT, Tablet, [facility]/pharmacy #1130, 151, cm, 04/04/21 14:15:00 EDT, Height, 71.8, kg, 02/18/21 19:34:00 EDT, Dry Weight Start Date: 04/04/21 Status: Ordered lamotrigine 150 mg oral tablet 1 tablet = 150 mg, By Mouth, 2 times a day, # 60 tablet, 6 Refills, Maintenance, 04/04/21 14:56:00 EDT, Tablet, [facility]/pharmacy #1130, 151, cm, 04/04/21 14:15:00 EDT, Height, 71.8, kg, 02/18/21 19:34:00EDT, Dry Weight Start Date: 04/04/21 Status: Ordered metFORMIN 500 mg oral tablet, extended release 1 tablet = 500 mg, By Mouth, Daily, # 30 tablet, 4 Refills, Maintenance, 02/13/21 15:28:00 EDT, ER Tablet, [facility]/pharmacy #1130, Partial fill upon patient request if the prescription is for a schedule II opioid drug., 150, cm, 02/13/21 14:49:00 EDT, Hei... Start Date: 02/13/21 Status: Ordered mirtazapine 45 mg oral tablet 1 tablet = 45 mg, By Mouth, Daily at bedtime, # 30 tablet, 6 Refills, Maintenance, 04/04/20 13:23:00 EDT, Tablet, [facility]/pharmacy #1130 Start Date: 04/04/20 Status: Ordered omeprazole 20 mg oral enteric coated capsule 1 capsule = 20 mg, By Mouth, Daily, # 30 capsule, 2 Refills, Maintenance, 11/04/20 18:31:00 EST, ECCapsule, [facility]/pharmacy #1130, nauruan label Start Date: 11/04/20 Status: Ordered pantoprazole [...] with dinner every night (please label in Sinhala), # 30 tablet, 1 Refills, Maintenance, 09/16/20 [...]
--- OUTSIDE RECORDS SUMMARY | 2023-06-08 02:29 | XMS_ITS | Continuity of Care Document ---
Author Name Unknown Organization [facility] Address [address] [place] [address]- Care Team Providers Care Line Technician Name Role Phone Jorge ARMENTA, Louis Altamirano Primary Care Physician Encounter [facility] Date(s): 05/22/20 - 06/21/20 [facility] [address] [place] [address]- [facility] Allergies, Adverse Reactions, Alerts Substance Reaction [...] 2 Refills, Maintenance, 04/17/20 13:08:00 EDT, ECCapsule, [facility]/pharmacy #1130, welsh label Start Date: 04/17/20 Status: Ordered Restoril 15 mg oral capsule 1 capsule = 15 mg, By Mouth, Daily at bedtime, PRN for sleep, for 30 days, # 30 capsule, 5 Refills,Acute 10/01/20 13:31:00 EST, 04/04/20 13:31:00 EDT, Capsule, [facility]/pharmacy #1130 Start Date: 04/04/20 Stop Date: 10/01/20 [...]
--- OUTSIDE RECORDS SUMMARY | 2023-06-08 02:29 | XMS_ITS | Continuity of Care Document ---
Author Name Unknown Organization [facility] y Address [address] [place] [address]- Care Team Providers Care Market President Name Role Phone Louis Patel MD Primary Care Physician [id number] Date(s): 02/01/23 - 05/16/23 [facility] [address] [place] [address]- Attending Physician: Not on Staff, Attending MD Allergies, Adverse Reactions, Alerts No Known Allergies Immunizations Given and Recorded Vaccine Date Status Refusal Reason SARS-CoV-2 mRNA (bojshkj-[id number]) vax 01/19/22 Given SARS-CoV-2 (COVID-19) mRNA BNT-162b2 vac 1 07/03/21 Given SARS-CoV-2 (COVID-19) mRNA BNT-162b2 vac 06/06/21 Given Not Given Vaccine Date Status Refusal Reason tetanus/diphtheria/pertussis , acel(Tdap) 2 09/26/21 Not Given Parent Or Guardian R efuses 1? Unknown: Resend to [facility]. 2Result Comment: mom states pt has received [...] Refills, Maintenance, 06/10/21 16:22:00 EDT, Solution, [facility]/pharmacy #1130, Partial fill upon patient request if the prescription is for a schedule II opioid drug., 151, cm, 06/10/21 16:07:00 EDT,... Start Date: 06/10/21 Status: Ordered albuterol CFC free 90 mcg/inh inhalation aerosol 2, puffs, Inhalation, Every 4 hours, PRN, # 1 each, Refills 11, Tot. Refills 11, Maintenance, 01/28/23 15:52:00 EDT, Aerosol, Route to Pharmacy Electronically, [id number], [facility]/pharmacy #1130, 150, cm, 01/28/23 15:24:00 EDT, H... [...] 30 tablet, 3 Refills, Maintenance, 03/22/23 16:04:00EDT, [facility]/pharmacy #1130, Partial fill upon patient request [...] Gm, 2 Refills, Maintenance, 04/20/23 10:27:00 EDT, [id number], 25, APPLY TO AFFECTED AREA 4 TIMES [...] Gm, 0 Refills, Maintenance, 02/23/23 11:47:00 EDT, [place], Partial fill upon patient request if the prescription is for a schedule II opioid drug. Start Date: 02/23/23 Status: Ordered fluticasone 50 mcg/inh nasal spray 1 sprays, Nares, Both, 2 times a day, # 16 Gm, 0 Refills, Maintenance, 02/23/23 11:47:00 EDT, [place], Partial fill upon patient request if the [...] mL, 5 Refills, Maintenance, 03/22/23 16:10:00 EDT,Solution, [facility], Partial fill upon patient request if [...] tablet, 5 Refills, Maintenance, 03/22/23 16:02:00 EDT, [facility]/pharmacy #1130, 150, cm, 03/22/23 15:46:00 EDT, Height, 74.1, kg, 02/23/23 13:43:00 EDT, Dry Weight Start Date: 03/22/23 Status: Ordered mirtazapine 45 mg oral tablet 1 tablet = 45 mg, By Mouth, Daily at bedtime, # 30 tablet, 0 Refills, Maintenance, 03/22/23 16:04:00 EDT, Tablet, [facility]/pharmacy #1130, Partial fill upon patient request [...] 1, tablet, By Mouth, Daily, Label in Romanian, # 30 tablet, Refills 5, Tot. Refills 5, Maintenance, 03/22/23 16:02:00 EDT, Route to Pharmacy Electronically, [facility]/pharmacy #1130, Partial fill upon patient request [...] 03/22/23 16:04:00 EDT, Route to Pharmacy Electronically, [facility]/pharmacy #1130, Partial fill upon patient request [...] Unknown, 5 Refills, Maintenance, 03/22/23 16:02:00 EDT, [facility]/pharmacy #1130, 150, cm, 03/22/23 15:46:00 EDT, Height, [...] Team Personnel Name: Louis Patel MD Position: [facility] Physician - Primary Care Member Role: PCP Address: Address: [address] [place], [place] [address] Name: Radha Wang RN Position: [facility] ED RN W/OE and Tasks Member Role: Primary Care Nurse Care Team Related Persons Name: CONCEPCION IQBALCIA Address: home [address] [place] [address] Name: LEANDRO MARQUEZ Address: home [address] [place] [address] Name: ANTOLIN MARQUEZ Name: MATTIE BANKS Address: home [address] [address]
--- OUTSIDE RECORDS SUMMARY | 2023-06-08 02:29 | XMS_ITS | Continuity of Care Document ---
Author Name Unknown Organization [facility] y Address [address] [place] [address]- Care Team Providers Care Computing Consultant Name Role Phone Jorge ARMENTA, Louis Altamirano Primary Care Physician [phone] Encounter [facility] Date(s): 12/30/20 - 02/23/21 [facility] [address] [place] [id number] Attending Physician: Andrews Shea MD, I Admitting Physician: Andrews Shea MD, I Allergies, Adverse Reactions, Alerts Substance Reaction Severity [...] 16:03:00 EDT, Aerosol, Route to Pharmacy Electronically, [id number], [facility]/pharmacy #1130 Start Date: 02/04/21 Status: Ordered Bedside [...] Refills, Maintenance, 04/17/20 13:08:00 EDT, [facility], canadian label, 10 mL By Mouth Every 4 hours Start Date: 04/17/20 Status: Ordered Keppra 1000 mg oral tablet 1 tablet = 1,000 mg, By Mouth, 3 times a day, # 90 tablet, 6 Refills, Maintenance, 10/16/20 10:26:00 EST, Tablet, [facility]/pharmacy #1130 Start Date: 10/16/20 Status: Ordered lamotrigine 150 mg oral tablet 1 tablet = 150 mg, By Mouth, 2 times a day, # 60 tablet, 6 Refills, Maintenance, 10/16/20 10:26:00 EST, Tablet, [facility]/pharmacy #1130 Start Date: 10/16/20 Status: Ordered metFORMIN 500 mg oral tablet, extended release 1 tablet = 500 mg, By Mouth, Daily, # 30 tablet, 4 Refills, Maintenance, 02/13/21 15:28:00 EDT, ER Tablet, [facility]/pharmacy #1130, Partial [...] EST, ECCapsule, [facility]/pharmacy #1130, canadian label Start Date: 11/04/20 Status: Ordered pantoprazole [...] with dinner every night (please label in Maltese), # 30 tablet, 1 Refills, Maintenance, 09/16/20 [...]
--- OUTSIDE RECORDS SUMMARY | 2023-06-08 02:29 | XMS_ITS | Continuity of Care Document ---
Author Name Unknown Organization [facility] Address [address] [place] [address]- Care Team Providers Care Broadcast Designer Name Role Phone Jorge ARMENTA, Louis Altamirano Primary Care Physician En[place] [facility] [place] Date(s[place] 11/27/22 - 02/04/23 [facility] [address] [place] [id number] Attending Physician: Louis Patel MD Admitting Physician: Louis Patel MD Allergies, Adverse Reactions, Alerts No Known Allergies Immunizations Given and Recorded Vaccine Date Status Refusal Reason SARS-CoV-2 mRNA (uhpydko-mgqb-pzkim) vax 01/19/22 Given SARS-CoV-2 (COVID-19) mRNA BNT-162b2 [...] 15:52:00 EDT, Aerosol, Route to Pharmacy Electronically, [id number], [facility]/pharmacy #1130, 150, [...] 05/28/22 17:00:00 EDT, Gel, [facility]/pharmacy #1130, Partial [...] tablet, 5 Refills, Maintenance, 01/15/23 11:36:00 EST, [facility]/pharmacy #1130, 150, cm, 01/15/23 11:00:00 EST, Height, 68.63, kg, 10/22/21 15:09:00 EST, Dry Weight Start Date: 01/15/23 Status: Ordered levETIRAcetam 1000 mg oral tablet 1 tablet, By Mouth, 3 times a day, # 90 tablet, 5 Refills, 01/15/23 11:35:00 EST, [facility]/pharmacy #1130, 150, cm, 01/15/23 11:00:00 EST, Height, 68.63, kg, 10/22/21 15:09:00 EST, Dry Weight Start Date: 01/15/23 Status: Ordered mirtazapine 45 mg oral tablet 0 Refills, Maintenance, 10/06/22 7:20:00 EST, Partial fill upon patient request if the prescriptionis for a schedule II opioid drug. Start Date: 10/06/22 Status: Ordered montelukast 10 mg oral tablet 10 mg, 1, tablet, By Mouth, Daily, Label in [place] Islander, # 30 tablet, Refills 5, Tot. Refills 5, Maintenance, 10/13/22 15:15:00 EST, [facility] to [facility], [facility] Refills, Maintenance, 08/23/22 14:25:00 EDT, [id number], 150, cm, 07/07/22 13:19:00 EDT, Height,68.63, kg, [...] Care Physician Member Role: PCP Address: Address: [address] [place] [address], [facility] [place] [address]- Care Team Related Persons Name: MATT IQBAL Address: home [address] [place] [address] Name: LEANDRO MARQUEZ Address: home [address] [place] [address] Name: ANTOLIN MARQUEZ Name: ZORAIDA BANKS Address: home [address] [address]
--- OUTSIDE RECORDS SUMMARY | 2023-06-08 02:29 | XMS_ITS | Continuity of Care Document ---
Author Name Unknown Organization [facility] Address [address] [place] [address]- Care Team Providers Care Regrinder Name Role Phone Louis Patel MD Primary Care Physician [phone] Encounter [facility] [place] Date(s): 10/21/22 - 12/27/22 [facility] [address] [place], [place] [address] Attending Physician: Not on Staff, Attending MD Allergies, Adverse Reactions, Alerts No Known Allergies Immunizations Given and Recorded Vaccine Date Status Refusal Reason SARS-CoV-2 mRNA ([id number]-skuf-tqpkz) vax 01/19/22 Given SARS-CoV-2 (COVID-19) mRNA BNT-162b2 [...] 16:22:00 EDT, Aerosol, Route to Pharmacy Electronically, [id number], [facility]/pharmacy #1130, 151, cm, 06/10/21 16:07:00 EDT, [...] 2 Refills, Maintenance, 05/28/22 17:00:00 EDT, Gel, [facility]/pharmacy #1130, Partial fill upon patient request [...] tablet, 5 Refills, Maintenance, 10/06/22 7:21:00 EST, [facility]/pharmacy #1130, 150, cm, 07/07/22 13:19:00 EDT, Height, 68.63, kg, 10/22/21 15:09:00 EST, Dry Weight Start Date: 10/06/22 Status: Ordered levETIRAcetam 1000 mg oral tablet 1 tablet, By Mouth, 3 times a day, # 90 tablet, 5 Refills, 10/06/22 7:22:00 EST, [facility]/pharmacy #1130, 150, cm, 07/07/22 13:19:00 EDT, [...] 10/13/22 15:15:00 EST, [facility] Partial fill upon patient request [...] Refills, Maintenance, 08/23/22 14:25:00 EDT, [id number], 150, cm, 07/07/22 13:19:00 EDT, Height,68.63, kg, 10/22/21 15:09:00 EST, Dry Weight Start Date: 08/23/22 Status: Ordered Tylenol Extra Strength 500 mg oral tablet 2 tablet = 1,000 mg, By Mouth, 3 times a day, PRN for pain, # 540 tablet, 1 Refills, Maintenance, 07/07/22 13:48:00 EDT, Tablet, [facility]/pharmacy #1130, Partial fill upon patient request if the prescription is for a schedule II opioid drug., 150, cm, 06/16... Start Date: 07/07/22 Status: Ordered Vimpat 200 mg oral tablet 1 tablet = 200 mg, By Mouth, 2 times a day, Brand name medically necessary for seizure disorder, # 60 tablet, 5 Refills, Maintenance, 10/06/22 7:18:00 EST, Tablet, [facility]/pharmacy #1130, generic lacosamide preferred, 150, cm, [...] PCP Address: Address: [address] [facility] [address]- Care Team Related Persons Name: MATT IQBAL Address: home [address] [place] [address] Name: LEANDRO MARQUEZ Address: home [address] [place] [address] Name: ANTOLIN MARQUEZ Name: ZORAIDA BANKS Address: [address] [address]
--- OUTSIDE RECORDS SUMMARY | 2023-06-08 02:29 | XMS_ITS | Continuity of Care Document ---
Author Name Unknown Organization [facility] Address [address] [place] [address]- Care Team Providers Care Ribber Name Role Phone Jorge ARMENTA, Louis Altamirano Primary Care Physician [phone] Encounter [facility] [place] ACCT R [id number] Date(s): 12/14/22 - 01/13/23 [facility] [address] [place] [id number] Allergies, Adverse Reactions, Alerts No Known Allergies Immunizations Given and Recorded Vaccine Date Status Refusal Reason SARS-CoV-2 mRNA (fwbvpis-gvxl-dchbb) vax 01/19/22 Given SARS-CoV-2 (COVID-19) mRNA BNT-162b2 vac 1 07/03/21 Given SARS-CoV-2 (COVID-19) mRNA BNT-162b2 vac 06/06/21 Given Not Given Vaccine Date Status Refusal Reason tetanus/diphtheria/pertussis , acel(Tdap) 2 09/26/21 Not Given Parent Or Guardian R efuses 1? Unknown: Resend to [facility]. 2Result Comment: mom states pt has [...] 6 Refills, Maintenance, 06/10/21 16:22:00 EDT, Solution, [facility]/pharmacy #1130, Partial fill upon patient request if the prescription is for a schedule II opioid drug., 151, cm, 06/10/21 16:07:00 EDT,... Start Date: 06/10/21 Status: Ordered albuterol CFC free 90 mcg/inh inhalation aerosol 2, puffs, Inhalation, Every 4 hours, PRN, # 1 each, Refills 11, Tot. Refills 11, Maintenance, 06/10/21 16:22:00 EDT, Aerosol, Route to Pharmacy Electronically, [id number], [facility]/pharmacy #1130, 151, cm, 06/10/21 16:07:00 EDT, H... [...] 2 Refills, Maintenance, 05/28/22 17:00:00 EDT, Gel, [facility]/pharmacy #1130, Partial fill upon patient request if [...] tablet, 5 Refills, Maintenance, 10/06/22 7:21:00 EST, [facility]/pharmacy #1130, 150, cm, 07/07/22 13:19:00 EDT, Height, 68.63, kg, 10/22/21 15:09:00 EST, Dry Weight Start Date: 10/06/22 Status: Ordered levETIRAcetam 1000 mg oral tablet 1 tablet, By Mouth, 3 times a day, # 90 tablet, 5 Refills, 10/06/22 7:22:00 EST, [facility]/pharmacy #1130, 150, cm, 07/07/22 13:19:00 EDT, Height, 68.63, kg, 10/22/21 15:09:00 EST, Dry Weight Start Date: 10/06/22 Status: Ordered mirtazapine 45 mg oral tablet 0 Refills, Maintenance, 10/06/22 7:20:00 EST, Partial fill upon patient request if the prescriptionis for a schedule II opioid drug. Start Date: 10/06/22 Status: Ordered montelukast 10 mg oral tablet 10 mg, 1, tablet, By Mouth, Daily, Label in Arabic, # 30 tablet, Refills 5, Tot. Refills 5, Maintenance, 10/13/22 15:15:00 EST, Route to Pharmacy Electronically, [facility]/pharmacy #1130, Partial fill upon patient request if [...] Refills, Maintenance, 08/23/22 14:25:00 EDT, [id number], 150, cm, 07/07/22 13:19:00 EDT, Height,68.63, kg, 10/22/21 15:09:00 EST, Dry Weight Start Date: 08/23/22 Status: Ordered Tylenol Extra Strength 500 mg oral tablet 2 tablet = 1,000 mg, By Mouth, 3 times a day, PRN for pain, # 540 tablet, 1 Refills, Maintenance, 07/07/22 13:48:00 EDT, Tablet, [facility]/pharmacy #1130, Partial fill upon patient request if the prescription is for a schedule II opioid drug., 150, cm, 06/16... Start Date: 07/07/22 Status: Ordered Vimpat 200 mg oral tablet 1 tablet = 200 mg, By Mouth, 2 times a day, Brand name medically necessary for seizure disorder, # 60 tablet, 5 Refills, Maintenance, 10/06/22 7:18:00 EST, Tablet, [facility]/pharmacy #1130, generic lacosamide preferred, 150, cm, 07/07/22 [...] Care Physician Member Role: PCP Address: Address: [address] [place] [address], [place] [address]- Care Team Related Persons Name: XIOMYGillMATT Address: home [address] [place] [address] Name: LEANDRO MARQUEZ Address: [address] [place] [address] Name: ANTOLIN MARQUEZ Name: ZORAIDA BANKS Address: home [address] [facility] [address] [place] [id number]
--- OUTSIDE RECORDS SUMMARY | 2023-06-08 02:29 | XMS_ITS | Continuity of Care Document ---
Author Name Unknown Organization [facility] Address [address] [place] [address]- Care Team Providers Care Test Desk Trouble Locator Name Role Phone Jorge ARMENTA, Louis Altamirano Primary Care Physician Encounter [facility] [place] Date(s): 04/26/20 - 05/29/[address] [address]- [facility] Attending Physician: Not on Staff, Attending MD [...] Refills, Maintenance, 04/17/20 13:08:00 EDT, [facility], vietnamese label, 10 mL By Mouth Every 4 hours Start Date: 04/17/20 Status: Ordered Keppra 1000 mg oral tablet 1 tablet = 1,000 mg, By Mouth, 3 times a day, # 90 tablet, 6 Refills, Maintenance, 04/04/20 13:18:00 EDT, Tablet, [facility]/pharmacy #1130 Start Date: 04/04/20 Status: Ordered lamotrigine 150 mg oral tablet 1 tablet = 150 mg, By Mouth, 2 times a day, # 60 tablet, 6 Refills, Maintenance, 04/04/20 13:20:00 EDT, Tablet, [facility]/pharmacy #1130 Start Date: 04/04/20 Status: Ordered mirtazapine 45 mg oral tablet 1 tablet = 45 mg, By Mouth, Daily at bedtime, # 30 tablet, 6 Refills, Maintenance, 04/04/20 13:23:00 EDT, Tablet, [facility]/pharmacy #1130 Start Date: 04/04/20 Status: Ordered omeprazole 20 mg oral enteric coated capsule 1 capsule = 20 mg, By Mouth, Daily, # 30 capsule, 2 Refills, Maintenance, 04/17/20 13:08:00 EDT, ECCapsule, [facility]/pharmacy #1130, vietnamese label Start Date: 04/17/20 Status: Ordered Restoril 15 mg oral capsule 1 capsule = 15 mg, By Mouth, Daily at bedtime, PRN for sleep, for 30 days, # 30 capsule, 5 Refills,Acute 10/01/20 13:31:00 EST, 04/04/20 13:31:00 EDT, Capsule, [facility]/pharmacy #1130 Start Date: 04/04/20 Stop Date: 10/01/20 Status: Ordered risperiDONE 4 mg oral tablet 1 tablet = 4 mg, By Mouth, Daily at bedtime, # 30 tablet, 6 Refills, Maintenance, 04/04/20 13:30:00EDT, Tablet, [facility]/pharmacy #1130 Start Date: 04/04/20 Stop Date: 10/31/20 Status: Ordered Vimpat 200 mg oral tablet 1 tablet = 200 mg, By Mouth, 2 times a day, # 60 tablet, 5 Refills, Maintenance, 04/04/20 13:23:00 EDT, Tablet, [facility]/pharmacy #1130 Start Date: 04/04/20 Status: Ordered Problem List Condition Effective Dates Status Health Status Inform ant Complex partial seizure(Confirmed) Active Anxiety and depression(Confirmed) Active Wayne-Silver syndrome, con genital hemihypertrophy(Confirmed) Active Social History Social History Type Response Smoking Status Never (less than 100 in lifetime) entered on: 04/04/20 Sex
--- OUTSIDE RECORDS SUMMARY | 2023-06-08 02:29 | XMS_ITS | Continuity of Care Document ---
Author Name Unknown Organization [facility] Address [address] [place] [address]- Care Team Providers Care Cipher Expert Name Role Phone Louis Patel MD Primary Care Physician [phone] Encounter [facility] [place] Date(s): 11/06/21 - 12/06/21 [facility] [address] [place] [email or web address] Allergies, Adverse Reactions, Alerts No Known Allergies [...] 16:22:00 EDT, Aerosol, Route to Pharmacy Electronically, [id number], [facility]/pharmacy #1130, 151, cm, 06/10/21 16:07:00 EDT, H... Start Date: 06/10/21 Stop Date: 06/05/22 Status: Ordered Ambien 5 mg oral tablet 1 tablet = 5 mg, By Mouth, Daily at bedtime, PRN as needed for insomnia, # 12 tablet, 0 Refills, Acute 06/29/22 14:54:00 EDT, 05/29/21 14:54:00 EDT, Tablet, [facility]/pharmacy #1130, Partial fill upon patient request if [...] 5 Refills, Maintenance, 04/04/20 13:27:00 EDT, [facility]/pharmacy #1130 Start Date: 04/04/20 Status: Ordered clonazePAM 2 mg oral tablet 1 tablet = 2 mg, By Mouth, Daily at bedtime, # 30 tablet, 3 Refills, Maintenance, 04/04/20 13:25:00EDT, Tablet, [facility]/pharmacy #1130 Start Date: 04/04/20 Status: Ordered Guaiasorb DM 10 mg-100 mg/5 mL oral liquid 10 mL, By Mouth, Every 4 hours, # 240 mL, 0 Refills, Maintenance, 04/17/20 13:08:00 EDT, [facility]/pharmacy #1130, citizen of vanuatu label, 10 mL By Mouth Every 4 hours Start Date: 04/17/20 Status: Ordered ipratropium nasal 21 mcg/inh spray 2 sprays, Nares, Both, 2 times a day, # 30 mL, 5 Refills, Maintenance, 10/27/21 14:41:00 EST, [place], [facility]/pharmacy #1130, Partial fill upon patient request if the prescription is for a schedule II opioid drug., 2 sprays Nares, Both 2 times a day, 150,... Start Date: 10/27/21 Status: Ordered Keppra 1000 mg oral tablet 1 tablet = 1,000 mg, By Mouth, 3 times a day, # 90 tablet, 6 Refills, Maintenance, 10/06/21 10:07:00 EST, Tablet, [facility]/pharmacy #1130, 151, cm, 09/02/21 14:18:00 EDT, Height, 71.8, kg, 02/18/21 19:34:00 EDT, Dry Weight Start Date: 10/06/21 Status: Ordered lamotrigine 150 mg oral tablet 1 tablet = 150 mg, By Mouth, 2 times a day, # 60 tablet, 5 Refills, Maintenance, 10/06/21 9:55:00 EST, Tablet, [facility]/pharmacy #1130, 151, cm, 09/02/21 14:18:00 EDT, Height, 71.8, kg, 02/18/21 19:34:00 EDT, Dry Weight Start Date: 10/06/21 Status: Ordered metFORMIN 500 mg oral tablet, extended release 1 tablet = 500 mg, By Mouth, Daily, # 30 tablet, 4 Refills, Maintenance, 02/13/21 15:28:00 EDT, ER Tablet, [facility]/pharmacy #1130, Partial fill upon patient request if the prescription is for a schedule II opioid drug., 150, cm, 02/13/21 14:49:00 EDT, Hei... Start Date: 02/13/21 Status: Ordered mirtazapine 45 mg oral tablet 1 tablet = 45 mg, By Mouth, Daily at bedtime, # 30 tablet, 6 Refills, Maintenance, 04/04/20 13:23:00 EDT, Tablet, [facility]/pharmacy #1130 Start Date: 04/04/20 Status: Ordered omeprazole 20 mg oral enteric coated capsule 1 capsule = 20 mg, By Mouth, Daily, # 30 capsule, 2 Refills, Maintenance, 11/04/20 18:31:00 EST, ECCapsule, [facility], citizen of [place] label Start Date: 11/04/20 Status: Ordered pantoprazole [...] with dinner every night (please label in Albanian), # 30 tablet, 1 Refills, Maintenance, 09/16/20 [...]
--- OUTSIDE RECORDS SUMMARY | 2023-06-08 02:29 | XMS_ITS | Continuity of Care Document ---
Author Name Unknown Organization [facility] Address [address] [place] [address]- Care Team Providers Care Blade Bender Furnace Tender Name Role Phone Jorge ARMENTA, Louis Altamirano Primary Care Physician [phone] Encounter [facility] [place] [place] ACCT R [id number] Date(s): 01/12/22 - 02/11/22 [facility] [address] [place] [id number] Allergies, Adverse Reactions, Alerts No Known Allergies Immunizations Given and Recorded Vaccine Date Status Refusal Reason SARS-CoV-2 mRNA (vkbobzx-pegl-qfgus) vax 01/19/22 Given SARS-CoV-2 (COVID-19) mRNA BNT-162b2 vac 1 07/03/21 Given SARS-CoV-2 (COVID-19) mRNA BNT-162b2 vac 06/06/21 Given Not Given Vaccine Date Status Refusal Reason tetanus/diphtheria/pertussis , acel(Tdap) 2 09/26/21 Not Given Parent Or Guardian R efuses 1? Unknown: Resend to [facility]. 2Result Comment: mom states pt has [...] 16:22:00 EDT, Aerosol, Route to Pharmacy Electronically, [id number], [facility]/pharmacy #1130, 151, cm, 06/10/21 16:07:00 EDT, H... Start Date: 06/10/21 Stop Date: 06/05/22 Status: Ordered Ambien 5 mg oral tablet 1 tablet = 5 mg, By Mouth, Daily at bedtime, PRN as needed for insomnia, # 12 tablet, 0 Refills, Acute 06/29/22 14:54:00 EDT, 05/29/21 14:54:00 EDT, Tablet, [facility]/pharmacy #1130, Partial fill upon [...] each, 5 Refills, Maintenance, 04/04/20 13:27:00 EDT, [facility]/pharmacy #1130 Start Date: 04/04/20 Status: Ordered clonazePAM 2 mg oral tablet 1 tablet = 2 mg, By Mouth, Daily at bedtime, # 30 tablet, 3 Refills, Maintenance, 04/04/20 13:25:00EDT, Tablet, [facility]/pharmacy #1130 Start Date: 04/04/20 Status: Ordered Guaiasorb DM 10 mg-100 mg/5 mL oral liquid 10 mL, By Mouth, Every 4 hours, # 240 mL, 0 Refills, Maintenance, 04/17/20 13:08:00 EDT, [facility], sinhala label, 10 mL By Mouth Every 4 hours Start Date: 04/17/20 Status: Ordered ipratropium nasal 21 mcg/inh spray 2 sprays, Nares, Both, 2 times a day, # 30 mL, 5 Refills, Maintenance, 10/27/21 14:41:00 EST, [place], [facility], Partial fill upon patient request if the prescription is for a schedule II opioid drug., 2 sprays Nares, Both 2 times a day, 150,... Start Date: 10/27/21 Status: Ordered Keppra 1000 mg oral tablet 1 tablet = 1,000 mg, By Mouth, 3 times a day, # 90 tablet, 6 Refills, Maintenance, 10/06/21 10:07:00 EST, Tablet, [facility]/pharmacy #1130, 151, cm, 09/02/21 14:18:00 EDT, Height, 71.8, kg, 02/18/21 19:34:00 EDT, Dry Weight Start Date: 10/06/21 Status: Ordered ketoconazole 1% topical shampoo See Instructions, Topically Every third day, # 200 mL, 1 Refills, Maintenance, 01/19/22 15:55:00 EST, [facility]/pharmacy #1130, Partial fill upon patient request if the prescription is for a schedule II opioid drug., Topically Every third day, 150, cm, 03/0... Start Date: 01/19/22 Status: Ordered ketoconazole 2% topical cream 1 application, Topically, 2 times a day, for 28 days, # 60 Gm, 2 Refills, Acute 04/13/22 15:58:00 EDT, 01/19/22 15:58:00 EST, Cream, [facility]/pharmacy #1130, Partial fill upon patient request if the prescription is for a schedule II opioid drug., 1 applica... Start Date: 01/19/22 Stop Date: 04/13/22 Status: Ordered lamotrigine 150 mg oral tablet 1 tablet = 150 mg, By Mouth, 2 times a day, # 60 tablet, 5 Refills, Maintenance, 10/06/21 9:55:00 EST, Tablet, [facility]/pharmacy #1130, 151, cm, 10/19/21 14:18:00 EDT, Height, 71.8, kg, 02/18/21 19:34:00 [...] Maintenance, 11/04/20 18:31:00 EST, ECCapsule, [facility], sinhala label Start Date: 11/04/20 Status: Ordered pantoprazole [...] with dinner every night (please label in Hong Konger), # 30 tablet, 1 Refills, Maintenance, 09/16/20 [...]
--- OUTSIDE RECORDS SUMMARY | 2023-06-08 02:29 | XMS_ITS | Continuity of Care Document ---
Author Name Unknown Organization [facility] Address [address] [place] [address]- Care Team Providers Care Rubber Cutting Machine Tender Name Role Phone Louis Patel MD Primary Care Physician [place] [facility] [place]s): 10/06/21 - 11/05/21 [facility] [address] [place] [id number] Allergies, Adverse Reactions, Alerts Substance Reaction Severity Status NKA Active Immunizations Given and Recorded Vaccine Date Status Refusal Reason SARS-CoV-2 (COVID-19) mRNA BNT-162b2 vac 1 07/03/21 Given SARS-CoV-2 (COVID-19) mRNA BNT-162b2 vac 06/06/21 Given Not Given Vaccine Date Status Refusal Reason tetanus/diphtheria/pertussis , acel(Tdap) 2 09/26/21 Not Given Parent Or Guardian R efuses 1? Unknown: Resend to [facility]. 2Result Comment: mom [...] 16:22:00 EDT, Aerosol, Route to Pharmacy Electronically, [id number], [facility]/pharmacy #1130, 151, cm, [...] mL, 0 Refills, Maintenance, 04/17/20 13:08:00 EDT, [facility]/pharmacy #1130, slovak label, 10 mL By Mouth Every 4 hours Start Date: 04/17/20 Status: Ordered ipratropium nasal 21 mcg/inh spray 2 sprays, Nares, Both, 2 times a day, # 30 mL, 5 Refills, Maintenance, 10/27/21 14:41:00 EST, [place], [facility]/pharmacy #1130, Partial fill upon patient request if the prescription is for a schedule II opioid drug., 2 sprays Nares, Both 2 times a day, 150,... Start Date: 10/27/21 Status: Ordered Keppra 1000 mg oral tablet 1 tablet = 1,000 mg, By Mouth, 3 times a day, # 90 tablet, 6 Refills, Maintenance, 10/06/21 10:07:00 EST, Tablet, [facility]/pharmacy #1130, 151, cm, 09/02/21 14:18:00 EDT, Height, 71.8, kg, 02/18/21 19:34:00 EDT, Dry Weight Start Date: 10/06/21 Status: Ordered lamotrigine 150 mg oral tablet 1 tablet = 150 mg, By Mouth, 2 times a day, # 60 tablet, 5 Refills, Maintenance, 10/06/21 9:55:00 EST, Tablet, [facility]/pharmacy #1130, 151, cm, 09/02/21 [...] Maintenance, 11/04/20 18:31:00 EST, ECCapsule, [facility], slovak label Start Date: 11/04/20 Status: [...] 5 Refills, Maintenance, 10/06/21 10:06:00 EST, Tablet, [facility]/pharmacy #1130, 151, cm, 09/02/21 14:18:00 EDT, Height, 71.8, kg, 02/18/21 19:34:00EDT, Dry Weight Start Date: 10/06/21 Status: Ordered Zofran 8 mg oral tablet 1 tablet = 8 mg, By Mouth, Daily, take with dinner every night (please label in Serbian), # 30 tablet, 1 Refills, Maintenance, 09/16/20 [...]
--- OUTSIDE RECORDS SUMMARY | 2023-06-08 02:29 | XMS_ITS | Continuity of Care Document ---
Author Name Unknown Organization [facility] Address [address] [place] [id number]- Care Team Providers Care Collar Tailor Name Role Phone Jorge ARMENTA, Louis Altamirano Primary Care Physician Encounter [facility] Date(s): 05/13/21 - 06/12/21 [facility] [address] [place] [id number] Allergies, Adverse Reactions, Alerts Substance [...] 6 Refills, Maintenance, 06/10/21 16:22:00 EDT, Solution, [facility]/pharmacy #1130, Partial fill upon patient request if the prescription is for a schedule II opioid drug., 151, cm, 06/10/21 16:07:00 EDT,... Start Date: 06/10/21 Status: Ordered albuterol CFC free 90 mcg/inh inhalation aerosol 2, puffs, Inhalation, Every 4 hours, PRN, # 1 each, Refills 11, Tot. Refills 11, Maintenance, 06/10/21 16:22:00 EDT, Aerosol, Route to Pharmacy Electronically, [id number], [facility], 151, cm, 06/10/21 16:07:00 EDT, H... Start Date: 06/10/21 Stop Date: 06/05/22 Status: Ordered Ambien 5 mg oral tablet 1 tablet = 5 mg, By Mouth, Daily at bedtime, PRN as needed for insomnia, # 12 tablet, 0 Refills, Acute 06/29/22 14:54:00 EDT, 05/29/21 14:54:00 EDT, Tablet, [facility]/pharmacy #1130, Partial fill upon patient [...] Refills, Maintenance, 04/17/20 13:08:00 EDT, [facility], lao label, 10 mL By Mouth Every 4 [...] 6 Refills, Maintenance, 04/04/21 14:56:00 EDT, Tablet, [facility]/pharmacy #1130, 151, cm, 04/04/21 14:15:00 EDT, Height, 71.8, kg, 02/18/21 19:34:00EDT, Dry Weight Start Date: 04/04/21 Status: Ordered metFORMIN 500 mg oral tablet, extended release 1 tablet = 500 mg, By Mouth, Daily, # 30 tablet, 4 Refills, Maintenance, 02/13/21 15:28:00 EDT, ER Tablet, [facility]/pharmacy #1130, Partial fill upon patient [...] 2 Refills, Maintenance, 11/04/20 18:31:00 EST, ECCapsule, [facility]/pharmacy #1130, lao label Start Date: 11/04/20 Status: Ordered pantoprazole [...] English), # 30 tablet, 1 Refills, Maintenance, 09/16/20 [...]
--- OUTSIDE RECORDS SUMMARY | 2023-06-08 02:29 | XMS_ITS | Continuity of Care Document ---
Author Name Unknown Organization [facility] Address [address] [place] [address]- Care Team Providers Care Cancer Genetics Assistant Name Role Phone Jorge ARMENTA, Louis Altamirano Primary Care Physician Encounter [facility] [place] Date(s): 07/16/22 - 08/15/22 [facility] [address], [place] [address] Allergies, Adverse Reactions, Alerts No Known Allergies Immunizations Given and Recorded Vaccine Date Status Refusal Reason SARS-CoV-2 mRNA (vdqiroi-eqnh-fgydl) vax 01/19/22 Given SARS-CoV-2 (COVID-19) mRNA BNT-162b2 vac 1 07/03/21 Given SARS-CoV-2 (COVID-19) mRNA BNT-162b2 vac 06/06/21 Given Not Given Vaccine Date Status Refusal Reason tetanus/diphtheria/pertussis , acel(Tdap) 2 09/26/21 Not Given Parent Or Guardian R efuses 1? Unknown: Resend to [facility]. 2Result Comment: mom states pt has received [...] Refills, Maintenance, 06/10/21 16:22:00 EDT, Solution, [facility]/pharmacy #1130, Partial fill upon patient request if the prescription is for a schedule II opioid drug., 151, cm, 06/10/21 16:07:00 EDT,... Start Date: 06/10/21 Status: Ordered albuterol CFC free 90 mcg/inh inhalation aerosol 2, puffs, Inhalation, Every 4 hours, PRN, # 1 each, Refills 11, Tot. Refills 11, Maintenance, 06/10/21 16:22:00 EDT, Aerosol, Route to Pharmacy Electronically, [id number], [facility]/pharmacy #1130, 151, cm, 06/10/21 16:07:00 EDT, [...] 3 Refills, Maintenance, 04/04/20 13:25:00EDT, Tablet, [facility]/pharmacy #1130 Start Date: 04/04/20 Status: Ordered [...] Refills, Maintenance, 04/17/20 13:08:00 EDT, [facility], south african label, 10 mL By Mouth Every 4 hours Start Date: 04/17/20 Status: Ordered ketoconazole 1% topical shampoo See Instructions, Topically Every third day, # 200 mL, 1 Refills, Maintenance, 01/19/22 15:55:00 EST, [facility]/pharmacy #1130, Partial fill upon patient request if the prescription is for a schedule II opioid drug., Topically Every third day, 150, cm, 030... Start Date: 01/19/22 Status: Ordered lamotrigine 150 mg oral tablet 1 tablet, By Mouth, 2 times a day, # 60 tablet, 5 Refills, Maintenance, 07/15/22 10:22:00 EDT, [id number], 150, cm, 07/07/22 13:19:00 EDT, Height, 68.63, kg, 10/22/21 15:09:00 EST, Dry Weight Start Date: 07/15/22 Status: Ordered levETIRAcetam 1000 mg oral tablet 1 tablet, By Mouth, 3 times a day, # 90 tablet, 5 Refills, [id number], 150, cm, 04/20/22 13:54:00 EDT, Height, 68.63, kg, 10/22/21 15:09:00 EST, Dry Weight Start Date: 04/28/22 Status: Ordered mirtazapine 45 mg oral tablet 1 tablet = 45 mg, By Mouth, Daily at bedtime, # 30 tablet, 6 Refills, Maintenance, 04/04/20 13:23:00 EDT, Tablet, [facility]/pharmacy #1130 Start Date: 04/04/20 Status: Ordered [...] Name: Jorge ARMENTA, Louis Altamirano Address: Address: [address] [place] [address], [facility] [place], [place] [address]
--- OUTSIDE RECORDS SUMMARY | 2023-06-08 02:29 | XMS_ITS | Continuity of Care Document ---
Author Name Unknown Organization [facility] Address [address] [place] [address]- Care Team Providers Care Hot Roll Inspector Name Role Phone Jorge ARMENTA, Louis Altamirano Primary Care Physician Encounter [facility] [place] Date(s): 11/25/21 - 12/26/21 [facility] [address] [place] [address]- Attending Physician: Avery COSTA, Ida Mota Admitting Physician: Avery COSTA, Ida Mota Allergies, Adverse Reactions, Alerts No Known Allergies [...] 16:22:00 EDT, Aerosol, Route to Pharmacy Electronically, [id number], [facility]/pharmacy #1130, 151, cm, [...] Refills, Maintenance, 04/17/20 13:08:00 EDT, [facility], cuban label, 10 mL By Mouth Every 4 hours Start Date: 04/17/20 Status: Ordered ipratropium nasal 21 mcg/inh spray 2 sprays, Nares, Both, 2 times a day, # 30 mL, 5 Refills, Maintenance, 10/27/21 14:41:00 EST, [place], [facility]/pharmacy #1130, Partial fill [...] EST, ECCapsule, [facility]/pharmacy #1130, cuban label Start Date: 11/04/20 Status: Ordered pantoprazole [...] pack/packet, 0 Refills, Maintenance, 02/20/21 14:54:00 EDT, [facility]/pharmacy #1130, Partial fill upon patient request if theprescription is for a schedule II opioid drug., as... Start Date: 02/20/21 Status: Ordered risperiDONE 4 mg oral tablet 1 tablet = 4 mg, By Mouth, Daily at bedtime, # 30 tablet, 6 Refills, Maintenance, 04/04/20 13:30:00EDT, Tablet, [facility]/pharmacy #1130 Start Date: 04/04/20 Stop Date: 10/31/20 Status: Ordered Vimpat 200 mg oral tablet 1 tablet = 200 mg, By Mouth, 2 times a day, # 60 tablet, 5 Refills, Maintenance, 11/06/21 12:20:00 EST, Tablet, [facility]/pharmacy #1130, 150, cm, 10/22/21 15:09:00 EST, Height, 68.63, kg, 10/22/21 15:09:00 EST, Dry Weight Start Date: 11/06/21 Status: Ordered Zofran 8 mg oral tablet 1 tablet = 8 mg, By Mouth, Daily, take with dinner every night (please label in Nicaraguan), # 30 tablet, 1 Refills, Maintenance, 09/16/20 [...]
--- OUTSIDE RECORDS SUMMARY | 2023-06-08 02:29 | XMS_ITS | Continuity of Care Document ---
Author Name Unknown Organization [facility] Address [address] [place] [id number]- Care Team Providers Care Billing Representative Name Role Phone Louis Patel MD Primary Care Physician Encounter [facility] [place] Date(s): 07/01/21 - 07/31/21 [facility] [address] [place] [id number] Allergies, Adverse Reactions, Alerts Substance [...] 16:22:00 EDT, Aerosol, Route to Pharmacy Electronically, [id number], [facility]/pharmacy #1130, 151, cm, 06/10/21 16:07:00 EDT, H... Start Date: 06/10/21 Stop Date: 06/05/22 Status: Ordered Ambien 5 mg oral tablet 1 tablet = 5 mg, By Mouth, Daily at bedtime, PRN as needed for insomnia, # 12 tablet, 0 Refills, Acute 06/29/22 14:54:00 EDT, 05/29/21 14:54:00 EDT, Tablet, [facility]/pharmacy #1130, Partial fill upon patient request [...] each, 5 Refills, Maintenance, 04/04/20 13:27:00 EDT, [facility]/pharmacy #1130 Start Date: 04/04/20 Status: Ordered clonazePAM 2 mg oral tablet 1 tablet = 2 mg, By Mouth, Daily at bedtime, # 30 tablet, 3 Refills, Maintenance, 04/04/20 13:25:00EDT, Tablet, [facility]/pharmacy #1130 Start Date: 04/04/20 Status: Ordered Guaiasorb DM 10 mg-100 mg/5 mL oral liquid 10 mL, By Mouth, Every 4 hours, # 240 mL, 0 Refills, Maintenance, 04/17/20 13:08:00 EDT, [facility], costa rican label, 10 mL By Mouth Every 4 [...] 6 Refills, Maintenance, 04/04/21 14:56:00 EDT, Tablet, [facility]/pharmacy #1130, 151, cm, 04/04/21 14:15:00 EDT, Height, 71.8, kg, 02/18/21 19:34:00EDT, Dry Weight Start Date: 04/04/21 Status: Ordered metFORMIN 500 mg oral tablet, extended release 1 tablet = 500 mg, By Mouth, Daily, # 30 tablet, 4 Refills, Maintenance, 02/13/21 15:28:00 EDT, ER Tablet, [facility]/pharmacy #1130, Partial fill upon patient request [...] 2 Refills, Maintenance, 11/04/20 18:31:00 EST, ECCapsule, [facility]/pharmacy #1130, costa rican label Start Date: 11/04/20 Status: Ordered pantoprazole [...] with dinner every night (please label in Korean), # 30 tablet, 1 Refills, Maintenance, 09/16/20 [...]
--- OUTSIDE RECORDS SUMMARY | 2023-06-08 02:29 | XMS_ITS | Continuity of Care Document ---
Author Name Unknown Organization [facility] Address [address] [place] [address]- Care Team Providers Care District Branch Manager Name Role Phone Jorge ARMENTA, Louis Altamirano Primary Care Physician Encounter [facility] Date(s): 03/25/21 - 04/30/[address] [address]- Attending Physician: Marija Walters NP Admitting Physician: [...] 16:03:00 EDT, Aerosol, Route to Pharmacy Electronically, [id number], [facility]/pharmacy #1130 Start Date: 02/04/21 Status: Ordered Bedside [...] Maintenance, 04/04/20 13:27:00 EDT, [facility]/pharmacy #1130 Start Date: 04/04/20 Status: Ordered clonazePAM 2 mg oral tablet 1 tablet = 2 mg, By Mouth, Daily at bedtime, # 30 tablet, 3 Refills, Maintenance, 04/04/20 13:25:00EDT, Tablet, [facility]/pharmacy #1130 Start Date: 04/04/20 Status: Ordered Guaiasorb DM 10 mg-100 mg/5 mL oral liquid 10 mL, By Mouth, Every 4 hours, # 240 mL, 0 Refills, Maintenance, 04/17/20 13:08:00 EDT, [facility]/pharmacy #1130, finnish label, 10 mL By Mouth Every 4 hours Start Date: 04/17/20 Status: Ordered Keppra 1000 mg oral tablet 1 tablet = 1,000 mg, By Mouth, 3 times a day, # 90 tablet, 0 Refills, Maintenance, 04/04/21 14:56:00 EDT, Tablet, [facility]/pharmacy #1130, 151, cm, 04/04/21 14:15:00 EDT, Height, 71.8, kg, 02/18/21 19:34:00 EDT, Dry Weight Start Date: 04/04/21 Status: Ordered lamotrigine 150 mg oral tablet 1 tablet = 150 mg, By Mouth, 2 times a day, # 60 tablet, 6 Refills, Maintenance, 04/04/21 14:56:00 EDT, Tablet, [facility]/pharmacy #1130, 151, cm, 04/04/21 14:15:00 EDT, Height, 71.8, kg, 02/18/21 19:34:00EDT, Dry Weight Start Date: 04/04/21 Status: Ordered metFORMIN 500 mg oral tablet, extended release 1 tablet = 500 mg, By Mouth, Daily, # 30 tablet, 4 Refills, Maintenance, 02/13/21 15:28:00 EDT, ER Tablet, [facility]/pharmacy #1130, Partial fill upon patient request if [...] Maintenance, 11/04/20 18:31:00 EST, ECCapsule, [facility], finnish label Start Date: 11/04/20 Status: Ordered pantoprazole [...] Refills, Maintenance, 09/16/20 7:19:00 EST, Tablet, [facility] Start Date: 09/16/20 Status: Ordered Problem List Condition Effective Dates Status Health Status Inform ant Complex partial seizure(Confirmed) Active Anxiety and depression(Confirmed) Active Prediabetes(Confirmed) Active Wayne-Silver syndrome, con genital hemihypertrophy(Confirmed) Active Social History Social History Type Response Smoking Status Never (less than 100 in lifetime) entered on: 04/04/20 Sex
--- OUTSIDE RECORDS SUMMARY | 2023-06-08 02:29 | XMS_ITS | Continuity of Care Document ---
Author Name Unknown Organization [facility] Address [address] [place] [address]- Care Team Providers Care Boot Trimmer Name Role Phone Louis Patel MD Primary Care Physician Encounter [id number] Date(s): 03/22/21 - 04/21/21 [facility] [address] [place] [address]- Attending Physician: Admtr, [id number] Admitting Physician: Admtr, [id number] Referring Physician: Admtr, [...] 16:03:00 EDT, Aerosol, Route to Pharmacy Electronically, [id number], [facility]/pharmacy #1130 Start Date: 02/04/21 Status: [...] Maintenance, 04/17/20 13:08:00 EDT, [facility]/pharmacy #1130, vincentian label, 10 mL By Mouth Every 4 hours Start Date: 04/17/20 Status: Ordered Keppra 1000 mg oral tablet 1 tablet = 1,000 mg, By Mouth, 3 times a day, # 90 tablet, 0 Refills, Maintenance, 04/04/21 14:56:00 EDT, Tablet, [facility]/pharmacy #1130, 151, cm, 04/04/21 14:15:00 EDT, Height, 71.8, kg, 02/18/21 19:34:00 EDT, Dry Weight Start Date: 04/04/21 Status: Ordered lamotrigine 150 mg oral tablet 1 tablet = 150 mg, By Mouth, 2 times a day, # 60 tablet, 6 Refills, Maintenance, 04/04/21 14:56:00 EDT, Tablet, [facility]/pharmacy #1130, 151, cm, 04/04/21 14:15:00 EDT, [...] Maintenance, 11/04/20 18:31:00 EST, ECCapsule, [facility], vincentian label Start Date: 11/04/20 Status: Ordered pantoprazole [...] with dinner every night (please label in Qatari), # 30 tablet, 1 Refills, Maintenance, 09/16/20 7:19:00 EST, Tablet, [facility] Start Date: 09/16/20 Status: Ordered Problem List Condition Effective Dates Status Health Status Inform ant Complex partial seizure(Confirmed) Active Anxiety and depression(Confirmed) Active Prediabetes(Confirmed) Active Wayne-Silver syndrome, con genital hemihypertrophy(Confirmed) Active Social History Social History Type Response Smoking Status Never (less than 100 in lifetime) entered on: 04/04/20 Sex
--- OUTSIDE RECORDS SUMMARY | 2023-06-08 02:29 | XMS_ITS | Continuity of Care Document ---
Author Name Unknown Organization [facility] Address [address] [place] [address]- Care Team Providers Care Bartender Name Role Phone Jorge ARMENTA, Louis Altamirano Primary Care Physician [phone] Encounter [facility] [place] Date(s): 07/04/20 - 08/03/20 [facility] [address] [place] [address]- [facility] Allergies, Adverse Reactions, Alerts Substance Reaction Severity [...] 6 Refills, Maintenance, 04/04/20 13:18:00 EDT, Tablet, [facility]/pharmacy #1130 Start Date: 04/04/20 Status: Ordered [...] 6 Refills, Maintenance, 04/04/20 13:23:00 EDT, Tablet, [facility]/pharmacy #1130 Start Date: 04/04/20 Status: Ordered omeprazole 20 mg oral enteric coated capsule 1 capsule = 20 mg, By Mouth, Daily, # 30 capsule, 2 Refills, Maintenance, 04/17/20 13:08:00 EDT, ECCapsule, [facility]/pharmacy #1130, slovenian label Start Date: 04/17/20 Status: Ordered Restoril 15 mg oral capsule 1 capsule = 15 mg, By Mouth, Daily at bedtime, PRN for sleep, for 30 days, # 30 capsule, 5 Refills,Acute 10/01/20 13:31:00 EST, 04/04/20 13:31:00 EDT, Capsule, [facility]/pharmacy #1130 Start Date: 04/04/20 Stop Date: [...] with dinner every night (please label in Yi), # 30 tablet, 1 Refills, Maintenance, 07/04/20 16:36:00 EDT, Tablet, [facility] Start Date: 07/04/20 Status: Ordered Problem List Condition Effective Dates Status Health Status Inform ant Complex partial seizure(Confirmed) Active Anxiety and depression(Confirmed) Active Wayne-Silver syndrome, con genital hemihypertrophy(Confirmed) Active Social History Social History Type Response Smoking Status Never (less than 100 in lifetime) entered on: 04/04/20 Sex
--- OUTSIDE RECORDS SUMMARY | 2023-06-08 02:29 | XMS_ITS | Continuity of Care Document ---
Author Name Unknown Organization [facility] Address [address] [place] [address]- Care Team Providers Care Paper Colorer Name Role Phone Jorge ARMENTA, Louis Altamirano Primary Care Physician [phone] [place] [facility] [place]s): 02/19/22 - 03/21/22 [facility] [address] [place] [id number] Allergies, Adverse Reactions, Alerts No Known Allergies Immunizations Given and Recorded Vaccine Date Status Refusal Reason SARS-CoV-2 mRNA (cysqgjs-dnxi-dhpik) vax 01/19/22 Given SARS-CoV-2 (COVID-19) mRNA BNT-162b2 vac 1 07/03/21 Given SARS-CoV-2 (COVID-19) mRNA BNT-162b2 vac 06/06/21 Given Not Given Vaccine Date Status Refusal Reason tetanus/diphtheria/pertussis , acel(Tdap) 2 09/26/21 Not Given Parent Or Guardian R efuses 1? Unknown: Resend to [facility]. 2Result Comment: mom states pt has received [...] 16:22:00 EDT, Aerosol, Route to Pharmacy Electronically, [id number], [facility]/pharmacy #1130, 151, cm, 06/10/21 16:07:00 EDT, H... Start Date: 06/10/21 Stop Date: 06/05/22 Status: Ordered Ambien 5 mg oral tablet 1 tablet = 5 mg, By Mouth, Daily at bedtime, PRN as needed for insomnia, # 12 tablet, 0 Refills, Acute 06/29/22 14:54:00 EDT, 05/29/21 14:54:00 EDT, Tablet, [facility]/pharmacy #1130, Partial fill upon patient [...] each, 5 Refills, Maintenance, 04/04/20 13:27:00 EDT, [facility]/pharmacy #1130 Start Date: 04/04/20 Status: Ordered clonazePAM 2 mg oral tablet 1 tablet = 2 mg, By Mouth, Daily at bedtime, # 30 tablet, 3 Refills, Maintenance, 04/04/20 13:25:00EDT, Tablet, [facility] Start Date: 04/04/20 Status: Ordered Guaiasorb DM 10 mg-100 mg/5 mL oral liquid 10 mL, By Mouth, Every 4 hours, # 240 mL, 0 Refills, Maintenance, 04/17/20 13:08:00 EDT, [facility]/pharmacy #1130, comoran label, 10 mL By Mouth Every 4 hours Start Date: 04/17/20 Status: Ordered ipratropium nasal 21 mcg/inh spray 2 sprays, Nares, Both, 2 times a day, # 30 mL, 5 Refills, Maintenance, 10/27/21 14:41:00 EST, [place], [facility]/pharmacy #1130, Partial fill upon patient request if the prescription is for a schedule II opioid drug., 2 sprays Nares, Both 2 times a day, 150,... Start Date: 10/27/21 Status: Ordered Keppra 1000 mg oral tablet 1 tablet = 1,000 mg, By Mouth, 3 times a day, # 90 tablet, 6 Refills, Maintenance, 10/06/21 10:07:00 EST, Tablet, [facility]/pharmacy #1130, 151, cm, 09/02/21 14:18:00 EDT, Height, 71.8, kg, 02/18/21 19:34:00 EDT, Dry Weight Start Date: 10/06/21 Status: Ordered ketoconazole 1% topical shampoo See Instructions, Topically Every third day, # 200 mL, 1 Refills, Maintenance, 01/19/22 15:55:00 EST, [facility]/pharmacy #1130, Partial fill upon patient request if the prescription is for a schedule II opioid drug., Topically Every third day, 150, cm, 03/0... Start Date: 01/19/22 Status: Ordered ketoconazole 2% topical cream 1 application, Topically, 2 times a day, for 28 days, # 60 Gm, 2 Refills, Acute 04/13/22 15:58:00 EDT, 01/19/22 15:58:00 EST, Cream, [facility]/pharmacy #1130, Partial fill upon patient request if the prescription is for a schedule II opioid drug., 1 applica... Start Date: 01/19/22 Stop Date: 04/13/22 Status: Ordered lamotrigine 150 mg oral tablet 1 tablet = 150 mg, By Mouth, 2 times a day, # 60 tablet, 5 Refills, Maintenance, 10/06/21 9:55:00 EST, Tablet, [facility]/pharmacy #1130, 151, cm, 09/02/21 14:18:00 [...] Maintenance, 11/04/20 18:31:00 EST, ECCapsule, [facility], comoran label Start Date: 11/04/20 Status: Ordered pantoprazole [...] with dinner every night (please label in Trinidadian), # 30 tablet, 1 Refills, Maintenance, 09/16/20 [...]
--- OUTSIDE RECORDS SUMMARY | 2023-06-08 02:29 | XMS_ITS | Continuity of Care Document ---
Author Name Unknown Organization [facility] Address [address] [place] [address]- Care Team Providers Care School Examiner Name Role Phone Louis Patel MD Primary Care Physician [phone] Encounter [facility] [place] Date(s): 02/18/21 - 02/18/[address] [address]- Discharge Disposition: A-D/C Home Attending Physician: Michele Horton MD Admitting Physician: Michele Horton MD Referring Physician: Not on Staff, Referring [...] 16:03:00 EDT, Aerosol, Route to Pharmacy Electronically, [id number], [facility]/pharmacy #1130 Start Date: 02/04/21 Status: Ordered [...] Refills, Maintenance, 04/17/20 13:08:00 EDT, [facility], venezuelan label, 10 mL By Mouth Every 4 [...] [facility] Start Date: 10/16/20 Status: Ordered metFORMIN 500 mg oral tablet, extended release 1 tablet = 500 mg, By Mouth, Daily, # 30 tablet, 4 Refills, Maintenance, 02/13/21 15:28:00 EDT, ER Tablet, [facility]/pharmacy #1130, Partial fill upon patient [...] Maintenance, 11/04/20 18:31:00 EST, ECCapsule, [facility], venezuelan label Start Date: 11/04/20 Status: Ordered risperiDONE [...] Exam Date Time Procedure Performing Provider Status 02/18/21 8:15 PM Shoulder Min 2 Views Left Pedro Calvin; Auth (Verified) Notes: (Shoulder Min 2 Views Left) Reason For Exam: with Pain;Trauma RESULT: Shoulder Min 2 Views Left Shoulder Min 2 Views Left CLINICAL INDICATION: Hx of Present Illness: L arm px x 2 days post fall during seizure, tylenol nothelping, last dose 1000 mg at 1030. Pt has 2245 filght [place] to [place], refusing to get on the plane until seen by ED MD. 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 FINDINGS: There is no fracture or dislocation. There is no acromioclavicular joint widening. No periarticular calcifications. Elevation of left hemidiaphragm with gas distended stomach. IMPRESSION: No fracture or dislocation. Elevated left hemidiaphragm. WSN: [id number] Ordering Physician: Michele Horton Dictated By: Frank Mcrae MD Dictated Date/Time: 02/18/21 8:22 pm Reviewed By: Frank Mcrae MD Signed By: Frank Mcrae MD Signed Date/Time: 02/18/21 8:22 pm Transcribed By: ABEL Transcribed Date/Time: 02/18/21 8:21 pm Vital Signs Most recent to oldest [Reference Range]: 1 Height 151 cm (02/18/21 7:34 PM) Weight 71.8 kg (02/18/21 7:34 PM) Oxygen Saturation [94-100 %] 99 % (02/18/21 7:34 PM) Pulse Rate [55-90 bpm] 92 bpm *H* (02/18/21 7:34 PM) Blood Pressure [90-138/55-84 mm Hg] 126/ 78mm Hg (02/18/21 7:34 PM) Respiratory Rate [16-30 br/min] 18 br/mi n (02/18/21 7:34 PM) Temperature [96.8-100.4 DegF] 98.5 DegF (02/18/21 7:34 PM) Mode of Delivery (Oxygen) Room air (02/18/21 7:34 PM) Temperature Route Oral (02/18/21 7:34 PM) Dry Weight 71.8 kg (02/18/21 7:34 PM) Social History Social History Type Response Smoking Status Never (less than 100 in lifetime) entered on: 04/04/20 Sex
--- OUTSIDE RECORDS SUMMARY | 2023-06-08 02:29 | XMS_ITS | Continuity of Care Document ---
Author Name Unknown Organization [facility] Address [address] [place] [address]- Care Team Providers Care Outdoor Power Equipment Mechanic Name Role Phone Jorge ARMENTA, Louis Altamirano Primary Care Physician [place] [facility] [place] [id number] Date(s): 12/15/22 - 01/14/23 [facility] [address] [place] [id number] Allergies, Adverse Reactions, Alerts No Known Allergies Immunizations Given and Recorded Vaccine Date Status Refusal Reason SARS-CoV-2 mRNA (tbucfmt-jzdt-sobvo) vax 01/19/22 Given SARS-CoV-2 (COVID-19) mRNA BNT-162b2 vac 1 07/03/21 Given SARS-CoV-2 (COVID-19) mRNA BNT-162b2 vac 06/06/21 Given Not Given Vaccine Date Status Refusal Reason tetanus/diphtheria/pertussis , acel(Tdap) 2 09/26/21 Not Given Parent Or Guardian R efuses 1? Unknown: Resend to [facility]. 2Result Comment: mom states pt has [...] 16:22:00 EDT, Aerosol, Route to Pharmacy Electronically, [id number], [facility]/pharmacy #1130, 151, cm, [...] tablet, 5 Refills, Maintenance, 10/06/22 7:21:00 EST, [facility]/pharmacy #1130, 150, cm, 07/07/22 13:19:00 EDT, Height, 68.63, kg, 10/22/21 15:09:00 EST, Dry Weight Start Date: 10/06/22 Status: Ordered levETIRAcetam 1000 mg oral tablet 1 tablet, By Mouth, 3 times a day, # 90 tablet, 5 Refills, 10/06/22 7:22:00 EST, [facility]/pharmacy #1130, 150, cm, 07/07/22 13:19:00 EDT, [...] 1, tablet, By Mouth, Daily, Label in Kiswahili, # 30 tablet, Refills 5, Tot. Refills 5, Maintenance, 10/13/22 15:15:00 EST, Route to Pharmacy Electronically, [facility]/pharmacy #1130, Partial fill [...] Refills, Maintenance, 08/23/22 14:25:00 EDT, [id number], 150, cm, 07/07/22 13:19:00 EDT, Height,68.63, kg, 10/22/21 15:09:00 EST, Dry Weight Start Date: 08/23/22 Status: Ordered Tylenol Extra Strength 500 mg oral tablet 2 tablet = 1,000 mg, By Mouth, 3 times a day, PRN for pain, # 540 tablet, 1 Refills, Maintenance, 07/07/22 13:48:00 EDT, Tablet, [facility]/pharmacy #1130, Partial fill upon patient request if the prescription is for a schedule II opioid drug., 150, cm, 06/16... Start Date: 07/07/22 Status: Ordered Vimpat 200 mg oral tablet 1 tablet = 200 mg, By Mouth, 2 times a day, Brand name medically necessary for seizure disorder, # 60 tablet, 5 Refills, Maintenance, 10/06/22 7:18:00 EST, Tablet, [facility]/pharmacy #1130, generic [...] Care Physician Member Role: PCP Address: Address: [address] [place] [address], [place] [address]- Care Team Related Persons Name: XIOMYGillMATT Address: home [address] [place] [address] Name: LEANDRO MARQUEZ Address: home [address] [place] [address] Name: ANTOLIN MARQUEZ Name: ZORAIDA BANKS Address: home [address] [facility] [address] [place] [address]
--- OUTSIDE RECORDS SUMMARY | 2023-06-08 02:29 | XMS_ITS | Continuity of Care Document ---
Author Name Unknown Organization [facility] Address [address] [place] [address]- Care Team Providers Care Power Grader Operator Name Role Phone Jorge ARMENTA, Louis Altamirano Primary Care Physician [place] [facility] [place] 07/04/20 - 08/03/20 [facility] [address] [place] [address]- [facility] Allergies, Adverse Reactions, Alerts Substance Reaction [...] Refills, Maintenance, 04/17/20 13:08:00 EDT, [facility], cape verdean label, 10 mL By Mouth Every 4 hours Start Date: 04/17/20 Status: Ordered Keppra 1000 mg oral tablet 1 tablet = 1,000 mg, By Mouth, 3 times a day, # 90 tablet, 6 Refills, Maintenance, 04/04/20 13:18:00 EDT, Tablet, [facility]/pharmacy #1130 Start Date: 04/04/20 [...] 6 Refills, Maintenance, 04/04/20 13:23:00 EDT, Tablet, [facility]/pharmacy #1130 Start Date: 04/04/20 Status: Ordered omeprazole 20 mg oral enteric coated capsule 1 capsule = 20 mg, By Mouth, Daily, # 30 capsule, 2 Refills, Maintenance, 04/17/20 13:08:00 EDT, ECCapsule, [facility]/pharmacy #1130, cape verdean label Start Date: 04/17/20 Status: Ordered Restoril 15 mg oral capsule 1 capsule = 15 mg, By Mouth, Daily at bedtime, PRN for sleep, for 30 days, # 30 capsule, 5 Refills,Acute 10/01/20 13:31:00 EST, 04/04/20 13:31:00 EDT, Capsule, [facility]/pharmacy #1130 Start Date: 04/04/20 [...] with dinner every night (please label in Lithuanian), # 30 tablet, 1 Refills, Maintenance, 07/04/20 16:36:00 EDT, Tablet, [facility] Start Date: 07/04/20 Status: Ordered Problem List Condition Effective Dates Status Health Status Inform ant Complex partial seizure(Confirmed) Active Anxiety and depression(Confirmed) Active Wayne-Silver syndrome, con genital hemihypertrophy(Confirmed) Active Social History Social History Type Response Smoking Status Never (less than 100 in lifetime) entered on: 04/04/20 Sex
--- OUTSIDE RECORDS SUMMARY | 2023-06-08 02:29 | XMS_ITS | Continuity of Care Document ---
Author Name Unknown Organization [facility] Address [address] [place] [address]- Care Team Providers Care Feller Buncher Operator Name Role Phone Louis Patel MD Primary Care Physician [place] [facility] [place] 09/18/21 [facility] [address] [place] [id number] Allergies, Adverse Reactions, Alerts Substance [...] 16:22:00 EDT, Aerosol, Route to Pharmacy Electronically, [id number], [facility]/pharmacy #1130, 151, cm, 06/10/21 [...] Refills, Maintenance, 04/17/20 13:08:00 EDT, [facility], moroccan label, 10 mL By Mouth Every 4 hours Start Date: 04/17/20 Status: Ordered ipratropium nasal 21 mcg/inh spray 2 sprays, Nares, Both, 2 times a day, # 30 mL, 1 Refills, Maintenance, 09/02/21 14:32:00 EDT, [place], [facility], Partial fill upon patient request if the prescription is for a schedule II opioid drug., 2 sprays Nares, Both 2 times a day, 151,... Start Date: 09/02/21 Status: Ordered Keppra 1000 mg oral tablet 1 tablet = 1,000 mg, By Mouth, 3 times a day, # 90 tablet, 0 Refills, Maintenance, 04/04/21 14:56:00 EDT, Tablet, [facility]/pharmacy #1130, 151, cm, 04/04/21 14:15:00 EDT, Height, 71.8, kg, 02/18/21 19:34:00 EDT, Dry Weight Start Date: 04/04/21 Status: Ordered lamotrigine 150 mg oral tablet 1 tablet = 150 mg, By Mouth, 2 times a day, # 60 tablet, 6 Refills, Maintenance, 04/04/21 14:56:00 EDT, Tablet, [facility]/pharmacy #1130, 151, cm, 04/04/21 14:15:00 EDT, Height, 71.8, kg, 02/18/21 19:34:00EDT, Dry Weight Start Date: 04/04/21 Status: Ordered metFORMIN 500 mg oral tablet, extended release 1 tablet = 500 mg, By Mouth, Daily, # 30 tablet, 4 Refills, Maintenance, 02/13/21 15:28:00 EDT, ER Tablet, [facility]/pharmacy #1130, Partial fill [...] 18:31:00 EST, ECCapsule, [facility]/pharmacy #1130, moroccan label Start Date: 11/04/20 Status: [...] with dinner every night (please label in Sudanese), # 30 tablet, 1 Refills, Maintenance, 09/16/20 7:19:00 EST, Tablet, [facility] Start Date: 09/16/20 Status: Ordered Problem List Condition Effective Dates Status Health Status Inform ant Complex partial seizure(Confirmed) Active GERD (gastroesophageal reflu x disease)(Confirmed) Active Insomnia(Confirmed) Active Anxiety and depression(Confirmed) Active Prediabetes(Confirmed) Active Wayne-Silver syndrome, con genital hemihypertrophy(Confirmed) Active Vital Signs Most recent to oldest [Reference Range]: 1 Height 151 cm (08/22/21 10:52 AM) Social History Social History Type Response Smoking Status Never (less than 100 in lifetime) entered on: 04/04/20 Sex
--- OUTSIDE RECORDS SUMMARY | 2023-06-08 02:29 | XMS_ITS | Continuity of Care Document ---
Author Name Unknown Organization [facility] Adult [facility] Address [address] [place] [address]- Care Team Providers Care Electronic Technologist Name Role Phone Jorge ARMENTA, Louis Altamirano Primary Care Physician [phone] [place] [facility] [place]14/20 [facility] [address] [place] [address]- Allergies, Adverse Reactions, Alerts Substance Reaction Severity [...] Refills, Maintenance, 04/17/20 13:08:00 EDT, [facility], indian label, 10 mL By Mouth Every 4 [...] 2 Refills, Maintenance, 11/04/20 18:31:00 EST, ECCapsule, [facility]/pharmacy #1130, indian label Start Date: 11/04/20 Status: Ordered risperiDONE 4 mg oral tablet 1 tablet = 4 mg, By Mouth, Daily at bedtime, # 30 tablet, 6 Refills, Maintenance, 04/04/20 13:30:00EDT, Tablet, [facility]/pharmacy #1130 Start Date: 04/04/20 Stop Date: 10/31/20 Status: Ordered Vimpat 200 mg oral tablet 1 tablet = 200 mg, By Mouth, 2 times a day, # 60 tablet, 5 Refills, Maintenance, 10/16/20 10:26:00 EST, Tablet, [facility]/pharmacy #1130 Start Date: 10/16/20 Status: Ordered Zofran 8 mg oral tablet 1 tablet = 8 mg, By Mouth, Daily, take with dinner every night (please label in Lebanese), # 30 tablet, 1 Refills, Maintenance, 09/16/20 7:19:00 EST, Tablet, [facility]/pharmacy #1130 Start Date: 09/16/20 Status: Ordered Problem List Condition Effective Dates Status Health Status Inform ant Complex partial seizure(Confirmed) Active Anxiety and depression(Confirmed) Active Wayne-Silver syndrome, con genital hemihypertrophy(Confirmed) Active Social History Social History Type Response Smoking Status Never (less than 100 in lifetime) entered on: 04/04/20 Sex
--- OUTSIDE RECORDS SUMMARY | 2023-06-08 02:29 | XMS_ITS | Continuity of Care Document ---
Author Name Unknown Organization [facility] Adult [facility] Address [address] [place] [address]- Care Team Providers Care Building Manager Name Role Phone Jorge ARMENTA, Louis Altamirano Primary Care Physician Encounter [facility] Date(s): 02/02/22 - 03/04/22 [facility] [address] [place], [place] [address] Allergies, Adverse Reactions, Alerts No Known Allergies Immunizations Given and Recorded Vaccine Date Status Refusal Reason SARS-CoV-2 mRNA (xtmicqm-kjzk-vaqph) vax 01/19/22 Given SARS-CoV-2 (COVID-19) mRNA BNT-162b2 [...] 16:22:00 EDT, Aerosol, Route to Pharmacy Electronically, [id number], [facility]/pharmacy #1130, 151, cm, 06/10/21 16:07:00 EDT, H... Start Date: 06/10/21 Stop Date: 06/05/22 Status: Ordered Ambien 5 mg oral tablet 1 tablet = 5 mg, By Mouth, Daily at bedtime, PRN as needed for insomnia, # 12 tablet, 0 Refills, Acute 06/29/22 14:54:00 EDT, 05/29/21 14:54:00 EDT, Tablet, [facility]/pharmacy #1130, Partial fill upon patient [...] each, 5 Refills, Maintenance, 04/04/20 13:27:00 EDT, [facility]/pharmacy #1130 Start Date: 04/04/20 Status: Ordered clonazePAM 2 mg oral tablet 1 tablet = 2 mg, By Mouth, Daily at bedtime, # 30 tablet, 3 Refills, Maintenance, 04/04/20 13:25:00EDT, Tablet, [facility] Start Date: 04/04/20 Status: Ordered Guaiasorb DM 10 mg-100 mg/5 mL oral liquid 10 mL, By Mouth, Every 4 hours, # 240 mL, 0 Refills, Maintenance, 04/17/20 13:08:00 EDT, [facility]/pharmacy #1130, uzbek label, 10 mL By Mouth Every 4 hours Start Date: 04/17/20 Status: Ordered ipratropium nasal 21 mcg/inh spray 2 sprays, Nares, Both, 2 times a day, # 30 mL, 5 Refills, Maintenance, 10/27/21 14:41:00 EST, [place], [facility]/pharmacy #1130, Partial fill upon patient request if the prescription is for a schedule II opioid drug., 2 sprays Nares, Both 2 times a day, 150,... Start Date: 10/27/21 Status: Ordered Keppra 1000 mg oral tablet 1 tablet = 1,000 mg, By Mouth, 3 times a day, # 90 tablet, 6 Refills, Maintenance, 10/06/21 10:07:00 EST, Tablet, [facility]/pharmacy #1130, 151, cm, 09/02/21 14:18:00 EDT, Height, 71.8, kg, 02/18/21 19:34:00 EDT, Dry Weight Start Date: 10/06/21 Status: Ordered ketoconazole 1% topical shampoo See Instructions, Topically Every third day, # 200 mL, 1 Refills, Maintenance, 01/19/22 15:55:00 EST, [facility]/pharmacy #1130, Partial fill upon patient request if the prescription is for a schedule II opioid drug., Topically Every third day, 150, cm, 03/0... Start Date: 01/19/22 Status: Ordered ketoconazole 2% topical cream 1 application, Topically, 2 times a day, for 28 days, # 60 Gm, 2 Refills, Acute 04/13/22 15:58:00 EDT, 01/19/22 15:58:00 EST, Cream, [facility]/pharmacy #1130, Partial fill upon patient request if the prescription is for a schedule II opioid drug., 1 applica... Start Date: 01/19/22 Stop Date: 04/13/22 Status: Ordered lamotrigine 150 mg oral tablet 1 tablet = 150 mg, By Mouth, 2 times a day, # 60 tablet, 5 Refills, Maintenance, 10/06/21 9:55:00 EST, Tablet, [facility]/pharmacy #1130, 151, cm, 09/02/21 14:18:00 [...] 5 Refills, Maintenance, 02/03/22 9:00:00 EDT, Tablet, [facility]/pharmacy #1130, 150, cm, 01/19/22 15:23:00 EST, Height, 68.63, kg, 10/22/21 15:09:0... Start Date: 02/03/22 Stop Date: 08/02/22 Status: Ordered Zofran 8 mg oral tablet 1 tablet = 8 mg, By Mouth, Daily, take with dinner every night (please label in Belizean), # 30 tablet, 1 Refills, Maintenance, 09/16/20 7:19:00 EST, Tablet, [facility]/pharmacy #1130 Start Date: 09/16/20 Status: Ordered Problem [...]
--- OUTSIDE RECORDS SUMMARY | 2023-06-08 02:29 | XMS_ITS | Continuity of Care Document ---
Author Name Unknown Organization [facility] y Address [address] [place] [address]- Care Team Providers Care Lead Embedded Software Engineer Name Role Phone Louis Patel MD Primary Care Physician [place] [facility] [place](s): 07/07/21 - 09/21/21 [facility] Special[facility] [address] [place], [place] [address] Attending Physician: Not on Staff, Attending MD [...] 16:22:00 EDT, Aerosol, Route to Pharmacy Electronically, [id number], [facility]/pharmacy #1130, 151, cm, 06/10/21 16:07:00 EDT, H... Start Date: 06/10/21 Stop Date: 06/05/22 Status: Ordered Ambien 5 mg oral tablet 1 tablet = 5 mg, By Mouth, Daily at bedtime, PRN as needed for insomnia, # 12 tablet, 0 Refills, Acute 06/29/22 14:54:00 EDT, 05/29/21 14:54:00 EDT, Tablet, [facility]/pharmacy #1130, Partial fill upon patient request [...] Refills, Maintenance, 04/17/20 13:08:00 EDT, [facility], kazakh label, 10 mL By Mouth Every 4 hours Start Date: 04/17/20 Status: Ordered ipratropium nasal 21 mcg/inh spray 2 sprays, Nares, Both, 2 times a day, # 30 mL, 1 Refills, Maintenance, 09/02/21 14:32:00 EDT, [place], [facility]/pharmacy #1130, Partial fill upon patient request [...] Refills, Maintenance, 02/13/21 15:28:00 EDT, ER Tablet, [facility]/pharmacy #1130, Partial fill upon patient request [...] Maintenance, 11/04/20 18:31:00 EST, ECCapsule, [facility], kazakh label Start Date: 11/04/20 Status: Ordered pantoprazole [...]
--- OUTSIDE RECORDS SUMMARY | 2023-06-08 02:29 | XMS_ITS | Continuity of Care Document ---
Author Name Unknown Organization [facility] Address [address] [facility], [address], [address] [place] [address]- Care Team Providers Care Conveyor Feeder Name Role Phone Jorge ARMENTA, Louis Altamirano Primary Care Physician [place] [facility] [place]23 - 02/19/23 [facility] [address], [address], [address] [place] [address]- Allergies, Adverse Reactions, Alerts No Known Allergies Immunizations Given and Recorded Vaccine Date Status Refusal Reason SARS-CoV-2 mRNA (rweuvpe-ekzr-momig) vax 01/19/22 Given SARS-CoV-2 (COVID-19) mRNA BNT-162b2 [...] 15:52:00 EDT, Aerosol, Route to Pharmacy Electronically, [id number], [facility]/pharmacy #1130, 150, cm, 01/28/23 15:24:00 EDT, [...] 2 Refills, Maintenance, 05/28/22 17:00:00 EDT, Gel, [facility]/pharmacy #1130, Partial fill upon patient request [...] tablet, 5 Refills, Maintenance, 01/15/23 11:36:00 EST, [facility]/pharmacy #1130, 150, cm, 01/15/23 11:00:00 EST, Height, 68.63, kg, 10/22/21 15:09:00 EST, Dry Weight Start Date: 01/15/23 Status: Ordered levETIRAcetam 1000 mg oral tablet 1 tablet, By Mouth, 3 times a day, # 90 tablet, 5 Refills, 01/15/23 11:35:00 EST, [facility]/pharmacy #1130, 150, cm, 01/15/23 11:00:00 EST, [...] 1, tablet, By Mouth, Daily, Label in [place], # 30 tablet, Refills 5, Tot. Refills 5, Maintenance, 10/13/22 15:15:00 EST, [facility], Partial fill upon patient request if [...] Refills, Maintenance, 02/08/23 13:00:00 EDT, [id number], 150, cm, 01/28/23 15:24:00 EDT, Height,68.63, kg, [...] Care Physician Member Role: PCP Address: Address: [address] [place] [address]- Care Team Related Persons Name: BERDECIA, MATT Address: home [address] [place] [address] Name: LEANDRO MARQUEZ Address: [address] [place] [address] Name: ANTOLIN MARQUEZ Name: ZORAIDA BANKS Address: home [address] [address]
--- OUTSIDE RECORDS SUMMARY | 2023-06-08 02:29 | XMS_ITS | Continuity of Care Document ---
Author Name Unknown Organization [facility] y Address [address] [place] [address]- Care Team Providers Care Card Sorter Name Role Phone Jorge ARMENTA, Louis Altamirano Primary Care Physician [phone] Encounter [facility] [place] Date(s): 01/24/21 - 02/23/21 [facility] [address] [place], [place] [address] Attending Physician: AdmtrMerlin Admitting Physician: Admtr, David8 Referring Physician: Admtr, Ar8 Allergies, Adverse Reactions, [...] 16:03:00 EDT, Aerosol, Route to Pharmacy Electronically, [id number], [facility]pharmacy [facility]30 Start Date: 02/04/21 Status: Ordered Bedside [...] each, 5 Refills, Maintenance, 04/04/20 13:27:00 EDT, [facility]/pharmacy #1130 Start Date: 04/04/20 Status: Ordered clonazePAM 2 mg oral tablet 1 tablet = 2 mg, By Mouth, Daily at bedtime, # 30 tablet, 3 Refills, Maintenance, 04/04/20 13:25:00EDT, Tablet, [facility] Start Date: 04/04/20 Status: Ordered Guaiasorb DM 10 mg-100 mg/5 mL oral liquid 10 mL, By Mouth, Every 4 hours, # 240 mL, 0 Refills, Maintenance, 04/17/20 13:08:00 EDT, [facility], malawian label, 10 mL By Mouth Every 4 hours Start Date: 04/17/20 Status: Ordered Keppra 1000 mg oral tablet 1 tablet = 1,000 mg, By Mouth, 3 times a day, # 90 tablet, 6 Refills, Maintenance, 10/16/20 10:26:00 EST, Tablet, [facility]/pharmacy #1130 Start Date: 10/16/20 Status: Ordered lamotrigine [...] Maintenance, 02/13/21 15:28:00 EDT, ER Tablet, [facility]/pharmacy #[facility]30, Partial [...] 2 Refills, Maintenance, 11/04/20 18:31:00 EST, ECCapsule, [facility]/pharmacy #1130, malawian label Start Date: 11/04/20 Status: Ordered pantoprazole [...] pack/packet, 0 Refills, Maintenance, 02/20/21 14:54:00 EDT, [facility]/pharmacy #1130, Partial fill [...] 5 Refills, Maintenance, 10/16/20 10:26:00 EST, Tablet, [facility]/pharmacy #1130 Start Date: 10/16/20 Status: Ordered Zofran [...]
--- OUTSIDE RECORDS SUMMARY | 2023-06-08 02:29 | XMS_ITS | Continuity of Care Document ---
Author Name Unknown Organization [facility] Address [address] [place] [address]- Care Team Providers Care Steam Press Operator Name Role Phone Jorge ARMENTA, Louis Altamirano Primary Care Physician [phone] [place] [facility] [place] [facility] [id number] Date(s): 12/29/22 - 01/28/[address] [address]- Attending Physician: Merlin Barry Admitting Physician: AdmtrMerlin Referring Physician: Admtr Ar8 Allergies, Adverse Reactions, Alerts No Known Allergies Immunizations Given and Recorded Vaccine Date Status Refusal Reason SARS-CoV-2 mRNA (bttsdby-hamf-mkreu) vax 01/19/22 Given SARS-CoV-2 (COVID-19) mRNA BNT-162b2 [...] 6 Refills, Maintenance, 06/10/21 16:22:00 EDT, [place], [facility]/pharmacy #1130, Partial fill upon patient request if the prescription is for a schedule II opioid drug., 151, cm, 06/10/21 16:07:00 EDT,... Start Date: 06/10/21 Status: Ordered albuterol CFC free 90 mcg/inh inhalation aerosol 2, puffs, Inhalation, Every 4 hours, PRN, # 1 each, Refills 11, Tot. Refills 11, Maintenance, 01/28/23 15:52:00 EDT, Aerosol, Route to Pharmacy Electronically, [id number], [facility]/pharmacy #1130, 150, cm, 01/28/23 15:24:00 EDT, [...] 2 Refills, Maintenance, 05/28/22 17:00:00 EDT, Gel, [facility]/pharmacy #1130, Partial fill upon [...] tablet, 5 Refills, Maintenance, 01/15/23 11:36:00 EST, [facility]/pharmacy #1130, 150, cm, 01/15/23 11:00:00 EST, Height, 68.63, kg, 10/22/21 15:09:00 EST, Dry Weight Start Date: 01/15/23 Status: Ordered levETIRAcetam 1000 mg oral tablet 1 tablet, By Mouth, 3 times a day, # 90 tablet, 5 Refills, 01/15/23 11:35:00 EST, [facility]/pharmacy #1130, 150, cm, 01/15/23 11:00:00 EST, [...] 1, tablet, By Mouth, Daily, Label in Austrian, # 30 tablet, Refills 5, Tot. Refills 5, Maintenance, 10/13/22 15:15:00 EST, Route to Pharmacy Electronically, [facility]/pharmacy #1130, Partial fill upon [...] Refills, Maintenance, 08/23/22 14:25:00 EDT, [id number], 150, cm, 07/07/22 13:19:00 EDT, Height,68.63, kg, 10/22/21 15:09:00 EST, Dry Weight Start Date: 08/23/22 Status: Ordered Tylenol Extra Strength 500 mg oral tablet 2 tablet = 1,000 mg, By Mouth, 3 times a day, PRN for pain, # 540 tablet, 1 Refills, Maintenance, 07/07/22 13:48:00 EDT, Tablet, [facility]/pharmacy #1130, Partial fill upon [...] Care Physician Member Role: PCP Address: Address: [address] [place] [address] [address] [facility] [place] [address]- [place] Care Team Related Persons Name: RASHEED MATT Address: home [address] [place] [address] Name: LEANDRO MARQUEZ Address: [address] [place] [address] Name: ANTOLIN MARQUEZ Name: ZORAIDA BANKS Address: home [address] [address]
--- OUTSIDE RECORDS SUMMARY | 2023-06-08 02:29 | XMS_ITS | Continuity of Care Document ---
Author Name Unknown Organization [facility] y Address [address] [place] [address]- Care Team Providers Care Remelt Operator Name Role Phone Louis Patel MD Primary Care Physician [phone] Encounter [facility] [place] Date(s): 04/16/23 - 05/16/23 [facility] [address] [place] [address]- Attending Physician: Merlin Barry Admitting Physician: AdmMerlin villar Referring Physician: Admtr Ar8 Allergies, Adverse Reactions, Alerts No Known Allergies Immunizations Given and Recorded Vaccine Date Status Refusal Reason SARS-CoV-2 mRNA (aubgmdq-crmw-lwtwv) vax 01/19/22 Given SARS-CoV-2 (COVID-19) mRNA BNT-162b2 [...] 15:52:00 EDT, Aerosol, Route to Pharmacy Electronically, [id number], [facility]/pharmacy #1130, 150, cm, 01/28/23 15:24:00 EDT, H... [...] Gm, 2 Refills, Maintenance, 04/20/23 10:27:00 EDT, [facility] STORE [id number], 25, APPLY TO AFFECTED AREA 4 TIMES [...] Gm, 0 Refills, Maintenance, 02/23/23 11:47:00 EDT, [place], Partial fill upon patient request if the prescription is for a schedule II opioid drug. Start Date: 02/23/23 Status: Ordered fluticasone 50 mcg/inh nasal spray 1 sprays, Nares, Both, 2 times a day, # 16 Gm, 0 Refills, Maintenance, 02/23/23 11:47:00 EDT, [place], Partial fill upon patient request if the [...] mL, 5 Refills, Maintenance, 03/22/23 16:10:00 EDT,Solution, [facility], Partial fill upon patient request if the [...] tablet, 5 Refills, Maintenance, 03/22/23 16:02:00 EDT, [facility]/pharmacy #1130, 150, cm, 03/22/23 15:46:00 EDT, Height, 74.1, kg, 02/23/23 13:43:00 EDT, Dry Weight Start Date: 03/22/23 Status: Ordered mirtazapine 45 mg oral tablet 1 tablet = 45 mg, By Mouth, Daily at bedtime, # 30 tablet, 0 Refills, Maintenance, 03/22/23 16:04:00 EDT, Tablet, [facility]/pharmacy #1130, Partial fill upon patient request if [...] 1, tablet, By Mouth, Daily, Label in Ukrainian, # 30 tablet, Refills 5, Tot. Refills [...] 03/22/23 16:04:00 EDT, Route to Pharmacy Electronically, [facility]/pharmacy #1130, Partial fill upon patient request if [...] Personnel Name: Jorge ARMENTA, Louis Altamirano Position: [facility] Physician - Primary Care Member Role: PCP Address: Address: [address] [facility], [place], [place] [address] Name: Radha Wang RN Position: [facility] ED RN W/OE and Tasks Member Role: Primary Care Nurse Care Team Related Persons Name: XIOMYGillMATT Address: home [address] [place] [address] Name: LEANDRO MARQUEZ Address: home [address] [place] [address] Name: ANTOLIN MARQUEZ Name: MATTIE BANKS Address: home [address] [address]
--- OUTSIDE RECORDS SUMMARY | 2023-06-08 02:29 | XMS_ITS | Continuity of Care Document ---
Author Name Unknown Organization [facility] Address [address] [place] [address]- Care Team Providers Care Medical Diagnostic Radiographer Name Role Phone Louis Patel MD Primary Care Physician [phone] Encounter [facility] [place] Date(s): 06/12/21 - 09/11/21 [facility] [address] [place] [address]- Attending Physician: Louis Patel MD Admitting Physician: [...] 16:22:00 EDT, Aerosol, Route to Pharmacy Electronically, [id number], [facility]/pharmacy #1130, 151, cm, 06/10/21 16:07:00 EDT, H... Start Date: 06/10/21 Stop Date: 06/05/22 Status: Ordered Ambien 5 mg oral tablet 1 tablet = 5 mg, By Mouth, Daily at bedtime, PRN as needed for insomnia, # 12 tablet, 0 Refills, Acute 06/29/22 14:54:00 EDT, 05/29/21 14:54:00 EDT, Tablet, [facility]/pharmacy #1130, Partial fill upon patient [...] each, 5 Refills, Maintenance, 04/04/20 13:27:00 EDT, [facility]/pharmacy #1130 Start Date: 04/04/20 Status: [...] Maintenance, 04/17/20 13:08:00 EDT, [facility], south korean label, 10 mL By Mouth Every 4 hours Start Date: 04/17/20 Status: Ordered ipratropium nasal 21 mcg/inh spray 2 sprays, Nares, Both, 2 times a day, # 30 mL, 1 Refills, Maintenance, 09/02/21 14:32:00 EDT, [place], [facility]/pharmacy #1130, Partial fill upon patient [...] Maintenance, 11/04/20 18:31:00 EST, ECCapsule, [facility], south korean label Start Date: 11/04/20 Status: Ordered pantoprazole [...] 5 Refills, Maintenance, 04/04/21 14:56:00 EDT, Tablet, [facility]/pharmacy #1130, 151, cm, 04/04/21 14:15:00 EDT, Height, 71.8, kg, 02/18/21 19:34:00EDT, Dry Weight Start Date: 04/04/21 Status: Ordered Zofran 8 mg oral tablet 1 tablet = 8 mg, By Mouth, Daily, take with dinner every night (please label in Ukrainian), # 30 tablet, 1 Refills, Maintenance, 09/16/20 [...]
== END 2023-06-08 03:10 | disposition left against medical advice (07) ==
PROVIDERS: Emergency Provider Emergency Medicine; PCP Internal Medicine
DX: S09.90XA Unspecified injury of head, initial encounter (principal); S01.21XA Laceration without foreign body of nose, initial encounter; W01.0XXA Fall on same level from slipping, tripping and stumbling without subsequent striking against object, initial encounter; Y93.89 Activity, other specified; Y92.22 Religious institution as the place of occurrence of the external cause; Y99.9 Unspecified external cause status
CPT/HCPCS: 99281; 99283

== ENCOUNTER 2023-09-15 00:51 | Emergency (ER) | payer OTHER, SELFPAY ==
[2023-09-15 00:52] VITALS: BP 143/80; PULSE 94; RESP 16; TEMP 37.2; O2SAT 98; BMI 31.7
--- NOTE | 2023-09-15 01:15 | ED.MALEGU ---
HPI - Male Genitourinary General Chief complaint: Urogenital-Male Stated complaint: bladder infection? Time Seen by Provider: 09/15/23 01:05 Source: patient Mode of arrival: ambulatory Limitations: no limitations History of Present Illness HPI Narrative: Patient anxiety disorder likes to go to hospital frequently per patient's mother comes here for dysuria for last few days patient was seen at urgent care center 2 weeks ago and was told as UTI but patient did not take any antibiotic. No fever no chills no nausea no vomiting no pain and discharge no history of STD Related Data Previous Rx's Medication Instructions Recorded amoxicillin 500 mg capsule 500 mg PO QID #20 caps 08/20/20 amoxicillin 500 mg capsule 500 mg PO QID #40 caps 08/20/20 amoxicillin 875 mg-potassium 1 tab PO Q12H #20 tabs 09/30/20 clavulanate 125 mg tablet (Augmentin) triamcinolone acetonide 55 mcg 1 spray intranasal DAILY #16.9 mL 09/30/20 nasal spray aerosol (Nasacort) ibuprofen 600 mg tablet 600 mg PO Q6H PRN fever or pain 10/01/20 #20 tabs acetaminophen 500 mg capsule 1,000 mg (2 x 500 mg) PO Q6H PRN 04/08/21 pain #60 caps Allergies Allergy/AdvReac Type Severity Reaction Status Date / Time lorazepam [From Ativan] Allergy Unknown Unknown Verified 06/07/23 22:14 Review of Systems Review of Systems: Yes all other systems are reviewed and are negative PMFSH Past Medical History Medical History Acquired cognitive dysfunction Seizure disorder Social History Social History Alcohol intake: never Smoked in Last 30 Days: No Use of substances other than those prescribed or required for medical reasons: No Advance Directives: No Advance Directives Information Provided: No Physical Exam Vital Signs: Vital Signs: Last Vital Signs Temp 99.0 F 09/15/23 00:52 Pulse 94 09/15/23 00:52 Resp 16 09/15/23 00:52 BP 143/80 H 09/15/23 00:52 Pulse Ox 98 09/15/23 00:52 O2 Del Method Room Air 09/15/23 00:52 BMI result Body Mass Index 31.7 Appearance: Alert. Oriented X3. No acute distress. Neck: Normal inspection. Neck supple. CVS: Normal heart rate and rhythm. Pulses normal. Respiratory: No respiratory distress. Equal air entry bilateral, Abdomen: Soft and nontender. Bowel sounds are present, no mass palpable, no CVA tenderness : Normal scrotum testes in the penile discharge Skin: Skin warm and dry. Normal skin color. Normal skin turgor. Extremities: No lower extremity edema. No calf tenderness Neuro: Oriented X 3. Medications Administered Discontinued Medications Generic Name Dose Route Start Last Admin Trade Name Freq PRN Reason Stop Dose Admin Phenazopyridine HCl 200 mg 09/15/23 02:00 09/15/23 02:05 Phenazopyridine Hcl 200 Mg Tablet PO 09/15/23 02:01 Not Given ONCE ONE Medical Decision Making Differential Diagnosis Differential Diagnoses: The differential diagnosis associated with the presentation includes UTI/anxiety/bladder spasm Lab Data MDM Lab Attestation statement: I reviewed the patient's lab results. Labs: Lab Results 09/15/23 Range/Units 01:29 Urine Color Yellow Urine Appearance Clear Urine pH 7.0 (5.0-9.0) Ur Specific [place] 1.020 (1.005-1.025) Urine Protein Negative (Neg-Trace) mg/dL Urine Glucose (UA) Negative (Negative) mg/dL Urine Ketones Negative (Negative) mg/dL Urine Blood Trace H (Negative) Urine Nitrite Negative (Negative) Ur Leukocyte Esterase Negative (Negative) Urine RBC 6-10 H (0-2) /HPF Urine WBC 0-5 (0-5) /HPF Ur Squamous Epith Cells 0-2 (0-2) /HPF Urine Bacteria None Seen (None Seen) Hyaline Casts 0-2 (0-2) /LPF Discharge Plan Discharge Clinical Impression: Dysuria Patient Disposition: Home, Self-Care Instructions: Dysuria (ED) Additional Instructions: No infection seen in the urine Drink plenty of fluids No se observa infecci?n en la orina. Beber mucho l?quido Prescriptions: No Action amoxicillin-pot clavulanate [Augmentin] 875-125 mg tablet 1 tab PO Q12H Qty: 20 0RF triamcinolone acetonide [Nasacort] 55 mcg aerosol,spray 1 spray intranasal DAILY Qty: 16.9 0RF Rx Instructions: administer into each nostril ibuprofen 600 mg tablet 600 mg PO Q6H PRN (Reason: fever or pain) Qty: 20 0RF acetaminophen 500 mg capsule 1,000 mg PO Q6H PRN (Reason: pain) Qty: 60 0RF amoxicillin 500 mg capsule 500 mg PO QID Qty: 20 0RF amoxicillin 500 mg capsule 500 mg PO QID Qty: 40 0RF Print Language: Rwandan
[2023-09-15 01:36] LABS: Appearance Urine Clear; Color Urine Yellow; Glucose Urine UA Negative (Negative); Leukocyte Esterase Urine Negative (Negative); Nitrite Urine Negative (Negative); UMIC TRIGGER UACC YES; Urine Blood Trace (Negative); Urine Ketones Negative (Negative); Urine Protein Negative (Neg-Trace)
--- OUTSIDE RECORDS SUMMARY | 2023-09-15 01:36 | XMS_ITS | Continuity of Care Document ---
Author Name Unknown Organization [facility] ter Address [address] [place] [address]- Care Team Providers Care Water Service Dispatcher Name Role Phone Louis Patel MD Primary Care Physician [place] [facility] [place] - 07/19/[address] [address]- Discharge Disposition: A-D/C Walkout Attending Physician: Not on Staff, Attending MD Admitting Physician: Not on Staff, Admitting MD Referring Physician: Not on Staff, Referring MD Allergies, Adverse Reactions, Alerts No Known Allergies Immunizations Given and Recorded Vaccine Date Status Refusal Reason SARS-CoV-2 mRNA (cnlfhlk-ngco-acivo) vax 01/19/22 Given SARS-CoV-2 (COVID-19) mRNA BNT-162b2 vac 1 07/03/21 Given SARS-CoV-2 (COVID-19) mRNA BNT-162b2 vac 06/06/21 Given 1? Unknown: Resend to [facility]. Medications Adult Disposable Pull Ups - L [...] 15:52:00 EDT, Aerosol, Route to Pharmacy Electronically, [id number], [facility]/pharmacy #1130, 150, cm, 01/28/23 15:24:00 EDT, [...] 30 tablet, 3 Refills, Maintenance, 03/22/23 16:04:00EDT, [facility]/pharmacy #1130, Partial fill upon [...] Gm, 2 Refills, Maintenance, 04/20/23 10:27:00 EDT, [facility] STORE 64533, 25, APPLY TO AFFECTED AREA 4 TIMES [...] Gm, 0 Refills, Maintenance, 02/23/23 11:47:00 EDT, [place], Partial fill upon patient request if the prescription is for a schedule II opioid drug. Start Date: 02/23/23 Status: Ordered fluticasone 50 mcg/inh nasal spray 1 sprays, Nares, Both, 2 times a day, # 16 Gm, 0 Refills, Maintenance, 02/23/23 11:47:00 EDT, [place], Partial fill upon patient request if the [...] mL, 5 Refills, Maintenance, 03/22/23 16:10:00 EDT,Solution, [facility], Partial fill upon patient request if [...] tablet, 5 Refills, Maintenance, 03/22/23 16:02:00 EDT, [facility]/pharmacy #1130, 150, cm, 03/22/23 15:46:00 EDT, Height, 74.1, kg, 02/23/23 13:43:00 EDT, Dry Weight Start Date: 03/22/23 Status: Ordered mirtazapine 45 mg oral tablet 1 tablet = 45 mg, By Mouth, Daily at bedtime, # 30 tablet, 0 Refills, Maintenance, 03/22/23 16:04:00 EDT, Tablet, [facility]/pharmacy #1130, Partial [...] 1, tablet, By Mouth, Daily, Label in Swedish, # 30 tablet, Refills 5, Tot. Refills 5, Maintenance, 03/22/23 16:02:00 EDT, Route to Pharmacy Electronically, [facility]/pharmacy #1130, Partial fill upon [...] 03/22/23 16:04:00 EDT, Route to Pharmacy Electronically, [facility]/pharmacy #1130, Partial fill upon [...] 1 Refills, Maintenance, 07/07/22 13:48:00 EDT, Tablet, [facility]/pharmacy #1130, Partial [...] [Reference Range]: 1 Oxygen Saturation [94-100 %] 98 % (07/19/23 1:51 AM) Pulse Rate [55-90 bpm] 97 bpm *H* (07/19/23 1:51 AM) Mode of Delivery (Oxygen) Room air (07/19/23 1:51 AM) Social History Social History Type Response Smoking Status Never (less than 100 in lifetime) entered on: 04/04/20 Sex Patient Care team information Care Team Personnel Name: Jorge ARMENTA, Louis Altamirano Position: [facility] Physician - Primary Care Member Role: PCP Address: Address: [address] [place] [id number]- Name: Radha Wang RN Position: [facility] RN Member Role: Primary Care Nurse Care Team Related Persons Name: MATT IQBAL Address: home [address] [place] [address] Name: LEANDRO MARQUEZ Address: home [address] [place] [address] Name: ANTOLIN MARQUEZ Name: MATTIE BANKS Address: home [address] [address]
[2023-09-15 01:38] LABS: Bacteria Urine None Seen (None Seen); Hyaline Casts Urine 0-2 /LPF (0-2); Squamous Epithelial Cell Urine 0-2 /HPF (0-2); WBC Urine 0-5 /HPF (0-5)
== END 2023-09-15 02:14 | disposition home or self-care (01) ==
PROVIDERS: Emergency Provider Internal Medicine
DX: R30.0 Dysuria (principal)
CPT/HCPCS: 81001; 99283; 99284

== ENCOUNTER 2023-11-12 01:21 | Emergency (ER) | payer OTHER, SELFPAY ==
[2023-11-12 01:39] VITALS: BP 110/56; PULSE 87; RESP 18; TEMP 36.5; O2SAT 96; BMI 33.3
[2023-11-12 02:09] VITALS: BP 122/74; PULSE 86; RESP 17; TEMP 36.8; O2SAT 97
--- NOTE | 2023-11-12 02:27 | PC.NURSE ---
pt's mother is telling staff that pt is obsessed with the hospital, wants to come everyday, if she doesn't take him then he breaks things in her house. just had a full work up at [facility] the past 2 days with no findings.
--- OUTSIDE RECORDS SUMMARY | 2023-11-12 02:36 | XMS_ITS | Continuity of Care Document ---
Author Name Unknown Organization [facility] Address [address] [place] [address]- Care Team Providers Care Dairy Farmer Name Role Phone Jorge ARMENTA, Louis Altamirano Primary Care Physician Encounter [facility] [place] [facility] [place] Date(s): 09/07/23 - 10/07/23 [facility] [address] [place] [address]- Attending Physician: Merlin Barry Admitting Physician: AdmMerlin villar Referring Physician: Admtr Ar8 Allergies, Adverse Reactions, Alerts No Known Allergies Immunizations Given and Recorded Vaccine Date Status Refusal Reason SARS-CoV-2 mRNA (wgcggox-rngk-lishy) vax 01/19/22 Given SARS-CoV-2 (COVID-19) mRNA BNT-162b2 [...] hours, # 120 each, 6 Refills, Maintenance, 09/07/23 16:08:00 EDT, [facility], [facility], Partial fill upon patient request if the prescription is for a schedule II opioid drug., 150, cm, 09/07/23 15:49:00 EDT,... Start Date: 09/07/23 Status: Ordered albuterol CFC free 90 mcg/inh inhalation aerosol 2, puffs, Inhalation, Every 4 hours, PRN, # 1 each, Refills 11, Tot. Refills 11, Maintenance, 09/07/23 16:09:00 EDT, Aerosol, Route to Pharmacy Electronically, [id number], [facility]/pharmacy #1130, 150, cm, 09/07/23 15:49:00 EDT, H... Start Date: 09/07/23 Stop Date: 09/01/24 Status: Ordered Bed Pads Bed Pads, See [...] 30 tablet, 3 Refills, Maintenance, 03/22/23 16:04:00EDT, [facility]/pharmacy #1130, Partial fill upon patient request [...] Refills, Maintenance, 04/20/23 10:27:00 EDT, [id number], 25, APPLY TO AFFECTED AREA 4 TIMES A DAY, 150, cm, 03/22/23 15:46:00 EDT, Height, 74.1, kg, 02/23/23 13:43:00 EDT, Dry We... Start Date: 04/20/23 Status: Ordered fluticasone 50 mcg/inh nasal spray 1 sprays, Nares, Both, 2 times a day, # 16 Gm, 0 Refills, Maintenance, 02/23/23 11:47:00 EDT, [place], Partial fill upon patient request if the prescription is for a schedule II opioid drug. Start Date: 02/23/23 Status: Ordered fluticasone 50 mcg/inh nasal spray 1 sprays, Nares, Both, 2 times a day, # 16 Gm, 0 Refills, Maintenance, 02/23/23 11:47:00 EDT, [place], Partial fill upon patient request if the [...] day, # 1,500 mL, 5 Refills, Maintenance, 09/21/23 14:22:00 EST,Solution, [facility], Partial fill upon patient request if the prescription is for a schedule II opioid drug., 150, cm, 09/07/23 15:49:... Start Date: 09/21/23 Stop Date: 03/19/24 Status: Ordered lacosamide 100 mg oral tablet [...] tablet, 5 Refills, Maintenance, 03/22/23 16:02:00 EDT, [facility]/pharmacy #1130, 150, cm, 03/22/23 15:46:00 EDT, Height, 74.1, kg, 02/23/23 13:43:00 EDT, Dry Weight Start Date: 03/22/23 Status: Ordered mirtazapine 45 mg oral tablet 1 tablet = 45 mg, By Mouth, Daily at bedtime, # 30 tablet, 0 Refills, Maintenance, 03/22/23 16:04:00 EDT, Tablet, [facility]/pharmacy #1130, Partial fill upon patient request if the prescription is for a schedule II opioid drug., 150, cm, 03/22/23 15:46:00 E... Start Date: 03/22/23 Status: Ordered montelukast 10 mg oral tablet 10 mg, 1, tablet, By Mouth, Daily, Label in Guatemalan, # 30 tablet, Refills 5, Tot. Refills 5, Maintenance, 09/07/23 16:09:00 EDT, Route to Pharmacy Electronically, [facility]/pharmacy #1130, Partial fill upon patient request if the prescription is for a sched... Start Date: 09/07/23 Status: Ordered pantoprazole 40 mg oral delayed [...] 03/22/23 16:04:00 EDT, Route to Pharmacy Electronically, [facility]/pharmacy #1130, Partial fill upon patient request [...] SITES, # 2 Unknown, 5 Refills, Maintenance, 09/07/23 16:10:00 EDT, [facility]/pharmacy #1130, 150, cm, 09/07/23 15:49:00 EDT, Height, 69.3, kg, 05/23/23 17:21:00 EDT, Dry Weight Start Date: 09/07/23 Status: Ordered Tylenol Extra Strength 500 mg oral tablet 2 tablet = 1,000 mg, By Mouth, 3 times a day, PRN for pain, # 540 tablet, 1 Refills, Maintenance, 07/07/22 13:48:00 EDT, Tablet, [facility]/pharmacy #1130, Partial fill upon patient request if the prescription is for a schedule II opioid drug., 150, cm, 06/16... Start Date: 07/07/22 Status: Ordered Problem List Condition Confirmation Course Effective Dates Status H ealth Status Informant Allergic asthma Confirmed Active Complex partial seizure Confirmed Active Diabetes mellitus [...] Team Personnel Name: Louis Patel MD Position: [facility] Physician - Primary Care Member Role: PCP Address: Address: [address] [facility], [place] [address]- Name: Radha Wang RN Position: [facility] RN Member Role: Primary Care Nurse Care Team Related Persons Name: MATT IQBAL Address: home [address] [place] [address] Name: LEANDRO MARQUEZ Address: home [address] [place] [address] Name: ANTOLIN MARQUEZ Name: ZORAIDA BANKS Address: home [address] [place] [address]
--- OUTSIDE RECORDS SUMMARY | 2023-11-12 02:36 | XMS_ITS | Continuity of Care Document ---
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 Name Role Phone Jorge ARMENTA, Louis Altamirano Primary Care Physician Encounter [facility] [place] Date(s): 09/21/23 - 10/21/23 [facility] [address] [place] [address]- Allergies, Adverse Reactions, Alerts No Known Allergies Immunizations Given and Recorded Vaccine Date Status Refusal Reason SARS-CoV-2 mRNA (celnbyb-iins-lkake) vax 01/19/22 Given SARS-CoV-2 (COVID-19) mRNA BNT-162b2 [...] 16:09:00 EDT, Aerosol, Route to Pharmacy Electronically, [id number], [facility]/pharmacy #1130, 150, cm, 09/07/23 15:49:00 EDT, H... [...] 30 tablet, 3 Refills, Maintenance, 03/22/23 16:04:00EDT, [facility]/pharmacy #1130, Partial fill upon patient request if [...] Gm, 2 Refills, Maintenance, 04/20/23 10:27:00 EDT, [facility] STORE 87300, 25, APPLY TO AFFECTED AREA 4 TIMES A DAY, 150, cm, 03/22/23 15:46:00 EDT, Height, 74.1, kg, 02/23/23 13:43:00 EDT, Dry We... Start Date: 04/20/23 Status: Ordered fluticasone 50 mcg/inh nasal spray 1 sprays, Nares, Both, 2 times a day, # 16 Gm, 0 Refills, Maintenance, 02/23/23 11:47:00 EDT, [place], Partial fill upon patient request if the prescription is for a schedule II opioid drug. Start Date: 02/23/23 Status: Ordered fluticasone 50 mcg/inh nasal spray 1 sprays, Nares, Both, 2 times a day, # 16 Gm, 0 Refills, Maintenance, 02/23/23 11:47:00 EDT, [place], Partial fill upon patient request if the [...] mL, 5 Refills, Maintenance, 09/21/23 14:22:00 EST,Solution, [facility] Partial fill upon patient request if the [...] tablet, 5 Refills, Maintenance, 03/22/23 16:02:00 EDT, [facility]/pharmacy #1130, 150, cm, 03/22/23 15:46:00 EDT, Height, 74.1, kg, 02/23/23 13:43:00 EDT, Dry Weight Start Date: 03/22/23 Status: Ordered mirtazapine 45 mg oral tablet 1 tablet = 45 mg, By Mouth, Daily at bedtime, # 30 tablet, 0 Refills, Maintenance, 03/22/23 16:04:00 EDT, Tablet, [facility]/pharmacy #1130, Partial fill upon patient request if the prescription is for a schedule II opioid drug., 150, cm, 03/22/23 15:46:00 E... Start Date: 03/22/23 Status: Ordered montelukast 10 mg oral tablet 10 mg, 1, tablet, By Mouth, Daily, Label in Malagasy, # 30 tablet, Refills 5, Tot. Refills 5, Maintenance, 09/07/23 16:09:00 EDT, Route to Pharmacy Electronically, [facility]/pharmacy #1130, Partial fill upon patient request if [...] 03/22/23 16:04:00 EDT, Route to Pharmacy Electronically, [facility]/pharmacy #1130, Partial fill upon patient request if [...] Unknown, 5 Refills, Maintenance, 09/07/23 16:10:00 EDT, [facility], 150, cm, 09/07/23 15:49:00 EDT, Height, 69.3, kg, 05/23/23 17:21:00 EDT, Dry Weight Start Date: 09/07/23 Status: Ordered Tylenol Extra Strength 500 mg oral tablet 2 tablet = 1,000 mg, By Mouth, 3 times a day, PRN for pain, # 540 tablet, 1 Refills, Maintenance, 07/07/22 13:48:00 EDT, Tablet, [facility]/pharmacy #1130, Partial fill upon patient request if [...] Care team information Care Team Personnel Name: Patel MD, Myers T Position: [facility] Physician - Primary Care Member Role: PCP Address: Address: [address] [facility], [place], [place] [address] Name: Radha Wang RN Position: [facility] RN Member Role: Primary Care Nurse Care Team Related Persons Name: MATT IQBAL Address: home [address] [place] [address] Name: LEANDRO MARQUEZ Address: [address] [place] [address] Name: ANTOLIN MARQUEZ Name: ZORAIDA BANKS Address: home [address] [place] [address]
[2023-11-12 02:48] LABS: Appearance Urine Clear; Color Urine Yellow; Glucose Urine UA Negative (Negative); Leukocyte Esterase Urine Negative (Negative); Nitrite Urine Negative (Negative); PH 6.5 (5.0-9.0); Specific Gravity - Urine 1.025 (1.005-1.025); Urine Blood Negative (Negative); Urine Ketones Negative (Negative); Urine Protein Negative (Neg-Trace)
--- NOTE | 2023-11-12 02:48 | ED_ITS ---
HPI - General Adult General Chief complaint: General Medical Stated complaint: bladder pain ? Time Seen by Provider: 11/12/23 02:42 Source: patient and family Mode of arrival: ambulatory Limitations: no limitations History of Present Illness HPI narrative: Patient comes to the emergency room complaining of dysuria. Patient states it started this evening. However, patient has history of developmental delay. Rae jimenes's mother is at bedside, the mother states that patient has an obsession of coming to the hospitals since he likes the attention. Patient states that nearly every day she is in 1 of the local hospitals once or twice a day for different issues including hangnails. The mother states that if she refuses to bring the patient to the hospital, he starts acting up in the house, breaking stuff, to the point at police has to be called and patient is to be physically restrained and taken to [facility]. Therefore, she prefers to bring the patient to the hospital. Patient states that he has had thorough workups in other hospitals for dysuria and all have been negative. Related Data Previous Rx's Medication Instructions Recorded amoxicillin 500 mg capsule 500 mg PO QID #20 caps 08/20/20 amoxicillin 500 mg capsule 500 mg PO QID #40 caps 08/20/20 amoxicillin 875 mg-potassium 1 tab PO Q12H #20 tabs 09/30/20 clavulanate 125 mg tablet (Augmentin) triamcinolone acetonide 55 mcg 1 spray intranasal DAILY #16.9 mL 09/30/20 nasal spray aerosol (Nasacort) ibuprofen 600 mg tablet 600 mg PO Q6H PRN fever or pain 10/01/20 #20 tabs acetaminophen 500 mg capsule 1,000 mg (2 x 500 mg) PO Q6H PRN 04/08/21 pain #60 caps Allergies Allergy/AdvReac Type Severity Reaction Status Date / Time lorazepam [From Ativan] Allergy Unknown Unknown Verified 06/07/23 22:14 Review of Systems Review of Systems: Constitutional : No Weight loss, No Fever, No Chills, No Night Sweats, No Fatigue, No Malaise ENT/Mouth : No Hearing loss, No Ear Pain, No Nasal Congestion, No Sinus Pain, No Hoarseness, No sore throat, No Rhinorrhea, No Swallowing Difficulty Eyes: No Eye Pain, No Swelling, No Redness, No Foreign Body, No Discharge, No Vision Changes Cardiovascular : No Chest Pain, No SOB, No Dyspnea on Exertion, No Orthopnea, No Edema, No Palpitations Respiratory : No Cough, No Sputum, No Wheezing, No Smoke Exposure, No Dyspnea Gastrointestinal : No Nausea, No Vomiting, No Diarrhea, No Constipation, No abdominal Pain, No Hematochezia, No Melena Genitourinary : Complaining of chronic Dysuria, No Urinary Frequency, No Hematuria, No Urinary Incontinence, No Urgency, No Flank Pain, No Urinary Flow Changes, No Hesitancy Musculoskeletal : No joint pain, No Myalgias, No Joint Swelling Skin : No Skin Lesions, No rash Neuro : No Weakness, No Numbness, No Paresthesias, No Loss of Consciousness, No Dizziness, No Headache Psych : No Anxiety/Panic, No Depression, No SI/HI/AH/VH, No Social Issues, Heme/Lymph: No Bruising, No Bleeding,No Lymphadenopathy Endocrine : No Polyuria, No Polydipsia, No Temperature Intolerance PMFSH Past Medical History Medical History Acquired cognitive dysfunction Seizure disorder Social History Social History Alcohol intake: never Advance Directives: No Advance Directives Information Provided: Yes Physical Exam ED Vital Signs: Vital Signs - 24 hr 11/12/23 01:39 11/12/23 02:09 Temperature 97.7 F 98.2 F Pulse Rate 87 86 Respiratory Rate 18 17 Blood Pressure 110/56 L 122/74 Pulse Oximetry 96 97 Oxygen Delivery Method Room Air Room Air BMI result Body Mass Index 33.3 Const Other: Appearance: Alert. Oriented X3. No acute distress. Eyes: Pupils equal, round and reactive to light. ENT: Pharynx normal. Neck: Normal inspection. Neck supple. No lymph nodes noted. No crepitus CVS: Normal heart rate and rhythm. Pulses normal. Normal S1 and S2 Respiratory: No respiratory distress. Breath sounds normal. No Wheezing. No rales Abdomen: Soft and nontender. No rigidity. No distention. Skin: Skin warm and dry. Normal skin color. Normal skin turgor. Extremities: No lower extremity edema. No Lacerations. No Rash Neuro: Oriented X 3. No motor deficit. No sensory deficit. Moving all extremities. No slurred speech. CN 2 through 12 grossly intact Psych: calm, cooperative, normal affect Medical Decision Making Medical Decision Making MDM Narrative: -bladder scan shows 2 mL of urine post voiding. Patient's urine clear, urinalysis pending -my interpretation of labs: Urinalysis negative Differential Diagnosis Differential Diagnoses: The differential diagnosis associated with the presentation includes (UTI, cystitis, hypochondriasis) Lab Data Labs: Lab Results 11/12/23 Range/Units 02:42 Urine Color Yellow Urine Appearance Clear Urine pH 6.5 (5.0-9.0) Ur Specific [place] 1.025 (1.005-1.025) Urine Protein Negative (Neg-Trace) mg/dL Urine Glucose (UA) Negative (Negative) mg/dL Urine Ketones Negative (Negative) mg/dL Urine Blood Negative (Negative) Urine Nitrite Negative (Negative) Ur Leukocyte Esterase Negative (Negative) Discharge Plan Discharge Clinical Impression: Dysuria Patient Disposition: Home, Self-Care Instructions: Dysuria (ED) Additional Instructions: Please follow-up with your primary care physician tomorrow. If you have any worsening or new symptoms, please return to the emergency room or call 911 Prescriptions: No Action amoxicillin-pot clavulanate [Augmentin] 875-125 mg tablet 1 tab PO Q12H Qty: 20 0RF triamcinolone acetonide [Nasacort] 55 mcg aerosol,spray 1 spray intranasal DAILY Qty: 16.9 0RF Rx Instructions: administer into each nostril ibuprofen 600 mg tablet 600 mg PO Q6H PRN (Reason: fever or pain) Qty: 20 0RF acetaminophen 500 mg capsule 1,000 mg PO Q6H PRN (Reason: pain) Qty: 60 0RF amoxicillin 500 mg capsule 500 mg PO QID Qty: 20 0RF amoxicillin 500 mg capsule 500 mg PO QID Qty: 40 0RF Referrals: Jorge A Flanagan MD [Physician] - 11/16/23 (Chronic dysuria)
== END 2023-11-12 03:01 | disposition home or self-care (01) ==
PROVIDERS: Emergency Provider Emergency Medicine; PCP Internal Medicine
DX: R30.0 Dysuria (principal); F89 Unspecified disorder of psychological development; G40.909 Epilepsy, unspecified, not intractable, without status epilepticus
CPT/HCPCS: 81003; 99283; 99284

== ENCOUNTER 2023-11-19 01:45 | Emergency (ER) | payer OTHER, SELFPAY ==
[2023-11-19 02:01] VITALS: BP 170/90; BP 170/98; PULSE 104; RESP 20; TEMP 36.1; O2SAT 98; BMI 34.5
--- NOTE | 2023-11-19 03:08 | ED.EXTPRO ---
HPI - Extremity Problem General Chief complaint: Extremity Injury, Upper Stated complaint: rt hand pain Time Seen by Provider: 11/19/23 03:03 Source: patient and family Mode of arrival: ambulatory Limitations: no limitations History of Present Illness HPI Narrative: Patient comes to the emergency room complaining of right hand pain. According to the patient, patient accidentally hit a wall after having a pseudo-seizure. Patient's mother states that patient has approximately 10 to the seizures per day. Patient does have history of epilepsy, but his epilepsy is well control. Patient hit his hand while having a pseudo-seizure. Mother states that if the mother does not bring him to the hospital, he starts breaking things at home and has meltdowns/temper tantrum to the point that police asked to be called. Patient has no other complaints. Related Data Previous Rx's Medication Instructions Recorded amoxicillin 500 mg capsule 500 mg PO QID #20 caps 08/20/20 amoxicillin 500 mg capsule 500 mg PO QID #40 caps 08/20/20 amoxicillin 875 mg-potassium 1 tab PO Q12H #20 tabs 09/30/20 clavulanate 125 mg tablet (Augmentin) triamcinolone acetonide 55 mcg 1 spray intranasal DAILY #16.9 mL 09/30/20 nasal spray aerosol (Nasacort) ibuprofen 600 mg tablet 600 mg PO Q6H PRN fever or pain 10/01/20 #20 tabs acetaminophen 500 mg capsule 1,000 mg (2 x 500 mg) PO Q6H PRN 04/08/21 pain #60 caps Allergies Allergy/AdvReac Type Severity Reaction Status Date / Time lorazepam [From Ativan] Allergy Unknown Unknown Verified 06/07/23 22:14 Review of Systems Review of Systems: Constitutional : No Weight loss, No Fever, No Chills, No Night Sweats, No Fatigue, No Malaise ENT/Mouth : No Hearing loss, No Ear Pain, No Nasal Congestion, No Sinus Pain, No Hoarseness, No sore throat, No Rhinorrhea, No Swallowing Difficulty Eyes: No Eye Pain, No Swelling, No Redness, No Foreign Body, No Discharge, No Vision Changes Cardiovascular : No Chest Pain, No SOB, No Dyspnea on Exertion, No Orthopnea, No Edema, No Palpitations Respiratory : No Cough, No Sputum, No Wheezing, No Smoke Exposure, No Dyspnea Gastrointestinal : No Nausea, No Vomiting, No Diarrhea, No Constipation, No abdominal Pain, No Hematochezia, No Melena Genitourinary : no irregular bleeding, No Dysuria, No Urinary Frequency, No Hematuria, No Urinary Incontinence, No Urgency, No Flank Pain, No Urinary Flow Changes, No Hesitancy Musculoskeletal : Complaining of mild right-sided hand pain, No Myalgias, No Joint Swelling Skin : No Skin Lesions, No rash Neuro : No Weakness, No Numbness, No Paresthesias, No Loss of Consciousness, No Dizziness, No Headache Psych : No Anxiety/Panic, No Depression, No SI/HI/AH/VH, No Social Issues, Heme/Lymph: No Bruising, No Bleeding,No Lymphadenopathy Endocrine : No Polyuria, No Polydipsia, No Temperature Intolerance PMFSH Past Medical History Onset Date is defined in the Problem List Problems that require an onset date and time if occurred within 24 hrs of arrival to the ED Aortic Dissection and Rupture; Neurologic impairment; Cardiopulmonary Arrest; Endotracheal Intubation; Insertion or Replacement of Mechanical Circulatory Assist Device Medical History (Updated 11/19/23 @ 03:11 by Elodia Gallegos MD) Psychogenic nonepileptic seizure Acquired cognitive dysfunction Seizure disorder Social History Social History Alcohol intake: never Advance Directives: No Advance Directives Information Provided: No Physical Exam Vital Signs: Vital Signs: Last Vital Signs Temp 97 F 11/19/23 02:01 Pulse 104 H 11/19/23 02:01 Resp 20 11/19/23 02:01 BP 170/98 H 11/19/23 02:01 Pulse Ox 98 11/19/23 02:01 O2 Del Method Room Air 11/19/23 02:01 BMI result Body Mass Index 34.5 Const: Other: Appearance: Alert. Oriented X3. No acute distress. Eyes: Pupils equal, round and reactive to light. ENT: Pharynx normal. Neck: Normal inspection. Neck supple. No lymph nodes noted. No crepitus CVS: Normal heart rate and rhythm. Pulses normal. Normal S1 and S2 Respiratory: No respiratory distress. Breath sounds normal. No Wheezing. No rales Abdomen: Soft and nontender. No rigidity. No distention. Skin: Skin warm and dry. Normal skin color. Normal skin turgor. Extremities: No lower extremity edema. No Lacerations. No Rash Neuro: Oriented X 3. No motor deficit. No sensory deficit. Moving all extremities. No slurred speech. CN 2 through 12 grossly intact Psych: calm, cooperative, normal affect Medical Decision Making Medical Decision Making MDM Narrative: -my interpretation of x-ray of the hand: No obvious abnormality, normal alignment, no fracture. Radiology report not available yet. Patient's mother requesting to be discharged, discussed with her that the x-ray has not been read yet. However, patient's hand physical exam is normal, patient is able to flex and extend all fingers, no pain to palpation. Independent Interpretation I performed an independent interpretation of an: Plain X-Ray Discharge Plan Discharge Clinical Impression: Contusion of hand Patient Disposition: Home, Self-Care Instructions: Contusion in Adults (ED) Additional Instructions: Please follow-up with your primary care physician tomorrow. If you have any worsening or new symptoms, please return to the emergency room or call 911 Prescriptions: No Action amoxicillin-pot clavulanate [Augmentin] 875-125 mg tablet 1 tab PO Q12H Qty: 20 0RF triamcinolone acetonide [Nasacort] 55 mcg aerosol,spray 1 spray intranasal DAILY Qty: 16.9 0RF Rx Instructions: administer into each nostril ibuprofen 600 mg tablet 600 mg PO Q6H PRN (Reason: fever or pain) Qty: 20 0RF acetaminophen 500 mg capsule 1,000 mg PO Q6H PRN (Reason: pain) Qty: 60 0RF amoxicillin 500 mg capsule 500 mg PO QID Qty: 20 0RF amoxicillin 500 mg capsule 500 mg PO QID Qty: 40 0RF
--- NOTE | 2023-11-19 03:10 | PC.NURSE ---
pt left before getting discharge instructions.
== END 2023-11-19 03:31 | disposition home or self-care (01) ==
PROVIDERS: Emergency Provider Emergency Medicine; PCP Internal Medicine
DX: S60.221A Contusion of right hand, initial encounter (principal); X58.XXXA Exposure to other specified factors, initial encounter; Y93.9 Activity, unspecified; Y92.89 Other specified places as the place of occurrence of the external cause; Y99.8 Other external cause status
CPT/HCPCS: 73130; 99283; 99284

== ENCOUNTER 2023-11-29 01:43 | Emergency (ER) | payer OTHER, SELFPAY ==
[2023-11-29 02:05] VITALS: BP 136/70; PULSE 100; RESP 16; TEMP 37.1; O2SAT 97; BMI 34.5
[2023-11-29 02:31] LABS: Appearance Urine Turbid; Color Urine Yellow; Glucose Urine UA >=1000 mg/dL (Negative); Leukocyte Esterase Urine Negative (Negative); Nitrite Urine Negative (Negative); PH 7.5 (5.0-9.0); UMIC TRIGGER UACC YES; Urine Blood Small (1+) (Negative); Urine Ketones Negative (Negative); Urine Protein Negative (Neg-Trace)
[2023-11-29 02:35] LABS: Bacteria Urine None Seen (None Seen); Hyaline Casts Urine 0-2 /LPF (0-2); Squamous Epithelial Cell Urine 0-2 /HPF (0-2); WBC Urine 0-5 /HPF (0-5)
--- NOTE | 2023-11-29 03:05 | PC.NURSE ---
pts mother became upset that patient could not give urine sample, she came to this Rn stating that she is going to be leaving and he will be staying. This Rn educated mother that due to his cognitive dysfunction, for his safety he should not be left alone and she should stay here. Mother refused, walked out to her car and drove away. registration called mom back, mother returned shortly after. Disabled person report was filed due to mother leaving him and yelling at him in triage room. report number [id number]
--- NOTE | 2023-11-29 04:49 | PC.NURSE ---
Pt and mother no longer visualized in ED WR per registration staff.
== END 2023-11-29 04:50 | disposition left against medical advice (07) ==
PROVIDERS: Emergency Provider Emergency Medicine; PCP Internal Medicine
DX: Z03.89 Encounter for observation for other suspected diseases and conditions ruled out (principal); Z79.899 Other long term (current) drug therapy
CPT/HCPCS: 81001; 99281; 99283

== ENCOUNTER 2024-12-19 12:50 | Emergency (ER) | payer OTHER, SELFPAY ==
[2024-12-19 13:00] VITALS: BP 158/110; PULSE 102; RESP 16; O2SAT 99; BMI 28.3
[2024-12-19 13:15] VITALS: BP 128/84; PULSE 104; RESP 16; TEMP 36.7; O2SAT 97
--- NOTE | 2024-12-19 13:25 | ED_ITS ---
HPI - Psych General Chief Complaint: Psychiatric Symptoms Stated Complaint: SEC 12,OFF MED[facility] ON BOARD PER EMS Time Seen by Provider: 12/19/24 13:10 Source: patient, EMS, RN notes reviewed and old records reviewed Mode of arrival: EMS History of Present Illness ED Provider: Letha Garcia PA-C HPI Narrative: 34-year-old male with past medical history psychogenic nonepileptic seizures, cognitive dysfunction, presenting to the ED via EMS from [facility] on [facility] due to increased agitation and homicidal ideations towards specific [facility]-way staff members. Patient states he wanted to break the [employer] glass window and harm half-way staff members. Patient states he was in verbal altercation with his mother. Reports compliance with prescribed medications. Denies SI. Denies physical injury today. Denies auditory/visual hallucinations, illicit drug or EtOH use Related Data Previous Rx's ?Medication ?Instructions ?Recorded amoxicillin 500 mg capsule 500 mg PO QID #20 caps 08/20/20 amoxicillin 500 mg capsule 500 mg PO QID #40 caps 08/20/20 amoxicillin 875 mg-potassium 1 tab PO Q12H #20 tabs 09/30/20 clavulanate 125 mg tablet (Augmentin) triamcinolone acetonide 55 mcg 1 spray intranasal DAILY #16.9 mL 09/30/20 nasal spray aerosol (Nasacort) ibuprofen 600 mg tablet 600 mg PO Q6H PRN fever or pain 10/01/20 #20 tabs acetaminophen 500 mg capsule 1,000 mg (2 x 500 mg) PO Q6H PRN 04/08/21 pain #60 caps Allergies Allergy/AdvReac Type Severity Reaction Status Date / Time lorazepam [From Ativan] Allergy Unknown Unknown Verified 12/19/24 13:05 clonazepam [From Klonopin] AdvReac Agitated Verified 12/19/24 13:05 quetiapine [From Seroquel] AdvReac Agitated Verified 12/19/24 13:05 Review of Systems Review of Systems: Yes all other systems are reviewed and are negative Constitutional: Constitutional: Reports as per HPI COUNT INCLUDES THE [facility] Past Medical History Attestation statement: The following information was validated with the patient. Source: old records reviewed Medical History Psychogenic nonepileptic seizure Acquired cognitive dysfunction Seizure disorder Social History Social History Alcohol intake: never Smoked in Last 30 Days: No Use of substances other than those prescribed or required for medical reasons: No Advance Directives: No Physical Exam Vital Signs: Vital Signs: Last Vital Signs Temp 98.0 F 12/19/24 13:15 Pulse 104 H 12/19/24 13:15 Resp 16 12/19/24 13:15 BP 128/84 12/19/24 13:15 Pulse Ox 97 12/19/24 13:15 O2 Del Method Room Air 12/19/24 13:15 BMI result Body Mass Index 28.3 Const: General: cooperative and no acute distress Orientation/consciousness: patient oriented x3 Limitations: no limitations HEENT: Head: Yes normal to inspection and Yes atraumatic Ears: hearing grossly normal bilaterally General nose exam: Normal external nose present Face and sinus: Yes normal facial exam Eyes: General: appearance normal, both eyes and all related structures EOM: EOMs intact bilaterally Neck: Neck: Yes normal visual inspection and Yes no meningeal signs Resp: Effort & Inspection: normal respiratory effort and no respiratory distress Auscultation: clear to auscultation bilaterally Cardio: Rate: regular rate Heart sounds: S1 normal heart sound present and S2 normal heart sound present GI: Inspection: Yes normal to inspection Palpation (GI): Soft to palpation, nontender, no guarding and not rigid Skin: Rashes: no rashes Wounds: no wounds Neuro: General: patient oriented x3, tone normal, moves all extremities, no meningeal signs, no focal motor deficits and CN's II-XI intact bilaterally Cranial nerves: Yes CN's II-XII intact bilaterally Gait exam (Neuro): Normal gait present Extrem: General: Yes normal to inspection Psych: Thought content: suicidality and Homicidality present Course Course Course Narrative: -[id number]--CARE team spoke with half-way, half-way is agreeable to take patient back. [facility] already evaluated patient in community. correction will be picking patient up from the emergency department Medical Decision Making Medical Decision Making MDM Narrative: 34-year-old male with past medical history psychogenic nonepileptic seizures, cognitive dysfunction, presenting to the ED via EMS from [facility] on section [facility] due to increased agitation and homicidal ideations towards specific [facility] staff members. On exam mildly tachycardic, NAD, denies SI. + HI towards half-way staff members. Per CARE team patient was seen by [facility] in the community and cleared to follow up with outpatient providers and return to half-way. [facility] apparently working on new half-way placement of the patient. However patient was sent to ED for eval by half-way/PD on section 12. Plan: CARE team eval vs disposition after speaking with half-way Please refer to course for remaining clinical decision making, interpretation of labs/imaging results, and discussions with consultants and/or family members. Differential Diagnosis Differential Diagnoses: The differential diagnosis associated with the presentation includes As above Admission/Observation Consideration of admission/observation: Escalation of care including admission/observation considered Lab Data MDM Lab Attestation statement: I reviewed the patient's lab results. Radiology Impression Discussion of test interpretation with radiology: I have reviewed the radiologist's reading. Independent Historian Clinical information obtained from an independent historian. History obtained from or confirmed by: EMS External Record Review External record reviewed: Inpatient record, Office record, Outpatient record, Prior outpatient labs, Prior outpatient radiology, Primary care record and Outside ED record Tests considered The following testing was considered but not selected: As above Prescription Management I considered prescription management with: Other Chronic Conditions Patient?s care impacted by: Other Social Determinants Patient?s care significantly limited by Social Determinants of Health including: Inadequate housing, Problems related to primary support group and Other Social Determinant of Health Discharge Plan Discharge Clinical Impression: Homicidal ideation Patient Disposition: Xfer Other Transfer Details: correction Additional Instructions: Patient was cleared by [facility] in the community to follow up with outpatient providers. They are working on new half-way placement Continue home prescribed medications If patient poses a threat or harm to self or others return to the emergency department Prescriptions: No Action amoxicillin-pot clavulanate [Augmentin] 875-125 mg tablet 1 tab PO Q12H Qty: 20 0RF triamcinolone acetonide [Nasacort] 55 mcg aerosol,spray 1 spray intranasal DAILY Qty: 16.9 0RF Rx Instructions: administer into each nostril ibuprofen 600 mg tablet 600 mg PO Q6H PRN (Reason: fever or pain) Qty: 20 0RF acetaminophen 500 mg capsule 1,000 mg PO Q6H PRN (Reason: pain) Qty: 60 0RF amoxicillin 500 mg capsule 500 mg PO QID Qty: 20 0RF amoxicillin 500 mg capsule 500 mg PO QID Qty: 40 0RF Referrals: Louis Patel MD [Primary Care Provider] - 3 days Interventions: Pershing-Suicide Risk Severity Scale Last Done: 12/19/24 13:15 Print Language: [place]
[2024-12-19 16:48] VITALS: BP 108/68; PULSE 67; RESP 16; TEMP 36.3; O2SAT 99
== END 2024-12-19 17:00 | disposition other institution (70) ==
PROVIDERS: Emergency Provider Emergency Medicine; PCP Internal Medicine
DX: R45.1 Restlessness and agitation (principal); R45.850 Homicidal ideations; R00.0 Tachycardia, unspecified; Z79.899 Other long term (current) drug therapy
CPT/HCPCS: 99284

== ENCOUNTER 2025-02-17 10:08 | Inpatient (IN) | payer OTHER, SELFPAY ==
--- NOTE | ~2025-02-17 | XR_ITS ---
CLINICAL HISTORY: L hip pain s p fall 3 view, pelvis and left hip Comparison: None Findings: There is no fracture or dislocation. Joint spaces appear normal. There is no radiopaque foreign body. IMPRESSION: Unremarkable pelvic and left hip radiographs. This document has been electronically signed by: George Botello MD on 02/25/2025 01:14:55
--- NOTE | ~2025-02-17 | CT_ITS ---
CLINICAL HISTORY: fall again with head strike CT head without contrast Comparison: CT/SR - CT HEAD/BRAIN WO IV CON - 02/24/25 22:26 EDT Findings: Small area of encephalomalacia in the anterior superior left frontal lobe is unchanged. There is no acute intracranial hemorrhage. Ventricles are of normal size and shape. No mass effect or midline shift is present. The bustamante-white matter differentiation appears normal. There is stable mild cerebellar atrophy. There is no cerebral atrophy. The visualized portions of the orbits, paranasal sinuses, and mastoids are unremarkable. No fractures are identified. There is a small benign partially calcified nodule in the left frontal scalp likely sebaceous cyst. IMPRESSION: 1. No acute intracranial abnormality. 2. Small area of encephalomalacia in the anterior superior left frontal lobe. 3. Mild cerebellar atrophy. This document has been electronically signed by: George Botello MD on 02/25/2025 01:40:55
--- NOTE | ~2025-02-17 | CT_ITS ---
CLINICAL HISTORY: Syncope, head strike CT head without contrast Comparison: None Findings: There is a small area of encephalomalacia in the anterior superior left frontal lobe. There is no acute intracranial hemorrhage. Ventricles are of normal size and shape. No mass effect or midline shift is present. The bustamante-white matter differentiation appears normal. The visualized portions of the orbits, paranasal sinuses, and mastoids are unremarkable. No fractures are identified. There is a small benign partially calcified nodule in the left frontal scalp likely a sebaceous cyst. IMPRESSION: 1. No acute intracranial abnormality. 2. Small area of encephalomalacia in the anterior superior left frontal lobe. This document has been electronically signed by: George Botello MD on 02/24/2025 23:31:57
--- NOTE | ~2025-02-17 | CT_ITS ---
CLINICAL HISTORY: Neck pain, fall CT cervical spine without contrast Comparison: None Findings: The alignment of the cervical spine is normal. There is no fracture. Disc spaces are preserved. There are anterior osteophytes from C3-4 through C5-6. There is no evidence of significant central canal or neuroforaminal stenosis. Visualized soft tissues of the neck are unremarkable. IMPRESSION: No evidence of cervical spine injury. This document has been electronically signed by: George Botello MD on 02/24/2025 23:25:26
[2025-02-17 10:19] VITALS: BP 150/90; PULSE 73; RESP 18; O2SAT 95; BMI 26.1
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
[2025-02-17 10:54] LABS: MANUAL DIFF FLAG NO
[2025-02-17 10:56] LABS: Appearance Urine Clear; Color Urine Yellow; Glucose Urine UA Negative (Negative); Leukocyte Esterase Urine Negative (Negative); Nitrite Urine Negative (Negative); Specific Gravity - Urine >= 1.030 (1.005-1.025); Urine Blood Negative (Negative); Urine Ketones Trace mg/dL (Negative); Urine Protein Negative (Neg-Trace)
[2025-02-17 10:57] LABS: Basophils Absolute Auto 0.1 X10*3/uL (0.0-0.2); Basophils Percent Auto 0.8 % (0-2); Eosinophils Absolute Auto 0.1 X10*3/uL (0.0-0.4); Eosinophils Percent Auto 2.4 % (0-4); Hematocrit 43.5 % (42.0-52.0); Hemoglobin 14.8 g/dl (14.0-18.0); Imm Gran Abs Auto 0.01 X10*3/uL (0.00-0.03); Imm Gran Pct Auto 0.2 % (0.0-0.4); Lymphocytes Percent Auto 34.2 % (20-40); Mean Corpuscular Hemoglobin 29.9 pg (27.0-33.0); Mean Corpuscular Volume 87.9 fL (80.0-98.0); Monocytes Absolute Auto 0.3 X10*3/uL (0.1-1.2); Monocytes Percent Auto 5.4 % (2-11); Neutrophils Absolute Auto 3.4 x10*3/uL (2.0-8.3); Platelet Count 216 X10*3/uL (160-400); Red Blood Count 4.95 X10*6/uL (4.60-5.80); Red Cell Distribution Width 13.1 % (11.0-16.0); White Blood Count 5.9 X10*3/uL (4.8-10.8)
[2025-02-17 11:06] LABS: Amphetamine Screen Urine Not Detected (Not Detect); Barbiturates, Urine Not Detected (Not Detect); Benzodiazepines Screen Urine POSITIVE (Not Detect); Buprenorphine Scr Not Detected (Not Detect); Cannabinoid Screen Urine Not Detected (Not Detect); Cocaine Screen Urine Not Detected (Not Detect); Fentanyl, urine Not Detected (Not Detect); Methadone Screen, Urine Not Detected (Not Detect); Opiate Screen Urine Not Detected (Not Detect); Oxycodone Screen Urine Not Detected (Not Detect); Phencyclidine Screen Urine Not Detected (Not Detect)
--- OUTSIDE RECORDS SUMMARY | 2025-02-17 11:09 | XMS_ITS | Clinical Summary ---
Author Organization [facility] Address [address] [place] [address] Care Team Providers Care Manuscript Editor Name Role Phone Unknown Primary Care Provider +[phone] -[phone] Allergies No known active allergies Medications No known medications Social History Tobacco Use Types Packs/Day Years Used Date Smoking Tobacco: Never Assessed Sex and Gender Information Value Date Recorded Sex Assigned at Not on file Gender Identity Not on file Sexual Orientation Not on file Last Filed Vital Signs Vital Sign Reading Time Taken Comments Blood Pressure 129/79 11/25/2021 6:51 PM EST Pulse 91 11/25/2021 6:51 PM EST Temperature 36.7 ??C (98 ??F) 11/25/2021 5:30 PM EST Respiratory Rate 16 11/25/2021 6:51 PM EST Oxygen Saturation 99% 11/25/2021 6:51 PM EST Inhaled Oxygen Concentration - - Weight - - Height - - Body Mass Index - - Plan of Treatment Health Maintenance Due Date Last Done Comments Hepatitis C Virus Screening 1990 HIV Screening 2003 DTaP/Tdap/Td Vaccines (1 - Tdap) 2009 Hepatitis B Vaccines (1 of 3 - 19+ 3-dose series) 2009 Influenza Vaccine 06/15/2024 COVID-19 Vaccine (2023-2 5 season) 2024 07/03/2021, 06/06/2021 HPV Vaccines Aged Out No longer eligi ble based on patient's age to complete this topic Pneumococcal Vaccine: Pediatric (0-5 Years) and At-Risk Patients (6 to 49 Years) Aged Out No longer eligible b ased on patient's age to complete this topic Care Teams Manuscript Editor Relationship Specialty Start Date End Date Unknown Unknow Provider Address PCP - General 04/01/21
[2025-02-17 11:10] LABS: Alanine Aminotransferase 30 U/L (0-40); Albumin Level 4.4 g/dL (3.5-5.0); Alkaline Phosphatase 78 U/L (39-117); Anion Gap 11 (12-20); Aspartate Amino Transferase 32 U/L (5-37); Bilirubin Total 0.2 mg/dL (0.0-1.0); Blood Urea Nitrogen 15 mg/dL (9-16); Calcium 9.4 mg/dL (8.4-10.2); Carbon Dioxide 26 mmol/L (22-29); Chloride 108 mmol/L (96-108); Creatinine Clr Calc Pharmacy 76.5; Estimated Glomerular Filt Rate > 60; Ethanol < 10 mg/dL; Glucose Random 103 mg/dL (60-115); Potassium 4.4 mmol/L (3.3-5.1); Sodium 141 mmol/L (135-145); Total Protein 7.6 g/dL (6.5-8.0)
[2025-02-17 11:13] VITALS: PULSE 74; RESP 18; O2SAT 96
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
--- NOTE | 2025-02-17 12:23 | PC.NURSE ---
Per [facility] is DC today, mom will come to transport the patient, mothers name is Nadia Cheney phone number given by [facility] [phone]
[2025-02-17] MEDS: diphenhydrAMINE HCL 25 MG CAPSULE PO (14:14)
[2025-02-17] MEDS: hydrOXYzine HCL 25 MG TABLET PO (14:31)
[2025-02-17 16:06] VITALS: PULSE 80; RESP 18; O2SAT 94
[2025-02-17 16:19] VITALS: BP 119/81; PULSE 85; RESP 16; TEMP 36.4; O2SAT 96
[2025-02-17 18:42] VITALS: BP 122/68; PULSE 72; RESP 18; O2SAT 97
--- NOTE | 2025-02-17 20:04 | PC.NURSE ---
MED REC ENTERED IN COMPUTER, NOTIFIED
[2025-02-17] MEDS: traZODone HCL 50 MG TABLET 150 MG PO (21:07)
[2025-02-17] MEDS: cloBAZam 10 MG TABLET 20 MG PO (21:08)
[2025-02-17] MEDS: risperiDONE 2 MG TABLET 4 MG PO (21:08)
[2025-02-18 06:29] VITALS: RESP 16
--- NOTE | 2025-02-18 06:37 | PC.NURSE ---
no seizure like activity throughout the night
--- NOTE | 2025-02-18 07:14 | PC.NURSE ---
Assumed care of patient at 0645, patient appears to be in no apparent distress this am. Continue plan of care for [facility]
[2025-02-18] MEDS: Fluticasone/Vilanterol 200/25 BLST.W.DEV 1 PUFF INHALE (07:15)
[2025-02-18] MEDS: lamoTRIgine 100 MG, lamoTRIgine 50 MG 150 MG PO (09:34)
[2025-02-18] MEDS: LACOSAMIDE 150 MG 150 EACH PO ×2 (09:34→21:39)
[2025-02-18] MEDS: Montelukast Sodium 10 MG TABLET PO (09:35)
[2025-02-18] MEDS: cloBAZam 10 MG TABLET 20 MG PO ×2 (09:35→21:39)
[2025-02-18] MEDS: Docusate Sodium 100 MG CAPSULE PO (09:35)
--- NOTE | 2025-02-18 10:06 | PHA.MEDREC ---
Addendum entered by Yaniv Bacon 02/18/25 10:07: Mother reports Clonazepam is PRN for seizure/anxiety. Original Note: Pharmacy Consult ? Medication Reconciliation Pharmacy has completed the medication reconciliation. Spoke to pt's mother OTP to confirm meds.
--- NOTE | 2025-02-18 11:53 | PC.NURSE ---
Pt remains calm and cooperative, no seizure activity noted throughout shift so far. Patient currently sitting in milieu coloring with other patients
[2025-02-18 14:07] VITALS: BP 112/53; PULSE 83; RESP 16; TEMP 37; O2SAT 99
--- NOTE | 2025-02-18 19:38 | PC.NURSE ---
patient relaxing in ilieu and had brief visit w mom able to let his wants and needs be known, appears in no distress
[2025-02-18] MEDS: CENOBAMATE 150 MG 150 EACH PO (21:38)
[2025-02-18] MEDS: risperiDONE 2 MG TABLET 4 MG PO (21:39)
[2025-02-18] MEDS: traZODone HCL 50 MG TABLET 150 MG PO (21:39)
[2025-02-18 21:51] VITALS: BP 113/62; PULSE 94; RESP 16; TEMP 37.3; O2SAT 100
[2025-02-19 07:22] VITALS: BP 100/75; PULSE 97; RESP 14; TEMP 36.8; O2SAT 95
[2025-02-19] MEDS: lamoTRIgine 100 MG, lamoTRIgine 50 MG 150 MG PO (08:11)
[2025-02-19] MEDS: LACOSAMIDE 150 MG 150 EACH PO ×2 (08:28→21:35)
--- NOTE | 2025-02-19 09:00 | ECG_ITS ---
Test Reason : check qt Blood Pressure : */* mmHG Vent. Rate : 90 BPM Atrial Rate : 90 BPM P-R Int : 154 ms QRS Dur : 106 ms QT Int : 356 ms P-R-T Axes : 65 76 26 degrees QTcB Int : 435 ms Normal sinus rhythm Incomplete right bundle branch block Borderline ECG No previous ECGs available Referred By: Rosanna Johnston Electronically Signed By: Karthikeyan Trejo
[2025-02-19] MEDS: cloBAZam 10 MG TABLET 20 MG PO ×2 (09:18→21:35)
[2025-02-19] MEDS: Montelukast Sodium 10 MG TABLET PO (09:18)
[2025-02-19] MEDS: Fluticasone/Vilanterol 200/25 BLST.W.DEV 1 PUFF INHALE (10:12)
[2025-02-19] MEDS: Acetaminophen 325 MG TABLET 650 MG PO (10:53)
[2025-02-19] MEDS: Ibuprofen 400 MG TABLET PO (13:45)
[2025-02-19 15:02] VITALS: BP 131/82; PULSE 96; RESP 16; TEMP 36.6; O2SAT 95; BMI 31.9
[2025-02-19] MEDS: hydrOXYzine HCL 25 MG TABLET PO (16:37)
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
[2025-02-19] MEDS: Magnesium Hydrox/Alum Hydrox 30 ML ORAL.SUSP PO (17:05)
[2025-02-19] MEDS: Simethicone 80 MG TAB.CHEW PO (18:44)
--- NOTE | 2025-02-19 18:45 | PC.NURSE ---
Spoke with pt's mother about clonazepam allergy. She states that there is no allergy to clonazepam and that pt needs this medication for seizures. Alerted client service and consulting manager provider Daisy. She said that because there are other anti-epileptic medications ordered she will wait for the attending provider to re-order clonazepam.
[2025-02-19 20:00] VITALS: BP 98/66; PULSE 87; RESP 15; TEMP 36.4; O2SAT 96
[2025-02-19] MEDS: risperiDONE 2 MG TABLET 4 MG PO (21:01)
[2025-02-19] MEDS: traZODone HCL 50 MG TABLET 150 MG PO (21:35)
--- NOTE | 2025-02-20 07:24 | PC.NURSE ---
ON RISING REPORTED BEING INCONTINENT OF URINE
[2025-02-20 07:51] LABS: Estimated Average Glucose 117 mg/dL; Hemoglobin A1C 159.7601 umol/L; Hemoglobin A1c % 5.7 % (<6.0); Total Hemoglobin (HGBA1C) 4109.7164 umol/L
[2025-02-20 08:13] LABS: Cholesterol 152 mg/dL (<200); HDL Cholesterol 32 mg/dL (>40); LDL Cholesterol Calculated 83 mg/dL (<100); Magnesium 2.1 mg/dL (1.6-2.6); Triglycerides 187 mg/dL (<150)
[2025-02-20 08:28] LABS: Free T4 (Free Thyroxine) 0.85 ng/dL (0.71-1.85); Thyroid Stimulating Hormone 1.61 uIU/mL (0.32-4.0)
[2025-02-20 08:30] VITALS: BP 111/55; PULSE 93; RESP 18; TEMP 36.2; O2SAT 96
[2025-02-20 08:41] LABS: Vitamin B12 400 pg/mL (200-900)
[2025-02-20] MEDS: Montelukast Sodium 10 MG TABLET PO (08:45)
[2025-02-20] MEDS: lamoTRIgine 100 MG, lamoTRIgine 50 MG 150 MG PO (08:45)
[2025-02-20] MEDS: cloBAZam 10 MG TABLET 20 MG PO ×2 (08:45→20:59)
[2025-02-20] MEDS: Fluticasone/Vilanterol 200/25 BLST.W.DEV 1 PUFF INHALE (08:45)
[2025-02-20] MEDS: LACOSAMIDE 150 MG 150 EACH PO ×2 (08:47→21:06)
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
[2025-02-20] MEDS: Acetaminophen 325 MG TABLET 650 MG PO (10:16)
[2025-02-20] MEDS: Simethicone 80 MG TAB.CHEW PO (10:16)
[2025-02-20] MEDS: Loperamide HCl 2 MG CAPSULE PO (11:04)
[2025-02-20] MEDS: Meclizine HCl 12.5 MG TABLET PO (16:34)
[2025-02-20 19:47] VITALS: BP 133/61; PULSE 97; TEMP 37.2; O2SAT 95
[2025-02-20] MEDS: traZODone HCL 50 MG TABLET 150 MG PO (21:00)
[2025-02-20] MEDS: risperiDONE 2 MG TABLET 4 MG PO (21:00)
[2025-02-20] MEDS: CENOBAMATE 150 MG 150 EACH PO (21:06)
[2025-02-21] MEDS: Ibuprofen 400 MG TABLET PO (06:05)
[2025-02-21 08:20] VITALS: BP 115/61; PULSE 94; RESP 18; TEMP 36.8; O2SAT 96
[2025-02-21] MEDS: Fluticasone/Vilanterol 200/25 BLST.W.DEV 1 PUFF INHALE (08:29)
[2025-02-21] MEDS: Montelukast Sodium 10 MG TABLET PO (08:30)
[2025-02-21] MEDS: lamoTRIgine 100 MG, lamoTRIgine 50 MG 150 MG PO (08:30)
[2025-02-21] MEDS: LACOSAMIDE 150 MG 150 EACH PO ×2 (08:30→21:21)
[2025-02-21] MEDS: cloBAZam 10 MG TABLET 20 MG PO ×2 (08:30→21:24)
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
[2025-02-21 19:37] VITALS: BP 122/56; PULSE 90; TEMP 36.8; O2SAT 96
[2025-02-21] MEDS: risperiDONE 2 MG TABLET 4 MG PO (21:23)
[2025-02-21] MEDS: traZODone HCL 50 MG TABLET 150 MG PO (21:23)
[2025-02-21] MEDS: hydrOXYzine HCL 25 MG TABLET PO (21:24)
[2025-02-22 07:00] VITALS: BMI 32.1
[2025-02-22 08:00] VITALS: BP 113/66; PULSE 87; TEMP 36.4; O2SAT 96
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
[2025-02-22] MEDS: LACOSAMIDE 150 MG 150 EACH PO ×2 (08:49→22:19)
[2025-02-22] MEDS: Fluticasone/Vilanterol 200/25 BLST.W.DEV 1 PUFF INHALE (08:49)
[2025-02-22] MEDS: Montelukast Sodium 10 MG TABLET PO (08:49)
[2025-02-22] MEDS: lamoTRIgine 100 MG, lamoTRIgine 50 MG 150 MG PO (08:49)
[2025-02-22] MEDS: cloBAZam 10 MG TABLET 20 MG PO ×2 (08:50→22:22)
[2025-02-22] MEDS: hydrOXYzine HCL 25 MG TABLET PO (11:27)
[2025-02-22 16:08] VITALS: BP 116/72
[2025-02-22] MEDS: cloNIDine HCL 0.1 MG TABLET 0.05 MG PO (16:08)
[2025-02-22] MEDS: Sertraline HCL 25 MG TABLET PO (16:57)
[2025-02-22 20:00] VITALS: BP 103/55; PULSE 89; RESP 16; TEMP 36.4; O2SAT 95
[2025-02-22] MEDS: traZODone HCL 50 MG TABLET 150 MG PO (22:19)
[2025-02-22] MEDS: risperiDONE 2 MG TABLET 4 MG PO (22:23)
[2025-02-22] MEDS: CENOBAMATE 150 MG 150 EACH PO (22:23)
[2025-02-23] MEDS: cloBAZam 10 MG TABLET 20 MG PO ×2 (08:27→21:57)
[2025-02-23] MEDS: lamoTRIgine 100 MG, lamoTRIgine 50 MG 150 MG PO (08:27)
[2025-02-23] MEDS: Sertraline HCL 25 MG TABLET PO (08:28)
[2025-02-23] MEDS: Montelukast Sodium 10 MG TABLET PO (08:28)
[2025-02-23] MEDS: LACOSAMIDE 150 MG 150 EACH PO ×2 (08:42→21:57)
[2025-02-23] MEDS: Fluticasone/Vilanterol 200/25 BLST.W.DEV 1 PUFF INHALE (08:43)
[2025-02-23 09:12] VITALS: BP 128/74; PULSE 92; RESP 16; TEMP 36.6; O2SAT 96
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
[2025-02-23 11:43] VITALS: BP 126/74
[2025-02-23] MEDS: cloNIDine HCL 0.1 MG TABLET 0.05 MG PO (11:43)
[2025-02-23] MEDS: hydrOXYzine HCL 25 MG TABLET PO (11:43)
[2025-02-23 20:00] VITALS: BP 104/61; PULSE 77; RESP 15; TEMP 36.9; O2SAT 97
[2025-02-23] MEDS: Prazosin HCL 1 MG CAPSULE PO (21:57)
[2025-02-23] MEDS: traZODone HCL 50 MG TABLET 150 MG PO (21:58)
[2025-02-23] MEDS: risperiDONE 2 MG TABLET 4 MG PO (21:58)
[2025-02-23] MEDS: Loperamide HCl 2 MG CAPSULE PO (22:04)
--- NOTE | 2025-02-24 | ECG_ITS ---
Test Reason : Seizure, syncope Blood Pressure : */* mmHG Vent. Rate : 59 BPM Atrial Rate : 59 BPM P-R Int : 192 ms QRS Dur : 104 ms QT Int : 412 ms P-R-T Axes : 74 78 18 degrees QTcB Int : 407 ms Sinus bradycardia Incomplete right bundle branch block Borderline ECG When compared with ECG of 19-Feb-2025 10:06, Vent. rate has decreased by 31 bpm Referred By: Anamika Roberts Electronically Signed By: Karthikeyan Trejo
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
[2025-02-24 08:00] VITALS: BP 97/52; PULSE 83; RESP 16; TEMP 36.8; O2SAT 95
[2025-02-24] MEDS: Fluticasone/Vilanterol 200/25 BLST.W.DEV 1 PUFF INHALE (08:43)
[2025-02-24] MEDS: cloBAZam 10 MG TABLET 20 MG PO (08:44)
[2025-02-24] MEDS: LACOSAMIDE 150 MG 150 EACH PO ×2 (08:44→23:43)
[2025-02-24] MEDS: Sertraline HCL 25 MG TABLET PO (08:45)
[2025-02-24] MEDS: lamoTRIgine 100 MG, lamoTRIgine 50 MG 150 MG PO (08:45)
[2025-02-24] MEDS: Montelukast Sodium 10 MG TABLET PO (08:46)
[2025-02-24] MEDS: hydrOXYzine HCL 25 MG TABLET PO (08:46)
[2025-02-24] MEDS: risperiDONE 1 MG TABLET PO (13:36)
[2025-02-24 19:54] VITALS: BP 117/62; PULSE 82; RESP 15; TEMP 36.6; O2SAT 94
[2025-02-24 21:50] VITALS: BP 130/81; PULSE 67; RESP 15; TEMP 36.6; O2SAT 99
[2025-02-24 22:03] LABS: Glucose, Whole Blood 115 mg/dL (60-115)
--- NOTE | 2025-02-24 22:21 | PM.EVENT ---
Event Note Date of Service: 02/24/25 Event Note: Rapid response called for patient on M5 due to a syncopal episode. The patient was at the Med counter and slowly lowered himself to the ground. He did lightly hit his head and is complaining of head and neck pain and he is also complaining of left hip pain. He is responsive during the episode and was able to follow commands by nursing staff. There were no convulsions observed by the nurse or bystanders. He was due for his seizure medications at that time. The patient reports that sometimes he does not have convulsions with the seizure. C-collar was placed on patient and head /c-spine CT ordered. EKG with sinus bradycardia. Stat labs: CBC, CMP, lactate. Once CTs are back if negative, plan to remove C-collar and check orthostatics and administer his medications that he is due for. Patient was examined by Dr. Bates, assessment and plan discussed. Time Spent With Patient Time: Total time managing care of this patient today ____ minutes.
[2025-02-24 22:27] LABS: MANUAL DIFF FLAG NO
[2025-02-24 22:32] LABS: Basophils Absolute Auto 0.1 X10*3/uL (0.0-0.2); Eosinophils Absolute Auto 0.3 X10*3/uL (0.0-0.4); Eosinophils Percent Auto 3.1 % (0-4); Hemoglobin 13.4 g/dl (14.0-18.0); Imm Gran Abs Auto 0.08 X10*3/uL (0.00-0.03); Imm Gran Pct Auto 0.9 % (0.0-0.4); Lymphocytes Absolute Auto 3.2 X10*3/uL (1.2-4.9); Lymphocytes Percent Auto 36.8 % (20-40); Mean Corpuscular HGB Conc 33.5 g/dl (31.0-36.0); Mean Corpuscular Hemoglobin 29.5 pg (27.0-33.0); Mean Corpuscular Volume 88.1 fL (80.0-98.0); Mean Platelet Volume 9.8 fL (9.4-12.4); Monocytes Absolute Auto 0.6 X10*3/uL (0.1-1.2); Monocytes Percent Auto 6.6 % (2-11); Neutrophils Absolute Auto 4.4 x10*3/uL (2.0-8.3); Neutrophils Percent Auto 51.6 % (45-73); Platelet Count 275 X10*3/uL (160-400); Red Blood Count 4.54 X10*6/uL (4.60-5.80); Red Cell Distribution Width 12.9 % (11.0-16.0); White Blood Count 8.6 X10*3/uL (4.8-10.8)
[2025-02-24 22:48] LABS: Lactic Acid 0.9 mmol/L (0.5-2.0)
[2025-02-24 22:49] LABS: Alanine Aminotransferase 64 U/L (0-40); Albumin Level 4.2 g/dL (3.5-5.0); Alkaline Phosphatase 89 U/L (39-117); Anion Gap 12 (12-20); Aspartate Amino Transferase 57 U/L (5-37); Bilirubin Total 0.2 mg/dL (0.0-1.0); Blood Urea Nitrogen 17 mg/dL (9-16); Calcium 9.3 mg/dL (8.4-10.2); Carbon Dioxide 28 mmol/L (22-29); Chloride 102 mmol/L (96-108); Creatinine Clr Calc Pharmacy 85.4; Estimated Glomerular Filt Rate > 60; Glucose Random 104 mg/dL (60-115); Potassium 4.3 mmol/L (3.3-5.1); Sodium 138 mmol/L (135-145); Total Protein 7.5 g/dL (6.5-8.0)
[2025-02-24 23:35] VITALS: BP 153/77; PULSE 67
[2025-02-24 23:40] VITALS: BP 123/71; PULSE 75
[2025-02-24] MEDS: CENOBAMATE 150 MG 150 EACH PO (23:43)
[2025-02-24 23:57] VITALS: BP 144/99; PULSE 78; RESP 15; TEMP 36.6; O2SAT 97
[2025-02-25 00:04] LABS: Glucose, Whole Blood 95 mg/dL (60-115)
[2025-02-25] MEDS: traZODone HCL 50 MG TABLET 150 MG PO (00:06)
[2025-02-25] MEDS: risperiDONE 2 MG TABLET 4 MG PO ×2 (00:08→20:18)
[2025-02-25] MEDS: Prazosin HCL 1 MG CAPSULE PO ×2 (00:08→20:18)
[2025-02-25] MEDS: cloBAZam 10 MG TABLET 20 MG PO (00:10)
--- NOTE | 2025-02-25 00:12 | PM.EVENT ---
Event Note Date of Service: 02/25/25 Event Note: Another rapid response was called on patient due to another witnessed fall. The patient was walking back to his room and fell again with an audible head strike. The patient is complaining of head pain. Head/c-spine CT from earlier came back negative. Labs normal. EKG with sinus bradycardia. Security mentioned that when patient was in the ED pod he had similar episodes every 15-20 minutes. He has been on the unit for a few days and has not had any episodes aside from earlier today. The patient was responsive again during the episode without any postictal symptoms. He had just received a seizure medications. He was able to ambulate back to his room with assistance. Plan for repeat head CT due to head strike again. Orthostatics were negative. Strict fall precautions. One-to-one observation. Neurology consult ordered. PT/OT eval. Patient again seen by Dr. Bates who agrees with assessment and plan. Time Spent With Patient Time: Total time managing care of this patient today ____ minutes.
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
[2025-02-25] MEDS: Magnesium Hydrox/Alum Hydrox 30 ML ORAL.SUSP PO ×2 (06:46→12:00)
[2025-02-25 08:00] VITALS: BP 101/56; PULSE 82; RESP 16; TEMP 36.6; O2SAT 95
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
[2025-02-25] MEDS: Fluticasone/Vilanterol 200/25 BLST.W.DEV 1 PUFF INHALE (08:50)
[2025-02-25] MEDS: Sertraline HCL 25 MG TABLET PO (08:51)
[2025-02-25] MEDS: cloBAZam 10 MG TABLET PO (08:51)
[2025-02-25] MEDS: lamoTRIgine 100 MG, lamoTRIgine 50 MG 150 MG PO (08:51)
[2025-02-25] MEDS: Montelukast Sodium 10 MG TABLET PO (08:52)
[2025-02-25] MEDS: risperiDONE 1 MG TABLET PO (08:52)
[2025-02-25] MEDS: hydrOXYzine HCL 50 MG TABLET PO (08:53)
[2025-02-25] MEDS: Acetaminophen 325 MG TABLET 650 MG PO ×2 (08:56→17:51)
[2025-02-25] MEDS: LACOSAMIDE 150 MG 150 EACH PO ×2 (08:56→20:20)
[2025-02-25] MEDS: Ibuprofen 400 MG TABLET PO (11:56)
--- NOTE | 2025-02-25 14:40 | PC.NURSE ---
At 1230 Wilman was walking in [place] accompanied by an MHC/1:1. They were using the gait belt appropriately, wilman was talking and then his legs seemed give out from under him and he was assisted to the floor by MHC. He never lost consciousness and was talking the whole time. Dr Nick Mujica was present on the unit at the time of the fall and met with Wilman. Vitals were 140/70-HR 82 Sat 97%. He complained of head/neck discomfort but that has been the case since his seizures overnight.
[2025-02-25 19:52] VITALS: BP 120/55; PULSE 91; RESP 16; TEMP 36.5; O2SAT 99
[2025-02-25] MEDS: cloBAZam 10 MG TABLET 15 MG PO (20:19)
--- NOTE | 2025-02-25 21:28 | HE.NUR.EV ---
FALL @ 2100 on 02/25 per staff pt lowered to floor after pt reported feeling like he was about to have a seizure. Rapid response called, VSS. No additional orders placed, per hospitalist bed rest required
[2025-02-25 22:25] VITALS: BP 128/74; PULSE 79; TEMP 36.7; O2SAT 97
[2025-02-26 08:00] VITALS: BP 143/63; PULSE 90; RESP 18; TEMP 36.5; O2SAT 98
[2025-02-26] MEDS: Fluticasone/Vilanterol 200/25 BLST.W.DEV 1 PUFF INHALE (08:24)
[2025-02-26] MEDS: LACOSAMIDE 150 MG 150 EACH PO ×2 (08:24→21:02)
[2025-02-26] MEDS: Montelukast Sodium 10 MG TABLET PO (08:25)
[2025-02-26] MEDS: risperiDONE 1 MG TABLET PO (08:25)
[2025-02-26] MEDS: Sertraline HCL 25 MG TABLET PO (08:25)
[2025-02-26] MEDS: cloBAZam 10 MG TABLET 15 MG PO ×2 (08:25→21:01)
[2025-02-26] MEDS: lamoTRIgine 100 MG, lamoTRIgine 50 MG 150 MG PO (08:25)
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
[2025-02-26 20:00] VITALS: BP 132/62; PULSE 82; TEMP 36.4; O2SAT 94
[2025-02-26] MEDS: traZODone HCL 50 MG TABLET 150 MG PO (21:00)
[2025-02-26] MEDS: CENOBAMATE 150 MG 150 EACH PO (21:02)
[2025-02-26] MEDS: Prazosin HCL 1 MG CAPSULE PO (21:02)
[2025-02-26] MEDS: risperiDONE 2 MG TABLET 4 MG PO (21:02)
[2025-02-27] MEDS: Acetaminophen 325 MG TABLET 650 MG PO (05:11)
[2025-02-27 05:16] VITALS: BP 134/65; PULSE 72; O2SAT 99
[2025-02-27 05:17] VITALS: BP 134/65; PULSE 72; O2SAT 99
--- NOTE | 2025-02-27 05:39 | PC.NURSE ---
Patient walking in [place] utilizing walker with 1:1 when he fell. Tha did not loose consciousness. Remained alert and oriented. VSS. Neuro's intact. manager call provider notified. Nursing supervisor photostat notified. Patient spoke with mother immediately following incident. Tylenol 650 mg administered. Patient c/o of L foot pain due to dry cracked skin. Will continue to monitor.
[2025-02-27 08:00] VITALS: BP 110/57; PULSE 73; RESP 18; TEMP 36.4; O2SAT 95
[2025-02-27] MEDS: lamoTRIgine 100 MG, lamoTRIgine 50 MG 150 MG PO (08:40)
[2025-02-27] MEDS: Sertraline HCL 25 MG TABLET PO (08:40)
[2025-02-27] MEDS: LACOSAMIDE 150 MG 150 EACH PO (08:40)
[2025-02-27] MEDS: cloBAZam 10 MG TABLET 20 MG PO ×2 (08:40→21:10)
[2025-02-27] MEDS: Montelukast Sodium 10 MG TABLET PO (08:40)
[2025-02-27] MEDS: Fluticasone/Vilanterol 200/25 BLST.W.DEV 1 PUFF INHALE (08:41)
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
[2025-02-27] MEDS: risperiDONE 1 MG TABLET PO (14:46)
[2025-02-27 19:45] VITALS: BP 118/57; PULSE 86; TEMP 36.4; O2SAT 95
[2025-02-27] MEDS: traZODone HCL 50 MG TABLET 150 MG PO (21:01)
[2025-02-27] MEDS: Prazosin HCL 1 MG CAPSULE PO (21:03)
[2025-02-27] MEDS: risperiDONE 3 MG TABLET PO (21:03)
[2025-02-28] MEDS: Ibuprofen 400 MG TABLET PO (02:55)
[2025-02-28] MEDS: hydrOXYzine HCL 50 MG TABLET PO (02:55)
[2025-02-28 08:00] VITALS: BP 100/55; PULSE 85; TEMP 36.9; O2SAT 95
[2025-02-28] MEDS: LACOSAMIDE 150 MG 150 EACH PO ×2 (08:37→22:38)
[2025-02-28] MEDS: Fluticasone/Vilanterol 200/25 BLST.W.DEV 1 PUFF INHALE (08:37)
[2025-02-28] MEDS: cloBAZam 10 MG TABLET 20 MG PO ×2 (08:38→22:43)
[2025-02-28] MEDS: risperiDONE 1 MG TABLET PO ×3 (08:38→22:40)
[2025-02-28] MEDS: lamoTRIgine 100 MG, lamoTRIgine 50 MG 150 MG PO (08:38)
[2025-02-28] MEDS: Sertraline HCL 50 MG TABLET PO (08:38)
[2025-02-28] MEDS: Montelukast Sodium 10 MG TABLET PO (08:38)
[2025-02-28 17:50] VITALS: BP 130/71; PULSE 85; RESP 16; TEMP 36.9; O2SAT 97
[2025-02-28] MEDS: Acetaminophen 325 MG TABLET 650 MG PO (17:56)
--- NOTE | 2025-02-28 18:46 | PC.NURSE ---
At approx 1745 patient?s 1:1 reported that patient ?felt like he was going to have a seizure? in bathroom & he was lowered to floor. Patient hit right side of face/ear on the bathroom door. There was no LOC.? Pt alert & responding throughout.? Vitals stable.? Small cut noted behind his right ear. No other complaints. Dr Romano notified.
[2025-02-28 20:00] VITALS: BP 130/60; PULSE 85; TEMP 36.4; O2SAT 95
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
[2025-02-28] MEDS: traZODone HCL 50 MG TABLET 150 MG PO (22:39)
[2025-02-28] MEDS: CENOBAMATE 150 MG 150 EACH PO (22:39)
[2025-02-28 22:40] VITALS: BP 130/60
[2025-02-28] MEDS: Prazosin HCL 1 MG CAPSULE PO (22:40)
[2025-02-28] MEDS: risperiDONE 2 MG TABLET PO (22:40)
[2025-03-01] MEDS: cloBAZam 10 MG TABLET 20 MG PO ×2 (07:51→22:56)
[2025-03-01] MEDS: lamoTRIgine 100 MG, lamoTRIgine 50 MG 150 MG PO (07:51)
[2025-03-01] MEDS: Sertraline HCL 50 MG TABLET PO (07:52)
[2025-03-01] MEDS: risperiDONE 1 MG TABLET PO ×3 (07:52→22:57)
[2025-03-01] MEDS: Montelukast Sodium 10 MG TABLET PO (07:52)
[2025-03-01] MEDS: Acetaminophen 325 MG TABLET 650 MG PO ×2 (07:52→16:27)
[2025-03-01] MEDS: Fluticasone/Vilanterol 200/25 BLST.W.DEV 1 PUFF INHALE (07:58)
[2025-03-01 08:00] VITALS: BP 96/51; PULSE 83; TEMP 36.4; O2SAT 96
[2025-03-01] MEDS: LACOSAMIDE 150 MG 150 EACH PO ×2 (10:07→23:05)
--- NOTE | 2025-03-01 16:10 | HO.PSYCHPN ---
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 falling. A noncontrast MRI of brain can help specially to see if there was any more evidence for multiple system atrophy. As far as seizure disorder is concerned, I would be careful in this type of patient as he carried significant risk for nonepileptic spells because of social and behavioral issues, while falling from ataxia could mistakenly be taken as seizures. I would consider antiepileptics only if there was solid EEG evidence for epilepsy. Finally, because of his underlying brain condition that put him at risk for unsteadiness and falling, choice and dose of medicines should be carefully considered as it could impact it further. Patient educated on: diagnosis, medication risk/benefits and therapeutic strategies Informed Consent: understands, does not understand and further education needed Reason for continued inpatient stay Substantial Risk for: rapid decompensation Time Spent With Patient Time: Total time managing care of this patient today ____ minutes.
[2025-03-01 20:00] VITALS: BP 104/52; PULSE 85; RESP 16; TEMP 37.1; O2SAT 93
[2025-03-01 22:57] VITALS: BP 131/61
[2025-03-01] MEDS: risperiDONE 2 MG TABLET PO (22:57)
[2025-03-01] MEDS: traZODone HCL 50 MG TABLET 150 MG PO (22:57)
[2025-03-01] MEDS: Prazosin HCL 1 MG CAPSULE PO (22:57)
--- NOTE | 2025-03-02 07:09 | PC.NURSE ---
Patient's mother called several times during the night to check on the patient's condition. She was reassured patient is safe, on 1:1 safety checks and his mattress is on the floor.
[2025-03-02 08:43] VITALS: BP 123/68; PULSE 101; RESP 16; TEMP 36.8; O2SAT 97
[2025-03-02] MEDS: Montelukast Sodium 10 MG TABLET PO (08:49)
[2025-03-02] MEDS: lamoTRIgine 100 MG, lamoTRIgine 50 MG 150 MG PO (08:49)
[2025-03-02] MEDS: Sertraline HCL 50 MG TABLET PO (08:50)
[2025-03-02] MEDS: risperiDONE 1 MG TABLET PO ×3 (08:50→20:59)
[2025-03-02] MEDS: cloBAZam 10 MG TABLET 20 MG PO ×2 (08:50→20:59)
[2025-03-02] MEDS: Fluticasone/Vilanterol 200/25 BLST.W.DEV 1 PUFF INHALE (08:52)
[2025-03-02] MEDS: LACOSAMIDE 150 MG 150 EACH PO ×2 (09:59→20:58)
[2025-03-02] MEDS: Throat Lozenge, Medicated LOZENGE 1 LOZENGE MUCOUS MEM ×3 (12:10→21:10)
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
[2025-03-02 19:38] VITALS: BP 107/58; PULSE 82; TEMP 36.8; O2SAT 95
[2025-03-02] MEDS: CENOBAMATE 150 MG 150 EACH PO (20:58)
[2025-03-02] MEDS: Prazosin HCL 1 MG CAPSULE PO (20:59)
[2025-03-02] MEDS: risperiDONE 2 MG TABLET PO (20:59)
[2025-03-02] MEDS: traZODone HCL 50 MG TABLET 150 MG PO (20:59)
[2025-03-03] MEDS: Fluticasone/Vilanterol 200/25 BLST.W.DEV 1 PUFF INHALE (08:46)
[2025-03-03 09:09] VITALS: BP 147/80; PULSE 97; TEMP 36.7; O2SAT 98
[2025-03-03] MEDS: cloBAZam 10 MG TABLET 20 MG PO ×2 (09:21→21:03)
[2025-03-03] MEDS: lamoTRIgine 100 MG, lamoTRIgine 50 MG 150 MG PO (09:21)
[2025-03-03] MEDS: Montelukast Sodium 10 MG TABLET PO (09:22)
[2025-03-03] MEDS: Sertraline HCL 25 MG TABLET 75 MG PO (09:22)
[2025-03-03] MEDS: risperiDONE 1 MG TABLET PO ×3 (09:23→21:03)
[2025-03-03] MEDS: Throat Lozenge, Medicated LOZENGE 1 LOZENGE MUCOUS MEM ×3 (09:28→21:04)
[2025-03-03] MEDS: LACOSAMIDE 150 MG 150 EACH PO ×2 (09:40→21:02)
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
[2025-03-03 19:34] VITALS: BP 121/58; PULSE 82; TEMP 36.9; O2SAT 98
[2025-03-03] MEDS: risperiDONE 2 MG TABLET PO (21:02)
[2025-03-03] MEDS: traZODone HCL 50 MG TABLET 150 MG PO (21:03)
[2025-03-03 21:05] VITALS: BP 128/60
[2025-03-03] MEDS: Prazosin HCL 1 MG CAPSULE PO (21:05)
[2025-03-04] MEDS: Throat Lozenge, Medicated LOZENGE 1 LOZENGE MUCOUS MEM ×4 (07:00→19:16)
[2025-03-04 08:00] VITALS: BP 104/61; PULSE 73; TEMP 36.3; O2SAT 97
[2025-03-04] MEDS: Fluticasone/Vilanterol 200/25 BLST.W.DEV 1 PUFF INHALE (08:16)
[2025-03-04] MEDS: Sertraline HCL 25 MG TABLET 75 MG PO (08:17)
[2025-03-04] MEDS: LACOSAMIDE 150 MG 150 EACH PO ×2 (08:17→22:33)
[2025-03-04] MEDS: cloBAZam 10 MG TABLET 20 MG PO ×2 (08:18→22:35)
[2025-03-04] MEDS: lamoTRIgine 100 MG, lamoTRIgine 50 MG 150 MG PO (08:18)
[2025-03-04] MEDS: Montelukast Sodium 10 MG TABLET PO (08:19)
[2025-03-04] MEDS: risperiDONE 1 MG TABLET PO ×3 (08:19→22:34)
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
[2025-03-04 13:05] LABS: Influenza A PCR NEGATIVE (Negative); Influenza B PCR NEGATIVE (Negative); Resp Syncy Virus RNA Qual PCR NEGATIVE (Negative); SARS COV2 PCR INHOUSE NEGATIVE (Negative)
[2025-03-04] MEDS: Acetaminophen 325 MG TABLET 650 MG PO (17:37)
[2025-03-04 20:00] VITALS: BP 110/68; PULSE 84; RESP 16; TEMP 36.9; O2SAT 98
[2025-03-04] MEDS: CENOBAMATE 150 MG 150 EACH PO (22:33)
[2025-03-04] MEDS: traZODone HCL 50 MG TABLET 150 MG PO (22:34)
[2025-03-04] MEDS: Prazosin HCL 1 MG CAPSULE PO (22:34)
[2025-03-04] MEDS: risperiDONE 2 MG TABLET PO (22:35)
[2025-03-05 08:00] VITALS: BP 108/55; PULSE 81; TEMP 36.5; O2SAT 97
[2025-03-05] MEDS: Sertraline HCL 25 MG TABLET 75 MG PO (09:34)
[2025-03-05] MEDS: LACOSAMIDE 150 MG 150 EACH PO ×2 (09:34→22:50)
[2025-03-05] MEDS: Fluticasone/Vilanterol 200/25 BLST.W.DEV 1 PUFF INHALE (09:34)
[2025-03-05] MEDS: risperiDONE 1 MG TABLET PO ×3 (09:35→22:52)
[2025-03-05] MEDS: Montelukast Sodium 10 MG TABLET PO (09:35)
[2025-03-05] MEDS: lamoTRIgine 100 MG, lamoTRIgine 50 MG 150 MG PO (09:35)
[2025-03-05] MEDS: cloBAZam 10 MG TABLET 20 MG PO ×2 (09:35→22:50)
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
[2025-03-05 11:33] LABS: Influenza A PCR NEGATIVE (Negative); Influenza B PCR NEGATIVE (Negative); Resp Syncy Virus RNA Qual PCR NEGATIVE (Negative); SARS COV2 PCR INHOUSE NEGATIVE (Negative)
[2025-03-05 20:00] VITALS: BP 124/61; PULSE 83; RESP 16; TEMP 36.4; O2SAT 96
[2025-03-05] MEDS: Prazosin HCL 1 MG CAPSULE PO (22:50)
[2025-03-05] MEDS: risperiDONE 2 MG TABLET PO (22:53)
[2025-03-06 08:00] VITALS: BP 151/82; PULSE 97; RESP 16; TEMP 36.6; O2SAT 97
[2025-03-06] MEDS: lamoTRIgine 100 MG, lamoTRIgine 50 MG 150 MG PO (08:42)
[2025-03-06] MEDS: Sertraline HCL 100 MG TABLET PO (08:43)
[2025-03-06] MEDS: Montelukast Sodium 10 MG TABLET PO (08:44)
[2025-03-06] MEDS: risperiDONE 1 MG TABLET PO ×3 (08:44→21:55)
[2025-03-06] MEDS: cloBAZam 10 MG TABLET 20 MG PO ×2 (08:45→21:52)
[2025-03-06] MEDS: Fluticasone/Vilanterol 200/25 BLST.W.DEV 1 PUFF INHALE (08:45)
[2025-03-06] MEDS: Throat Lozenge, Medicated LOZENGE 1 LOZENGE MUCOUS MEM ×2 (08:51→15:22)
[2025-03-06] MEDS: LACOSAMIDE 150 MG 150 EACH PO ×2 (09:04→21:51)
[2025-03-06] MEDS: hydrOXYzine HCL 50 MG TABLET PO (18:49)
[2025-03-06 20:00] VITALS: BP 120/69; PULSE 76; RESP 16; TEMP 36.6; O2SAT 95
[2025-03-06] MEDS: CENOBAMATE 150 MG 150 EACH PO (21:51)
[2025-03-06] MEDS: risperiDONE 2 MG TABLET PO (21:54)
[2025-03-06 21:55] VITALS: BP 120/60
[2025-03-06] MEDS: Prazosin HCL 1 MG CAPSULE PO (21:55)
[2025-03-06] MEDS: traZODone HCL 50 MG TABLET 150 MG PO (21:55)
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
[2025-03-07 08:00] VITALS: BP 112/65; PULSE 75; TEMP 36.3; O2SAT 97
[2025-03-07] MEDS: LACOSAMIDE 150 MG 150 EACH PO ×2 (08:20→23:07)
[2025-03-07] MEDS: Fluticasone/Vilanterol 200/25 BLST.W.DEV 1 PUFF INHALE (08:20)
[2025-03-07] MEDS: cloBAZam 10 MG TABLET 20 MG PO ×2 (08:20→23:05)
[2025-03-07] MEDS: lamoTRIgine 100 MG, lamoTRIgine 50 MG 150 MG PO (08:20)
[2025-03-07] MEDS: Montelukast Sodium 10 MG TABLET PO (08:21)
[2025-03-07] MEDS: risperiDONE 1 MG TABLET PO ×3 (08:21→23:07)
[2025-03-07] MEDS: Sertraline HCL 100 MG TABLET PO (08:21)
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
[2025-03-07 20:00] VITALS: BP 116/69; PULSE 84; TEMP 36.8; O2SAT 98
[2025-03-07] MEDS: Throat Lozenge, Medicated LOZENGE 1 LOZENGE MUCOUS MEM (21:44)
[2025-03-07] MEDS: traZODone HCL 50 MG TABLET 150 MG PO (23:08)
[2025-03-07] MEDS: risperiDONE 2 MG TABLET PO (23:08)
[2025-03-07 23:13] VITALS: BP 119/69
[2025-03-07] MEDS: Prazosin HCL 1 MG CAPSULE PO (23:13)
[2025-03-08 07:00] VITALS: BP 176/83; PULSE 81; RESP 18; TEMP 36.5; O2SAT 98
--- NOTE | 2025-03-08 07:24 | PC.NURSE ---
At approximately 0655 the patient, who had a 1:1, was ambulating with his gait belt and walker, was losing his balance and lowered to the ground by 1:1 staff [Chavez] with the assistance of his gait belt. Patient's head did not impact the ground. Vital signs were taken at that time. Patient evidenced no distress or pain; no injuries were apparent.
[2025-03-08 08:00] VITALS: BP 120/59; O2SAT 99
[2025-03-08] MEDS: lamoTRIgine 100 MG, lamoTRIgine 50 MG 150 MG PO (08:37)
[2025-03-08] MEDS: Sertraline HCL 100 MG TABLET PO (08:38)
[2025-03-08] MEDS: Montelukast Sodium 10 MG TABLET PO (08:39)
[2025-03-08] MEDS: cloBAZam 10 MG TABLET 20 MG PO (08:39)
[2025-03-08] MEDS: risperiDONE 1 MG TABLET PO (08:41)
[2025-03-08] MEDS: LACOSAMIDE 150 MG 150 EACH PO (08:41)
--- NOTE | 2025-03-08 08:46 | P.DS_ITS ---
DS: Providers Provider Date of Service: 03/08/25 Date of admission: 02/19/25 14:36 Date of discharge: 03/08/25 Primary care physician: Unknown Physician Attending physician on admission: Scout Romano Consults: 02/25/25 00:15 Consult to Neurology Routine Consulting Provider: [facility] Reason for consultation: repeat falls, seizure disorder Has provider been notified: No Attending physician on discharge: Scout Romano DS: Diagnosis Discharge Diagnosis (1) PTSD (post-traumatic stress disorder): Status: Acute (2) Intellectual disability: Status: Acute (3) Ataxia: Status: Acute (4) Mood disorder: Status: Acute DS: Medications Discharge Medications Home Medications: Home Medications ?Medication ?Instructions ?Recorded ?Confirmed albuterol sulfate 90 mcg/actuation 2 puff inhalation Q6H PRN SOB 02/17/25 02/18/25 aerosol inhaler cenobamate 150 mg tablet (Xcopri) 150 mg PO Q2D@199902/17/25 02/17/25 clobazam 20 mg tablet 20 mg PO BID 02/17/25 02/17/25 clonazepam 2 mg tablet 2 mg PO DAILY PRN Seizure Activity 02/17/25 02/17/25 / anxiety fluticasone 500 mcg-salmeterol 50 1 inh inhalation BID 02/17/25 02/17/25 mcg/dose blistr powdr for inhalation (Advair Diskus) ibuprofen 400 mg tablet 400 mg PO Q6H PRN Mild Pain (Scale 02/17/25 02/17/25 Score 1-4) lacosamide 150 mg tablet 150 mg PO BID 02/17/25 02/17/25 lamotrigine 100 mg tablet 250 mg PO BEDTIME 02/17/25 02/17/25 (Lamictal) lamotrigine 150 mg tablet 150 mg PO DAILY 02/17/25 02/18/25 meclizine 12.5 mg tablet 12.5 mg PO TID PRN MECLIZINE 02/17/25 02/17/25 montelukast 10 mg tablet 10 mg PO DAILY 02/17/25 02/18/25 acetaminophen 325 mg tablet 650 mg PO Q8H PRN Pain 02/18/25 02/18/25 (Tylenol) Previous Rx's ?Medication ?Instructions ?Recorded docusate sodium 100 mg capsule 100 mg PO DAILY PRN give first for 03/01/25 constipation #0 caps hydroxyzine HCl 50 mg tablet 50 mg PO BID PRN mild anxiety 30 03/01/25 days #60 tabs prazosin 1 mg capsule 1 mg PO BEDTIME 30 days #30 caps 03/01/25 risperidone 1 mg tablet 1 mg PO DAILY 30 days #30 tabs 03/01/25 risperidone 4 mg tablet 4 mg PO BEDTIME 30 days #30 tabs 03/01/25 trazodone 150 mg tablet 150 mg PO BEDTIME 30 days #30 tabs 03/01/25 sertraline 100 mg tablet 100 mg PO DAILY 30 days #30 tabs 03/08/25 Data Data Completed and Pending Completed studies during hospitalization [Text1]: 03/04/25 03/05/25 12:20 10:30 Influenza Type A (PCR) NEGATIVE NEGATIVE Influenza Type B (PCR) NEGATIVE NEGATIVE RSV RNA Qual (PCR) NEGATIVE NEGATIVE SARS-CoV-2 RNA (RT-PCR) NEGATIVE NEGATIVE DS: Summary Hospital Course Hospital Course: mom pulled adjusto writer operator aside and said she has tickets to [place] for her and son, and asks if we can keep him until Wednesday, the day before. Time Spent with Patient Time attestation: Total time managing care of this patient today ____ minutes. Discharge Plan Discharge Anticipated Discharge Date/Time: 03/08/25 11:55 Patient Disposition: Home, Self-Care Discharge Diagnosis: PTSD Referrals: [facility]- Therapy and Medication Management [Other] - 03/12/25 1:30 pm (Please bring your insurance card and photo ID. Please arrive 15 minutes early to complete intake paperwork ) [facility] [employer]- [facility] [Other] [facility]- Adult Day Center [Other] (Please call [facility] to inquire about a day program. DDS has already inquired with them on your behalf. At [facility]- Our participants spend up to 6 hours in a beautiful homebound environment, surrounded by friendly, well-trained staff. Every day at [facility] is filled with individual and group activities suited to the participants' needs, interests, and abilities as determined in their care plans.) [facility] [place] [Other] (Please call the provided number to schedule a tour of the program and to complete the intake process with them ) [facility] [Other] (Please call the provided number to inquire about the program [facility] day habilitation programs provide people with disabilities goal oriented, structured and active programs aimed toward increasing levels of functioning and self-confidence) [facility]- Director Home- [place] [Other] - 1 Week PCP- Inpatient Discharge Team Appointment [Other] - 03/09/25 3:20 pm Discharge Medications: New prazosin 1 mg Capsule 1 mg PO BEDTIME 30 Days Qty: 30 0RF Protocol: Hold for SBP< HOLD for SBP < : 90 risperidone 1 mg Tablet 1 mg PO DAILY 30 Days Qty: 30 0RF hydroxyzine HCl 50 mg Tablet 50 mg PO BID PRN (Reason: mild anxiety) 30 Days Qty: 60 0RF docusate sodium 100 mg Capsule 100 mg PO DAILY PRN (Reason: give first for constipation) Qty: 0 0RF sertraline 100 mg Tablet 100 mg PO DAILY 30 Days Qty: 30 1RF Continued clonazepam 2 mg Tablet 2 mg PO DAILY MDD MAY REPEAT X1 PRN (Reason: Seizure Activity / anxiety) Rx Instructions: STEP 1 SEIZURE LASTING GREATER THAN 5 MINUTES. GIVE FOR SEIZURE LASTING GREATER THAN 5 MINUTES ONCE SEIZURE HAS ENDED AND CLIENT IS ABLE TO FOLLOW DIRECTIONS TO SWALLOW MEDICATION. MAY REPEAT AT ANY TIME WITHIN 24-HOUR PERIOD FOR SECOND SEIZURE LASTING GREATER THAN 5 MINUTES fluticasone propion-salmeterol [Advair Diskus] 500-50 mcg/dose Blister With Device 1 inh INHALATION BID ibuprofen 400 mg Tablet 400 mg PO Q6H PRN (Reason: Mild Pain (Scale Score 1-4)) albuterol sulfate 90 mcg/actuation Hfa Aerosol Inhaler 2 puff INHALATION Q6H PRN (Reason: SOB) clobazam 20 mg Tablet 20 mg PO BID lamotrigine 150 mg Tablet 150 mg PO DAILY meclizine 12.5 mg Tablet 12.5 mg PO TID PRN (Reason: MECLIZINE) montelukast 10 mg Tablet 10 mg PO DAILY lacosamide 150 mg Tablet 150 mg PO BID Xcopri 150 mg Tablet 150 mg PO Q2D@2000 lamotrigine [Lamictal] 100 mg Tablet 250 mg PO BEDTIME acetaminophen [Tylenol] 325 mg Tablet 650 mg PO Q8H PRN (Reason: Pain) risperidone 4 mg Tablet 4 mg PO BEDTIME 30 Days Qty: 30 0RF trazodone 150 mg Tablet 150 mg PO BEDTIME 30 Days Qty: 30 0RF Discontinued docusate sodium [Colace] 100 mg Capsule 100 mg PO DAILY Discharge Orders: Discharge Order (Routine); Ordered 03/08/25 Ordered By: Scout Romano Diet: Regular diet Activity on Discharge: As tolerated Stand Alone Forms: Patient Portal Discharge page, Community Support Print Language: [place] Care Plan Goals: Maintain mood and safe behaviors Take medications as prescribed Practice coping skills Continue with outpatient providers and reach out to them as needed Health Concerns: Mood stability and behaviors Seizure disorder Plan of Treatment: Follow up with your PCP, psychiatric provider and other outpatient providers regarding above concerns Take medications as prescribed Assessment: Risk assessment at time of discharge:? Patient was interviewed prior to discharge and found to be fully oriented and without any SI or HI. Patient has improved insight and judgment and wants to continue treatment. Patient is not in imminent risk of harm to self or others and has a safety plan that includes presenting to the closest ER or calling 911 if feeling unsafe.? Patient has been observed closely by nursing and unit staff throughout admission; patient has not engaged in any behaviors that suggest dangerousness to self or others and has demonstrated appropriate behaviors and impulse control Discharge Date/Time: 03/08/25 14:28
[2025-03-08] MEDS: Fluticasone/Vilanterol 200/25 BLST.W.DEV 1 PUFF INHALE (09:03)
[2025-03-08] MEDS: Throat Lozenge, Medicated LOZENGE 1 LOZENGE MUCOUS MEM (09:05)
[2025-03-08] MEDS: hydrOXYzine HCL 50 MG TABLET PO (09:46)
== END 2025-03-08 14:28 | disposition home or self-care (01) | DRG 755 ==
LOC: HO.ED 02-19 14:35 → HO.PM5 02-19 14:39
PROVIDERS: Emergency Medicine Emergency Medical Services; Physician Assistant; Psychiatry & Neurology Psychiatry; Admitting Provider Clinical Nurse Specialist Psychiatric/Mental Health, Adult; Emergency Provider Emergency Medicine; Visit Provider Psychiatry & Neurology Psychiatry
DX: F43.10 Post-traumatic stress disorder, unspecified (principal); F79 Unspecified intellectual disabilities; R56.9 Unspecified convulsions; F39 Unspecified mood [affective] disorder; G11.9 Hereditary ataxia, unspecified; R55 Syncope and collapse; W19.XXXA Unspecified fall, initial encounter; Z20.822 Contact with and (suspected) exposure to COVID-19; Z79.51 Long term (current) use of inhaled steroids; Z79.899 Other long term (current) drug therapy
CPT/HCPCS: 0241U; 36415; 70450; 72125; 73502; 80053; 80061; 80307; 81003; 82607; 82746; 82947; 83036; 83605; 83735; 84439; 84443; 85025; 93005; 97162; 99285; S9485

== ENCOUNTER → 2025-02-19 09:00 | Outpatient (BNV) | payer OTHER, SELFPAY | PROVIDERS: Admitting Provider Clinical Nurse Specialist Psychiatric/Mental Health, Adult; Emergency Provider Emergency Medicine; Visit Provider Internal Medicine Cardiovascular Disease | DX: I45.10 Unspecified right bundle-branch block (principal) | CPT/HCPCS: 93010 ==

== ENCOUNTER 2025-02-19 14:36 | Outpatient (BNV) | payer OTHER, SELFPAY | END 2025-02-24 21:59 | PROVIDERS: Admitting Provider Clinical Nurse Specialist Psychiatric/Mental Health, Adult; Emergency Provider Emergency Medicine; Visit Provider Radiology Diagnostic Radiology | DX: M54.2 Cervicalgia (principal); W19.XXXA Unspecified fall, initial encounter; G93.89 Other specified disorders of brain | CPT/HCPCS: 70450; 72125 ==

== ENCOUNTER 2025-02-19 14:36 | Outpatient (BNV) | payer OTHER, SELFPAY | END 2025-02-25 00:30 | PROVIDERS: Admitting Provider Clinical Nurse Specialist Psychiatric/Mental Health, Adult; Emergency Provider Emergency Medicine; Visit Provider Radiology Diagnostic Radiology | DX: S09.90XA Unspecified injury of head, initial encounter (principal); M25.552 Pain in left hip; W19.XXXA Unspecified fall, initial encounter | CPT/HCPCS: 70450; 73502 ==

== ENCOUNTER 2025-02-19 14:36 | Outpatient (BNV) | payer OTHER, SELFPAY | END 2025-02-24 21:56 | PROVIDERS: Admitting Provider Clinical Nurse Specialist Psychiatric/Mental Health, Adult; Emergency Provider Emergency Medicine; Visit Provider Internal Medicine Cardiovascular Disease | DX: I45.10 Unspecified right bundle-branch block (principal); R00.1 Bradycardia, unspecified | CPT/HCPCS: 93010 ==

== ENCOUNTER → 2025-02-19 14:36 | Outpatient (BNV) | payer OTHER, SELFPAY | PROVIDERS: Admitting Provider Clinical Nurse Specialist Psychiatric/Mental Health, Adult; Emergency Provider Emergency Medicine; Visit Provider Psychiatry & Neurology Neurology | DX: G96.9 Disorder of central nervous system, unspecified (principal); G32.81 Cerebellar ataxia in diseases classified elsewhere; R29.6 Repeated falls | CPT/HCPCS: 99223 ==

== ENCOUNTER → 2025-02-19 14:36 | Outpatient (BNV) | payer OTHER, SELFPAY | PROVIDERS: Admitting Provider Clinical Nurse Specialist Psychiatric/Mental Health, Adult; Emergency Provider Emergency Medicine; Visit Provider Psychiatry & Neurology Psychiatry | DX: F39 Unspecified mood [affective] disorder (principal); F43.11 Post-traumatic stress disorder, acute; F79 Unspecified intellectual disabilities | CPT/HCPCS: 99232 ==

== ENCOUNTER 2025-03-09 15:36 | Emergency (ER) | payer OTHER, SELFPAY ==
[2025-03-09 15:53] VITALS: BP 116/68; PULSE 80; O2SAT 96
--- NOTE | 2025-03-09 15:56 | ED_ITS ---
HPI - General Adult General Chief complaint: Psychiatric Symptoms Stated complaint: states he wants to self harm Time Seen by Provider: 03/09/25 15:55 History of Present Illness ED Provider: Rachel BAEZA narrative: This is a 34-year-old male with a history of intellectual disability and chronic mental illness. He was discharged from our hospitalist inpatient psychiatric unit yesterday. He has been admitted on February 19 because of depression and suicidal thoughts. He was discharged yesterday. He says that he went home where he lives with his mother and his stepfather. He says that he had a reasonably good night but this morning he felt suicidal and returned to the hospital by ambulance. He said that he had thoughts about stabbing himself in the heart with a knife or possibly strangling himself. He has not done anything to harm himself. The patient denies feeling ill. He has had no fever, sweats, chills. He has no headache, chest pain, abdominal pain. No nausea or vomiting. No cough or sputum. Related Data Home Medications ?Medication ?Instructions ?Recorded ?Confirmed albuterol sulfate 90 mcg/actuation 2 puff inhalation Q6H PRN SOB 02/17/25 03/09/25 aerosol inhaler cenobamate 150 mg tablet (Xcopri) 150 mg PO Q2D@199902/17/25 03/09/25 clobazam 20 mg tablet 20 mg PO BID 02/17/25 03/09/25 clonazepam 2 mg tablet 2 mg PO DAILY PRN Seizure Activity 02/17/25 03/09/25 / anxiety fluticasone 500 mcg-salmeterol 50 1 inh inhalation BID 02/17/25 03/09/25 mcg/dose blistr powdr for inhalation (Advair Diskus) ibuprofen 400 mg tablet 400 mg PO Q6H PRN Mild Pain (Scale 02/17/25 03/09/25 Score 1-4) lacosamide 150 mg tablet 150 mg PO BID 02/17/25 03/09/25 lamotrigine 100 mg tablet 250 mg PO BEDTIME 02/17/25 03/09/25 (Lamictal) meclizine 12.5 mg tablet 12.5 mg PO TID PRN MECLIZINE 02/17/25 03/09/25 montelukast 10 mg tablet 10 mg PO DAILY 02/17/25 03/09/25 acetaminophen 325 mg tablet 650 mg PO Q8H PRN Pain 02/18/25 03/09/25 (Tylenol) lamotrigine 150 mg tablet 150 mg PO DAILY 03/09/25 03/09/25 risperidone 1 mg tablet 1 mg PO QAM 03/09/25 03/09/25 risperidone 4 mg tablet 4 mg PO BEDTIME 03/09/25 03/09/25 sertraline 100 mg tablet 100 mg PO DAILY 03/09/25 03/09/25 Previous Rx's ?Medication ?Instructions ?Recorded docusate sodium 100 mg capsule 100 mg PO DAILY PRN give first for 03/01/25 constipation #0 caps hydroxyzine HCl 50 mg tablet 50 mg PO BID PRN mild anxiety 30 03/01/25 days #60 tabs prazosin 1 mg capsule 1 mg PO BEDTIME 30 days #30 caps 03/01/25 trazodone 150 mg tablet 150 mg PO BEDTIME 30 days #30 tabs 03/01/25 Allergies Allergy/AdvReac Type Severity Reaction Status Date / Time lorazepam [From Ativan] Allergy Unknown Unknown Verified 03/09/25 16:13 quetiapine [From Seroquel] AdvReac Agitated Verified 03/09/25 16:13 Review of Systems 2 Review of Systems: Yes all other systems are reviewed and are negative [facility] Past Medical History Medical History (Updated 03/09/25 @ 17:21 by Helio Ramos MD) Intellectual disability Mood disorder Psychogenic nonepileptic seizure Acquired cognitive dysfunction Seizure disorder Social History Social History Household Members: Family Housing: Apartment Do you presently have visiting nurse or other home services: No Alcohol intake: never Comment: 1 to 1 for fall safety Patient Tobacco Use Status: Never used Tobacco Smoked in Last 30 Days: No e-Cigarette/Vaping Use: Never Used Second Hand Smoke Exposure: No Use of substances other than those prescribed or required for medical reasons: No Advance Directives: No Advance Directives Information Provided: No Do you have a plan to hurt others: Clear service: No Sexual orientation: Straight/Heterosexual Physical Exam ED Vital Signs: Vital Signs - 24 hr 03/09/25 16:01 Temperature 98.2 F Pulse Rate 80 Respiratory Rate 18 Blood Pressure 114/65 Pulse Oximetry 98 Oxygen Delivery Method Room Air BMI result Body Mass Index 30.5 Const Other: The patient is awake, alert, pleasant, cooperative. He has a somewhat flat affect but is very agreeable. He does not seem acutely ill. HENMT Other: Face is symmetrical, mucous membranes are moist. Eyes General: appearance normal, both eyes and all related structures Neck Neck: Yes normal visual inspection and Yes full ROM Resp Effort & Inspection: normal respiratory effort Auscultation: clear to auscultation bilaterally Cardio Rate: regular rate Rhythm: regular rhythm Heart sounds: S1 normal heart sound present and S2 normal heart sound present GI Other: Abdomen is soft and nontender Skin Other: Skin is dry and unremarkable. He has a lot of tattoos Neuro Other: The patient is awake and alert. He seems oriented and appropriate. Cranial nerves 2-12 are intact. He moves his extremities normally and appropriately with normal strength and sensation and coordination. His gait is normal. He is neurologically intact. Extrem Other: No peripheral edema. Medical Decision Making Medical Decision Making [facility] Narrative: The patient is a 34-year-old male with a an intellectual disability who seems to have chronic complaints of depression and suicidality. He was discharged from the hospital yesterday after being inpatient for over 2 weeks. He returns 24 hours later complaining of feeling suicidal. He does not give any explanation of why he is feeling suicidal today. He has no complaints of medical illness. He looks well. He will be seen by the care team. The patient's labs are unremarkable. He is medically clear for evaluation and disposition by the care team. The patient was seen by the care team and was judged to be safe for discharge. His family will be picking him up. Lab Data 03/09/25 16:36 03/09/25 16:36 Labs: Lab Results 03/09/25 Range/Units 16:36 WBC 7.3 (4.8-10.8) X10*3/uL RBC 4.98 (4.60-5.80) X10*6/uL Hgb 14.8 (14.0-18.0) g/dl Hct 44.4 (42.0-52.0) % MCV 89.2 (80.0-98.0) fL MCH 29.7 (27.0-33.0) pg MCHC 33.3 (31.0-36.0) g/dl RDW 12.8 (11.0-16.0) % Plt Count 257 (160-400) X10*3/uL MPV 9.6 (9.4-12.4) fL Immature Gran % (Auto) 0.6 H (0.0-0.4) % Neut % (Auto) 63.6 (45-73) % Lymph % (Auto) 27.8 (20-40) % [place] % (Auto) 5.5 (2-11) % Eos % (Auto) 1.4 (0-4) % Baso % (Auto) 1.1 (0-2) % Lymph # (Auto) 2.0 (1.2-4.9) X10*3/uL [place] # (Auto) 0.4 (0.1-1.2) X10*3/uL Eos # (Auto) 0.1 (0.0-0.4) X10*3/uL Baso # (Auto) 0.1 (0.0-0.2) X10*3/uL Abs Immat Gran (auto) 0.04 H (0.00-0.03) X10*3/uL Absolute Neuts (auto) 4.6 (2.0-8.3) x10*3/uL Absolute Nucleated RBC 0.000 (0.0-0.012) X10*3/uL Nucleated RBC % (auto) 0.0 (0.0-0.2) /100WBC Sodium 140 (135-145) mmol/L Potassium 4.2 (3.3-5.1) mmol/L Chloride 103 (96-108) mmol/L Carbon Dioxide 30 H (22-29) mmol/L Anion Gap 11 L (12-20) BUN 17 H (9-16) mg/dL Creatinine 0.93 (0.5-1.4) mg/dL Estim Creat Clear Calc 88.6 Estimated GFR > 60 Random Glucose 103 (60-115) mg/dL Calcium 10.1 D (8.4-10.2) mg/dL Urine Color Yellow Urine Appearance Clear Urine pH 6.5 (5.0-9.0) Ur Specific [place] 1.025 (1.005-1.025) Urine Protein Negative (Neg-Trace) mg/dL Urine Glucose (UA) Negative (Negative) mg/dL Urine Ketones Negative (Negative) mg/dL Urine Blood Negative (Negative) Urine Nitrite Negative (Negative) Ur Leukocyte Esterase Negative (Negative) Urine Opiates Screen Not Detected (Not Detect) Ur Buprenorphine Scrn Not Detected (Not Detect) ng/mL Ur Oxycodone Screen Not Detected (Not Detect) ng/mL Urine Methadone Screen Not Detected (Not Detect) ng/mL Urine Fentanyl Screen Not Detected (Not Detect) Ur Barbiturates Screen Not Detected (Not Detect) Ur Phencyclidine Scrn Not Detected (Not Detect) Ur Amphetamines Screen Not Detected (Not Detect) U Benzodiazepines Scrn POSITIVE H (Not Detect) Urine Cocaine Screen Not Detected (Not Detect) U Marijuana (THC) Screen Not Detected (Not Detect) Ethyl Alcohol < 10 mg/dL Discharge Plan Discharge Clinical Impression: Depression Patient Disposition: Home, Self-Care Additional Instructions: Please follow up with your regular doctor and any other providers you have. Continue your regular medications. Return to the emergency room if you feel significantly worse. Prescriptions: No Action clonazepam 2 mg Tablet 2 mg PO DAILY MDD MAY REPEAT X1 PRN (Reason: Seizure Activity / anxiety) Rx Instructions: STEP 1 SEIZURE LASTING GREATER THAN 5 MINUTES. GIVE FOR SEIZURE LASTING GREATER THAN 5 MINUTES ONCE SEIZURE HAS ENDED AND CLIENT IS ABLE TO FOLLOW DIRECTIONS TO SWALLOW MEDICATION. MAY REPEAT AT ANY TIME WITHIN 24-HOUR PERIOD FOR SECOND SEIZURE LASTING GREATER THAN 5 MINUTES fluticasone propion-salmeterol [Advair Diskus] 500-50 mcg/dose Blister With Device 1 inh INHALATION BID ibuprofen 400 mg Tablet 400 mg PO Q6H PRN (Reason: Mild Pain (Scale Score 1-4)) albuterol sulfate 90 mcg/actuation Hfa Aerosol Inhaler 2 puff INHALATION Q6H PRN (Reason: SOB) clobazam 20 mg Tablet 20 mg PO BID meclizine 12.5 mg Tablet 12.5 mg PO TID PRN (Reason: MECLIZINE) montelukast 10 mg Tablet 10 mg PO DAILY lacosamide 150 mg Tablet 150 mg PO BID Xcopri 150 mg Tablet 150 mg PO Q2D@2000 lamotrigine [Lamictal] 100 mg Tablet 250 mg PO BEDTIME acetaminophen [Tylenol] 325 mg Tablet 650 mg PO Q8H PRN (Reason: Pain) prazosin 1 mg Capsule 1 mg PO BEDTIME 30 Days Qty: 30 0RF Protocol: Hold for SBP< HOLD for SBP < : 90 hydroxyzine HCl 50 mg Tablet 50 mg PO BID PRN (Reason: mild anxiety) 30 Days Qty: 60 0RF trazodone 150 mg Tablet 150 mg PO BEDTIME 30 Days Qty: 30 0RF docusate sodium 100 mg Capsule 100 mg PO DAILY PRN (Reason: give first for constipation) Qty: 0 0RF lamotrigine 150 mg tablet 150 mg PO DAILY risperidone 4 mg tablet 4 mg PO BEDTIME sertraline 100 mg tablet 100 mg PO DAILY risperidone 1 mg tablet 1 mg PO QAM Referrals: Louis Patel MD [Primary Care Provider] - Interventions: [place]-Suicide Risk Severity Scale Last Done: 03/09/25 18:12 Print Language: Japanese
[2025-03-09 16:01] VITALS: BP 114/65; PULSE 80; RESP 18; TEMP 36.8; O2SAT 98; BMI 30.5
[2025-03-09 16:41] LABS: MANUAL DIFF FLAG NO
[2025-03-09 16:43] LABS: Basophils Absolute Auto 0.1 X10*3/uL (0.0-0.2); Basophils Percent Auto 1.1 % (0-2); Eosinophils Absolute Auto 0.1 X10*3/uL (0.0-0.4); Eosinophils Percent Auto 1.4 % (0-4); Hematocrit 44.4 % (42.0-52.0); Hemoglobin 14.8 g/dl (14.0-18.0); Imm Gran Abs Auto 0.04 X10*3/uL (0.00-0.03); Imm Gran Pct Auto 0.6 % (0.0-0.4); Lymphocytes Percent Auto 27.8 % (20-40); Mean Corpuscular HGB Conc 33.3 g/dl (31.0-36.0); Mean Corpuscular Hemoglobin 29.7 pg (27.0-33.0); Mean Corpuscular Volume 89.2 fL (80.0-98.0); Mean Platelet Volume 9.6 fL (9.4-12.4); Monocytes Absolute Auto 0.4 X10*3/uL (0.1-1.2); Monocytes Percent Auto 5.5 % (2-11); Neutrophils Absolute Auto 4.6 x10*3/uL (2.0-8.3); Neutrophils Percent Auto 63.6 % (45-73); Platelet Count 257 X10*3/uL (160-400); Red Blood Count 4.98 X10*6/uL (4.60-5.80); Red Cell Distribution Width 12.8 % (11.0-16.0); White Blood Count 7.3 X10*3/uL (4.8-10.8)
[2025-03-09 16:46] LABS: Appearance Urine Clear; Color Urine Yellow; Glucose Urine UA Negative (Negative); Leukocyte Esterase Urine Negative (Negative); Nitrite Urine Negative (Negative); PH 6.5 (5.0-9.0); Specific Gravity - Urine 1.025 (1.005-1.025); Urine Blood Negative (Negative); Urine Ketones Negative (Negative); Urine Protein Negative (Neg-Trace)
[2025-03-09 16:55] LABS: Amphetamine Screen Urine Not Detected (Not Detect); Barbiturates, Urine Not Detected (Not Detect); Benzodiazepines Screen Urine POSITIVE (Not Detect); Buprenorphine Scr Not Detected (Not Detect); Cannabinoid Screen Urine Not Detected (Not Detect); Cocaine Screen Urine Not Detected (Not Detect); Fentanyl, urine Not Detected (Not Detect); Methadone Screen, Urine Not Detected (Not Detect); Opiate Screen Urine Not Detected (Not Detect); Oxycodone Screen Urine Not Detected (Not Detect); Phencyclidine Screen Urine Not Detected (Not Detect)
[2025-03-09 17:02] LABS: Anion Gap 11 (12-20); Blood Urea Nitrogen 17 mg/dL (9-16); Calcium 10.1 mg/dL (8.4-10.2); Carbon Dioxide 30 mmol/L (22-29); Chloride 103 mmol/L (96-108); Creatinine Clr Calc Pharmacy 88.6; Estimated Glomerular Filt Rate > 60; Ethanol < 10 mg/dL; Glucose Random 103 mg/dL (60-115); Potassium 4.2 mmol/L (3.3-5.1); Sodium 140 mmol/L (135-145)
[2025-03-09 19:36] VITALS: BP 111/60; PULSE 89; RESP 16; TEMP 36.7; O2SAT 96
== END 2025-03-09 19:51 | disposition home or self-care (01) ==
PROVIDERS: Emergency Provider Emergency Medicine; PCP Internal Medicine
DX: F32.A Depression, unspecified (principal); R45.851 Suicidal ideations; F79 Unspecified intellectual disabilities; F39 Unspecified mood [affective] disorder; F43.10 Post-traumatic stress disorder, unspecified; F41.9 Anxiety disorder, unspecified; Z79.899 Other long term (current) drug therapy
CPT/HCPCS: 36415; 80048; 80307; 81003; 85025; 99284; S9485

== ENCOUNTER 2025-03-14 20:13 | Emergency (ER) | payer OTHER, SELFPAY ==
[2025-03-14 20:39] VITALS: BP 141/70; PULSE 76; RESP 18; TEMP 37; O2SAT 99; BMI 24.2
--- NOTE | 2025-03-14 20:48 | PC.NURSE ---
client signed document to give wallet to mom. umesh walking item to wait room
[2025-03-14 20:50] LABS: MANUAL DIFF FLAG NO
[2025-03-14 20:56] LABS: Basophils Absolute Auto 0.1 X10*3/uL (0.0-0.2); Basophils Percent Auto 0.6 % (0-2); Eosinophils Absolute Auto 0.2 X10*3/uL (0.0-0.4); Eosinophils Percent Auto 2.5 % (0-4); Hemoglobin 13.5 g/dl (14.0-18.0); Imm Gran Abs Auto 0.03 X10*3/uL (0.00-0.03); Imm Gran Pct Auto 0.4 % (0.0-0.4); Lymphocytes Absolute Auto 1.8 X10*3/uL (1.2-4.9); Lymphocytes Percent Auto 22.6 % (20-40); Mean Corpuscular HGB Conc 33.8 g/dl (31.0-36.0); Mean Corpuscular Hemoglobin 29.8 pg (27.0-33.0); Mean Corpuscular Volume 88.3 fL (80.0-98.0); Mean Platelet Volume 9.7 fL (9.4-12.4); Monocytes Absolute Auto 0.5 X10*3/uL (0.1-1.2); Monocytes Percent Auto 5.8 % (2-11); Neutrophils Absolute Auto 5.5 x10*3/uL (2.0-8.3); Neutrophils Percent Auto 68.1 % (45-73); Platelet Count 239 X10*3/uL (160-400); Red Blood Count 4.53 X10*6/uL (4.60-5.80); Red Cell Distribution Width 13.2 % (11.0-16.0); White Blood Count 8.1 X10*3/uL (4.8-10.8)
[2025-03-14 21:09] LABS: Acetaminophen LAB < 3 mcg/mL (<30); Alanine Aminotransferase 48 U/L (0-40); Albumin Level 4.5 g/dL (3.5-5.0); Alkaline Phosphatase 85 U/L (39-117); Anion Gap 15 (12-20); Aspartate Amino Transferase 41 U/L (5-37); Bilirubin Total 0.2 mg/dL (0.0-1.0); Blood Urea Nitrogen 17 mg/dL (9-16); Calcium 9.9 mg/dL (8.4-10.2); Carbon Dioxide 26 mmol/L (22-29); Chloride 103 mmol/L (96-108); Estimated Glomerular Filt Rate > 60; Ethanol < 10 mg/dL; Glucose Random 101 mg/dL (60-115); Salicylate < 5.0 mg/dL (15-30); Sodium 140 mmol/L (135-145); Total Protein 7.8 g/dL (6.5-8.0)
[2025-03-14 22:09] LABS: Appearance Urine Clear; Color Urine Yellow; Glucose Urine UA Negative (Negative); Leukocyte Esterase Urine Negative (Negative); Nitrite Urine Negative (Negative); Specific Gravity - Urine 1.025 (1.005-1.025); Urine Blood Negative (Negative); Urine Ketones Negative (Negative); Urine Protein Negative (Neg-Trace)
--- NOTE | 2025-03-14 22:14 | ED_ITS ---
HPI - Psych General Chief Complaint: Psychiatric Symptoms Stated Complaint: SI Time Seen by Provider: 03/14/25 21:04 Source: patient and other (Care team clinician) Mode of arrival: EMS Limitations: no limitations History of Present Illness ED Provider: Dr. Diego Mckeon HPI Narrative: 34 yo male, with intellectual disability, mood disorder, PTSD, seizure disorder and non-epileptic seizures who presents emergency department for evaluation of suicidal ideation. The patient states that he began to feel suicidal in the afternoon. He states that 1 of the triggers was that he got into a disagreement with a his mother about which television program to watch . He states that his mother would not let him have the channel changer to watch his program. He believes that this may have triggered his suicidal thoughts. He states that he plans to either choke himself or cut his wrists with a knife.. In past he has tried to cut his wrists. He states that he has been having difficulty sleeping in his had a decreased appetite. The patient had a prolonged psychiatric admission from 02/20/2025 until 03/08/2025. The patient was well-known to the care team provider. Patient was currently living with his mother in his stepfather. Patient previously was living in a long-term but had difficulty with behavioral issues and had to leave the long-term. He was also lived in a shared living situation which was more successful but his mother took him out of this program. The patient does have DDS services Related Data Home Medications ?Medication ?Instructions ?Recorded ?Confirmed albuterol sulfate 90 mcg/actuation 2 puff inhalation Q6H PRN SOB 02/17/25 03/14/25 aerosol inhaler cenobamate 150 mg tablet (Xcopri) 150 mg PO Q2D@199902/17/25 03/14/25 clobazam 20 mg tablet 20 mg PO BID 02/17/25 03/14/25 clonazepam 2 mg tablet 2 mg PO DAILY PRN Seizure Activity 02/17/25 03/14/25 / anxiety fluticasone 500 mcg-salmeterol 50 1 inh inhalation BID 02/17/25 03/14/25 mcg/dose blistr powdr for inhalation (Advair Diskus) ibuprofen 400 mg tablet 400 mg PO Q6H PRN Mild Pain (Scale 02/17/25 03/14/25 Score 1-4) lacosamide 150 mg tablet 150 mg PO BID 02/17/25 03/14/25 lamotrigine 100 mg tablet 250 mg PO BEDTIME 02/17/25 03/14/25 (Lamictal) meclizine 12.5 mg tablet 12.5 mg PO TID PRN MECLIZINE 02/17/25 03/14/25 montelukast 10 mg tablet 10 mg PO DAILY 02/17/25 03/14/25 acetaminophen 325 mg tablet 650 mg PO Q8H PRN Pain 02/18/25 03/14/25 (Tylenol) lamotrigine 150 mg tablet 150 mg PO DAILY 03/09/25 03/14/25 risperidone 1 mg tablet 1 mg PO QAM 03/09/25 03/14/25 risperidone 4 mg tablet 4 mg PO BEDTIME 03/09/25 03/14/25 sertraline 100 mg tablet 100 mg PO DAILY 03/09/25 03/14/25 docusate sodium 100 mg capsule 100 mg PO DAILY PRN Constipation 03/14/25 03/14/25 Previous Rx's ?Medication ?Instructions ?Recorded hydroxyzine HCl 50 mg tablet 50 mg PO BID PRN mild anxiety 30 03/01/25 days #60 tabs prazosin 1 mg capsule 1 mg PO BEDTIME 30 days #30 caps 03/01/25 trazodone 150 mg tablet 150 mg PO BEDTIME 30 days #30 tabs 03/01/25 Allergies Allergy/AdvReac Type Severity Reaction Status Date / Time lorazepam [From Ativan] Allergy Unknown Unknown Verified 03/14/25 20:43 quetiapine [From Seroquel] AdvReac Agitated Verified 03/14/25 20:43 Review of Systems 2 Review of Systems: Yes all other systems are reviewed and are negative [facility] Past Medical History [facility] Narrative: Social history: He denies tobacco, alcohol and drug use Medical History (Updated 03/16/25 @ 00:01 by Denisa Carney) Intellectual disability Mood disorder Psychogenic nonepileptic seizure Acquired cognitive dysfunction Seizure disorder Social History Social History Household Members: Family Housing: Apartment Do you presently have visiting nurse or other home services: No Alcohol intake: never Comment: 1 to 1 for fall safety Patient Tobacco Use Status: Never used Tobacco e-Cigarette/Vaping Use: Never Used Second Hand Smoke Exposure: No Advance Directives: No Advance Directives Information Provided: Yes Do you have a plan to hurt others: No Plan service: No Sexual orientation: Straight/Heterosexual Physical Exam 2 Vital Signs: Vital Signs: Last Vital Signs Temp 98.6 F 03/15/25 19:20 Pulse 80 03/15/25 19:20 Resp 16 03/15/25 19:20 BP 130/76 03/15/25 19:20 Pulse Ox 98 03/15/25 19:20 O2 Del Method Room Air 03/15/25 19:20 BMI result Body Mass Index 24.2 Vital signs revealed an elevated blood pressure of 141/70 otherwise unremarkable Exam: General: Awake, alert in no distress Head: Normocephalic, atraumatic EENT: PERRL, Lids normal, sclera normal, conjunctiva normal, nose normal , ears normal, throat without erythema or exudates Neck: Supple, no adenopathy Lung: breath sounds symmetric, no wheezing, rales or rhonchi Chest: symmetric movement, nontender Heart: regular rate and rhythm, normal S1, S2 no murmurs or rubs Abdomen: soft, non-tender, nondistended, normal bowel sounds Back: no vertebral tenderness, no CVAT Extremities: no deformities, moves all extremities symmetrically Neuro: Awake, alert, oriented, normal speech, cranial nerves intact, moves all extremities symmetrically, patient was walking around in the ED Behavioral unit without any difficulty Psych: Pleasant, cooperative Course Course Course Narrative: Time: 07:03 Date: 03/15/25 Provider: Rosanna Johnston DO Patient in physician observation for psychiatric evaluation.? No acute events reported overnight. No current complaints. VS stable.? pending CARE team evaluation. Will continue to monitor. Time: 16:27 Date: 03/15/25 Provider: Dmitry Velásquez MD Patient in physician observation for psychiatric evaluation. No acute events reported overnight.? No current issues or complaints. VS stable. Patient is pending CARE team evaluation. Will continue to monitor. Reevaluation(s) Reevaluation #1: End physician observation at 18:59 hours I assumed care of this patient at change of shift. Care team feels the patient can be discharged and have made arrangements for his mother to pick him up. The patient was discharged without incident. Helio Ramos Time: 18:59 Medications Administered Discontinued Medications Generic Name Dose Route Start Last Admin Trade Name David PRN Reason Stop Dose Admin Clobazam 20 mg 03/14/25 22:45 03/15/25 08:56 Clobazam 10 Mg Tablet PO 20 mg BID DEANNA Administration Fluticasone/Vilanterol 1 puff 03/15/25 08:00 03/15/25 08:57 Fluticasone/Vilanterol 200/25 Blst.W.Dev INHALE 1 puff RDAILY DEANNA Administration Hydroxyzine HCl 50 mg 03/14/25 22:27 03/15/25 10:55 Hydroxyzine Hcl 50 Mg Tablet PO 50 mg BID PRN Administration mild anxiety Lamotrigine 150 mg 03/15/25 09:00 03/15/25 08:56 Lamotrigine 100 Mg Tablet PO 150 mg DAILY DEANNA Administration Montelukast Sodium 10 mg 03/15/25 09:00 03/15/25 08:56 Montelukast Sodium 10 Mg Tablet PO 10 mg DAILY DEANNA Administration Pt Own (Cenobamate [ 150 mg 03/14/25 22:45 03/14/25 22:58 Xcopri] 150 Mg PO 150 mg Tablet) Q2D@2000 DEANNA Administration Pt Own (Lacosamide 150 mg 03/14/25 22:30 03/15/25 08:56 150 Mg Tablet) PO 150 mg BID DEANNA Administration Prazosin HCl 1 mg 03/14/25 22:30 03/14/25 22:58 Prazosin Hcl 1 Mg Capsule PO 1 mg BEDTIME DEANNA Administration Protocol Risperidone 1 mg 03/15/25 09:00 03/15/25 09:02 Risperidone 1 Mg Tablet PO 1 mg DAILY DEANNA Administration Risperidone 4 mg 03/14/25 22:30 03/14/25 22:58 Risperidone 2 Mg Tablet PO 4 mg BEDTIME DEANNA Administration Sertraline HCl 100 mg 03/15/25 09:00 03/15/25 09:02 Sertraline Hcl 100 Mg Tablet PO 100 mg DAILY DEANNA Administration Trazodone HCl 150 mg 03/14/25 22:30 03/14/25 22:58 Trazodone Hcl 50 Mg Tablet PO 150 mg BEDTIME DEANNA Administration Medical Decision Making Medical Decision Making MDM Narrative: 34 yo male, with intellectual disability, mood disorder, PTSD, seizure disorder and non-epileptic seizures who presents emergency department for evaluation of suicidal ideation with plan to either choke himself or cut himself. He states that the symptoms started earlier in the afternoon after he got in a disagreement with a his mother about which television program they were going to watch. Patient states he was had difficulty with sleeping and he was also had a decreased appetite otherwise had no other concerning symptoms. Patient had a recent prolonged psychiatric admission here from 02/20/2025 until 03/08/2025. Patient does have DDS services and is currently living at home with his mother and stepfather. Vital signs revealed an elevated blood pressure otherwise unremarkable. Physical examination was unremarkable. Differential diagnosis: ?Includes but is not limited to suicidal ideation, depression, anemia, electrolyte abnormalities Course: Start physician observation 22:32 Patient was evaluated by the care team. The patient has a psychiatric symptoms are complicated by his current social situation of him living with his mother and stepfather. The care team clinician states that it is difficult to make a decision at this time without talking to the patient's outpatient providers therefore the patient will be kept in the emergency department until he can be re-evaluated in the morning. The patient's outpatient medication regimen was reconciled and I did order his medications. Patient will remain in the emergency department Behavioral Health Unit until disposition can be determined or until patient's symptoms improve over time. My interpretation patient's laboratory evaluation is as follows: CBC was normal. CMP revealed elevation in his AST and ALT of 41 and 48. Urinalysis was negative. Urine tox screen was positive for benzodiazepines. Admission/Observation Consideration of admission/observation: Escalation of care including admission/observation considered (Yes) Lab Data [facility] Lab Attestation statement: I reviewed the patient's lab results. 03/14/25 20:45 03/14/25 20:45 Labs: Lab Results 03/14/25 03/14/25 Range/Units 20:45 22:01 WBC 8.1 (4.8-10.8) X10*3/uL RBC 4.53 L (4.60-5.80) X10*6/uL Hgb 13.5 L (14.0-18.0) g/dl Hct 40.0 L (42.0-52.0) % MCV 88.3 (80.0-98.0) fL MCH 29.8 (27.0-33.0) pg MCHC 33.8 (31.0-36.0) g/dl RDW 13.2 (11.0-16.0) % Plt Count 239 (160-400) X10*3/uL MPV 9.7 (9.4-12.4) fL Immature Gran % (Auto) 0.4 (0.0-0.4) % Neut % (Auto) 68.1 (45-73) % Lymph % (Auto) 22.6 (20-40) % Stephenson % (Auto) 5.8 (2-11) % Eos % (Auto) 2.5 (0-4) % Baso % (Auto) 0.6 (0-2) % Lymph # (Auto) 1.8 (1.2-4.9) X10*3/uL Stephenson # (Auto) 0.5 (0.1-1.2) X10*3/uL Eos # (Auto) 0.2 (0.0-0.4) X10*3/uL Baso # (Auto) 0.1 (0.0-0.2) X10*3/uL Abs Immat Gran (auto) 0.03 (0.00-0.03) X10*3/uL Absolute Neuts (auto) 5.5 (2.0-8.3) x10*3/uL Absolute Nucleated RBC 0.000 (0.0-0.012) X10*3/uL Nucleated RBC % (auto) 0.0 (0.0-0.2) /100WBC Sodium 140 (135-145) mmol/L Potassium 4.0 (3.3-5.1) mmol/L Chloride 103 (96-108) mmol/L Carbon Dioxide 26 (22-29) mmol/L Anion Gap 15 (12-20) BUN 17 H (9-16) mg/dL Creatinine 0.90 (0.5-1.4) mg/dL Estim Creat Clear Calc 78.0 Estimated GFR > 60 Random Glucose 101 (60-115) mg/dL Calcium 9.9 (8.4-10.2) mg/dL Total Bilirubin 0.2 (0.0-1.0) mg/dL AST 41 H (5-37) U/L ALT 48 H (0-40) U/L Alkaline Phosphatase 85 (39-117) U/L Total Protein 7.8 (6.5-8.0) g/dL Albumin 4.5 (3.5-5.0) g/dL Urine Color Yellow Urine Appearance Clear Urine pH 6.0 (5.0-9.0) Ur Specific [place] 1.025 (1.005-1.025) Urine Protein Negative (Neg-Trace) mg/dL Urine Glucose (UA) Negative (Negative) mg/dL Urine Ketones Negative (Negative) mg/dL Urine Blood Negative (Negative) Urine Nitrite Negative (Negative) Ur Leukocyte Esterase Negative (Negative) Salicylates < 5.0 L (15-30) mg/dL Urine Opiates Screen Not Detected (Not Detect) Ur Buprenorphine Scrn Not Detected (Not Detect) ng/mL Ur Oxycodone Screen Not Detected (Not Detect) ng/mL Urine Methadone Screen Not Detected (Not Detect) ng/mL Urine Fentanyl Screen Not Detected (Not Detect) Acetaminophen < 3 (<30) mcg/mL Ur Barbiturates Screen Not Detected (Not Detect) Ur Phencyclidine Scrn Not Detected (Not Detect) Ur Amphetamines Screen Not Detected (Not Detect) U Benzodiazepines Scrn POSITIVE H (Not Detect) Urine Cocaine Screen Not Detected (Not Detect) U Marijuana (THC) Screen Not Detected (Not Detect) Ethyl Alcohol < 10 mg/dL Chronic Conditions Patient?s care impacted by: Other (Intellectual disability, seizures) Discharge Plan Discharge Clinical Impression: Depression Patient Disposition: Home, Self-Care Additional Instructions: Please follow up with your regular doctor and any other regular providers you have. Continue your regular medications. Return to the emergency room if you feel significantly worse. Prescriptions: No Action clonazepam 2 mg Tablet 2 mg PO DAILY MDD MAY REPEAT X1 PRN (Reason: Seizure Activity / anxiety) Rx Instructions: STEP 1 SEIZURE LASTING GREATER THAN 5 MINUTES. GIVE FOR SEIZURE LASTING GREATER THAN 5 MINUTES ONCE SEIZURE HAS ENDED AND CLIENT IS ABLE TO FOLLOW DIRECTIONS TO SWALLOW MEDICATION. MAY REPEAT AT ANY TIME WITHIN 24-HOUR PERIOD FOR SECOND SEIZURE LASTING GREATER THAN 5 MINUTES fluticasone propion-salmeterol [Advair Diskus] 500-50 mcg/dose Blister With Device 1 inh INHALATION BID ibuprofen 400 mg Tablet 400 mg PO Q6H PRN (Reason: Mild Pain (Scale Score 1-4)) albuterol sulfate 90 mcg/actuation Hfa Aerosol Inhaler 2 puff INHALATION Q6H PRN (Reason: SOB) clobazam 20 mg Tablet 20 mg PO BID meclizine 12.5 mg Tablet 12.5 mg PO TID PRN (Reason: MECLIZINE) montelukast 10 mg Tablet 10 mg PO DAILY lacosamide 150 mg Tablet 150 mg PO BID Xcopri 150 mg Tablet 150 mg PO Q2D@2000 lamotrigine [Lamictal] 100 mg Tablet 250 mg PO BEDTIME acetaminophen [Tylenol] 325 mg Tablet 650 mg PO Q8H PRN (Reason: Pain) prazosin 1 mg Capsule 1 mg PO BEDTIME 30 Days Qty: 30 0RF Protocol: Hold for SBP< HOLD for SBP < : 90 hydroxyzine HCl 50 mg Tablet 50 mg PO BID PRN (Reason: mild anxiety) 30 Days Qty: 60 0RF trazodone 150 mg Tablet 150 mg PO BEDTIME 30 Days Qty: 30 0RF docusate sodium 100 mg capsule 100 mg PO DAILY PRN (Reason: Constipation) lamotrigine 150 mg tablet 150 mg PO DAILY risperidone 4 mg tablet 4 mg PO BEDTIME sertraline 100 mg tablet 100 mg PO DAILY risperidone 1 mg tablet 1 mg PO QAM Referrals: Louis Patel MD [Physician] - Interventions: [place]-Suicide Risk Severity Scale Last Done: 03/15/25 00:59 ED Discharge Assessment Last Done: 03/15/25 19:20 Discharge Date/Time: 03/15/25 19:21 Print Language: Greenlandic
[2025-03-14 22:17] LABS: Amphetamine Screen Urine Not Detected (Not Detect); Barbiturates, Urine Not Detected (Not Detect); Benzodiazepines Screen Urine POSITIVE (Not Detect); Buprenorphine Scr Not Detected (Not Detect); Cannabinoid Screen Urine Not Detected (Not Detect); Cocaine Screen Urine Not Detected (Not Detect); Fentanyl, urine Not Detected (Not Detect); Methadone Screen, Urine Not Detected (Not Detect); Opiate Screen Urine Not Detected (Not Detect); Oxycodone Screen Urine Not Detected (Not Detect); Phencyclidine Screen Urine Not Detected (Not Detect)
[2025-03-14 22:58] VITALS: BP 141/70
[2025-03-14] MEDS: risperiDONE 2 MG TABLET 4 MG PO (22:58)
[2025-03-14] MEDS: LACOSAMIDE 150 MG 150 EACH PO (22:58)
[2025-03-14] MEDS: traZODone HCL 50 MG TABLET 150 MG PO (22:58)
[2025-03-14] MEDS: Prazosin HCL 1 MG CAPSULE PO (22:58)
[2025-03-14] MEDS: cloBAZam 10 MG TABLET 20 MG PO (22:58)
[2025-03-14] MEDS: CENOBAMATE 150 MG 150 EACH PO (22:58)
--- NOTE | 2025-03-15 01:29 | PC.NURSE ---
mother called to check on client at 0120 am
--- NOTE | 2025-03-15 06:12 | PC.NURSE ---
t/w started conversing w client and client had turned around and sat self on ground patient did not hit nead nor lose consciousness, patient started conversing nearly immediately and handed staff glasses.
[2025-03-15 06:13] VITALS: BP 151/69; PULSE 63; RESP 16; O2SAT 97
--- NOTE | 2025-03-15 07:00 | PC.NURSE ---
Care of Pt assumed at change of shift. Pt is currently resting quietly and comfortably on mattress. NAD noted. Care Team to follow up this AM for dispo.
[2025-03-15] MEDS: Montelukast Sodium 10 MG TABLET PO (08:56)
[2025-03-15] MEDS: lamoTRIgine 100 MG TABLET 150 MG PO (08:56)
[2025-03-15] MEDS: LACOSAMIDE 150 MG 150 EACH PO (08:56)
[2025-03-15] MEDS: cloBAZam 10 MG TABLET 20 MG PO (08:56)
[2025-03-15] MEDS: Fluticasone/Vilanterol 200/25 BLST.W.DEV 1 PUFF INHALE (08:57)
[2025-03-15] MEDS: risperiDONE 1 MG TABLET PO (09:02)
[2025-03-15] MEDS: Sertraline HCL 100 MG TABLET PO (09:02)
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
[2025-03-15] MEDS: hydrOXYzine HCL 50 MG TABLET PO (10:55)
--- NOTE | 2025-03-15 10:56 | PC.NURSE ---
Pt reports feeling anxious and requests medication for it. Pt given PRN Atarax per JAN.
[2025-03-15 19:20] VITALS: BP 130/76; PULSE 80; RESP 16; TEMP 37; O2SAT 98
--- NOTE | 2025-03-15 21:54 | MHC.CARE ---
Pt was re evaluated today in the ED and found appropriate for discharge. See CARE Team Ongoing assessment from 03/15/25 prior to discharge for additional information on Pt?s presentation and discharge planning.? Radha Cheney - - [phone] Radha called the CARE team starting shortly before 1999, repeatedly asking to speak with this com writer who she was yelling and threatening prior to Pt?s discharge earlier tonight. Radha reported that Pt was actively trying to choke himself with a cord, she would call then hang up and call back. This went on for 4-5 calls. Radha appeared agitated with the CARE team for sending Pt home. Radha made comments throughout the phone call such as: ?If I send him back now will he go back to inpatient and you will keep him overnight?? and ?Why send him if you will not keep him, what am I supposed to do? and asked what time this com writer was working until. Pt could be heard at times talking without distress in the background but sounded away from the phone. Radha refused to let CARE team speak with him and when asked to be put on speaker in order to talk with Pt she stated he did not want to talk. CARE team met with Pt prior to discharge and developed positive rapport, Radha did not allow CARE team to speak with Pt who did not appear to be in distress and continued to report she was right next to Pt and had her fingers by his throat and the cable preventing him from harming himself. There are concerns about Radha's motivations for calling CARE team given her reported current situation as she has a history of refusing DDS services/support and appears solely focused on Pt being placed in IPLOC. Radha could not indicate any triggering events which led to Pt allegedly wrapping a cord around his neck or any interventions or deescalation techniques she attempted to do prior to calling CARE team. Pt was discharged around 191 and lives about 7-10 minutes away, so it is unclear what occurred in the 30 minutes or so from Pt arriving home and Radha calling CARE team.?The clinician asked Radha multiple times ?Are you activial;y watching him try to kill himself in front of you?? Radha declined to answer and stated ?what should I do, if i call 911 they will bring him to hospital but if not going inpatient then what do I do?. CARE team provided Radha with support and reaffirmed multiple times that if Pt is actively harming himself that she needs to call 911 regardless if she can be guaranteed he will go?IPLOC?as that can not be the determining factor. Radha got agitated and started to speak with someone in Tajik. Prior to Radha abruptly hanging up on the CARE team Radha stated ?If he is on a section 12 does that mean he has to go inpatient and be held overnight? Clinician stated a section 12 would indicate he would need to be assessed by the CARE team however disposition at this time could not be discussed. It is likely pt will represent to the ED as he continues to be antagonized in the home as mother remains adement that he needs to remain in the ED. This com writer filed with [facility] as mother continues to not follow treatment recommendations and missed several appointments made upon discharge from [facility] and also has not yet picked up his prescribed medications. It is to be noted that DDS has offered to bring the pt to his appointments and mother refuses to allow her to help or allow him to engage with appropriate community supports. Reference number for [facility] is as follows: [id number]. If pt represents, it is unlikely he would benefit from being readmitted as he intentionally will increase symptoms when not doing well in the home setting, however, pt will be assessed if and when he represents. ED Pod RN was updated and DDS worker was contacted and voicemail was left at this time. Further follow up will occur as needed moving forward.
== END 2025-03-15 19:21 | disposition home or self-care (01) ==
PROVIDERS: Emergency Medicine Emergency Medical Services; Emergency Provider Emergency Medicine
DX: F32.A Depression, unspecified (principal); R45.851 Suicidal ideations; F79 Unspecified intellectual disabilities; F39 Unspecified mood [affective] disorder; F43.10 Post-traumatic stress disorder, unspecified; F41.9 Anxiety disorder, unspecified; Z79.899 Other long term (current) drug therapy
CPT/HCPCS: 36415; 80053; 80143; 80179; 80307; 81003; 85025; 99284; S9485

== ENCOUNTER 2025-03-16 13:21 | Emergency (ER) | payer OTHER, SELFPAY ==
[2025-03-16 13:28] VITALS: BP 130/82; PULSE 84; O2SAT 99
--- NOTE | 2025-03-16 13:43 | ED_ITS ---
HPI - Psych General Chief Complaint: Psychiatric Symptoms Stated Complaint: SI Time Seen by Provider: 03/16/25 13:30 Source: patient, EMS and old records reviewed Mode of arrival: EMS Limitations: no limitations History of Present Illness ED Provider: PAIGE BAEZA Narrative: 34 yo male with PMH of seizures, TBI, PTSD, mood disorder, intellectual disability who c/o again trying to hang himself by wrapping an electrical cord around his neck. He then states he is going to steal his uncles gun who is a harbor [employer] launch commander to shoot himself. He states he has been taking all of his medications as prescribed. He is future oriented and wants to make sure we know he has night meds as well. No HI. No drug use. MD complaint: suicidal ideation Onset (ago): week(s) Duration: intermittent History of same: Yes Relieving factors: none Exacerbating factors: none Associated psychiatric symptoms: depression and suicidal ideation Associated symptoms: denies other symptoms Treatments prior to arrival: none If self harm: admits thoughts of self harm and has plan Related Data Home Medications ?Medication ?Instructions ?Recorded ?Confirmed albuterol sulfate 90 mcg/actuation 2 puff inhalation Q6H PRN SOB 02/17/25 03/16/25 aerosol inhaler cenobamate 150 mg tablet (Xcopri) 150 mg PO Q2D@199902/17/25 03/16/25 clobazam 20 mg tablet 20 mg PO BID 02/17/25 03/16/25 clonazepam 2 mg tablet 2 mg PO DAILY PRN Seizure Activity 02/17/25 03/16/25 / anxiety fluticasone 500 mcg-salmeterol 50 1 inh inhalation BID 02/17/25 03/16/25 mcg/dose blistr powdr for inhalation (Advair Diskus) ibuprofen 400 mg tablet 400 mg PO Q6H PRN Mild Pain (Scale 02/17/25 03/16/25 Score 1-4) lacosamide 150 mg tablet 150 mg PO BID 02/17/25 03/16/25 lamotrigine 100 mg tablet 250 mg PO BEDTIME 02/17/25 03/16/25 (Lamictal) meclizine 12.5 mg tablet 12.5 mg PO TID PRN MECLIZINE 02/17/25 03/16/25 montelukast 10 mg tablet 10 mg PO DAILY 02/17/25 03/16/25 acetaminophen 325 mg tablet 650 mg PO Q8H PRN Pain 02/18/25 03/16/25 (Tylenol) lamotrigine 150 mg tablet 150 mg PO DAILY 03/09/25 03/16/25 risperidone 1 mg tablet 1 mg PO QAM 03/09/25 03/16/25 risperidone 4 mg tablet 4 mg PO BEDTIME 03/09/25 03/16/25 sertraline 100 mg tablet 100 mg PO DAILY 03/09/25 03/16/25 docusate sodium 100 mg capsule 100 mg PO DAILY PRN Constipation 03/17/25 03/17/25 Previous Rx's ?Medication ?Instructions ?Recorded hydroxyzine HCl 50 mg tablet 50 mg PO BID PRN mild anxiety 30 03/01/25 days #60 tabs prazosin 1 mg capsule 1 mg PO BEDTIME 30 days #30 caps 03/01/25 trazodone 150 mg tablet 150 mg PO BEDTIME 30 days #30 tabs 03/01/25 Allergies Allergy/AdvReac Type Severity Reaction Status Date / Time lorazepam [From Ativan] Allergy Unknown Unknown Verified 03/16/25 13:49 quetiapine [From Seroquel] AdvReac Agitated Verified 03/16/25 13:49 Review of Systems 2 Review of Systems: Constitutional : No Fever, No Chills ENT/Mouth : No Ear Pain, No Nasal Congestion, No sore throat Eyes: No Eye Pain, No Swelling, No Redness Cardiovascular : No Chest Pain, No SOB Respiratory : No Cough, No Sputum, No Dyspnea Gastrointestinal : No Nausea, No Vomiting, No Diarrhea, No Hematochezia, No Melena Genitourinary : No Dysuria, No Urinary Frequency, No Hematuria Musculoskeletal : No Myalgias Skin : No Skin Lesions, No rash Neuro : No Weakness, No Numbness, No Paresthesias, No Dizziness, No Headache Psych : positive Anxiety, positive Depression, positive SI no HI All other systems reviewed and are negative PMFSH Past Medical History Attestation statement: The following information was validated with the patient. Source: old records reviewed Medical History Intellectual disability Mood disorder Psychogenic nonepileptic seizure Acquired cognitive dysfunction Seizure disorder Social History Social History Household Members: Family Housing: Apartment Do you presently have visiting nurse or other home services: No Alcohol intake: never Comment: 1 to 1 for fall safety Patient Tobacco Use Status: Never used Tobacco e-Cigarette/Vaping Use: Never Used Second Hand Smoke Exposure: No service: No Sexual orientation: Straight/Heterosexual Physical Exam 2 Vital Signs: Vital Signs: Last Vital Signs Temp 98.1 F 03/20/25 20:18 Pulse 72 03/20/25 20:18 Resp 16 03/20/25 20:18 BP 134/70 03/20/25 20:18 Pulse Ox 98 03/20/25 20:18 O2 Del Method Room Air 03/20/25 20:18 BMI result Body Mass Index 30.5 Appearance: Alert. Oriented X3. No acute distress. Very flat affect Eyes: Pupils equal, round and reactive to light. ENT: Pharynx normal. no hyoid ttp, no mass, no diff swallowing, no signs of trauma externally, normal voice Neck: Normal inspection. Neck supple. CVS: Normal heart rate and rhythm. Pulses normal. Respiratory: No respiratory distress. Breath sounds normal. Abdomen: Soft and nontender. Skin: Skin warm and dry. Normal skin color. Normal skin turgor. Extremities: No lower extremity edema. No calf ttp Neuro: Oriented X 3. No motor deficit. No sensory deficit. CN2-12 intact Course Reevaluation(s) Reevaluation #1: Time: 08:05 Date: 03/17/25 Provider: Jan Wilson MD Patient in physician observation for psychiatric evaluation.? No acute events reported overnight. No current complaints. VS stable.?Pending CARE team evaluation. Will continue to monitor. Time: 08:05 Reevaluation #2: Time: 09:09 Date: 03/19/25 Provider: JUANCARLOS Ruiz Patient in physician observation for psychiatric evaluation.? No acute events reported overnight. No current complaints. VS stable.? Patient is in bed search status, recommending DDS respite. Will continue to monitor. Reevaluation #3: Time: 20:00 Date: 03/20/25 Provider: Rosanna Johnston DO Physician observation ended at 1999 patient to be admitted as inpatient to psychiatry [facility] Medications Administered Discontinued Medications Generic Name Dose Route Start Last Admin Trade Name Freq PRN Reason Stop Dose Admin Clobazam 20 mg 03/16/25 21:00 03/20/25 08:51 Clobazam 10 Mg Tablet PO 20 mg BID DEANNA Administration Clonazepam 2 mg 03/16/25 18:18 03/19/25 09:46 Clonazepam 1 Mg Tablet PO 2 mg DAILY PRN Administration Seizure Activity / anxiety Fluticasone/Vilanterol 1 puff 03/17/25 08:00 03/20/25 08:07 Fluticasone/Vilanterol 200/25 Blst.W.Dev INHALE 1 puff RDAILY DEANNA Administration Hydroxyzine HCl 50 mg 03/16/25 18:18 03/19/25 08:44 Hydroxyzine Hcl 50 Mg Tablet PO 50 mg BID PRN Administration mild anxiety Lamotrigine 250 mg 03/16/25 21:00 03/19/25 21:29 Lamotrigine 100 Mg Tablet PO 250 mg BEDTIME DEANNA Administration Lamotrigine 150 mg 03/17/25 09:00 03/20/25 08:08 Lamotrigine 100 Mg Tablet PO 150 mg DAILY DEANNA Administration Montelukast Sodium 10 mg 03/17/25 09:00 03/20/25 08:51 Montelukast Sodium 10 Mg Tablet PO 10 mg DAILY DEANNA Administration Pt Own (Cenobamate [ 150 mg 03/16/25 20:00 03/18/25 21:22 Xcopri] 150 Mg PO 150 mg Tablet) Q2D@2000 DEANNA Administration Pt Own (Lacosamide 150 mg 03/16/25 21:00 03/20/25 08:51 150 Mg Tablet) PO 150 mg BID DEANNA Administration Olanzapine 10 mg 03/17/25 11:22 03/17/25 11:25 Olanzapine 10 Mg Tablet PO 03/17/25 11:23 10 mg ONCE ONE Administration Olanzapine 5 mg 03/18/25 14:34 03/18/25 14:54 Olanzapine 5 Mg Tablet PO 03/18/25 14:35 5 mg ONCE ONE Administration Prazosin HCl 1 mg 03/16/25 21:00 03/19/25 21:30 Prazosin Hcl 1 Mg Capsule PO 1 mg BEDTIME DEANNA Administration Protocol Risperidone 4 mg 03/16/25 21:00 03/19/25 21:31 Risperidone 2 Mg Tablet PO 4 mg BEDTIME DEANNA Administration Risperidone 1 mg 03/17/25 09:00 03/20/25 08:08 Risperidone 1 Mg Tablet PO 1 mg DAILY DEANNA Administration Sertraline HCl 100 mg 03/17/25 09:00 03/20/25 08:08 Sertraline Hcl 100 Mg Tablet PO 100 mg DAILY DEANNA Administration Trazodone HCl 150 mg 03/16/25 21:00 03/19/25 21:32 Trazodone Hcl 50 Mg Tablet PO 150 mg BEDTIME DEANNA Administration Medical Decision Making Medical Decision Making [facility] Narrative: 34 yo male with PMH of seizures, TBI, PTSD, mood disorder, intellectual disability who c/o SI with plan he denies any overdose. At this time there is no redness to the neck, no pain with swallowing, no signs of cervical or airway/soft tissue trauma. At this time will need labs and CARE team consult Differential Diagnosis Differential Diagnoses: The differential diagnosis associated with the presentation includes Admission/Observation Consideration of admission/observation: Escalation of care including admission/observation considered physician observation started at 155pm pending CARE team Consult Healthcare Provider Management of the patient was discussed with: Behavioral Health Provider Lab Data [facility] Lab Attestation statement: I reviewed the patient's lab results. 03/16/25 13:52 03/16/25 13:52 Labs: Lab Results 03/16/25 03/16/25 03/20/25 Range/Units 13:52 20:07 08:08 WBC 6.7 (4.8-10.8) X10*3/uL RBC 4.81 (4.60-5.80) X10*6/uL Hgb 14.5 (14.0-18.0) g/dl Hct 43.5 (42.0-52.0) % MCV 90.4 (80.0-98.0) fL MCH 30.1 (27.0-33.0) pg MCHC 33.3 (31.0-36.0) g/dl RDW 13.2 (11.0-16.0) % Plt Count 243 (160-400) X10*3/uL MPV 9.8 (9.4-12.4) fL Immature Gran % (Auto) 0.3 (0.0-0.4) % Neut % (Auto) 62.1 (45-73) % Lymph % (Auto) 28.5 (20-40) % [place] % (Auto) 5.6 (2-11) % Eos % (Auto) 2.8 (0-4) % Baso % (Auto) 0.7 (0-2) % Lymph # (Auto) 1.9 (1.2-4.9) X10*3/uL [place] # (Auto) 0.4 (0.1-1.2) X10*3/uL Eos # (Auto) 0.2 (0.0-0.4) X10*3/uL Baso # (Auto) 0.1 (0.0-0.2) X10*3/uL Abs Immat Gran (auto) 0.02 (0.00-0.03) X10*3/uL Absolute Neuts (auto) 4.2 (2.0-8.3) x10*3/uL Absolute Nucleated RBC 0.000 (0.0-0.012) X10*3/uL Nucleated RBC % (auto) 0.0 (0.0-0.2) /100WBC Sodium 142 (135-145) mmol/L Potassium 4.1 (3.3-5.1) mmol/L Chloride 106 (96-108) mmol/L Carbon Dioxide 28 (22-29) mmol/L Anion Gap 12 (12-20) BUN 15 (9-16) mg/dL Creatinine 0.87 (0.5-1.4) mg/dL Estim Creat Clear Calc 94.7 Estimated GFR > 60 Random Glucose 104 (60-115) mg/dL Calcium 9.7 (8.4-10.2) mg/dL Magnesium 2.0 (1.6-2.6) mg/dL Total Bilirubin 0.3 (0.0-1.0) mg/dL Direct Bilirubin 0.1 (0.0-0.5) mg/dL AST 33 (5-37) U/L ALT 54 H (0-40) U/L Alkaline Phosphatase 80 (39-117) U/L Total Protein 7.4 (6.5-8.0) g/dL Albumin 4.3 (3.5-5.0) g/dL Urine Color Yellow Urine Appearance Clear Urine pH 6.0 (5.0-9.0) Ur Specific Justice 1.025 (1.005-1.025) Urine Protein Negative (Neg-Trace) mg/dL Urine Glucose (UA) Negative (Negative) mg/dL Urine Ketones Negative (Negative) mg/dL Urine Blood Negative (Negative) Urine Nitrite Negative (Negative) Ur Leukocyte Esterase Negative (Negative) Urine RBC 0-2 (0-2) /HPF Urine WBC 0-5 (0-5) /HPF Ur Squamous Epith Cells 0-2 (0-2) /HPF Urine Bacteria None Seen (None Seen) Hyaline Casts 0-2 (0-2) /LPF Urine Opiates Screen Not Detected (Not Detect) Ur Buprenorphine Scrn Not Detected (Not Detect) ng/mL Ur Oxycodone Screen Not Detected (Not Detect) ng/mL Urine Methadone Screen Not Detected (Not Detect) ng/mL Urine Fentanyl Screen Not Detected (Not Detect) Ur Barbiturates Screen Not Detected (Not Detect) Ur Phencyclidine Scrn Not Detected (Not Detect) Ur Amphetamines Screen Not Detected (Not Detect) U Benzodiazepines Scrn POSITIVE H (Not Detect) Urine Cocaine Screen Not Detected (Not Detect) U Marijuana (THC) Screen Not Detected (Not Detect) Independent Historian Clinical information obtained from an independent historian. History obtained from or confirmed by: EMS External Record Review External record reviewed: Inpatient record and Outpatient record Discharge Plan Discharge Clinical Impression: Mood disorder, MDD (major depressive disorder) Patient Disposition: Xfer Psychiatric Hosp Transfer Details: [facility] Prescriptions: No Action clonazepam 2 mg Tablet 2 mg PO DAILY MDD MAY REPEAT X1 PRN (Reason: Seizure Activity / anxiety) Rx Instructions: STEP 1 SEIZURE LASTING GREATER THAN 5 MINUTES. GIVE FOR SEIZURE LASTING GREATER THAN 5 MINUTES ONCE SEIZURE HAS ENDED AND CLIENT IS ABLE TO FOLLOW DIRECTIONS TO SWALLOW MEDICATION. MAY REPEAT AT ANY TIME WITHIN 24-HOUR PERIOD FOR SECOND SEIZURE LASTING GREATER THAN 5 MINUTES fluticasone propion-salmeterol [Advair Diskus] 500-50 mcg/dose Blister With Device 1 inh INHALATION BID ibuprofen 400 mg Tablet 400 mg PO Q6H PRN (Reason: Mild Pain (Scale Score 1-4)) albuterol sulfate 90 mcg/actuation Hfa Aerosol Inhaler 2 puff INHALATION Q6H PRN (Reason: SOB) clobazam 20 mg Tablet 20 mg PO BID meclizine 12.5 mg Tablet 12.5 mg PO TID PRN (Reason: MECLIZINE) montelukast 10 mg Tablet 10 mg PO DAILY lacosamide 150 mg Tablet 150 mg PO BID Xcopri 150 mg Tablet 150 mg PO Q2D@2000 lamotrigine [Lamictal] 100 mg Tablet 250 mg PO BEDTIME acetaminophen [Tylenol] 325 mg Tablet 650 mg PO Q8H PRN (Reason: Pain) prazosin 1 mg Capsule 1 mg PO BEDTIME 30 Days Qty: 30 0RF Protocol: Hold for SBP< HOLD for SBP < : 90 hydroxyzine HCl 50 mg Tablet 50 mg PO BID PRN (Reason: mild anxiety) 30 Days Qty: 60 0RF trazodone 150 mg Tablet 150 mg PO BEDTIME 30 Days Qty: 30 0RF docusate sodium 100 mg capsule 100 mg PO DAILY PRN (Reason: Constipation) lamotrigine 150 mg tablet 150 mg PO DAILY risperidone 4 mg tablet 4 mg PO BEDTIME sertraline 100 mg tablet 100 mg PO DAILY risperidone 1 mg tablet 1 mg PO QAM Interventions: Whitman-Suicide Risk Severity Scale Last Done: 03/20/25 07:27 Acute Care Transfer Worksheet (ED) Last Done: 03/20/25 20:18 Discharge Date/Time: 03/20/25 20:22 Print Language: Faroese
[2025-03-16 13:46] VITALS: BP 100/60; PULSE 87; RESP 16; TEMP 36.8; O2SAT 98; BMI 30.5
[2025-03-16 13:58] LABS: MANUAL DIFF FLAG NO
[2025-03-16 13:59] LABS: Basophils Absolute Auto 0.1 X10*3/uL (0.0-0.2); Basophils Percent Auto 0.7 % (0-2); Eosinophils Absolute Auto 0.2 X10*3/uL (0.0-0.4); Eosinophils Percent Auto 2.8 % (0-4); Hematocrit 43.5 % (42.0-52.0); Hemoglobin 14.5 g/dl (14.0-18.0); Imm Gran Abs Auto 0.02 X10*3/uL (0.00-0.03); Imm Gran Pct Auto 0.3 % (0.0-0.4); Lymphocytes Absolute Auto 1.9 X10*3/uL (1.2-4.9); Lymphocytes Percent Auto 28.5 % (20-40); Mean Corpuscular HGB Conc 33.3 g/dl (31.0-36.0); Mean Corpuscular Hemoglobin 30.1 pg (27.0-33.0); Mean Corpuscular Volume 90.4 fL (80.0-98.0); Mean Platelet Volume 9.8 fL (9.4-12.4); Monocytes Absolute Auto 0.4 X10*3/uL (0.1-1.2); Monocytes Percent Auto 5.6 % (2-11); Neutrophils Absolute Auto 4.2 x10*3/uL (2.0-8.3); Neutrophils Percent Auto 62.1 % (45-73); Platelet Count 243 X10*3/uL (160-400); Red Blood Count 4.81 X10*6/uL (4.60-5.80); Red Cell Distribution Width 13.2 % (11.0-16.0); White Blood Count 6.7 X10*3/uL (4.8-10.8)
[2025-03-16 14:15] LABS: Alanine Aminotransferase 54 U/L (0-40); Albumin Level 4.3 g/dL (3.5-5.0); Alkaline Phosphatase 80 U/L (39-117); Anion Gap 12 (12-20); Aspartate Amino Transferase 33 U/L (5-37); Bilirubin Direct 0.1 mg/dL (0.0-0.5); Bilirubin Total 0.3 mg/dL (0.0-1.0); Blood Urea Nitrogen 15 mg/dL (9-16); Calcium 9.7 mg/dL (8.4-10.2); Carbon Dioxide 28 mmol/L (22-29); Chloride 106 mmol/L (96-108); Creatinine Clr Calc Pharmacy 94.7; Estimated Glomerular Filt Rate > 60; Glucose Random 104 mg/dL (60-115); Potassium 4.1 mmol/L (3.3-5.1); Sodium 142 mmol/L (135-145); Total Protein 7.4 g/dL (6.5-8.0)
--- NOTE | 2025-03-16 14:24 | PC.NURSE ---
CARE Team contacts pt?s mother Ms. Radha Cheney.? Ms. Cheney who advises CARE Team that pt needs to be kept here.? She reports that yesterday pt attempted to strangle himself and today he attempted to hang himself.? Ms. Cheney reports pt was dangling, feet off the ground, from the roof. CARE Team contacted the RN in the behavioral health pod and inquired about ligature lucas and any potential medical care needed as a result of the hanging.? Pod RN stated that there was no evidence of ligature lucas, or redness, indication of cordage having been around his neck.? She reports that the ED provider did a very thorough examination of the area. CARE Team asked if pt has been medication adherent and inquired as to whether or not the family had been able to collect his medications.? She reported he has been taking his medications and they had picked them up from the pharmacy.? Ms. Cheney was advised that [facility] offers mail delivery of medications and she was encouraged to explore that option as transportation is difficult. A call to the POD RN was made, there has been one medication filled on 07/08/25 the date f his discharge from the unit.? No other meds were filled.? Prior to the the last time his meds were picked up was 03/01. CARE Team asked if she was having difficulty caring for pt and if it was more workn than she had suspected to which she answered ?Yes? then she abruptly ended the call stating she had a therapy appointment.
--- OUTSIDE RECORDS SUMMARY | 2025-03-16 15:34 | XMS_ITS | Clinical Summary ---
Author Organization [facility] Address [address] [place] [address] Care Team Providers Care Fiber Optic Splicer Name Role Phone Unknown Primary Care Provider [id number] -[phone] Allergies No known active allergies Medications No known medications Social History Tobacco Use Types Packs/Day Years Used Date Smoking Tobacco: Never Assessed Sex and Gender Information Value Date Recorded Sex Assigned at Not on file Legal Sex Male 8:19 PM EDT Gender Identity Not on file Sexual Orientation [...] on patient's age to complete this topic Insurance [facility] COMMERCIAL MEDICAID OUT OF STATE [facility] Care Teams Fiber Optic Splicer Relationship Specialty Start Date End Date Unknown Unknow Provider Address PCP - General 04/01/21
[2025-03-16 18:04] VITALS: RESP 16
[2025-03-16] MEDS: clonazePAM 1 MG TABLET 2 MG PO (18:49)
--- NOTE | 2025-03-16 18:50 | PC.NURSE ---
patient reports he feels like a seizure is coming on and also feeling anxious. patient noted to be tremulous, medicated w/ prn klonopin per order.
[2025-03-16] MEDS: CENOBAMATE 150 MG 150 EACH PO (20:23)
[2025-03-16] MEDS: risperiDONE 2 MG TABLET 4 MG PO (20:23)
[2025-03-16] MEDS: LACOSAMIDE 150 MG 150 EACH PO (20:23)
[2025-03-16 20:24] VITALS: BP 100/60
[2025-03-16] MEDS: cloBAZam 10 MG TABLET 20 MG PO (20:24)
[2025-03-16] MEDS: Prazosin HCL 1 MG CAPSULE PO (20:24)
[2025-03-16] MEDS: lamoTRIgine 100 MG TABLET 250 MG PO (20:24)
[2025-03-16] MEDS: traZODone HCL 50 MG TABLET 150 MG PO (20:24)
[2025-03-16 20:30] LABS: Amphetamine Screen Urine Not Detected (Not Detect); Barbiturates, Urine Not Detected (Not Detect); Benzodiazepines Screen Urine POSITIVE (Not Detect); Buprenorphine Scr Not Detected (Not Detect); Cannabinoid Screen Urine Not Detected (Not Detect); Cocaine Screen Urine Not Detected (Not Detect); Fentanyl, urine Not Detected (Not Detect); Methadone Screen, Urine Not Detected (Not Detect); Opiate Screen Urine Not Detected (Not Detect); Oxycodone Screen Urine Not Detected (Not Detect); Phencyclidine Screen Urine Not Detected (Not Detect)
--- NOTE | 2025-03-16 21:21 | MHC.EDTECH ---
jann maynard [facility] [phone]. looking to talk w/ pt
--- NOTE | 2025-03-16 23:40 | PC.NURSE ---
Addendum entered by Sugey Willams 03/16/25 23:55: Spoke to Radha, Pt mother who request to be called for patient dispo. If no answer on her cell phone, new number provided [phone]. Original Note: This production underwriter assumed care of this Pt at 2300. Pt appears to be sleeping, equal, non labored respirations. Plan of care on going.
--- NOTE | 2025-03-17 03:00 | PC.NURSE ---
Pt awake, calm and cooperative, ambulated independently with slow steady gait to BR.
--- NOTE | 2025-03-17 05:12 | PC.NURSE ---
Pt awake, sitting out in milieu, per MHT Pt put self on floor, redirectable. Given water per request.
[2025-03-17 06:21] VITALS: BP 113/70; PULSE 84; RESP 20; TEMP 36.6; O2SAT 96
[2025-03-17] MEDS: lamoTRIgine 100 MG TABLET 150 MG PO (08:50)
[2025-03-17] MEDS: risperiDONE 1 MG TABLET PO (08:50)
[2025-03-17] MEDS: cloBAZam 10 MG TABLET 20 MG PO ×2 (08:50→20:05)
[2025-03-17] MEDS: Montelukast Sodium 10 MG TABLET PO (08:50)
[2025-03-17] MEDS: Sertraline HCL 100 MG TABLET PO (08:51)
--- NOTE | 2025-03-17 09:03 | PHA.MEDREC ---
Pharmacy Consult ? Medication Reconciliation Pharmacy has completed the medication reconciliation. MED REC DONE USING DISCHARGE PAPERWORK FROM 03/08, 03/15, AND 03/16 FROM THIS FACILITY ALONG WITH CLAIM HISTORY. OF NOTE, LAST DOSE OF XCOPRI GIVEN IN THIS HOSPITAL ON 03/16 (EVERY OTHER DAY DOSING)
[2025-03-17] MEDS: Fluticasone/Vilanterol 200/25 BLST.W.DEV 1 PUFF INHALE (09:47)
[2025-03-17] MEDS: LACOSAMIDE 150 MG 150 EACH PO ×2 (09:47→20:05)
--- NOTE | 2025-03-17 11:19 | PC.NURSE ---
pt agitated, having visual and auditory hallucinations about people coming to rape him. MD Wilson aware
[2025-03-17] MEDS: OLANZapine 10 MG TABLET PO (11:25)
--- NOTE | 2025-03-17 13:48 | PC.NURSE ---
pt sleeping, RR even and unlabored, no apparent distress noted
[2025-03-17 19:37] VITALS: BP 115/75; PULSE 87; RESP 18; TEMP 36.6; O2SAT 96
[2025-03-17] MEDS: traZODone HCL 50 MG TABLET 150 MG PO (20:05)
[2025-03-17] MEDS: lamoTRIgine 100 MG TABLET 250 MG PO (20:05)
[2025-03-17] MEDS: Prazosin HCL 1 MG CAPSULE PO (20:07)
[2025-03-17] MEDS: risperiDONE 2 MG TABLET 4 MG PO (20:07)
[2025-03-18 03:19] VITALS: BP 116/74; PULSE 82; RESP 16; TEMP 36.4; O2SAT 96
[2025-03-18] MEDS: Montelukast Sodium 10 MG TABLET PO (09:12)
[2025-03-18] MEDS: Sertraline HCL 100 MG TABLET PO (09:12)
[2025-03-18] MEDS: risperiDONE 1 MG TABLET PO (09:12)
[2025-03-18] MEDS: lamoTRIgine 100 MG TABLET 150 MG PO (09:12)
[2025-03-18] MEDS: cloBAZam 10 MG TABLET 20 MG PO ×2 (09:12→22:10)
[2025-03-18] MEDS: Fluticasone/Vilanterol 200/25 BLST.W.DEV 1 PUFF INHALE (09:13)
[2025-03-18] MEDS: LACOSAMIDE 150 MG 150 EACH PO ×2 (10:27→21:22)
--- NOTE | 2025-03-18 13:15 | PC.NURSE ---
pt responding to internal stimuli. Repeats that someone is trying to take his food. Points to the wall and states dont take my food!
[2025-03-18] MEDS: hydrOXYzine HCL 50 MG TABLET PO (13:31)
[2025-03-18] MEDS: OLANZapine 5 MG TABLET PO (14:54)
[2025-03-18 20:51] VITALS: BP 135/65
[2025-03-18] MEDS: risperiDONE 2 MG TABLET 4 MG PO (20:51)
[2025-03-18] MEDS: traZODone HCL 50 MG TABLET 150 MG PO (20:51)
[2025-03-18] MEDS: lamoTRIgine 100 MG TABLET 250 MG PO (20:51)
[2025-03-18] MEDS: Prazosin HCL 1 MG CAPSULE PO (20:51)
[2025-03-18] MEDS: CENOBAMATE 150 MG 150 EACH PO (21:22)
--- NOTE | 2025-03-19 | ECG_ITS ---
Test Reason : MEDICAL CLEARANCE Blood Pressure : */* mmHG Vent. Rate : 82 BPM Atrial Rate : 82 BPM P-R Int : 158 ms QRS Dur : 106 ms QT Int : 380 ms P-R-T Axes : 73 84 49 degrees QTcB Int : 443 ms Normal sinus rhythm Incomplete right bundle branch block Borderline ECG When compared with ECG of 24-Feb-2025 21:56, No significant changes seen Referred By: Rosanna Johnston Electronically Signed By: SALLIE DEAN
[2025-03-19 06:00] VITALS: RESP 16
--- NOTE | 2025-03-19 06:12 | PC.NURSE ---
Patient slept through the night, no distress observed/reported, 15 minutes safety check, no behavior and safety concerns, meds and meals compliant, disposition per care team is section-12 [facility] respite bed search, will continue to monitor
[2025-03-19] MEDS: Montelukast Sodium 10 MG TABLET PO (08:44)
[2025-03-19] MEDS: lamoTRIgine 100 MG TABLET 150 MG PO (08:44)
[2025-03-19] MEDS: hydrOXYzine HCL 50 MG TABLET PO (08:44)
[2025-03-19 08:49] VITALS: BP 113/77; PULSE 83; RESP 18; TEMP 36.5; O2SAT 98
[2025-03-19] MEDS: cloBAZam 10 MG TABLET 20 MG PO ×2 (08:52→21:29)
[2025-03-19] MEDS: LACOSAMIDE 150 MG 150 EACH PO ×2 (08:53→21:29)
[2025-03-19] MEDS: clonazePAM 1 MG TABLET 2 MG PO (09:46)
[2025-03-19] MEDS: Fluticasone/Vilanterol 200/25 BLST.W.DEV 1 PUFF INHALE (09:46)
[2025-03-19] MEDS: risperiDONE 1 MG TABLET PO (09:57)
[2025-03-19] MEDS: Sertraline HCL 100 MG TABLET PO (09:57)
--- NOTE | 2025-03-19 12:03 | PC.NURSE ---
Pt cooperative with care; pt ambulatory in hallway; some agitation earlier in the day when pt was in his room, pointing to the corner saying he's going to kill me ; pt verbally reassured by staff and rediredted out of his room to be near staff for pt's comfort
--- NOTE | 2025-03-19 12:41 | MHC.EDTECH ---
pt took a shower upon request
--- NOTE | 2025-03-19 18:39 | PC.NURSE ---
Patients mother called to see if we could be more aware of his meal choices, and increase the variety he reported to her that he has only been offered hamburgs and sandwiches. POD RN made aware
--- NOTE | 2025-03-19 19:17 | PC.NURSE ---
patient appears relaxed in milieu making phone calls periodically, patient and redirectable
[2025-03-19 21:17] VITALS: BP 109/64; PULSE 72; RESP 16; TEMP 36.3; O2SAT 97
[2025-03-19] MEDS: lamoTRIgine 100 MG TABLET 250 MG PO (21:29)
[2025-03-19 21:30] VITALS: BP 109/64
[2025-03-19] MEDS: Prazosin HCL 1 MG CAPSULE PO (21:30)
[2025-03-19] MEDS: risperiDONE 2 MG TABLET 4 MG PO (21:31)
[2025-03-19] MEDS: traZODone HCL 50 MG TABLET 150 MG PO (21:32)
--- NOTE | 2025-03-20 04:14 | MHC.EDTECH ---
pt appeared to lower self to floor, t/w and other tech Chris responded to room where pt was observed laying on the ground next to the bed. t/w assisted pt back into bed where pt requested the mattress be placed on the floor. mattress placed on the floor to prevent pt from falling off bed again. RN AWARE.
--- NOTE | 2025-03-20 07:31 | PC.NURSE ---
Assumed care of patient at 0645, patient appears to be in no apparent distress this am, sitting on mattress on floor, offering no complaints to this RN. Continue plan of care for DDS bedsearch
[2025-03-20 07:58] VITALS: BP 109/63; PULSE 97; RESP 16; TEMP 36.7; O2SAT 97
[2025-03-20] MEDS: Fluticasone/Vilanterol 200/25 BLST.W.DEV 1 PUFF INHALE (08:07)
[2025-03-20] MEDS: Sertraline HCL 100 MG TABLET PO (08:08)
[2025-03-20] MEDS: risperiDONE 1 MG TABLET PO (08:08)
[2025-03-20] MEDS: lamoTRIgine 100 MG TABLET 150 MG PO (08:08)
[2025-03-20 08:18] LABS: Appearance Urine Clear; Color Urine Yellow; Glucose Urine UA Negative (Negative); Leukocyte Esterase Urine Negative (Negative); Nitrite Urine Negative (Negative); Specific Gravity - Urine 1.025 (1.005-1.025); Urine Blood Negative (Negative); Urine Ketones Negative (Negative); Urine Protein Negative (Neg-Trace)
[2025-03-20 08:20] LABS: Bacteria Urine None Seen (None Seen); Hyaline Casts Urine 0-2 /LPF (0-2); RBC Urine 0-2 /HPF (0-2); Squamous Epithelial Cell Urine 0-2 /HPF (0-2); WBC Urine 0-5 /HPF (0-5)
[2025-03-20] MEDS: LACOSAMIDE 150 MG 150 EACH PO (08:51)
[2025-03-20] MEDS: Montelukast Sodium 10 MG TABLET PO (08:51)
[2025-03-20] MEDS: cloBAZam 10 MG TABLET 20 MG PO (08:51)
--- NOTE | 2025-03-20 15:50 | MHC.CARE ---
[facility] accepted to [facility] [place] [address], Accepting is Dr. Guerra ETA 6pm
--- NOTE | 2025-03-20 20:13 | MHC.EDTECH ---
Called wilam to check on eta @1924- was told 30 mins max until pickup. Called wilma back @1955 and was given 1 hour eta. Infomred rn then checked again to see if anything sooner was possible. given a new eta at this time of 35 mins. crew arrived @2013
[2025-03-20 20:18] VITALS: BP 134/70; PULSE 72; RESP 16; TEMP 36.7; O2SAT 98
== END 2025-03-20 20:22 ==
PROVIDERS: Emergency Provider Emergency Medicine; PCP Internal Medicine
DX: F32.9 Major depressive disorder, single episode, unspecified (principal); R45.851 Suicidal ideations; F39 Unspecified mood [affective] disorder; F41.9 Anxiety disorder, unspecified; F43.10 Post-traumatic stress disorder, unspecified; F79 Unspecified intellectual disabilities; F44.5 Conversion disorder with seizures or convulsions; R27.0 Ataxia, unspecified; Z87.820 Personal history of traumatic brain injury; Z79.899 Other long term (current) drug therapy
CPT/HCPCS: 36415; 80048; 80076; 80307; 81001; 83735; 85025; 93005; 99285; S9485

== ENCOUNTER → 2025-03-19 16:16 | Outpatient (BNV) | payer OTHER, SELFPAY | PROVIDERS: Emergency Provider Emergency Medicine; PCP Internal Medicine; Visit Provider Internal Medicine | DX: I45.10 Unspecified right bundle-branch block (principal) | CPT/HCPCS: 93010 ==